=== PATIENT | male | born 1970 | race Caucasian/White ===

== ENCOUNTER → 2019-11-20 12:39 | Outpatient (POV) | payer BC, SELFPAY ==
[2019-11-20 13:12] VITALS: BP 135/95; PULSE 114; RESP 18; TEMP 36.8; O2SAT 99; BMI 44.1
--- NOTE | 2019-11-21 16:20 | HMH.PMCON ---
Assessment and Plan (1) Back pain Current visit: Yes Status: Chronic Qualifiers: Back pain location: low back pain Chronicity: chronic Back pain laterality: bilateral Category: Medical Code(s): M54.9 - Dorsalgia, unspecified - Assessment and plan all Dx Assessment and Plan for all problems:: We will schedule the patient for an MRI to help determine pathology and a plan of care for the patient. I will follow-up with him after this reassess his symptoms at that time he has been instructed to call the office if he has any issues prior to his next appointment. Dr. George has reviewed this note and agrees with this plan of care. This note was dictated using voice recognition software and may contain errors or omissions HPI - Data of Consult Consult date: 11/20/19 Requesting Physician: Shelley Kumar APRN Primary Care Provider: Carlo Rm MD - Consult Narrative Reason for consult: back pain History of present illness: Mr. Ackerman is a 49 year old male who presents today for consultation in regards to his low back pain. Patient states he has had back pain since . He says he was seen by chiropractor and then referred to a neurosurgeon who said he had 3 herniated disks. Patient has not had any recent MRIs. Patient states he has leg weakness standing and walking. Patient states he has low back pain which increases with lying flat and standing for long periods. He is on [place] Tylenol and muscle relaxers. Patient has not recently seen a surgeon. He states that his primary care physician said he has spinal stenosis and probably needs surgery. However again there is no updated imaging for this patient. Patient is also utilizing Aleve and Tylenol. CC: Shelley Kumar APRN [facility] History I have reviewed the patient's past medical history: Yes Medical History: Reports:: Hypertension Denies:: Cancer, Diabetes Mellitus Type 1, Diabetes Mellitus Type 2, MRSA *Have you ever received a pneumonia vaccine?: Yes *Have you received a flu vaccine this season?: Yes Other Medical History: Reports: Arthritis Laterality Cases: Bilateral: Total Knee Replacement Other Surgeries: Yes: Hernia Repair Amputation: No Fractures: No - *Social History Smoking Status: Never smoker Alcohol Intake: never *Occupational Status:: other Housing: house Household Members: other *Travel in the last 8 weeks: None Family Hx:: Unable to obtain Review of Systems - Review of Systems ROS General: no recent weight change, no fever, no sleep disturbances Respiratory: no cough, no shortness of air, no recurring pulmonary infections Cardiovascular/Peripheral Vascular: No chest pain, No palpitations, no edema, no shortness of breath. Gastrointestinal: no new onset incontinence, normal bowel movements reported Genitourinary: no new onset incontinence Musculoskeletal: Back pain, leg pain Psychiatric: normal mood/ affect,, Neurological: Weakness bilateral lower extremities when standing, [denies new onset balance issues] Objective Vital signs: Temp Pulse Resp BP Pulse Ox 98.2 F 114 H 18 135/95 H 99 11/20/19 13:12 11/20/19 13:12 11/20/19 13:12 11/20/19 13:12 11/20/19 13:12 Narrative: Physical Exam General: Alert and oriented x3, no acute distress, pleasant and cooperative, [on room air] Lungs: Resps E/U, Symmetrical chest expansion, Eyes: PERRL Musculoskeletal: Flexion and extension of lumbar spine somewhat guarded secondary to pain, deep tendon reflexes normal, strength in upper and lower extremities [5/5], [abnormal gait noted] Neurological: speech clear, audiovisual tech equal, no gross sensory deficits Opioid Risk Tool - Opioid Risk Tool-Male Family hx alcohol abuse: N Family hx illegal drugs: N Family hx rx drug abuse: N Personal hx alcohol abuse: N Personal hx illegal drugs: N Personal hx rx drug abuse: N Age: 45+ Hx of sexual abuse: N Mental health issues-ADD,OCD,Bipolar, etc: N Hx of
== END ==
PROVIDERS: PCP Family Medicine; Visit Provider Clinical Nurse Specialist Family Health
DX: M54.9 Dorsalgia, unspecified (principal); G89.29 Other chronic pain
CPT/HCPCS: 99202

== ENCOUNTER → 2019-12-18 13:45 | Outpatient (POV) | payer BC, SELFPAY ==
[2019-12-18 14:08] VITALS: BP 130/77; PULSE 103; RESP 18; O2SAT 98; BMI 44.1
--- NOTE | 2019-12-18 16:45 | P.CONS_ITS ---
[facility] Pain Management SOAP Note Subjective:: Patient is a pleasant 49-year-old white male who presents today for follow-up after recent MRI. He has had low back pain since 89 however it is continually getting worse. Patient's been seen by chiropractor and has not been getting any results. Patient has leg weakness with standing and walking he is much better when he is sitting or leaning forward. He is on [place] and muscle relaxers and gabapentin. Patient had an updated MRI showing moderate to severe spinal stenosis throughout the lumbar spine. Patient and I talked about a bur to flex procedure. He is interested in pursuing this. I also discussed starting with an epidural injection which I do believe would be the most beneficial. He rates his pain a 3 out of 10. This is because he is sitting. When he is walking or standing it raises 10 8 out of 10. Patient is not on any anticoagulation therapy. He is currently on gabapentin 40 mg 1 p.o. twice daily from his primary care physician. We discussed increasing this to 3 times a day during this time of increased pain. ROS General: no recent weight change, no fever, no sleep disturbances Respiratory: no cough, no shortness of air, no recurring pulmonary infections Cardiovascular/Peripheral Vascular: No chest pain, No palpitations, no edema, no shortness of breath. Gastrointestinal: no new onset incontinence, normal bowel movements reported Genitourinary: no new onset incontinence Musculoskeletal: Back pain, leg pain Psychiatric: normal mood/ affect Neurological: Weakness when standing and walking in bilateral lower extremities, [denies new onset balance issues] Objective:: Physical Exam General: Alert and oriented x3, no acute distress, pleasant and cooperative, [on room air] Lungs: Resps E/U, Symmetrical chest expansion, Eyes: PERRL Musculoskeletal: Flexion and extension of lumbar spine somewhat guarded secondary to pain, deep tendon reflexes normal, strength in upper and lower extremities [5/5], [abnormal gait noted] Neurological: speech clear, manager ccu equal, no gross sensory deficits Assessment:: spinal stenosis with neurogenic claudication, degenerative disc disease lumbar spine Plan:: We will set the patient up for an epidural steroid injection to see if this is beneficial. However I did give him information in regards to avert a flex procedure and discussed this with him. It may be beneficial for him in the future given the severity of his spinal stenosis and his symptomology. I will follow-up with him after this reassess his symptoms at that time he has been instructed to call the office if he has any issues prior to his next appointment. He is not on any anticoagulation therapy. Dr. George has reviewed this note and agrees with this plan of care. This note was dictated using voice recognition software and may contain errors or omissions [facility] History I have reviewed the patient's past medical history: Yes Medical History: Reports:: Hypertension Denies:: Cancer, Diabetes Mellitus Type 1, Diabetes Mellitus Type 2, MRSA *Have you ever received a pneumonia vaccine?: Yes *Have you received a flu vaccine this season?: Yes Other Medical History: Reports: Arthritis Other Surgeries: Yes: Hernia Repair Amputation: No Fractures: No - *Social History Smoking Status: Never smoker Alcohol Intake: never *Occupational Status:: other Housing: house Household Members: other *Travel in the last 8 weeks: None Family Hx:: Unable to obtain
== END ==
PROVIDERS: PCP Family Medicine; Visit Provider Clinical Nurse Specialist Family Health
DX: M48.062 Spinal stenosis, lumbar region with neurogenic claudication (principal); M51.36 Other intervertebral disc degeneration, lumbar region
CPT/HCPCS: 99212

== ENCOUNTER 2020-01-05 09:38 | Day surgery (SDC) | payer BC, SELFPAY ==
--- NOTE | 2020-01-05 09:52 | PC.NURSE ---
Pt cancelled D/T being treated with Antibiotics for a draining cyst on back. Will plan for procedure in 2 weeks.
== END 2020-01-05 09:59 | disposition home or self-care (01) ==
LOC: SC.PAINP 09:39
PROVIDERS: PCP Family Medicine; Visit Provider Anesthesiology
DX: Z53.09 Procedure and treatment not carried out because of other contraindication (principal); M48.062 Spinal stenosis, lumbar region with neurogenic claudication
CPT/HCPCS: 62323

== ENCOUNTER 2020-01-19 08:37 | Day surgery (SDC) | payer BC, SELFPAY ==
[2020-01-19 08:52] VITALS: BP 161/95; PULSE 95; RESP 18; TEMP 36.8; O2SAT 97; BMI 45.6
[2020-01-19 09:15] VITALS: BP 158/88; PULSE 88; RESP 18; O2SAT 98
[2020-01-19 09:16] VITALS: BP 158/88; PULSE 85; RESP 18; O2SAT 98
--- NOTE | 2020-01-19 09:17 | P.PCN_ITS ---
- Procedure Date: 01/19/20 Time: 09:18 Anesthesiologist:: Christofer George MD Complications:: None Pre-procedure Diagnosis:: Degenerative disc disease of lumbar spine with lumbar radiculopathy symptoms and spinal stenosis Post-procedure Diagnosis:: Same Indications for Procedure:: This patient is a pleasant 49-year-old white male who we have been treating for low back pain with lumbar radicular symptoms and spinal stenosis. Patient does have increasing pain with some weakness in his legs after standing and walking for long periods of time. He does get better with leaning forward. We will do a lumbar pleural steroid injection today to see if this helps him with his pain symptoms. He does have significant neurogenic claudication symptoms. We have talked to him about the superion vertiflex implant. I believe he would benefit from this long-term. He has not had a epidural steroid injections. Prior to this we will do series of lumbar epidural steroid injections and reassess his symptomology prior to any implant. Procedure Details:: Lumbar epidural steroid injection under fluoroscopy Informed consent was obtained and the risk and benefits of the procedure was explained to the patient. The patient was taken to the procedure room. The patient was placed prone on the procedure table. The patient was prepped and draped in sterile fashion. C-arm fluoroscopy was used to view the lumbar spine. Skin and subcutaneous tissues were anesthetized using lidocaine. I placed an 18-gauge epidural needle and advanced into the L4-L5 interspace using fl uoroscopic guidance and [id number] to air. After confirmation of needle placement in the epidural space with dye I injected 2 mL of lidocaine 1.5% with Depo-Medrol 80 mg. Patient tolerated the procedure well with no complications. Plan and Disposition:: We will follow-up with him in 2 weeks. Will reevaluate his symptoms and plan on repeat lumbar pleural steroid injection at that time if needed.
[2020-01-19 09:26] VITALS: BP 160/96; PULSE 90; RESP 20; O2SAT 98
== END 2020-01-19 09:27 | disposition home or self-care (01) ==
LOC: SC.PAINP 08:38
PROVIDERS: PCP Family Medicine; Visit Provider Anesthesiology
DX: M51.16 Intervertebral disc disorders with radiculopathy, lumbar region (principal); M48.00 Spinal stenosis, site unspecified; I10 Essential (primary) hypertension; E78.5 Hyperlipidemia, unspecified; Z88.1 Allergy status to other antibiotic agents; Z79.899 Other long term (current) drug therapy
CPT/HCPCS: 62323; J1040; Q9966

== ENCOUNTER 2020-02-02 10:44 | Day surgery (SDC) | payer BC, SELFPAY ==
[2020-02-02 11:01] VITALS: BP 150/87; PULSE 96; RESP 18; TEMP 36.4; O2SAT 98; BMI 45.6
[2020-02-02 12:57] VITALS: BP 142/78; PULSE 78; RESP 18
[2020-02-02 12:58] VITALS: BP 140/79; PULSE 85; RESP 18; O2SAT 99
--- NOTE | 2020-02-02 13:00 | HMH.PMPROC ---
- Procedure Date: 02/02/20 Time: 13:00 Anesthesiologist:: Christofer George MD Complications:: None Pre-procedure Diagnosis:: Degenerative disc disease of lumbar spine with lumbar radiculopathy symptoms and spinal stenosis with neurogenic claudication Post-procedure Diagnosis:: Same Indications for Procedure:: Patient is a pleasant 49-year-old white male who been treating for low back pain with lumbar radiculopathy symptoms spinal stenosis with neurogenic claudication. He was doing very well after his first lumbar epidural steroid injection. His pain is now starting to return. He was 70 to 80% better. We will do repeat lumbar pleural steroid injection under fluoroscopy today. Procedure Details:: Lumbar epidural steroid injection under fluoroscopy Informed consent was obtained and the risk and benefits of the procedure was explained to the patient. The patient was taken to the procedure room. The patient was placed prone on the procedure table. The patient was prepped and draped in sterile fashion. C-arm fluoroscopy was used to view the lumbar spine. Skin and subcutaneous tissues were anesthetized using lidocaine. I placed an 18-gauge epidural needle and advanced into the L4-L5 interspace using fluoroscopic guidance and [id number] to air. After confirmation of needle placement in the epidural space with dye I injected 2 mL of lidocaine 1.5% with Depo-Medrol 80 mg. Patient tolerated the procedure well with no complications. Plan and Disposition:: We will follow-up with him in 1 week. We will reevaluate his symptoms we will plan on a repeat lumbar epidural steroid injection at that time if needed.
[2020-02-02 13:05] VITALS: BP 157/86; PULSE 89; RESP 18; O2SAT 98
== END 2020-02-02 13:05 | disposition home or self-care (01) ==
LOC: SC.PAINP 10:48
PROVIDERS: PCP Family Medicine; Visit Provider Anesthesiology
DX: M51.16 Intervertebral disc disorders with radiculopathy, lumbar region (principal); M48.062 Spinal stenosis, lumbar region with neurogenic claudication; I10 Essential (primary) hypertension; K58.9 Irritable bowel syndrome, unspecified; Z88.1 Allergy status to other antibiotic agents; Z79.899 Other long term (current) drug therapy
CPT/HCPCS: 62323; J1040; Q9966

== ENCOUNTER → 2020-02-15 13:10 | Outpatient (POV) | payer BC, SELFPAY ==
[2020-02-15 13:55] VITALS: BP 142/82; PULSE 78; RESP 18; O2SAT 98; BMI 45.6
--- NOTE | 2020-02-15 14:13 | XR_ITS ---
PROCEDURE: XR LUMBAR SPINE MIN 4V CLINICAL INDICATION: BACK PAIN Chronic back pain COMPARISON: No exams were available for comparison FINDINGS: Multilevel lumbar spondylosis is present with degenerative disc disease from T12-S1. Prominent osteophytes are present at T12-L1 L2 and L3 with lateral osteophytes on the left at L4-5. There is some sclerosis of the vertebral bodies. There is wedge contour deformity of T11-L2. Flexion and extension views are obtained showing no obvious abnormal subluxation in flexion or extension. The study is limited technically due to patient's inability to stand with images performed with patient seating. There is multilevel degenerative disc disease with anterior osteophytes in the lower thoracic spine. There is kyphosis of the thoracolumbar junction. IMPRESSION: 1. Multilevel thoracic and lumbar spondylosis with kyphosis of the thoracolumbar junction. No evidence of abnormal subluxation in flexion or extension. 2. There is wedging of T11-L2 which may be chronic. Dictated by: Jose Mohamud MD 02/16/2020 07:58 Jose Mohamud MD in [place] 02/16/2020 07:58
--- NOTE | 2020-02-15 15:47 | P.CONS_ITS ---
[facility] Pain Management SOAP Note Subjective:: Patient is a pleasant 49-year-old white who presents today for follow-up after his second lumbar epidural steroid injection. He got 80% relief of his symptomology. He rates his pain a 2 out of 10. He still interested in getting a superior line for to flex implant he does believe that this would help him return to work. Patient's pain is mainly when he is standing and walking. It is alleviated when he bends forward. Patient has had back pain for many years however in the recent time he is made it to the emergency room secondary to back pain and since then has had quite a bit of issues in regards to activities. He is not on any anticoagulation therapy. ROS General: no recent weight change, no fever, no sleep disturbances Respiratory: no cough, no shortness of air, no recurring pulmonary infections Cardiovascular/Peripheral Vascular: No chest pain, No palpitations, no edema, no shortness of breath. Gastrointestinal: no new onset incontinence, normal bowel movements reported Genitourinary: no new onset incontinence Musculoskeletal: Back pain, leg pain Psychiatric: normal mood/ affect, Neurological: Bilateral lower extremity weakness when walking and standing, [denies new onset balance issues] Objective:: Physical Exam General: Alert and oriented x3, no acute distress, pleasant and cooperative, [on room air] Lungs: Resps E/U, Symmetrical chest expansion, Eyes: PERRL Musculoskeletal: Flexion and extension of lumbar spine somewhat guarded secondary to pain, deep tendon reflexes normal, strength in upper and lower extremities [5/5], antalgic gait noted Neurological: speech clear, tin pot operator equal, no gross sensory deficits Assessment:: deGenerative disc disease lumbar spine lumbar radiculopathy symptoms and spinal stenosis with neurogenic claudication Plan:: We will send the patient for flexion and extension x-rays to determine if he is a candidate for a superion implant. We will set him up for his third and final lumbar epidural steroid injection in his series of 3. We will review his x-rays at this visit. He is not on any anticoagulation therapy. I will follow-up with him after this injection reassess his symptoms at that time he has been instructed to call the office if he has any issues prior to his next appointment. Dr. George has reviewed this note and agrees with this plan of care. This note was dictated using voice recognition software and may contain errors or omissions [facility] History I have reviewed the patient's past medical history: Yes Medical History: Reports:: Hyperlipidemia, Hypertension Denies:: Cancer, Diabetes Mellitus Type 1, Diabetes Mellitus Type 2, MRSA, Seizures *Have you ever received a pneumonia vaccine?: No *Have you received a flu vaccine this season?: No Other Medical History: Reports: Arthritis, Hormone Therapy Other Surgeries: Yes: Hernia Repair Amputation: No Fractures: No - *Social History Smoking Status: Never smoker Alcohol Intake: never Alcohol Intake Frequency:: holidays/special occasions only *Occupational Status:: other Housing: house Household Members: other *Travel in the last 8 weeks: None Family Hx:: Unable to obtain
== END ==
PROVIDERS: PCP Family Medicine; Visit Provider Clinical Nurse Specialist Family Health
DX: M51.16 Intervertebral disc disorders with radiculopathy, lumbar region (principal); M48.062 Spinal stenosis, lumbar region with neurogenic claudication; M54.9 Dorsalgia, unspecified
CPT/HCPCS: 72110; 99212

== ENCOUNTER → 2020-03-01 09:31 | Day surgery (SDC) | payer BC, SELFPAY ==
[2020-03-01 10:02] VITALS: BP 150/96; BP 151/90; PULSE 85; PULSE 86; RESP 18; TEMP 36.7; O2SAT 100; BMI 45.6
[2020-03-01 10:59] VITALS: BP 148/78; PULSE 85; RESP 18
[2020-03-01 11:00] VITALS: BP 174/77; PULSE 84; RESP 20; O2SAT 98
--- NOTE | 2020-03-01 11:04 | HMH.PMPROC ---
- Procedure Date: 03/01/20 Time: 11:04 Anesthesiologist:: Christofer George MD Complications:: None Pre-procedure Diagnosis:: Degenerative disc disease of lumbar spine with lumbar radiculopathy symptoms and lumbar spinal stenosis with neurogenic claudication symptoms Post-procedure Diagnosis:: Same Indications for Procedure:: This patient is a pleasant 49-year-old white male who we are treating for low back pain with lumbar radiculopathy symptoms and lumbar spinal stenosis. He got 70 to 80% relief after his last lumbar epidural steroid injection however this only lasted 3 weeks. His pain is now starting come back. Pain again is worse while standing and walking. He does get some relief with leaning forward. I did review his MRI which shows severe spinal stenosis at L2-L3 and moderate to severe spinal stenosis at L3-L4 and moderate to severe spinal stenosis at L4-L5. I believe he would benefit from superion vertiflex implant at L3-L4 and L4-L5. I did review his flexion-extension films and AP of the lumbar spine and he is an appropriate candidate for these implants. We will seek approval for superion Vertiflex at L3-L4 and L4-L5. Procedure Details:: Informed consent was obtained and the risk and benefits of the procedure was explained to the patient. The patient was taken to the procedure room. The patient was placed prone on the procedure table. The patient was prepped and draped in sterile fashion. C-arm fluoroscopy was used to view the lumbar spine. Skin and subcutaneous tissues were anesthetized using lidocaine. I placed an 18-gauge epidural needle and advanced into the L4-L5 interspace using fluoroscopic guidance and [id number] to air. After confirmation of needle placement in the epidural space with dye I injected 2 mL of lidocaine 1.5% with Depo-Medrol 80 mg. Patient tolerated the procedure well with no complications. Plan and Disposition:: I believe he would benefit from superion vertiflex implant at L3-L4 and L4-L5. I did review his flexion-extension films and AP of the lumbar spine and he is an appropriate candidate for these implants. We will seek approval for superion Vertiflex at L3-L4 and L4-L5.
== END ==
PROVIDERS: PCP Family Medicine; Visit Provider Anesthesiology
DX: M48.062 Spinal stenosis, lumbar region with neurogenic claudication (principal); M51.16 Intervertebral disc disorders with radiculopathy, lumbar region; K21.9 Gastro-esophageal reflux disease without esophagitis; I10 Essential (primary) hypertension; E66.9 Obesity, unspecified; Z68.42 Body mass index [BMI] 45.0-49.9, adult; Z96.659 Presence of unspecified artificial knee joint; Z87.19 Personal history of other diseases of the digestive system; Z88.1 Allergy status to other antibiotic agents
CPT/HCPCS: 62323; J1040; Q9966

== ENCOUNTER → 2020-03-25 09:33 | Outpatient (POV) | payer BC, SELFPAY ==
--- NOTE | 2020-03-25 10:43 | HMH.PAINSOAP ---
[facility] Pain Management SOAP Note Subjective:: Patient is a 49-year-old white male who presents today for follow-up. He has been treated for chronic low back pain with lumbar radiculopathy symptoms as well as lumbar spinal stenosis with neurogenic claudication symptoms. Patient has had a total of 3 lumbar epidural steroid injections for which he does get approximately 4 weeks of relief, but his pain does return. Patient was scheduled for a vert a flex procedure L3-L4 and L4-L5, but was denied by his insurance company. According to his insurance company, this is a procedure that is not medically necessary. The patient says he is unfortunately taking both ibuprofen and Aleve as well as a muscle relaxer and gabapentin for pain relief. Patient says he is continuing to have pain. The patient has been off work since October 2019 and does desire to return to work. Patient has not been considered a surgical candidate from a neurosurgical standpoint. Unfortunately, he was also not considered an appropriate candidate for vert a flex per his insurance company. Patient is continuing to have significant pain into his low back and bilateral lower extremities. Patient says that he is unable to stand the pain at this point. He would like to proceed with 1 more lumbar epidural steroid injection and since he is not approved by his insurance for vert a flex, he would like to consider a possible spinal cord stimulator. Patient says I will do whatever it takes to get some relief . He rates his pain a 9 out of 10 today. Patient has tried physical therapy in the past for greater than 6 weeks. He continues with a home stretching program. He is currently attempting to lose weight. He is also using ice and heat therapies. Patient has been taking both ibuprofen and Aleve. Review of Systems General: No recent weight changes, no fever, no sleep disturbances Respiratory: No cough, no shortness of air, no recurring pulmonary infections Cardiovascular/peripheral vascular: No chest pain, no palpitations, no edema, no shortness of breath Gastrointestinal: No new onset incontinence, normal bowel movements reported Genitourinary: No new onset incontinence Musculoskeletal: Low back pain, bilateral lower extremity pain Psychiatric: Normal mood/affect Neurological: [Denies weakness in extremities], [denies balance issues] Objective:: Physical exam General: Alert and oriented x3, no acute distress, pleasant and cooperative, [on room air] Lungs: Respirations even and unlabored, symmetrical chest expansion Eyes: PERRL Musculoskeletal: Flexion and extension of lumbar spine somewhat guarded secondary to pain, deep tendon reflexes normal, strength in upper and lower extremities [5/5], [abnormal gait noted] Neurological: Speech clear, sales promotion coordinator equal, no gross sensory deficit Assessment:: Degenerative disc disease lumbar spine with lumbar radiculopathy symptoms, spinal stenosis with neurogenic claudication symptoms Plan:: Unfortunately, he was not approved by his insurance company for vert a flex procedure. While I do think this would be beneficial for the patient, he was denied. He and I had a long discussion concerning taking more than 1 anti-inflammatory. I have advised the patient to stop taking all [id number] anti-inflammatories. We will start him on diclofenac 75 mg 1 tablet p.o. twice daily. Patient would like to proceed with 1 more lumbar epidural steroid injection at L4-L5. Patient is not on any anticoagulation therapy. He will continue with his muscle relaxer and gabapentin. If the patient is not approved for the vert a flex, at this point, we will need to proceed with possible spinal cord stimulator versus intrathecal therapy. We will send him for psychological evaluation for possible implanted device. We will see him back in the clinic after his injection and after a psychological evaluation to discuss a further plan of care. Patient has been instruc
[2020-03-25 11:07] VITALS: BP 148/75; PULSE 85; RESP 18; O2SAT 98; BMI 45.9
== END ==
PROVIDERS: PCP Family Medicine; Visit Provider Clinical Nurse Specialist Family Health
DX: M51.16 Intervertebral disc disorders with radiculopathy, lumbar region (principal); M48.062 Spinal stenosis, lumbar region with neurogenic claudication
CPT/HCPCS: 99212

== ENCOUNTER 2020-04-05 11:16 | Day surgery (SDC) | payer BC, SELFPAY ==
[2020-04-05 11:41] VITALS: BP 150/88; PULSE 97; RESP 18; TEMP 36.7; O2SAT 98; BMI 100.5
--- NOTE | 2020-04-05 11:52 | HMH.PMPROC ---
- Procedure Date: 04/05/20 Time: 11:52 Anesthesiologist:: Christofer George MD Complications:: None Pre-procedure Diagnosis:: Degenerative disc disease of lumbar spine with lumbar radiculopathy symptoms and spinal stenosis with neurogenic claudication symptoms Post-procedure Diagnosis:: Same Indications for Procedure:: This patient is a pleasant 49-year-old white male who we are treating for low back pain with lumbar radiculopathy symptoms and spinal stenosis with neurogenic claudication symptoms. He does get temporary relief with lumbar pleural steroid injections he was not approved by his insurance for any procedures to help with lumbar spinal stenosis including implant of superion vertiflex. We will do repeat lumbar epidural steroid injection today and assess him for possible spinal cord stimulator trial. He may be a good candidate for spinal cord ambulation to help with his pain symptoms to give him more permanent relief of his symptoms. Procedure Details:: Lumbar epidural steroid injection under fluoroscopy Informed consent was obtained and the risk and benefits of the procedure was explained to the patient. The patient was taken to the procedure room. The patient was placed prone on the procedure table. The patient was prepped and draped in sterile fashion. C-arm fluoroscopy was used to view the lumbar spine. Skin and subcutaneous tissues were anesthetized using lidocaine. I placed an 18-gauge epidural needle and advanced into the L4-L5 interspace using fluoroscopic guidance and [id number] to air. After confirmation of needle placement in the epidural space with dye I injected 2 mL of lidocaine 1.5% with Depo-Medrol 80 mg. Patient tolerated the procedure well with no complications. Plan and Disposition:: We will follow-up with him in 2 weeks. Will reevaluate symptoms at that time. I will give him information on the [employer] spinal cord stimulator system. I do believe he would be a good candidate for spinal cord stimulation. We will go ahead and seek approval for spinal cord stimulator trial to help with his low back pain and lumbar radicular symptoms with neurogenic claudication symptoms.
[2020-04-05 11:55] VITALS: BP 158/74; PULSE 79; RESP 18; O2SAT 98
[2020-04-05 11:57] VITALS: BP 158/88; PULSE 85; RESP 18; O2SAT 99
[2020-04-05 12:11] VITALS: BP 152/85; PULSE 97; RESP 20; O2SAT 98
== END 2020-04-05 12:12 | disposition home or self-care (01) ==
LOC: SC.PAINP 11:17
PROVIDERS: PCP Family Medicine; Visit Provider Anesthesiology
DX: M48.062 Spinal stenosis, lumbar region with neurogenic claudication (principal); M51.16 Intervertebral disc disorders with radiculopathy, lumbar region; I10 Essential (primary) hypertension; E66.9 Obesity, unspecified; Z68.45 Body mass index [BMI] 70 or greater, adult; K21.9 Gastro-esophageal reflux disease without esophagitis; K58.9 Irritable bowel syndrome, unspecified; Z88.1 Allergy status to other antibiotic agents; Z96.659 Presence of unspecified artificial knee joint; Z79.899 Other long term (current) drug therapy
CPT/HCPCS: 62323; J1040; Q9966

== ENCOUNTER → 2020-05-02 12:48 | Outpatient (POV) | payer BC, SELFPAY ==
[2020-05-02 13:06] VITALS: BP 164/99; PULSE 105; RESP 18; TEMP 37.2; O2SAT 97; BMI 47.1
--- NOTE | 2020-05-05 13:38 | P.CONS_ITS ---
[facility] Pain Management SOAP Note Subjective:: Patient is a pleasant 49-year-old white male who presents today for follow-up after lumbar vertebral steroid injection. Patient has recently been denied a neurostimulator trial. He was also denied a Vertiflex. Patient's pain is in his back bilateral legs. He has numbness tingling in his bilateral legs along with intermittent swelling and color changes and temperature changes. Patient rates his pain a 5 out of 10. He has become much less active. Patient would like to go back to work as before. Patient has had surgery on his bilateral knees. He still has some pain from this along with color changes, temperature changes, swelling. Patient gets some relief from his injection however it is not long-lasting. Patient states that his pain has begun to affect his activities of daily living and his sleep pattern. ROS General: no recent weight change, no fever, no sleep disturbances Respiratory: no cough, no shortness of air, no recurring pulmonary infections Cardiovascular/Peripheral Vascular: No chest pain, No palpitations, no edema, no shortness of breath. Gastrointestinal: no new onset incontinence, normal bowel movements reported Genitourinary: no new onset incontinence Musculoskeletal: Back pain, leg pain Psychiatric: normal mood/ affect, Neurological: Numbness and tingling of bilateral lower extremities, color changes temperature changes and swelling bilateral lower extremities, [denies new onset balance issues] Objective:: Physical Exam General: Alert and oriented x3, no acute distress, pleasant and cooperative, [on room air] Lungs: Resps E/U, Symmetrical chest expansion, Eyes: PERRL Musculoskeletal: Flexion and extension of lumbar spine somewhat guarded secondary to pain, deep tendon reflexes normal, strength in upper and lower extremities [5/5], [abnormal gait noted] Neurological: speech clear, line cook equal, no gross sensory deficits Assessment:: Degenerative disc disease lumbar spine lumbar radiculopathy symptoms, spinal stenosis with neurogenic claudication symptoms, CRPS type II Plan:: We will continue to move forward with spinal cord stimulation trial. We are looking for more permanent way to give the patient relief. Patient has failed over 6 months of treatment with medications and injective therapy. I will follow-up with him at his next appointment reassess his symptoms at that time he has been instructed to call the office if he has any issues prior to his next appointment. Dr. George has reviewed this note and agrees with this plan of care. This note was dictated using voice recognition software and may contain errors or omissions [facility] History I have reviewed the patient's past medical history: Yes Medical History: Reports:: Hyperlipidemia, Hypertension Denies:: Cancer, Diabetes Mellitus Type 1, Diabetes Mellitus Type 2, MRSA, Seizures *Have you ever received a pneumonia vaccine?: No *Have you received a flu vaccine this season?: Yes Other Medical History: Reports: Arthritis, Hormone Therapy. Denies: Blood Transfusion Reaction Other Surgeries: Yes: Hernia Repair Amputation: No Fractures: No - *Social History Smoking Status: Never smoker Alcohol Intake: never Alcohol Intake Frequency:: holidays/special occasions only Substance Use Type: denies use *Occupational Status:: employed Housing: house Household Members: spouse *Travel in the last 8 weeks: None Family Hx:: Unable to obtain
== END ==
PROVIDERS: PCP Family Medicine; Visit Provider Clinical Nurse Specialist Family Health
DX: M51.16 Intervertebral disc disorders with radiculopathy, lumbar region (principal); M48.062 Spinal stenosis, lumbar region with neurogenic claudication
CPT/HCPCS: 99212

== ENCOUNTER → 2020-05-13 09:21 | Outpatient (POV) | payer BC, SELFPAY ==
[2020-05-13 09:42] VITALS: BP 143/81; PULSE 101; RESP 18; TEMP 36.8; O2SAT 98; BMI 47.1
--- NOTE | 2020-05-13 09:56 | HMH.PAINSOAP ---
[facility] Pain Management SOAP Note Subjective:: Patient is pleasant 49-year-old white male who presents today for follow-up. Patient has had 3 epidural steroid injections where he got short-term relief. Patient has spinal stenosis. He rates his pain today a 2 out of 10 when he is sitting. He gets up to 9 out of 10 when he is walking. Patient has been denied for any kind of intervention to help with his pain. Patient and I discussed the surgical consultation he is in agreement. Patient does have a recent MRI. ROS General: no recent weight change, no fever, no sleep disturbances Respiratory: no cough, no shortness of air, no recurring pulmonary infections Cardiovascular/Peripheral Vascular: No chest pain, No palpitations, no edema, no shortness of breath. Gastrointestinal: no new onset incontinence, normal bowel movements reported Genitourinary: no new onset incontinence Musculoskeletal: Back pain, leg pain Psychiatric: normal mood/ affect Neurological: weakness with standing and walking, [denies new onset balance issues] Objective:: Physical Exam General: Alert and oriented x3, no acute distress, pleasant and cooperative, [on room air] Lungs: Resps E/U, Symmetrical chest expansion, Eyes: PERRL Musculoskeletal: Flexion and extension of lumbar spine somewhat guarded secondary to pain, deep tendon reflexes normal, strength in upper and lower extremities [5/5], [abnormal gait noted] Neurological: speech clear, early education teacher 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 Lamont Silva in [place]. Patient does have a recent MRI. Patient and I also discussed physical therapy and weight loss. We will follow-up with the patient after his surgical consultation he has been instructed to call the office if he has any issues. Dr. George has reviewed this note and agrees with this plan of care. This note was dictated using voice recognition software and may contain errors or omissions [facility] History I have reviewed the patient's past medical history: Yes Medical History: Reports:: Hyperlipidemia, Hypertension Denies:: Cancer, Diabetes Mellitus Type 1, Diabetes Mellitus Type 2, MRSA, Seizures *Have you ever received a pneumonia vaccine?: Yes *Have you received a flu vaccine this season?: Yes Other Medical History: Reports: Arthritis, Hormone Therapy. Denies: Blood Transfusion Reaction Other Surgeries: Yes: Hernia Repair Amputation: No Fractures: No - *Social History Smoking Status: Never smoker Alcohol Intake: never Alcohol Intake Frequency:: holidays/special occasions only Substance Use Type: denies use *Occupational Status:: other Housing: house Household Members: spouse *Travel in the last 8 weeks: None Family Hx:: Unable to obtain
== END ==
PROVIDERS: PCP Family Medicine; Visit Provider Clinical Nurse Specialist Family Health
DX: M51.16 Intervertebral disc disorders with radiculopathy, lumbar region (principal); M48.062 Spinal stenosis, lumbar region with neurogenic claudication
CPT/HCPCS: 99212

== ENCOUNTER → 2020-07-08 14:13 | Outpatient (CLI) | payer BC, SELFPAY ==
[2020-07-08 15:10] LABS: Basophils # 0.1 K/mm3 (0-0.2); Basophils % 0.5 % (0.1-2.0); Eosinophils # 0.2 K/mm3 (0.0-0.4); Eosinophils % 2.6 % (0.1-12.0); Hematocrit 47.3 % (42.0-52.0); Hemoglobin 15.8 g/dL (14.1-18.0); Lymphocytes # 1.6 K/mm3 (0.7-4.5); Lymphocytes % 18.8 % (10-50); Mean Corpuscular HGB Conc 33.3 g/dL (31.8-35.4); Mean Corpuscular Hemoglobin 29.8 pg (27.0-31.2); Mean Corpuscular Volume 89.4 fl (80-94); Mean Platelet Volume 9.9 fl (7.4-10.4); Monocytes # 0.4 K/mm3 (0.1-1.0); Monocytes % 4.9 % (1.7-9.3); Neutrophils # 6.4 K/mm3 (1.8-7.8); Neutrophils % 73.2 % (37.0-80.0); Platelet Count 183 K/mm3 (142-424); Red Blood Count 5.29 M/mm3 (4.60-6.20); Red Cell Distribution Width 15.4 % (11.5-17.5); White Blood Count 8.8 K/mm3 (4.8-10.8)
[2020-07-08 15:19] LABS: Alanine Aminotransferase 73 U/L (12-78); Albumin Level 4.2 g/dl (3.5-5.0); Albumin/Globulin Ratio 1.4 (1.1-1.8); Alkaline Phosphatase 76 U/L (38-126); Anion Gap 9.9 mEq/L (5-15); Aspartate Amino Transferase 47 U/L (17-59); Bilirubin,Total 0.7 mg/dl (0.2-1.3); Blood Urea Nitrogen 21 mg/dl (9-20); Calcium 9.8 mg/dl (8.4-10.2); Carbon Dioxide 33 mmol/L (22.0-30.0); Chloride 97 mmol/L (98-107); Chol/HDL Ratio 4.6 (1-3.5); Cholesterol 193 mg/dl (140-200); Estimated Glomerular Filt Rate 102 ml/min (>60); GFR (African American) 123 ML/MIN (>60); Globulin 3.1 g/dL (1.3-3.2); Glucose 125 mg/dl (74-100); HDL Cholesterol 42 mg/dl (40-60); Potassium 3.9 mmoL/L (3.5-5.1); Sodium 136 mmol/L (136-145); Total Protein,Serum 7.3 g/dl (6.3-8.2); Triglycerides 296 mg/dl (30-150); VLDL Cholesterol 59 mg/dL (0-40)
[2020-07-08 15:29] LABS: Direct LDL Cholesterol 97.11 mg/dL (100-129)
[2020-07-08 15:38] LABS: 25-OH Vitamin D, Total < 12.8 ng/mL (30-100)
[2020-07-08 15:52] LABS: Prostate Specific Ag Screen 0.9 ng/ml (0.0-4.0); Thyroid Stimulating Hormone 2.14 uIU/mL (0.465-4.68)
[2020-07-13 12:41] LABS: Testosterone, Total, LC/MS 389.7 ng/dL (264.0-916.0); Testosterone,Free 11.7 pg/mL (7.2-24.0)
== END ==
PROVIDERS: Visit Provider Family Medicine
DX: E34.9 Endocrine disorder, unspecified (principal); E66.9 Obesity, unspecified; E55.9 Vitamin D deficiency, unspecified; E29.1 Testicular hypofunction
CPT/HCPCS: 80053; 80061; 82306; 83036; 84402; 84403; 84443; 85025; G0103

== ENCOUNTER 2020-08-23 17:03 | Emergency (ER) | payer BC, SELFPAY ==
[2020-08-23 17:09] VITALS: BP 129/83; PULSE 119; RESP 18; TEMP 36.6; O2SAT 96; BMI 50.1
--- NOTE | 2020-08-23 17:48 | PC.NURSE ---
contacted respiratory to see who is construction superintendent for CV lab for doppler, spoke with jorge, states she would find out and contact them
[2020-08-23 17:58] LABS: Basophils % 0.3 % (0.1-2.0); Eosinophils # 0.4 K/mm3 (0.0-0.4); Eosinophils % 3.8 % (0.1-12.0); Hematocrit 40.1 % (42.0-52.0); Hemoglobin 12.9 g/dL (14.1-18.0); Lymphocytes # 1.7 K/mm3 (0.7-4.5); Lymphocytes % 15.2 % (10-50); Mean Corpuscular HGB Conc 32.1 g/dL (31.8-35.4); Mean Corpuscular Volume 87.1 fl (80-94); Mean Platelet Volume 8.9 fl (7.4-10.4); Monocytes # 0.4 K/mm3 (0.1-1.0); Monocytes % 3.6 % (1.7-9.3); Neutrophils # 8.7 K/mm3 (1.8-7.8); Neutrophils % 77.2 % (37.0-80.0); Platelet Count 214 K/mm3 (142-424); Red Cell Distribution Width 16.3 % (11.5-17.5); White Blood Count 11.3 K/mm3 (4.8-10.8)
--- NOTE | 2020-08-23 18:02 | HMH.EDEXTP ---
ED Disposition Clinical Impression: Lower extremity edema, Muscular deconditioning Disposition: Home, Self-Care Condition on Discharge: Good Instructions: DI for Dependent Edema Prescriptions: Rivaroxaban [Xarelto 28-day Dose Pack] 1 tab PO UD DOSE PK #1 pack Transmission Status: Pending to [id number] Referrals: Carlo Rm MD [Primary Care Provider] - - Critical Care Critical Care Time: No Attestation: On 08/23/20, the high probability of a clinically significant, sudden or life threatening deterioration of the following system(s) required my full and direct attention, intervention and personal management. The time I documented below is in addition to time spent performing reported procedures but includes the following listed in this critical care notation. Medical Decision Making - Medical Records Medical records reviewed: Yes: I reviewed the patient's medical records. - Riaz Inquiry Pt receiving controlled substance: No Vital Signs: 08/23/20 17:09 08/23/20 18:04 08/23/20 18:34 Temperature 97.8 F Temperature Source Oral Pulse Rate [Right Radial] 119 H 114 H 110 H Respiratory Rate 18 20 18 Blood Pressure [Right Arm] 129/83 120/73 128/75 Blood Pressure Mean [Right Arm] 98 88 92 Blood Pressure Source [Right Arm] Automatic Cuff Blood Pressure Position [Right Arm] Sitting 02 Sat by Pulse Oximetry 96 94 L 96 Oxygen Delivery Method Room Air - Lab Data Lab Results 08/23/20 17:52: WBC 11.3 H, RBC 4.60, Hgb 12.9 L, Hct 40.1 L, MCV 87.1, MCH 28.0, MCHC 32.1, RDW 16.3, Plt Count 214, MPV 8.9, Neut % (Auto) 77.2, Lymph % (Auto) 15.2, [place] % (Auto) 3.6, Eos % (Auto) 3.8, Baso % (Auto) 0.3, Neut # (Auto) 8.7 H, Lymph # (Auto) 1.7, [place] # (Auto) 0.4, Eos # (Auto) 0.4, Baso # (Auto) 0.0 08/23/20 17:52: Sodium 136, Potassium 3.9, Chloride 102, Carbon Dioxide 25, Anion Gap 12.9, BUN 18, Creatinine 1.00, Estimated Creat Clear 84, Estimated GFR 78, Est GFR ( Amer) 95, Glucose 145 H, Calcium 9.7, Total Bilirubin 0.8, AST 41, ALT 62, Alkaline Phosphatase 139 H, Total Protein 7.9, Albumin 4.2, Globulin 3.7 H, Albumin/Globulin Ratio 1.1 08/23/20 17:52: NT-Pro-B Natriuret Pep 23.4 Result diagrams: 08/23/20 17:52 08/23/20 17:52 Orders (Tests/Meds): ORDERS Category Date Time Status CA venous doppler LE BI Stat Y 08/23/20 17:40 Ordered - Reevaluation(s) Time: 19:01 Reevaluation #1: Patient's laboratory work is unremarkable. At this time I do not currently have Doppler studies available. However I did arrange for outpatient Doppler at 9 AM tomorrow morning. I did notify the patient's PCP regarding this to follow-up on the results. The patient will be prophylactically started on anticoagulation. Patient was given strict return precautions. Verbalized understanding. Medical Decision Narrative: 50-year-old male presented to the emergency department with leg swelling. Concern for DVT versus dependent edema. Work-up initiated. Extremity Problem HPI - General Chief complaint: Extremity Problem,Nontraumatic Stated complaint: sent by Dr Rm,check for blood clots and potassiu Time Seen by Provider: 08/23/20 17:15 Mode of Arrival: Wheelchair Limitations: No Limitations Description of Symptoms (Recalled from ER Triage Doc. by RN): Pt reports he was sent to ER per PCP r/t LLE edema, c/o of MCKENNA and elevated BP. Pt had recent spinal fusion surgery. Pt reports hx of DVT with previous surgery. Pt has 2+ edema noted to LLE. - History of Present Illness HPI Narrative: 50-year-old male presented to the emergency department with lower extremity swelling. The patient did have a recent lumbar surgery for the last few weeks. He is recovering well. He went to see his primary care physician today because he has had some lower extremity swelling. The patient states that it has been bilaterally, however it appears that it is worse on the left side. He is complaining of some mild tend
[2020-08-23 18:04] VITALS: BP 120/73; PULSE 114; RESP 20; O2SAT 94
[2020-08-23 18:06] LABS: Alanine Aminotransferase 62 U/L (12-78); Albumin Level 4.2 g/dl (3.5-5.0); Albumin/Globulin Ratio 1.1 (1.1-1.8); Alkaline Phosphatase 139 U/L (38-126); Anion Gap 12.9 mEq/L (5-15); Aspartate Amino Transferase 41 U/L (17-59); Bilirubin,Total 0.8 mg/dl (0.2-1.3); Blood Urea Nitrogen 18 mg/dl (9-20); Calcium 9.7 mg/dl (8.4-10.2); Carbon Dioxide 25 mmol/L (22.0-30.0); Chloride 102 mmol/L (98-107); Creatinine Clearance Estimated 84 mL/min (50-200); Estimated Glomerular Filt Rate 78 ml/min (>60); GFR (African American) 95 ML/MIN (>60); Globulin 3.7 g/dL (1.3-3.2); Glucose 145 mg/dl (74-100); Potassium 3.9 mmoL/L (3.5-5.1); Sodium 136 mmol/L (136-145); Total Protein,Serum 7.9 g/dl (6.3-8.2)
[2020-08-23 18:15] LABS: NT Pro Brain Natriuretic Pep. 23.4 pg/mL (0-125)
--- NOTE | 2020-08-23 18:18 | PC.NURSE ---
contacted respiratory again to check on status of vp cardiovascular. States she had messaged them but no reply, states she will call them again and ask them to call us.
--- NOTE | 2020-08-23 18:33 | PC.NURSE ---
spoke with erica from vascular lab, states she is not color television console monitor until tomorrow morning for venous studies, states she can do pt doppler tomorrow morning. notified ER MD of the above, no new orders at this time. Will continue to monitor
[2020-08-23 18:34] VITALS: BP 128/75; PULSE 110; RESP 18; O2SAT 96
--- NOTE | 2020-08-23 18:59 | PC.NURSE ---
VAL CHAUDHARI spoke with Dr. Rm.
--- NOTE | 2020-08-23 18:59 | PC.NURSE ---
spoke with Adia in vascular lab, states she will be here to do venous doppler on pt at 9am tomorrow morning (wednesday08/24/20). pt is agreeable with this time. outpatient ordering being sent home with pt.
[2020-08-23 19:12] VITALS: BP 135/75; PULSE 108; RESP 18; TEMP 36.6; O2SAT 95
== END 2020-08-23 19:15 | disposition home or self-care (01) ==
PROVIDERS: Emergency Provider Emergency Medicine; PCP Family Medicine
DX: R60.0 Localized edema (principal); R29.898 Other symptoms and signs involving the musculoskeletal system; I10 Essential (primary) hypertension; E78.5 Hyperlipidemia, unspecified; R73.9 Hyperglycemia, unspecified; Z86.718 Personal history of other venous thrombosis and embolism
CPT/HCPCS: 80053; 83880; 85025; 99282

== ENCOUNTER → 2020-08-24 08:48 | Outpatient (CLI) | payer BC, SELFPAY ==
--- NOTE | 2020-08-24 08:56 | CA_ITS ---
APPROVED REPORT Bilateral Lower Extremity Venous Study for Gambling Monitor: FÉLIX Indications Lower Extremity Pain: Left Lower Extremity Edema: Left EDEMA,H/O DVT BACK SURGERY 3 WEEKS POST Risk Factors Post OP Vein Imaging CFV (L): Partially Compressible SFJ (L): Partially Compressible FEM (L): Partially Compressible POP (L): Partially Compressible PTV (L): Compressible GSV (L): Partially Compressible Peroneals (L):Not Visualized GAS (L): Compressible Findings DVT is visualized in the COMMON FEMORAL VEIN,FEMORAL VEIN AND POPLITEAL VEIN vein of the left lower extremity. There is also an SVT noted in the greater saphenous johnnie above the knee. Dr. Arceo notified of results. Conclusion DVT is visualized in the COMMON FEMORAL VEIN,FEMORAL VEIN AND POPLITEAL VEIN vein of the left lower extremity. There is also an SVT noted in the greater saphenous vein above the knee. Dr. Arceo notified of results. Electronically signed by : Jose Mohamud MD 08/26/2020 14:51:24
--- NOTE | 2020-08-24 10:39 | HMH.PHAINT ---
DISCHARGE EDUCATION PROVIDED TO PATIENT AT DR MAYES'S REQUEST. PATIENT RECEIVED XARELTO 15 MG SAMPLES (FROM DR HALL'S OFFICE) FOR DVT TREATMENT. COUNSELED PATIENT ON DOSE, ADMINISTRATION, DRUG INTERACTIONS, AND SIDE EFFECTS. PATIENT VERBALIZED UNDERSTANDING AND DID NOT HAVE ANY QUESTIONS.
== END ==
PROVIDERS: PCP Family Medicine; Visit Provider Emergency Medicine
DX: M79.662 Pain in left lower leg (principal); M79.89 Other specified soft tissue disorders
CPT/HCPCS: 93971

== ENCOUNTER → 2020-10-03 14:00 | Outpatient (CLI) | payer BC, SELFPAY | PROVIDERS: Visit Provider Family Medicine | DX: I10 Essential (primary) hypertension (principal) ==

== ENCOUNTER → 2021-02-13 13:26 | Outpatient (POV) | payer BC, SELFPAY ==
[2021-02-13 14:02] VITALS: BP 151/90; PULSE 95; RESP 18; O2SAT 98; BMI 48.6
--- NOTE | 2021-02-13 16:47 | HMH.PAINSOAP ---
[facility] Pain Management SOAP Note Subjective:: Patient is a very pleasant 50-year-old white male who presents today for follow-up. The patient was seen in our clinic in 2019 for progressively worsening low back pain. We did attempt to work the patient up for spinal cord stimulator, however was not denied by his insurance. Patient continued to have significant pain. As result he was referred to Dr. Sal. He is status post T10-S1 fusion which was performed on 07/31/2020. Patient says that he was doing well with his pain, however, does seem to continue to be having significant pain to his low back and left side. He says that the pain radiates into his left buttock and bilateral knees. He is also having left knee pain. His pain seems to be worse at bedtime. He says before surgery he was having tenderness to palpation to his low back area, however, he does not have tenderness to palpation at this time. The pain is deeper in nature. It is constant in nature as well. Patient has been taking ibuprofen, Aleve, and Tylenol together. The patient is on Xarelto therapy. He says he has been taking large doses of this medication for pain relief. Patient was first seen in our clinic in November 2020. He did undergo for lumbar epidural steroid injections in the clinic until February. At that time he was then referred to Dr. Sal. Patient was also told that he does have spinal stenosis to his cervical spine and will likely need to undergo surgical intervention. He does say his fusion gave him significant relief to his cervical spine as well, however. He does also report to be having calf muscle like pain. He did have a recent fall and did undergo imaging studies to rule out any dislodgment of hardware. He says that his imaging was unremarkable and hardware is still in place. He is doing physical therapy. He is currently on gabapentin 400 mg 1 tablet p.o. 3 times a day. He denies any side effects to this medication. He has tried physical therapy in the past with no significant relief. He has also tried home stretching and ice and heat therapies. Objective:: Physical exam General: Alert and oriented x3, no acute distress, pleasant and cooperative, [on room air] Lungs: Respirations even and unlabored, symmetrical chest expansion Eyes: PERRL Musculoskeletal: Flexion and extension of lumbar [spine] somewhat guarded secondary to pain, strength in upper and lower extremities [5/5], [antalgic gait noted] Neurological: Speech clear, [tie bucker equal], no gross sensory deficit Assessment:: Degenerative disc disease lumbar spine with lumbar radiculopathy symptoms, spinal stenosis cervical spine Plan:: Patient has had a fusion from T10-S1 with Dr. Sal. This surgery was performed on 07/31/2020. Patient continues to have significant pain to his low back and left hip. He says the pain radiates into the left buttock left knee and calves. Pain is worse at bedtime. He has been taking anti-inflammatories along with his Xarelto therapy. He has been advised today to stop taking these medications with Xarelto. He has been educated regarding the risks. The patient's Xarelto is prescribed by Dr. Rm. Patient and I did discuss increasing his gabapentin to 600 mg 1 tablet p.o. 3 times daily. He would like to try this. He would also like to proceed with possible intrathecal therapy. I did discuss the patient with Dr. George today and he is in agreement the patient would likely be a candidate for intrathecal therapy. The patient has had a psychological evaluation in the past, however, this was for SCS therapy only. He will need a repeat psychological evaluation to determine if he is an appropriate candidate for intrathecal therapy. The patient is not on any oral narcotic medications. We will schedule him for psychological evaluation for intrathecal therapy. We will contact Dr. Rm for approval to hold his Xarelto. Again, he has been advised to stop taking anti-inflammatories
== END ==
PROVIDERS: Visit Provider Clinical Nurse Specialist Family Health
DX: M51.16 Intervertebral disc disorders with radiculopathy, lumbar region (principal); M48.02 Spinal stenosis, cervical region
CPT/HCPCS: 99212; G0463

== ENCOUNTER 2021-05-23 06:53 | Day surgery (SDC) | payer BC, SELFPAY ==
[2021-05-23] VITALS (9 sets, daily range): BP systolic 139–174; BP diastolic 74–96; PULSE 102–107; RESP 18–20; TEMP 37; O2SAT 95–97; BMI 47.9
--- NOTE | 2021-05-23 09:29 | HMH.PMPROC ---
- Procedure Date: 05/23/21 Time: 09:29 Anesthesiologist:: Christofer George MD Complications:: None Pre-procedure Diagnosis:: Postlaminectomy syndrome lumbar spine with lumbar radiculopathy symptoms. Degenerative disc disease of cervical spine with cervical radiculopathy symptoms Post-procedure Diagnosis:: Same Indications for Procedure:: Patient is a pleasant 50-year-old white male who we are treating for postlaminectomy syndrome lumbar spine and degenerative disc disease of the cervical spine. He does have increasing neck pain and low back pain. He has failed all previous conservative therapy including previous surgery. He has a fusion from T10-S1. This was done in July of this year. He still has some significant low back pain and left-sided pain. He also has some neck pain. He has had a successful psychological evaluation. He is morbidly obese. We will plan on intrathecal pump trial with fentanyl today to see if this gives him relief of his pain symptoms. Procedure Details:: Pain pump trial Informed consent was obtained and the risk and benefits of the procedure was explained to the patient. The patient was taken to the procedure room and placed prone on the procedure table. Patient was prepped and draped in sterile fashion. C-arm fluoroscopy was used to view the lumbar spine. The skin and subcutaneous tissues were anesthetized using lidocaine. I placed a 18-gauge spinal needle into the L3-L4 interspace and advanced until clear CSF was obtained. After this intrathecal catheter was inserted and advanced very easily to the T12 vertebral body. The needle was withdrawn. We were able to freely withdraw clear CSF through the catheter. We then injected intrathecal fentanyl single shot bolus of 25 mcg followed by saline and followed by the previous CSF that was withdrawn. The needle and catheter were then removed and a Band-Aid was placed. Patient tolerated the procedure well with no complications. We reevaluated the patient after 30 minutes to 1 hour. He was also reassessed by physical therapy. Patient did very well. He had 80 to 90% relief in his pain symptoms. He had relief of his neck pain, low back pain and pain in both his legs and feet. He was more functional. He was able to stand longer and walk better. He wants to proceed with permanent placement. This will plan on being permanent placement with intrathecal morphine 5 mg/mL to start at 0.25 mg/day. Catheter tip will be at the T12 vertebral body. Entry will be at L3-L4. Plan and Disposition:: We will plan on permanent placement with intrathecal pain pump. This was a successful intrathecal pump trial. Needle entry will be at L3-L4. Catheter tip will be of the T12 vertebral body. We will plan on intrathecal morphine 5 mg/mL to start at 0.25 mg/day. We will have him see Dr. Kaur for evaluation of pain pump generator placement.
--- NOTE | 2021-05-23 12:47 | PC.NURSE ---
0840-pt ambulated back to bay accompanied by nursing staff, gait steady. VSS, no c/o pain. lumbar dressing C/D/I. pt set up for breakfast. without needs or concerns at this time 0855-pt resting in chair, tolerated PO intake. VSS, no c/o pain. dressing C/D/I. pt does report itching but denies need for PRN benadryl. without needs or concerns at this time. 0907-MD at bedside 0910-pt resting in chair. VSS, no c/o pain. without needs or concerns at this time. 0925-pt resting in chair. VSS, no c/o pain, dressing unchanged. without needs or concerns at this time. 0940-pt resting in chair. VSS, no c/o pain. without needs or concerns at this time. 0955-pt ambulated to nurses station with SBA. gait steady. pt denies pain. 0958-pt resting in chair. VSS, no c/o pain. discharged per MD order.
== END 2021-05-23 10:00 | disposition home or self-care (01) ==
LOC: SC.PAINP 06:55
PROVIDERS: PCP Family Medicine; Visit Provider Anesthesiology
DX: M96.1 Postlaminectomy syndrome, not elsewhere classified (principal); M50.30 Other cervical disc degeneration, unspecified cervical region
CPT/HCPCS: 62323; 96365

== ENCOUNTER → 2021-06-16 11:53 | Outpatient (CLI) | payer BC, SELFPAY ==
[2021-06-16 12:25] LABS: Basophils # 0.2 K/mm3 (0-0.2); Basophils % 2.1 % (0.1-2.0); Eosinophils # 0.3 K/mm3 (0.0-0.4); Eosinophils % 3.7 % (0.1-12.0); Hematocrit 41.2 % (42.0-52.0); Hemoglobin 13.4 g/dL (14.1-18.0); Lymphocytes # 1.1 K/mm3 (0.7-4.5); Lymphocytes % 14.2 % (10-50); Mean Corpuscular HGB Conc 32.4 g/dL (31.8-35.4); Mean Corpuscular Hemoglobin 26.2 pg (27.0-31.2); Mean Corpuscular Volume 80.7 fl (80-94); Mean Platelet Volume 9.5 fl (7.4-10.4); Monocytes # 0.4 K/mm3 (0.1-1.0); Monocytes % 5.9 % (1.7-9.3); Neutrophils # 5.6 K/mm3 (1.8-7.8); Neutrophils % 74.1 % (37.0-80.0); Platelet Count 215 K/mm3 (142-424); Red Cell Distribution Width 18.3 % (11.5-17.5); White Blood Count 7.5 K/mm3 (4.8-10.8)
[2021-06-16 13:08] LABS: Anion Gap 8.9 mEq/L (5-15); Blood Urea Nitrogen 13 mg/dl (9-20); Calcium 9.1 mg/dl (8.4-10.2); Carbon Dioxide 30 mmol/L (22.0-30.0); Chloride 100 mmol/L (98-107); Estimated Glomerular Filt Rate 102 ml/min (>60); GFR (African American) 123 ML/MIN (>60); Glucose 139 mg/dl (74-100); Potassium 3.9 mmoL/L (3.5-5.1); Sodium 135 mmol/L (136-145)
[2021-06-16 13:31] LABS: Amphetamine/Metha Screen,Urine Negative ng/ml (<1000)
[2021-06-16 13:32] LABS: Barbiturates Screen,Urine Negative ng/ml (<200)
[2021-06-16 13:33] LABS: Benzodiazepines Screen,Urine Negative ng/ml (<200); Cannabinoid Screen,Urine Negative ng/ml (<50)
[2021-06-16 13:35] LABS: Cocaine Screen,Urine Negative ng/ml (<300)
[2021-06-16 13:36] LABS: Methadone Screen,Urine Negative ng/ml (<300); Opiate Screen,Urine Negative ng/ml (<300)
[2021-06-16 13:37] LABS: Phencyclidine Screen,Urine Negative ng/ml (<25)
== END ==
PROVIDERS: Visit Provider Anesthesiology
DX: Z01.812 Encounter for preprocedural laboratory examination (principal); Z11.52 Encounter for screening for COVID-19; M51.36 Other intervertebral disc degeneration, lumbar region
CPT/HCPCS: 36415; 80048; 80305; 85025; C9803; U0003; U0005

== ENCOUNTER 2021-06-18 09:18 | Day surgery (SDC) | payer BC, SELFPAY ==
[2021-06-10 14:23] VITALS: BMI 50.1
[2021-06-18 10:43] VITALS: BP 150/79; PULSE 87; RESP 16; TEMP 37.3; O2SAT 93
--- NOTE | 2021-06-18 12:39 | P.OP_ITS ---
Date of procedure: 06/18/21 Pre-op Diagnosis:: Degenerative disc disease of the lumbar spine with radiculopathy Post-op Diagnosis:: Same Procedure performed:: Placement of right pain pump generator Surgeon:: Cruz Kaur MD SUPERVISOR DOPING:: Mikie Desai, Christin Swan, Lew Kan, Kumar Esparza, Servando Larson, Riley Andre, Other Anesthesia: MAC Estimated blood loss (mL): 20 Operative findings:: Not applicable Operative note:: Once adequate IV sedation was obtained by anesthesia the patient was placed prone on the operating table and his back and flank regions were prepped and draped in sterile fashion. Paraspinal incision was made by Dr. George there which an intrathecal catheter was passed into the intrathecal space to the area desired by Dr. George. Catheter fixed the paraspinal fascia with fixation devices and 2-0 Prolene suture. A right flank incision was then made under which is made a pocket for placement of the generator. Utilizing tunneling device the catheter was passed in the paraspinal incision to the pocket incision. Both pockets and incisions were irrigated with antibiotic solution. Catheter then fixed the generator which was placed in the pocket. CSF was aspirated from the generator noting patency of the system. Subcutaneous tissues closed with 2-0 Vicryl. Skin closed arm stitches of 4-0 nylon. Wound VAC dressing and a binder applied to the wound. The patient taught procedure well and was taken to recovery in stabilization. Upon recovery the patient will be discharged home and will follow up in 1 week for removal of the wound VAC system in 2 weeks remove the sutures. Antibiotics x1 week per protocol. The patient tolerated the procedure well Condition: stable Disposition: PACU Complications:: None
--- NOTE | 2021-06-18 14:08 | HMH.ANESCL ---
[facility] Anesthesia Checklist - Patient Identification Patient Identification: Arm Band - Structural Data Admitted From: Home Planned Operative Procedure/s: Intrathecal Pain Pump catheter and generator placement Consent for Planned Operative Procedure(s) Verified: Yes Verified Documents: Surgical Consent, History and Physical - NPO Status Verified Time NPO: 00:00 - Additional verifications Anesthesia Reactions: No Hx Blood Transfusions: No Blood Transfusion Reaction: No - Airway Assessment C-Spine Mobility Assessed: Yes (mp2) TMJ Mobility Assessed: Yes Dentition: Good Dentition - Neurological Assessment Level of Consciousness: Awake, Alert - Anesthesia Plan Anesthesia Risk discussed: Yes Anesthesia Plan: Verified ASA Class: III Anesthesia Type: MAC [facility] History I have reviewed the patient's past medical history: Yes Medical History: Reports:: Deep Vein Thrombosis, Hyperlipidemia, Hypertension Denies:: Cancer, Diabetes Mellitus Type 1, Diabetes Mellitus Type 2, Internal Pacemaker, MRSA, Seizures *Have you ever received a pneumonia vaccine?: No *Have you received a flu vaccine this season?: Yes Other Medical History: Reports: Arthritis, Hormone Therapy. Denies: Blood Transfusion Reaction Anesthesia experience/problems:: nac Laterality Cases: Bilateral: Total Knee Replacement Other Surgeries: Yes: Hernia Repair. No: Pacemaker Amputation: No Fractures: Yes (right foot) - *Social History Last grade of school completed: Some college Smoking Status: Never smoker Alcohol Intake: never Alcohol Intake Frequency:: holidays/special occasions only Substance Use Type: denies use *Occupational Status:: other Housing: house Household Members: spouse, children *Travel in the last 8 weeks: None Family Hx:: Cancer, Diabetes, Stroke
[2021-06-18 14:25] VITALS: BP 154/85; PULSE 89; RESP 18; TEMP 36.7; O2SAT 93
--- NOTE | 2021-06-18 14:38 | HMH.OPNOTE ---
Date of procedure: 06/18/21 Pre-op Diagnosis:: Degenerative disc disease of lumbar spine with lumbar radiculopathy symptoms and postlaminectomy syndrome lumbar spine. Degenerative disc disease of the cervical spine with cervical radiculopathy symptoms Post-op Diagnosis:: Same Procedure performed:: Placement of intrathecal catheter with tunneling for permanent intrathecal pain pump Surgeon:: Christofer George MD PHARMACOEPIDEMIOLOGIST:: Lew Kan Anesthesia: MAC Estimated blood loss (mL): 5 Clinical Note:: This patient is a pleasant 50-year-old white male who we are treating for low back pain with lumbar radiculopathy symptoms and postlaminectomy syndrome of lumbar spine. He also has some increasing neck pain with cervical radicular symptoms. He has failed all previous conservative therapy including injections, oral medications, previous surgery and he is not a candidate for any further surgery. He did well with his intrathecal pump trial. He also had a successful psychological evaluation. He is following up with his surgeon tomorrow. His surgery was a success however he still has some residual back pain which was alleviated significantly by the pain pump trial. He also got relief of his neck pain as well. He was also much more functional. He presents for permanent intrathecal pain pump placement today. Operative findings:: None Operative note:: Informed consent was obtained and the risk and benefits of the procedure were explained to the patient. Patient was taken to the operating room placed prone on the procedure table. He was prepped and draped in sterile fashion. C-arm fluoroscopy was used to view the lumbar spine. The skin and subcutaneous tissues adjacent to the L4-5 and L5-S1 interspace were anesthetized using lidocaine. I made an incision and dissected down to the lumbar paraspinous fascia. A 15-gauge spinal needle was inserted and advanced into the L3-L4 interspace until clear CSF was obtained. After this intrathecal catheter was inserted and advanced very easily to the T10 vertebral body. The stylette of the catheter and the needle were withdrawn. The catheter was secured to the fascia with anchoring devices and 2-0 Prolene. The catheter was placed inside to help with low back pain and neck pain. I prepared the pump with 20 mL of intrathecal morphine 5 mg/mL while Dr. Kaur prepared the pump pocket. I tunneled the catheter from the back to the pump pocket and attached catheter to the pump. We were able to freely withdraw clear CSF through the side-port. The pump was placed in the pocket. Both incisions were irrigated with bacitracin solution. Both incisions were then closed with 2-0 Vicryl followed by 4-0 nylon. A wound VAC was placed over both incisions. The patient was placed in an abdominal binder and taken recovery in stable condition. Patient tolerated procedure well with no complications. Pump was interrogated and started at 0.25 mg/day of intrathecal morphine. Patient was discharged home neurologically intact with good relief of pain symptoms. Plan and disposition: We will follow-up with this patient in 1 week for wound check and reprogramming if needed. We will follow-up in 2 weeks for suture removal and further reprogramming if needed. If he has any problems questions he is to call us back in the pain clinic. Condition: stable Disposition: PACU Complications:: None
[2021-06-18 14:40] VITALS: BP 148/84; PULSE 85; RESP 18; O2SAT 96
[2021-06-18 14:55] VITALS: BP 139/77; PULSE 83; RESP 18; O2SAT 97
[2021-06-18 15:10] VITALS: BP 137/85; PULSE 82; RESP 18; O2SAT 98
[2021-06-18 15:40] VITALS: BP 134/79; PULSE 82; RESP 16; O2SAT 98
--- NOTE | 2021-06-19 15:22 | PC.NURSE ---
called in Rx for Flomax 0.4mg daily #30 with no refills to patients pharmacy per Md order.
== END 2021-06-18 15:40 | disposition home or self-care (01) ==
LOC: OR 09:20
PROVIDERS: PCP Family Medicine; Visit Provider Anesthesiology
PROC: (CPT 62350; principal; 2021-06-18 11:15)
DX: M51.16 Intervertebral disc disorders with radiculopathy, lumbar region (principal); M96.1 Postlaminectomy syndrome, not elsewhere classified; M50.10 Cervical disc disorder with radiculopathy, unspecified cervical region; E78.5 Hyperlipidemia, unspecified; I10 Essential (primary) hypertension; M19.90 Unspecified osteoarthritis, unspecified site; Z86.718 Personal history of other venous thrombosis and embolism; Z79.890 Hormone replacement therapy; Z80.9 Family history of malignant neoplasm, unspecified; Z83.3 Family history of diabetes mellitus; Z82.3 Family history of stroke
CPT/HCPCS: 62350; 62362; 96374; C1755; C1772; J3370

== ENCOUNTER → 2021-06-24 10:47 | Outpatient (POV) | payer BC, SELFPAY ==
[2021-06-24 11:07] VITALS: BP 168/77; PULSE 93; RESP 18; O2SAT 97; BMI 50.1
--- NOTE | 2021-06-24 11:26 | P.PCN_ITS ---
- Procedure Date: 06/24/21 Time: 11:26 Anesthesiologist:: Laury Villalpando APRN Complications:: None Pre-procedure Diagnosis:: Degenerative disc disease of the cervical and lumbar spine with cervical and lumbar radiculopathy symptoms. Postlaminectomy syndrome Post-procedure Diagnosis:: Same Indications for Procedure:: Patient is a pleasant 48-year-old male who presents today for his 1 week follow- up after placement of his flowonix intrathecal pain pump. Patient is currently being treated for degenerative disc disease of the cervical and lumbar spine with cervical and lumbar radiculopathy symptoms , postlaminectomy syndrome. Patient is currently being managed with morphine 5 mg/mL at a rate of 0.25 mg/day. After the procedure, patient says that he has had significant relief of about 80%. Patient says that he is sleeping better and has not needed his triazolam. He has been taking benadryl because of congestion though and this seems to help with his sleep. Patient says that he also has stopped taking ibuprofen and alleve. He is working on stopping his tylenol. He still takes his gabapentin 600mg three times a day. We will see if we can titrate him down from this. Patient says that he feels like his dose is not at a therapeutic level yet. We will adjust the patient's dose today and setup his PTC. He rates his pain as 2 out of 10. His Riaz is [id number] with an active morphine equivalent of 0. ORT score is 0, low risk. Physical exam General: Alert and oriented x3, no acute distress, pleasant and cooperative, [on room air] Lungs: Respirations even and unlabored, symmetrical chest expansion Eyes: PERRL Musculoskeletal: Flexion and extension of lumbar [spine] somewhat guarded secondary to pain Skin: Surgical incisions are well approximated and healing well. There is no drainage, edema, and erythema. Neurological: Speech clear, no gross sensory deficit Procedure Details:: Informed consent was obtained and the risk and benefits of the procedure were explained to the patient. Patient was taken to the procedure room where noninvasive monitoring was placed including noninvasive blood pressure cuff and pulse oximeter. Patient's pump was interrogated and was reprogrammed to morphine 0.275 mg/day with PTC boluses of 0.0275 mg every 6 hours. The patient tolerated the procedure well with no complications. Plan and Disposition:: Sleep Disturbance secondary to pain Patient says that he was taking triazolam 0.25mg to help him sleep before placement of his intrathecal pain pump. Since the procedure, he has not taken it. He says that he currently takes benadryl for his congestion and allergy which seems to help his sleep. I recommended that the patient try melatonin when he is having trouble sleeping since he is at risk for oversedation with gabapentin, triazolam, and morphine. Patient's surgical incision is healing well and well approximated. There is no drainage, edema, and erythema. We will see the patient next week for suture removal. I have advised the patient to continue wearing his abdominal binder. Patient has been instructed to contact the clinic with any concerns before the next appointment. Dr. George has reviewed this note and agrees with this plan of care. This note was dictated using voice recognition software and make contain errors or omissions.
== END ==
PROVIDERS: Visit Provider Clinical Nurse Specialist Family Health
DX: M50.10 Cervical disc disorder with radiculopathy, unspecified cervical region (principal); M96.1 Postlaminectomy syndrome, not elsewhere classified
CPT/HCPCS: 62368; 99212; G0463

== ENCOUNTER → 2021-07-17 14:47 | Outpatient (POV) | payer BC, SELFPAY ==
[2021-07-17 15:13] VITALS: BP 171/99; PULSE 95; RESP 18; O2SAT 99; BMI 57.7
--- NOTE | 2021-07-17 15:58 | HMH.PMPROC ---
- Procedure Date: 07/17/21 Time: 15:59 Anesthesiologist:: Laury Villalpando APRN Complications:: None Pre-procedure Diagnosis:: Degenerative disc disease cervical and lumbar spine with cervical and lumbar radiculopathy symptoms Post-procedure Diagnosis:: Same Indications for Procedure:: Patient is a 50-year-old white male who is here today for follow-up after intrathecal pain pump implant. He is here today to have sutures removed. He does rate his pain a 3 out of 10. He is getting more relief with the intrathecal therapy. He would like an increase today. He denies any side effects to the medicine. He is currently on morphine at 0. 2 7 5 mg/day. [facility] #[id number] has been reviewed and is appropriate. Drug screens are appropriate. Physical exam General: Alert and oriented x3, no acute distress, pleasant and cooperative Lungs: Respirations even and unlabored, symmetrical chest expansion Eyes: PERRL Musculoskeletal: Flexion and extension of lumbar and cervical [spine] somewhat guarded secondary to pain, [antalgic gait noted] Neurological: Speech clear, no gross sensory deficit Skin: Incision well approximated, no redness, no drainage, no edema to site Procedure Details:: Informed consent was obtained and the risk and benefits of the procedure were explained to the patient. Patient was taken to the procedure room where noninvasive monitoring was placed including noninvasive blood pressure cuff and pulse oximeter. Patient's pump was interrogated and was reprogrammed to morphine at 0.33 mg/day. The patient tolerated the procedure well with no complications. Plan and Disposition:: Sutures were removed today. Incision is well approximated, no redness, no drainage, no edema to site. We will plan for a follow-up with patient in 2 weeks for further evaluation of pain. We will see the patient back in the clinic at the next intrathecal refill. Patient has been instructed to contact the clinic with any concerns before the next appointment. Dr. George has reviewed this note and agrees with this plan of care. This note was dictated using voice recognition software and make contain errors or omissions.
== END ==
PROVIDERS: Visit Provider Clinical Nurse Specialist Family Health
DX: M50.10 Cervical disc disorder with radiculopathy, unspecified cervical region (principal); Z45.1 Encounter for adjustment and management of infusion pump
CPT/HCPCS: 62368

== ENCOUNTER → 2021-07-31 10:40 | Outpatient (POV) | payer BC, SELFPAY ==
[2021-07-31 11:02] VITALS: BP 162/82; PULSE 103; RESP 18; O2SAT 96; BMI 50.6
--- NOTE | 2021-07-31 11:36 | HMH.PMPROC ---
- Procedure Date: 07/31/21 Time: 11:36 Anesthesiologist:: Laury Villalpando APRN Complications:: None Pre-procedure Diagnosis:: Degenerative disc disease cervical spine cervical radiculopathy symptoms, degenerative disc disease lumbar spine with lumbar radiculopathy symptoms Post-procedure Diagnosis:: Same Indications for Procedure:: Patient is a 51-year-old white male who presents today for intrathecal pain pump adjustment. He is currently on morphine at 0.33 mg/day with PTC at 0.03 mg up to four times daily. He does not feel he is getting significant relief. He rates his pain a 3 out of 10 sitting in a four 5 out of 10 with standing and walking. We will increase him today to see if he gets relief. Incision is well approximated, without redness, drainage or edema. He has been continuing to wear his abdominal binder and does have the binder with him today. Physical exam General: Alert and oriented x3, no acute distress, pleasant and cooperative Lungs: Respirations even and unlabored, symmetrical chest expansion Eyes: PERRL Musculoskeletal: Flexion and extension of lumbar and cervical [spine] somewhat guarded secondary to pain, [antalgic gait noted] Neurological: Speech clear, no gross sensory deficit Procedure Details:: Informed consent was obtained and the risk and benefits of the procedure were explained to the patient. Patient was taken to the procedure room where noninvasive monitoring was placed including noninvasive blood pressure cuff and pulse oximeter. Patient's pump was interrogated and was reprogrammed to morphine at 0.4 mg/day, PTC increased to 0.04 mg up to six times daily. The patient tolerated the procedure well with no complications. Plan and Disposition:: We will see the patient back in 2 weeks for further evaluation to see if he has gotten relief with the increase. He may need to be increased once again at this time. Patient has been instructed to contact the clinic with any concerns before the next appointment. Dr. George has reviewed this note and agrees with this plan of care. This note was dictated using voice recognition software and make contain errors or omissions.
== END ==
PROVIDERS: Visit Provider Clinical Nurse Specialist Family Health
DX: M50.10 Cervical disc disorder with radiculopathy, unspecified cervical region (principal); M51.16 Intervertebral disc disorders with radiculopathy, lumbar region; Z45.1 Encounter for adjustment and management of infusion pump
CPT/HCPCS: 62368

== ENCOUNTER → 2021-08-14 10:06 | Outpatient (POV) | payer BC, SELFPAY ==
[2021-08-14 10:40] VITALS: BP 160/90; PULSE 110; RESP 18; O2SAT 98; BMI 50.1
--- NOTE | 2021-08-14 11:58 | P.PCN_ITS ---
- Procedure Date: 08/14/21 Time: 11:58 Anesthesiologist:: Audrey Paul MD Complications:: None Pre-procedure Diagnosis:: Degenerative disc disease of the lumbar spine with lumbar radiculopathy Post-procedure Diagnosis:: Same Indications for Procedure:: Patient is a very pleasant 51-year-old white male who presents today for intrathecal pump adjustment. He is currently being treated for degenerative disease of lumbar spine lumbar radiculopathy. He has a pump with a flow [place] system with intrathecal morphine 5 mg/mL at 0.4 mg/day and constant flow and PTC. He states that his pain remains uncontrolled at this time and is requesting an increase in his current pump settings. The plan for today is for the patient to undergo intrathecal pain pump analysis and reprogram with an i ncrease of 20% to his constant flow rate. Procedure Details:: Analysis and reprogramming of intrathecal morphine pain pump Informed consent was obtained. The risk and benefits of the procedure were explained to the patient. Patient was taken to the procedure room. The pump was interrogated. Intrathecal [morphine infusion] was increased by [20]% to [0.48] mg/day. Patient tolerated the procedure well with no complications. Plan and Disposition:: We will follow-up with this patient in 2 weeks for reassessment of his chronic pain symptoms and possible pump adjustment at that time if indicated. [facility] #[id number] was reviewed and appropriate.
== END ==
PROVIDERS: Visit Provider Anesthesiology Pain Medicine
DX: M51.16 Intervertebral disc disorders with radiculopathy, lumbar region (principal); Z45.1 Encounter for adjustment and management of infusion pump
CPT/HCPCS: 62368

== ENCOUNTER → 2021-10-03 09:10 | Outpatient (CLI) | payer BC, SELFPAY ==
--- NOTE | 2021-10-03 09:14 | CA_ITS ---
FINAL REPORT TECHNIQUE: Ultrasound images of the deep venous system were obtained from the left groin to the calf veins. CLINICAL HISTORY: HX DVT LLE 09/08,PT ON XARELTO,F/U TO CHECK IF RESOLVED,OBESITY FINDINGS: There is segmental thrombus in left popliteal vein. The remaining veins of the left lower extremity are normally compressible. IMPRESSION: Segmental thrombus in the left popliteal vein. Dr. DELGADILLO was notified of these findings by the clinical lab technologist at the time of imaging. Reviewed, Interpreted and Dictated by Mike Boothe MD Transcribed by Wong Goss Authenticated by Mike Boothe MD on 10/03/2021 01:02:44 PM [facility]
== END ==
PROVIDERS: PCP Family Medicine; Visit Provider Family Medicine
DX: Z86.718 Personal history of other venous thrombosis and embolism (principal)
CPT/HCPCS: 93971

== ENCOUNTER → 2021-10-13 08:38 | Outpatient (CLI) | payer BC, SELFPAY | PROVIDERS: PCP Family Medicine; Visit Provider Family Medicine | DX: N39.0 Urinary tract infection, site not specified (principal); B96.20 Unspecified Escherichia coli [E. coli] as the cause of diseases classified elsewhere; Z91.89 Other specified personal risk factors, not elsewhere classified | CPT/HCPCS: 87086; 87088; 87186 ==

== ENCOUNTER → 2021-11-25 13:54 | Outpatient (CLI) | payer OTHER, SELFPAY ==
[2021-11-25 14:03] LABS: Basophils # 0.1 K/mm3 (0-0.2); Basophils % 0.9 % (0.1-2.0); Eosinophils # 0.2 K/mm3 (0.0-0.4); Eosinophils % 2.3 % (0.1-12.0); Hematocrit 39.9 % (42.0-52.0); Lymphocytes # 1.7 K/mm3 (0.7-4.5); Lymphocytes % 23.6 % (10-50); Mean Corpuscular HGB Conc 32.5 g/dL (31.8-35.4); Mean Corpuscular Hemoglobin 26.7 pg (27.0-31.2); Mean Corpuscular Volume 82.3 fl (80-94); Mean Platelet Volume 9.5 fl (7.4-10.4); Monocytes # 0.4 K/mm3 (0.1-1.0); Monocytes % 5.5 % (1.7-9.3); Neutrophils # 4.8 K/mm3 (1.8-7.8); Neutrophils % 67.5 % (37.0-80.0); Platelet Count 253 K/mm3 (142-424); Red Blood Count 4.84 M/mm3 (4.60-6.20); Red Cell Distribution Width 19.7 % (11.5-17.5); White Blood Count 7.1 K/mm3 (4.8-10.8)
[2021-11-25 14:04] LABS: Chloride 98 mmol/L (98-107); Potassium 3.5 mmoL/L (3.5-5.1); Sodium 138 mmol/L (136-145)
[2021-11-25 14:06] LABS: Alanine Aminotransferase 28 U/L (12-78); Anion Gap 9.5 mEq/L (5-15); Aspartate Amino Transferase 33 U/L (17-59); Blood Urea Nitrogen 17 mg/dl (9-20); Carbon Dioxide 34 mmol/L (22.0-30.0); Estimated Glomerular Filt Rate 101 ml/min (>60); GFR (African American) 122 ML/MIN (>60)
[2021-11-25 14:07] LABS: Albumin Level 3.7 g/dl (3.5-5.0); Albumin/Globulin Ratio 1.2 (1.1-1.8); Alkaline Phosphatase 70 U/L (38-126); Bilirubin,Total 0.5 mg/dl (0.2-1.3); Calcium 9.2 mg/dl (8.4-10.2); Chol/HDL Ratio 4.8 (1-3.5); Cholesterol 135 mg/dl (140-200); Globulin 3.1 g/dL (1.3-3.2); Glucose 122 mg/dl (74-100); HDL Cholesterol 28 mg/dl (40-60); Total Protein,Serum 6.8 g/dl (6.3-8.2); Triglycerides 138 mg/dl (30-150); VLDL Cholesterol 28 mg/dL (0-40)
[2021-11-25 14:18] LABS: Direct LDL Cholesterol 79.37 mg/dL (100-129)
[2021-11-25 14:37] LABS: Thyroid Stimulating Hormone 2.72 uIU/mL (0.465-4.68)
[2021-11-25 15:15] LABS: Prostate Specific Ag Screen 2.2 ng/ml (0.0-4.0)
[2021-11-25 15:16] LABS: Hemoglobin A1C 6.1 % (4.0-6.0)
[2021-12-05 16:28] LABS: Testosterone, Total, LC/MS 353.6 ng/dL (264.0-916.0); Testosterone,Free 7.1 pg/mL (7.2-24.0)
== END ==
PROVIDERS: PCP Family Medicine; Visit Provider Family Medicine
DX: N39.0 Urinary tract infection, site not specified (principal); E11.9 Type 2 diabetes mellitus without complications; E29.1 Testicular hypofunction; E34.9 Endocrine disorder, unspecified; Z12.5 Encounter for screening for malignant neoplasm of prostate; B96.20 Unspecified Escherichia coli [E. coli] as the cause of diseases classified elsewhere
CPT/HCPCS: 80053; 80061; 83036; 84402; 84403; 84443; 85025; 87086; 87088; 87186; G0103

== ENCOUNTER → 2021-12-05 08:08 | Outpatient (CLI) | payer OTHER, SELFPAY | PROVIDERS: PCP Family Medicine; Visit Provider Urology | DX: Z01.812 Encounter for preprocedural laboratory examination (principal); Z20.822 Contact with and (suspected) exposure to COVID-19; N39.0 Urinary tract infection, site not specified | CPT/HCPCS: C9803; U0003; U0005 ==

== ENCOUNTER 2021-12-08 07:43 | Day surgery (SDC) | payer OTHER, SELFPAY ==
[2021-12-03 11:35] VITALS: BMI 50.1
[2021-12-08 08:18] VITALS: BP 137/87; PULSE 86; RESP 20; TEMP 36.9; O2SAT 99
--- NOTE | 2021-12-08 08:31 | PC.NURSE ---
0825- patient had large wound on left lower leg that he had aplied a large bandaid over lower portion. There was oozing from wound area on upper area. I applied a non adherent gauze pad and tegaderm over oozing area to keep Local procedure clean
[2021-12-08 09:24] VITALS: BP 145/79; PULSE 85; RESP 20; TEMP 36.3; O2SAT 100
[2021-12-08 09:39] VITALS: BP 145/79; PULSE 85; RESP 20; TEMP 36.3; O2SAT 100
--- NOTE | 2021-12-08 10:18 | HMH.OPNOTE ---
Date of procedure: 12/08/21 Pre-op Diagnosis:: Recurring UTIs, incomplete bladder emptying Post-op Diagnosis:: BPH, history of UTIs Procedure performed:: Cystoscopy Surgeon:: Tyler Mayo MD Anesthesia: local Estimated blood loss (mL): 0 Clinical Note:: 51-year-old obese white male returns for cystoscopic evaluation today. Patient has had 3 urinary tract infections since June. He had a pain pump placed in May for chronic back pain. His IPSS in the office was 18. His bladder scan was 98 cc. He was placed on tamsulosin and states his urinary symptoms seem better since starting. Operative findings:: Patient with some mild bladder trabeculation and moderate prostatic hyperplasia. Operative note:: Patient taken to the cystoscopy suite after informed consent was obtained. On the stretcher he was prepped and draped in the standard surgical fashion and 2% lidocaine placed into the urethra and clamped. After 5 minutes the clamp was removed and the flexible cystoscope introduced into the urethral meatus. Passed into the bladder without difficulty and the bladder examined in a systematic fashion. There was some mild trabeculation noted. No cellules or diverticula or stones were noted. The ureteral orifices were well away from the bladder neck and clear efflux of urine was noted. The scope was retroflexed showing no evidence of a median lobe. Scope was withdrawn into the prostatic urethra and there was some mild to moderate hyperplasia noted of the lateral lobes. Prostatic length was about 2-1/2 cm. The bulbar urethra anterior urethra were within normal limits. Patient tolerated procedure well. We discussed the findings today and he is to continue the tamsulosin. We will see him back next month with a bladder scan. Condition: stable Disposition: same day Specimens:: None Complications:: None
== END 2021-12-08 09:39 | disposition home or self-care (01) ==
LOC: OUTP 07:46
PROVIDERS: PCP Family Medicine; Visit Provider Urology
PROC: (CPT 52000; principal; 2021-12-08 09:00)
DX: N40.1 Benign prostatic hyperplasia with lower urinary tract symptoms (principal); Z87.440 Personal history of urinary (tract) infections; R33.9 Retention of urine, unspecified; Z79.899 Other long term (current) drug therapy
CPT/HCPCS: 52000

== ENCOUNTER 2022-06-01 11:00 | Outpatient (RCR) | payer OTHER, SELFPAY ==
--- NOTE | 2022-04-15 10:33 | HMH.PTOPWND ---
Rehab Outpt Wound Evaluation Rehab OP Wound Evaluation Start: 04/15/22 10:00 Freq: Status: Active Protocol: Document 04/15/22 10:00 ROYAL (Rec: 04/15/22 10:32 ROYAL [id number]) E-signed By Joshua Rangel PT Subjective/History History History This is the initial wound clinic evaluation for Russell Ackerman. Pt is a 51 y/o male referred to PT wound care for chronic venous insufficiency in [facility] but L > R. Pt has Hx of chronic vericose veins w/ cauterization treatment. Pt has long history of LE edema and wounds. Pt reprots skin changes for several years and fragile skin that easily opens up and causes wounds. Subjective Subjective Pt reports he has home compression garments but has issues putting them on due to spinal fusion in thoracolumbar area which limits trunk and spinal flexion. Wound Eval Wound Left Lower Medial [place] Wound Type hyperkeratotic area Is This a Chronic Wound Yes Wound Length (cm) 7.0 Wound Width (cm) 7.0 Wound Depth (cm) 0 Wound Bed Appearance Dusky Red,Myers Wound Margins Description Indistinct Surrounding Tissue Appearance [place],Dark Red Edema Degree 3+ Query Text:1+ Trace, Barely Detectable, Rebound 15-30 seconds 2+ Moderate, Slight Indentation, Rebound 10-20 seconds 3+ Deep, Deeper Indentation, Rebound > 30 seconds 4+ Very Deep, Rebound > 60 seconds Edema Appearance Shiny,Tight,Puffy,Red Surrounding Tissue Temperature Warm Drainage Description None Drainage Amount None Drainage Odor No Odor Dressing Status Open to Air Wound Topical Solution/Irrigant Saline Irrigant Primary Dressing Unna Boot Wound Secondary Dressing Type Unna Boot Wound Debridement Amount of Tissue None Removed Dressing Change Patient Tolerance Tolerated Well Wound Problems/Impairments Impairments Problems/Impairmments Palpation Tenderness,Increased Edema,Lymphedema Present, Wound Care Needs,Subjective C/ O Pain Prognosis Rehab Potential Fa
== END 2022-06-01 11:05 | disposition home or self-care (01) ==
LOC: PT 11:00
PROVIDERS: PCP Family Medicine; Visit Provider Family Medicine
DX: I87.2 Venous insufficiency (chronic) (peripheral) (principal)
CPT/HCPCS: 29580; 97140; 97162; 97597; 97598

== ENCOUNTER → 2022-12-28 23:09 | Outpatient (CLI) | payer OTHER, SELFPAY ==
[2022-12-28 19:25] LABS: Basophils % 0.4 % (0.1-2.0); Eosinophils # 0.1 K/mm3 (0.0-0.4); Eosinophils % 1.7 % (0.1-12.0); Hematocrit 46.4 % (42.0-52.0); Hemoglobin 14.5 g/dL (14.1-18.0); Lymphocytes # 1.5 K/mm3 (0.7-4.5); Lymphocytes % 19.8 % (10-50); Mean Corpuscular HGB Conc 31.2 g/dL (31.8-35.4); Mean Corpuscular Hemoglobin 25.8 pg (27.0-31.2); Mean Corpuscular Volume 82.6 fl (80-94); Mean Platelet Volume 10.9 fl (7.4-10.4); Monocytes # 0.4 K/mm3 (0.1-1.0); Monocytes % 5.4 % (1.7-9.3); Neutrophils # 5.6 K/mm3 (1.8-7.8); Neutrophils % 72.7 % (37.0-80.0); Platelet Count 199 K/mm3 (142-424); Red Blood Count 5.62 M/mm3 (4.60-6.20); Red Cell Distribution Width 17.9 % (11.5-17.5); White Blood Count 7.6 K/mm3 (4.8-10.8)
[2022-12-28 19:33] LABS: Alanine Aminotransferase 50 U/L (12-78); Albumin Level 4.3 g/dl (3.5-5.0); Albumin/Globulin Ratio 1.3 (1.1-1.8); Alkaline Phosphatase 78 U/L (38-126); Anion Gap 11.8 mEq/L (5-15); Aspartate Amino Transferase 47 U/L (17-59); Bilirubin,Total 0.7 mg/dl (0.2-1.3); Blood Urea Nitrogen 17 mg/dl (9-20); Calcium 9.2 mg/dl (8.4-10.2); Carbon Dioxide 34 mmol/L (22.0-30.0); Chloride 97 mmol/L (98-107); Chol/HDL Ratio 4.6 (1-3.5); Cholesterol 155 mg/dl (140-200); Estimated Glomerular Filt Rate 88 ml/min (>60); GFR (African American) 106 ML/MIN (>60); Globulin 3.2 g/dL (1.3-3.2); Glucose 149 mg/dl (74-100); HDL Cholesterol 34 mg/dl (40-60); Potassium 3.8 mmoL/L (3.5-5.1); Sodium 139 mmol/L (136-145); Total Protein,Serum 7.5 g/dl (6.3-8.2); Triglycerides 241 mg/dl (30-150); VLDL Cholesterol 48 mg/dL (0-40)
[2022-12-28 19:44] LABS: Direct LDL Cholesterol 82.85 mg/dL (100-129)
[2022-12-28 20:02] LABS: Prostate Specific Ag Screen 0.7 ng/ml (0.0-4.0); Thyroid Stimulating Hormone 2.56 uIU/mL (0.465-4.68)
[2022-12-30 08:20] LABS: Testosterone,Total 656 ng/dL (264-916)
== END ==
PROVIDERS: PCP Family Medicine; Visit Provider Family Medicine
DX: F41.9 Anxiety disorder, unspecified (principal); I82.402 Acute embolism and thrombosis of unspecified deep veins of left lower extremity; R29.898 Other symptoms and signs involving the musculoskeletal system; R30.0 Dysuria; Z12.5 Encounter for screening for malignant neoplasm of prostate
CPT/HCPCS: 80053; 80061; 84403; 84443; 85025; 87086; G0103

== ENCOUNTER → 2023-03-08 08:20 | Outpatient (CLI) | payer MEDICARE, SELFPAY ==
--- NOTE | 2023-03-08 08:22 | CA_ITS ---
FINAL REPORT TECHNIQUE: Bilateral lower extremity venous duplex was performed with augmentation and compression. CLINICAL HISTORY: EDEMA,HX CLOT IN LLE 6 YEARS AGO AND 09/10,PT ON XARELTO COMPARISON: 10/03/2021 FINDINGS: Proper flow is seen throughout the deep venous systems on the right side. There is no evidence of deep venous thrombosis on the right. A prior ultrasound of the deep venous system of the left leg revealed thrombus in the left popliteal vein. On today's examination flow is present in the left popliteal vein, although compressibility is not totally normal, suggesting possible venous scarring in that region. No acute deep venous thrombosis is noted in the left leg. . IMPRESSION: No evidence of deep venous thrombosis. Changes are noted in the left popliteal vein, where deep venous thrombosis was noted in September 2021, that most likely represent venous scarring. Reviewed, Interpreted and Dictated by Mike Boothe MD Transcribed by Anusha Campo Authenticated and [facility]
[2023-03-08 19:00] LABS: Basophils % 0.4 % (0.1-2.0); Eosinophils # 0.1 K/mm3 (0.0-0.4); Eosinophils % 1.8 % (0.1-12.0); Hematocrit 48.1 % (42.0-52.0); Hemoglobin 14.6 g/dL (14.1-18.0); Lymphocytes # 1.4 K/mm3 (0.7-4.5); Mean Corpuscular HGB Conc 30.3 g/dL (31.8-35.4); Mean Corpuscular Hemoglobin 26.2 pg (27.0-31.2); Mean Corpuscular Volume 86.3 fl (80-94); Mean Platelet Volume 11.6 fl (7.4-10.4); Monocytes # 0.3 K/mm3 (0.1-1.0); Monocytes % 4.9 % (1.7-9.3); Neutrophils # 4.6 K/mm3 (1.8-7.8); Neutrophils % 70.7 % (37.0-80.0); Platelet Count 191 K/mm3 (142-424); Red Blood Count 5.57 M/mm3 (4.60-6.20); Red Cell Distribution Width 17.1 % (11.5-17.5); White Blood Count 6.5 K/mm3 (4.8-10.8)
[2023-03-08 19:23] LABS: Chol/HDL Ratio 4.8 (1-3.5); Cholesterol 152 mg/dl (140-200); HDL Cholesterol 32 mg/dl (40-60); Triglycerides 208 mg/dl (30-150); VLDL Cholesterol 42 mg/dL (0-40)
[2023-03-08 19:33] LABS: Direct LDL Cholesterol 87.64 mg/dL (100-129)
[2023-03-10 07:00] LABS: Testosterone,Total 609 ng/dL (264-916)
== END ==
PROVIDERS: PCP Family Medicine; Visit Provider Family Medicine
DX: R60.0 Localized edema (principal); E34.9 Endocrine disorder, unspecified; E66.01 Morbid (severe) obesity due to excess calories; M54.42 Lumbago with sciatica, left side; Z68.42 Body mass index [BMI] 45.0-49.9, adult
CPT/HCPCS: 80061; 84403; 85025; 93970

== ENCOUNTER → 2023-03-08 11:30 | Outpatient (CLI) | payer MEDICARE, SELFPAY | PROVIDERS: PCP Family Medicine; Visit Provider Family Medicine | DX: M54.42 Lumbago with sciatica, left side (principal) ==

== ENCOUNTER → 2023-05-07 23:00 | Outpatient (CLI) | payer MEDICARE, SELFPAY ==
[2023-05-07 18:29] LABS: Basophils % 0.3 % (0.1-2.0); Eosinophils # 0.2 K/mm3 (0.0-0.4); Eosinophils % 2.2 % (0.1-12.0); Hematocrit 44.5 % (42.0-52.0); Hemoglobin 14.5 g/dL (14.1-18.0); Lymphocytes # 1.9 K/mm3 (0.7-4.5); Lymphocytes % 21.3 % (10-50); Mean Corpuscular HGB Conc 32.5 g/dL (31.8-35.4); Mean Corpuscular Hemoglobin 27.8 pg (27.0-31.2); Mean Corpuscular Volume 85.5 fl (80-94); Mean Platelet Volume 10.8 fl (7.4-10.4); Monocytes # 0.5 K/mm3 (0.1-1.0); Monocytes % 5.6 % (1.7-9.3); Neutrophils # 6.4 K/mm3 (1.8-7.8); Neutrophils % 70.7 % (37.0-80.0); Platelet Count 197 K/mm3 (142-424); Red Cell Distribution Width 16.4 % (11.5-17.5)
[2023-05-07 19:00] LABS: Alanine Aminotransferase 37 U/L (12-78); Albumin/Globulin Ratio 1.4 (1.1-1.8); Alkaline Phosphatase 66 U/L (38-126); Anion Gap 13.8 mEq/L (5-15); Aspartate Amino Transferase 41 U/L (17-59); Bilirubin,Total 0.4 mg/dl (0.2-1.3); Blood Urea Nitrogen 18 mg/dl (9-20); Calcium 8.6 mg/dl (8.4-10.2); Carbon Dioxide 32 mmol/L (22.0-30.0); Chloride 98 mmol/L (98-107); Estimated Glomerular Filt Rate 78 ml/min (>60); GFR (African American) 94 ML/MIN (>60); Globulin 2.9 g/dL (1.3-3.2); Glucose 94 mg/dl (74-100); Potassium 3.8 mmoL/L (3.5-5.1); Sodium 140 mmol/L (136-145); Total Protein,Serum 6.9 g/dl (6.3-8.2)
[2023-05-07 20:19] LABS: Hemoglobin A1C 5.7 % (4.0-6.0)
[2023-05-09 08:57] LABS: Testosterone,Total 567 ng/dL (264-916)
== END ==
PROVIDERS: PCP Family Medicine; Visit Provider Family Medicine
DX: M54.42 Lumbago with sciatica, left side (principal); E11.9 Type 2 diabetes mellitus without complications; F32.A Depression, unspecified; E29.1 Testicular hypofunction
CPT/HCPCS: 80053; 83036; 84403; 85025

== ENCOUNTER 2023-07-02 18:36 | Outpatient (CLI) | payer MEDICARE, SELFPAY ==
[2023-07-04 09:06] LABS: Testosterone,Total 891 ng/dL (264-916)
== END 2023-07-02 23:59 ==
LOC: LAB.DROPOF 18:37
PROVIDERS: PCP Family Medicine; Visit Provider Family Medicine
DX: E34.9 Endocrine disorder, unspecified
CPT/HCPCS: 84403

== ENCOUNTER 2023-07-27 22:03 | Outpatient (CLI) | payer MEDICARE, SELFPAY | END 2023-07-27 23:59 | LOC: LAB.DROPOF 22:04 | PROVIDERS: PCP Nurse Practitioner; Visit Provider Nurse Practitioner | DX: R31.9 Hematuria, unspecified (principal) | CPT/HCPCS: 87086 ==

== ENCOUNTER 2023-08-17 13:18 | Outpatient (CLI) | payer MEDICARE, SELFPAY ==
--- NOTE | 2023-08-17 13:20 | CA_ITS ---
FINAL REPORT TECHNIQUE: Ultrasound images of the deep venous system were obtained from the left groin to the calf veins. CLINICAL HISTORY: left posterior calf pain, hx LLE DVT. Patient was taking Xarelto for DVT history 2020. Xarelto was stopped 1 month ago, Pain in posterior knee. Palpable knots felt in the distal medial thigh. HTN, HLD, obesity. COMPARISON: None FINDINGS: There is visualized popliteal thrombus and superficial thrombus of the greater saphenous vein. IMPRESSION: Popliteal thrombus and superficial thrombus of the greater saphenous vein. Reviewed, Interpreted and Dictated by Francy Lorenzana MD Transcribed by Deya Zimmerman Authenticated and . [facility]
== END 2023-08-17 23:59 ==
LOC: RT 13:20
PROVIDERS: PCP Family Medicine; Visit Provider Nurse Practitioner
DX: I82.402 Acute embolism and thrombosis of unspecified deep veins of left lower extremity (principal); M79.662 Pain in left lower leg
CPT/HCPCS: 93971

== ENCOUNTER 2023-10-07 10:35 | Outpatient (CLI) | payer MEDICARE, SELFPAY ==
[2023-10-07 18:29] LABS: Basophils % 0.7 % (0.1-2.0); Eosinophils # 0.2 K/mm3 (0.0-0.4); Eosinophils % 3.1 % (0.1-12.0); Hematocrit 46.4 % (42.0-52.0); Hemoglobin 14.6 g/dL (14.1-18.0); Lymphocytes # 1.5 K/mm3 (0.7-4.5); Lymphocytes % 22.4 % (10-50); Mean Corpuscular HGB Conc 31.3 g/dL (31.8-35.4); Mean Corpuscular Hemoglobin 27.2 pg (27.0-31.2); Mean Corpuscular Volume 86.8 fl (80-94); Mean Platelet Volume 10.9 fl (7.4-10.4); Monocytes # 0.4 K/mm3 (0.1-1.0); Monocytes % 5.4 % (1.7-9.3); Neutrophils # 4.5 K/mm3 (1.8-7.8); Neutrophils % 68.4 % (37.0-80.0); Platelet Count 167 K/mm3 (142-424); Red Blood Count 5.35 M/mm3 (4.60-6.20); Red Cell Distribution Width 17.2 % (11.5-17.5); White Blood Count 6.6 K/mm3 (4.8-10.8)
[2023-10-07 18:59] LABS: Alanine Aminotransferase 45 U/L (12-78); Albumin/Globulin Ratio 1.4 (1.1-1.8); Alkaline Phosphatase 67 U/L (38-126); Anion Gap 11.2 mEq/L (5-15); Aspartate Amino Transferase 50 U/L (17-59); Bilirubin,Total 0.6 mg/dl (0.2-1.3); Blood Urea Nitrogen 16 mg/dl (9-20); Calcium 9.2 mg/dl (8.4-10.2); Carbon Dioxide 34 mmol/L (22.0-30.0); Chloride 101 mmol/L (98-107); Chol/HDL Ratio 4.8 (1-3.5); Cholesterol 174 mg/dl (140-200); Estimated Glomerular Filt Rate 78 ml/min (>60); GFR (African American) 94 ML/MIN (>60); Globulin 2.8 g/dL (1.3-3.2); Glucose 109 mg/dl (74-100); HDL Cholesterol 36 mg/dl (40-60); Potassium 4.2 mmoL/L (3.5-5.1); Sodium 142 mmol/L (136-145); Total Protein,Serum 6.8 g/dl (6.3-8.2); Triglycerides 143 mg/dl (30-150); VLDL Cholesterol 29 mg/dL (0-40)
[2023-10-07 19:09] LABS: Direct LDL Cholesterol 93.95 mg/dL (100-129)
[2023-10-07 19:26] LABS: Thyroid Stimulating Hormone 2.01 uIU/mL (0.465-4.68)
[2023-10-09 09:14] LABS: Testosterone,Total 229 ng/dL (264-916)
== END 2023-10-07 23:59 | disposition home or self-care (01) ==
LOC: LAB.DROPOF 10-08 10:36
PROVIDERS: PCP Family Medicine; Visit Provider Family Medicine
DX: E34.9 Endocrine disorder, unspecified (principal); R60.9 Edema, unspecified; E66.01 Morbid (severe) obesity due to excess calories; Z68.42 Body mass index [BMI] 45.0-49.9, adult
CPT/HCPCS: 80053; 80061; 84403; 84443; 85025

== ENCOUNTER 2023-10-14 12:42 | Outpatient (POV) | payer MEDICARE, SELFPAY ==
--- NOTE | 2023-10-14 13:47 | EXP.PAIN.OV ---
HPI Data of Consult Patient: known to practice within the last 3 years Consult date: 10/14/23 Requesting Physician: Gail Bauer APRN Primary Care Provider: Carlo Rm MD Consult Narrative Reason for consult: Chronic low back pain History of present illness: Mr. Ackerman is a 53 year old male who presents today as a patient will transfer from the [place] office location. Patient was prior patient here back in 2021 however when the [place] office opened it was closer to his home and so he switched to this office. Patient rates his pain today a 1 out of 10. Patient states his pain is more prominent in his overall back. Patient does have a intrathecal pain pump in place with morphine 5 mg/mL and a daily dose of 1.75 mg/day. He denies any side effects from this medication. Patient does have his pump filled at home through [facility]. Today's visit is just for his overall 6-month follow-up appointment. Patient states he is doing well with no side effects or overall issues. Patient states that he did have this pump placed in May 2021 and has been doing well since. Patient states that he does try and walk at least 2 miles per day. Patient states that he has overall improved function since having his pump. He is prescribed lorazepam, gabapentin and testosterone therapy from his PCP. His Riaz has been reviewed and is appropriate. CC: Gail Bauer APRN [facility] Disclaimer: The information contained in this section may have been updated after the patient was seen, as this information can be updated by other users. 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 current occupational exposures/hazards: No caffeine: Yes Review of Systems Review of Systems Review of systems:: pertinent systems reviewed and negative unless documented below Review of systems (narrative): Review of Systems: General: No recent weight changes, no fever, no sleep disturbances Respiratory: No cough, no shortness of air, no recurring pulmonary infections Cardiovascular/peripheral vascular: No chest pain, no palpitations, no edema, no shortness of breath Gastrointestinal: No new onset incontinence, normal bowel movements reported Genitourinary: No new onset incontinence Musculoskeletal: Low back pain, neck pain Psychiatric: [Normal mood/affect] Neurological: [Denies weakness in extremities], [denies balance issues] Meds Home Medications and Allergies Home Medications Medication Instructions Recorded Confirmed Type cholecalciferol (vitamin D3) 125 125 mcg PO DAILY Supplement 05/23/21 10/14/23 History mcg (5,000 unit) tablet needle (disp) 25 gauge 25 gauge x #100 ea 09/07/22 10/14/23 Rx 1 (BD PrecisionGlide) escitalopram oxalate 20 mg tablet 20 mg PO DAILY #90 tabs 10/26/22 10/14/23 Rx (Lexapro) tamsulosin 0.4 mg capsule 0.4 mg PO DAILY #90 caps 02/02/23 10/14/23 Rx sildenafil 100 mg tablet (Viagra) 100 mg PO DAILY PRN sexual 05/24/23 10/14/23 Rx activity #100 tabs gabapentin 400 mg capsule 400 mg PO TID PRN pain, moderate 08/09/23 10/14/23 Rx #90 caps testosterone (AndroGel) 2 pump topical DAILY #75 grams 08/27/23 10/14/23 Rx esomeprazole magnesium 20 mg 20 mg PO DAILY 09/06/23 10/14/23 History capsule,delayed release rivaroxaban 20 mg tablet (Xarelto) 20 mg PO DAILY #30 tabs 09/16/23 10/14/23 Rx lorazepam 2 mg tablet 2 mg PO DAILY PRN panic attack(s) 09/27/23 10/14/23 Rx #15 tabs losartan 100 mg tablet 100 mg PO DAILY blood pressure #90 09/27/23 10/14/23 Rx tabs furosemide 40 mg tablet See Rx Instructions .Route 10/11/23 10/14/23 Rx .COMPLEX #90 tabs hydrochlorothiazide 25 mg tablet 25 mg PO DAILY blood pressure #90 10/11/23 10/14/23 Rx tabs metoprolol succinate 100 mg 100 mg PO DAILY blood pressure #90 10/11/23 10/14/23 Rx tablet,extended release 24 hr tabs potassium chloride 10 mEq See Rx Instructions .Route 10/11/23 10/14/23 Rx tablet,extended release .COMPLEX Supplement #90 tabs New Prescriptions to Start Prescriptions: Allergies Allergy/AdvReac Type Severity Reaction Status Date / Time azithromycin AdvReac Severe Vomiting Verified 10/14/23 12:44 erythromycin base AdvReac Intermediate Vomiting Verified 10/14/23 12:44 Objective Narrative: Physical Exam: General: Alert and oriented x3, no acute distress, pleasant and cooperative Lungs: Respirations even and unlabored, symmetrical chest expansion Eyes: PERRL Musculoskeletal: Flexion and extension of lumbar [spine] somewhat guarded secondary to pain, [antalgic gait noted] Neurological: Speech clear, no gross sensory deficit Assessment and Plan *Assessment and plan (1) Back pain: Status: Chronic Qualifiers: Back pain location: low back pain Chronicity: chronic Back pain laterality: bilateral Sciatica presence: with sciatica Sciatica laterality: sciatica of left side Qualified Code(s): M54.42 - Lumbago with sciatica, left side Category: Medical Code(s): M54.9 - Dorsalgia, unspecified (2) Degenerative disc disease, lumbar: Status: Acute Category: Medical Code(s): M51.36 - Other intervertebral disc degeneration, lumbar region (3) History of spinal surgery: Status: Acute Category: Surgical Code(s): Z98.890 - Other specified postprocedural states (4) Lumbar radiculopathy: Status: Acute Category: Medical Code(s): M54.16 - Radiculopathy, lumbar region (5) Degenerative disc disease, cervical: Status: Acute Category: Medical Code(s): M50.30 - Other cervical disc degeneration, unspecified cervical region Plan Patient continues to do well with tenderness intrathecal pain pump and does not require any additional adjustment. Patient will return to clinic in 6 months for reevaluation of symptoms and plan of care. Patient has been instructed to contact the clinic with any concerns before the next appointment. Dr. George has reviewed this note and agrees with this plan of care. This note was dictated using voice recognition software and make contain errors or omissions. -- It Is medically necessary for this patient to continue to have their intrathecal pump refilled at regular intervals. This patient had an intrathecal pain pump implanted after meeting criteria of chronic intractable pain for greater than 3 months and failing conservative treatments. Patient has committed and been compliant to the treatment plan and all planned follow up care. Since implantation of the intrathecal pain pump, the patient has had decreased pain and been more functional. Oral medications have been reduced including intake of oral opioids. Patient continues to do well with intrathecal therapy with decrease in pain symptoms and increase in functional status. Stopping intrathecal medications can lead to life threatening withdrawal, seizures, cardiac arrest, severe pain, and possible . Pumps that are not refilled at regular intervals can be damages and cause and need for replacement. We continually titrate dose and concentration to optimize pain relief and function. We are limited in concentration for certain drugs to safely deliver medications through the pump and stay within the recommendations from the Polyanalgesic Consensus Committee Guidelines. Depending on dose and concentration these pumps may need to be refilled sooner than 3 months as we titrate.
[2023-10-14 13:59] VITALS: BP 115/47; PULSE 75; RESP 18; O2SAT 95; BMI 43.3
== END 2023-10-14 23:59 | disposition home or self-care (01) ==
LOC: SC.PAIN 12:43
PROVIDERS: PCP Family Medicine; Visit Provider Nurse Practitioner Family
DX: Z98.890 Other specified postprocedural states; M50.30 Other cervical disc degeneration, unspecified cervical region; M51.16 Intervertebral disc disorders with radiculopathy, lumbar region
CPT/HCPCS: 99202; G0463

== ENCOUNTER 2023-11-05 08:10 | Outpatient (CLI) | payer MEDICARE, SELFPAY ==
--- NOTE | 2023-11-05 08:11 | CT_ITS ---
FINAL REPORT TECHNIQUE: Then section axial CT images of the chest were obtained with contrast. Three-D reformatted images were also obtained.This study was performed with techniques to keep radiation doses as low as reasonably achievable (ALARA). Individualized dose reduction techniques using automated exposure control or adjustment of mA and/or kV according to the patient''s size were employed. CLINICAL HISTORY: DYSPNEA COMPARISON: None FINDINGS: There is no evidence of pulmonary embolism. There is no evidence of thoracic aortic aneurysm or dissection. Cardiomegaly is present. There is no evidence of mediastinal or hilar mass or adenopathy. There are multifocal ground glass nodular opacities present in the right lower lobe, worrisome for multifocal pneumonia. No localized inflammatory process is seen within the lungs. Postoperative changes are present in the lower thoracic spine, with diffuse degenerative change present as well. Limited images of the upper abdomen are unremarkable. IMPRESSION: No evidence of pulmonary embolism. Multifocal ground glass nodular opacities present in the right lower lobe, worrisome for multifocal pneumonia. Cardiomegaly. Reviewed, Interpreted and Dictated by Ezequiel Busby III, MD Transcribed by Anusha Campo Authenticated and [facility]
[2023-11-05] MEDS: SODIUM CHLORIDE 0.9% 10ML SYR (RAD ONLY) 10 ML IV (08:28)
[2023-11-05] MEDS: IOPAMIDOL-370 (76%);100ML BOTTLE 100 ML IV (08:28)
[2023-11-05] MEDS: 0.9 % SODIUM CHLORIDE 50 ML VIAL IV (08:28)
== END 2023-11-05 23:59 | disposition home or self-care (01) ==
LOC: RAD 08:11
PROVIDERS: PCP Family Medicine; Visit Provider Family Medicine
DX: R06.00 Dyspnea, unspecified (principal)
CPT/HCPCS: 71275; Q9967

== ENCOUNTER 2024-01-10 11:25 | Outpatient (CLI) | payer MEDICARE, SELFPAY ==
[2024-01-12 08:51] LABS: Testosterone,Total 284 ng/dL (264-916)
== END 2024-01-10 23:59 | disposition home or self-care (01) ==
LOC: LAB.DROPOF 01-11 11:25
PROVIDERS: PCP Family Medicine; Visit Provider Family Medicine
DX: E34.9 Endocrine disorder, unspecified (principal)
CPT/HCPCS: 84403

== ENCOUNTER 2024-03-16 11:49 | Outpatient (CLI) | payer MEDICARE, SELFPAY ==
[2024-03-16 20:13] LABS: Prostate Specific Ag Screen 0.8 ng/ml (0.0-4.0)
[2024-03-18 10:11] LABS: Testosterone,Total 1025 ng/dL (264-916)
== END 2024-03-16 23:59 | disposition home or self-care (01) ==
LOC: LAB.DROPOF 03-17 15:02
PROVIDERS: PCP Family Medicine; Visit Provider Family Medicine
DX: Z12.5 Encounter for screening for malignant neoplasm of prostate (principal); E29.1 Testicular hypofunction
CPT/HCPCS: 84403; G0103

== ENCOUNTER 2024-03-28 08:59 | Day surgery (SDC) | payer MEDICARE, SELFPAY ==
[2024-03-28 09:07] VITALS: BP 147/83; PULSE 65; RESP 16; TEMP 36.9; O2SAT 99
[2024-03-28 09:24] VITALS: BP 137/69; PULSE 78; RESP 18; TEMP 36.9; O2SAT 99; BMI 44.1
[2024-03-28 10:03] VITALS: PULSE 71; RESP 18; O2SAT 97
--- NOTE | 2024-03-28 11:28 | P.PCN_ITS ---
Procedure Date: 03/28/24 Time: 09:30 Anesthesiologist:: Lalito Lawson CRNA Complications:: None Pre-procedure Diagnosis:: Degenerative disc lumbar spine multilevels. Lumbar radiculopathy. Lumbar postlaminectomy syndrome. Post-procedure Diagnosis:: Same. Indications for Procedure:: Patient is a very pleasant 53-year-old male who comes our clinic today for intrathecal pain pump interrogation refill. Patient currently being managed with morphine sulfate 10 mg/mL at a rate of 1.9200 mg/day. He is doing very well with his current settings. He is not reporting side effects or complications. He rates his pain today 2/10. Patient is awake alert Lampe x 3. In no acute distress. Flexion-extension lumbar spine somewhat guarded secondary to pain. Deep tendon reflexes upper and lower extremities normal. Motor strength upper and lower extremities normal. There is no gross sensory deficit. Gait is normal. Patient uses a cane for stability. Procedure Details:: Details of the procedure explained to the patient. The patient taken procedure and placed in sitting position. They over the pumps cleansed using chlorhexidine as a cleansing solution. The pump was interrogated. The pump was accessed with ease using a 22-gauge inch and half needle. 6 mL of solution was withdrawn discarded appropriate. The pump was then filled with 20 cc of solution containing morphine sulfate 4 mg/mL. The rate will remain unchanged. 1.9200 mg/day. Patient tolerated procedure without difficulty. There are no complications. Plan and Disposition:: Patient was discharged without incident.
== END 2024-03-28 10:10 | disposition home or self-care (01) ==
PROVIDERS: PCP Family Medicine; Visit Provider Nurse Anesthetist, Certified Registered
DX: M51.16 Intervertebral disc disorders with radiculopathy, lumbar region (principal); M96.1 Postlaminectomy syndrome, not elsewhere classified
CPT/HCPCS: 95991

== ENCOUNTER 2024-04-13 08:59 | Outpatient (POV) | payer MEDICARE, SELFPAY ==
[2024-04-13 09:20] VITALS: BP 150/65; BP 150/78; PULSE 65; RESP 18; O2SAT 100; BMI 41.3
--- NOTE | 2024-04-13 09:38 | EXP.PAIN.SOA ---
[facility] Disclaimer: The information contained in this section may have been updated after the patient was seen, as this information can be updated by other users. 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 Today he rates his pain a 1 out of 10. He denies any new trauma or injury. Patient states overall he is doing well and had a increase of his pump about a month ago. Patient is currently managed with morphine 4 mg/mL with a daily dose of 1.92 mg/day. He denies any side effects from this medicine. Patient is prescribed lorazepam, testosterone and gabapentin from his PCP. His Riaz has been reviewed and is appropriate. Review of Systems: General: No recent weight changes, no fever, no sleep disturbances Respiratory: No cough, no shortness of air, no recurring pulmonary infections Cardiovascular/peripheral vascular: No chest pain, no palpitations, no edema, no shortness of breath Gastrointestinal: No new onset incontinence, normal bowel movements reported Genitourinary: No new onset incontinence Musculoskeletal: Low back pain Psychiatric: [Normal mood/affect] Neurological: [Denies weakness in extremities], [denies balance issues] Pain at rest (0-10 scale): 1 Objective Objective:: Physical Exam: General: Alert and oriented x3, no acute distress, pleasant and cooperative Lungs: Respirations even and unlabored, symmetrical chest expansion Eyes: PERRL Musculoskeletal: Flexion and extension of lumbar [spine] somewhat guarded secondary to pain, [antalgic gait noted] Neurological: Speech clear, no gross sensory deficit Has patient had previous pain injection?: No Conservative treatment options previously tried: Home exercise plan Length of treatment: Longer than 6 weeks Meds Home Medications and Allergies Home Medications ?Medication ?Instructions ?Recorded ?Confirmed ?Type needle (disp) 25 gauge 25 gauge x #100 ea 09/07/22 04/04/24 Rx 1 (BD PrecisionGlide) sildenafil 100 mg tablet (Viagra) 100 mg PO DAILY PRN sexual 05/24/23 04/04/24 Rx activity #100 tabs esomeprazole magnesium 20 mg 20 mg PO DAILY 09/06/23 04/04/24 History capsule,delayed release rivaroxaban 20 mg tablet (Xarelto) 20 mg PO DAILY #30 tabs 09/16/23 04/04/24 Rx losartan 100 mg tablet 100 mg PO DAILY blood pressure #90 09/27/23 04/04/24 Rx tabs hydrochlorothiazide 25 mg tablet 25 mg PO DAILY blood pressure #90 10/11/23 04/04/24 Rx tabs potassium chloride 10 mEq See Rx Instructions .Route 10/11/23 04/04/24 Rx tablet,extended release .COMPLEX Supplement #90 tabs needle (disp) 21 G 21 gauge x 1 #100 ea 11/05/23 04/04/24 Rx 1/2 (BD Regular Bevel Rosser) nebivolol 10 mg tablet (Bystolic) 10 mg PO DAILY #90 tabs 01/10/24 04/04/24 Rx syringe with needle 3 mL 21 gauge #100 ea 01/10/24 04/04/24 History x 1 1/2 (BD Luer-Lorraine Syringe) furosemide 40 mg tablet See Rx Instructions .Route 02/28/24 04/04/24 Rx .COMPLEX #90 tabs cholecalciferol (vitamin D3) 125 125 mcg PO DAILY Supplement #90 02/29/24 04/04/24 Rx mcg (5,000 unit) tablet tabs cranberry [id number] See Rx Instructions PO .COMPLEX 02/29/24 04/04/24 Rx coagulans 250 mg-30 mg-15 mg #100 tabs tablet (Azo Cranberry Plus Probiotic) pldalrng-skt-mlbiy 150 mcg-vit K1 See Rx Instructions PO .COMPLEX 02/29/24 04/04/24 Rx 30 mcg-lycop 300 mcg-lutein tablet #100 tabs (Centrum Minis Men 50 Plus) L.paracasei,rhamnosus-B.animalis 1 cap PO DAILY #100 caps 03/03/24 04/04/24 Rx 11 billion cell-vit C 15 mg capsule (Daily Probiotic (4 Strains)) lorazepam 2 mg tablet 2 mg PO DAILY PRN panic attack(s) 03/03/24 04/04/24 Rx #15 tabs testosterone cypionate 200 mg/mL See Rx Instructions .Route 03/08/24 04/04/24 Rx intramuscular oil .COMPLEX Supplement #10 mL dutasteride 0.5 mg-tamsulosin ER 1 cap PO DAILY #90 caps 03/16/24 04/04/24 Rx 0.4 mg capsule ext.release 24hr mphas (Caren) gabapentin 400 mg capsule See Rx Instructions .Route 03/27/24 04/04/24 Rx .COMPLEX #90 caps acetaminophen 500 mg tablet 1,000 mg (2 x 500 mg) PO TID pain 03/29/24 04/04/24 Rx (Tylenol Extra Strength) #180 tabs cholestyramine (with sugar) 4 gram See Rx Instructions .Route .COMPLEX 04/04/24 04/04/24 History oral powder desvenlafaxine succinate 100 mg 100 mg PO DAILY #30 tabs 04/04/24 04/04/24 Rx tablet,extended release 24 hr (Pristiq) ciprofloxacin HCl 500 mg tablet 500 mg PO BID #60 tabs 04/05/24 Rx (Cipro) New Prescriptions to Start Prescriptions: Allergies Allergy/AdvReac Type Severity Reaction Status Date / Time azithromycin AdvReac Severe Vomiting Verified 04/04/24 08:36 erythromycin base AdvReac Intermediate Vomiting Verified 04/04/24 08:36 Assessment and Plan *Assessment and plan (1) Degenerative disc disease, cervical: Status: Acute Category: Medical Code(s): M50.30 - Other cervical disc degeneration, unspecified cervical region (2) Lumbar radiculopathy: Status: Acute Category: Medical Code(s): M54.16 - Radiculopathy, lumbar region (3) Degenerative disc disease, lumbar: Status: Acute Category: Medical Code(s): M51.36 - Other intervertebral disc degeneration, lumbar region Plan Patient is doing well with his pump and does not need any additional adjustment at this time. Patient will return to clinic on or before his next intrathecal refill. We will see the patient back in the clinic at the next intrathecal refill. Patient has been instructed to contact the clinic with any concerns before the next appointment. Dr. George has reviewed this note and agrees with this plan of care. This note was dictated using voice recognition software and make contain errors or omissions. -- It Is medically necessary for this patient to continue to have their intrathecal pump refilled at regular intervals. This patient had an intrathecal pain pump implanted after meeting criteria of chronic intractable pain for greater than 3 months and failing conservative treatments. Patient has committed and been compliant to the treatment plan and all planned follow up care. Since implantation of the intrathecal pain pump, the patient has had decreased pain and been more functional. Oral medications have been reduced including intake of oral opioids. Patient continues to do well with intrathecal therapy with decrease in pain symptoms and increase in functional status. Stopping intrathecal medications can lead to life threatening withdrawal, seizures, cardiac arrest, severe pain, and possible . Pumps that are not refilled at regular intervals can be damages and cause and need for replacement. We continually titrate dose and concentration to optimize pain relief and function. We are limited in concentration for certain drugs to safely deliver medications through the pump and stay within the recommendations from the Polyanalgesic Consensus Committee Guidelines. Depending on dose and concentration these pumps may need to be refilled sooner than 3 months as we titrate.
== END 2024-04-13 23:59 | disposition home or self-care (01) ==
PROVIDERS: PCP Family Medicine; Visit Provider Nurse Practitioner Family
DX: M50.30 Other cervical disc degeneration, unspecified cervical region (principal); M51.16 Intervertebral disc disorders with radiculopathy, lumbar region; Z79.899 Other long term (current) drug therapy; Z79.01 Long term (current) use of anticoagulants
CPT/HCPCS: 99212; G0463

== ENCOUNTER 2024-05-10 14:53 | Outpatient (CLI) | payer MEDICARE, SELFPAY ==
[2024-05-10 18:05] LABS: Basophils # 0.1 K/mm3 (0-0.2); Basophils % 0.7 % (0.1-2.0); Eosinophils # 0.2 K/mm3 (0.0-0.4); Eosinophils % 2.8 % (0.1-12.0); Hematocrit 41.9 % (42.0-52.0); Hemoglobin 13.9 g/dL (14.1-18.0); Lymphocytes # 2.1 K/mm3 (0.7-4.5); Lymphocytes % 24.6 % (10-50); Mean Corpuscular HGB Conc 33.2 g/dL (31.8-35.4); Mean Corpuscular Hemoglobin 27.7 pg (27.0-31.2); Mean Corpuscular Volume 83.5 fl (80-94); Mean Platelet Volume 10.3 fl (7.4-10.4); Monocytes # 0.5 K/mm3 (0.1-1.0); Monocytes % 5.8 % (1.7-9.3); Neutrophils # 5.7 K/mm3 (1.8-7.8); Neutrophils % 66.1 % (37.0-80.0); Platelet Count 182 K/mm3 (142-424); Red Blood Count 5.01 M/mm3 (4.60-6.20); Red Cell Distribution Width 15.8 % (11.5-17.5); White Blood Count 8.7 K/mm3 (4.8-10.8)
[2024-05-10 18:26] LABS: Alanine Aminotransferase 50 U/L (12-78); Albumin Level 4.2 g/dl (3.5-5.0); Albumin/Globulin Ratio 1.4 (1.1-1.8); Alkaline Phosphatase 50 U/L (38-126); Anion Gap 10.8 mEq/L (5-15); Aspartate Amino Transferase 54 U/L (17-59); Bilirubin,Total 0.7 mg/dl (0.2-1.3); Blood Urea Nitrogen 21 mg/dl (9-20); Calcium 9.1 mg/dl (8.4-10.2); Carbon Dioxide 33 mmol/L (22.0-30.0); Chloride 98 mmol/L (98-107); Chol/HDL Ratio 4.1 (1-3.5); Cholesterol 164 mg/dl (140-200); Estimated Glomerular Filt Rate 88 ml/min (>60); GFR (African American) 106 ML/MIN (>60); Globulin 2.9 g/dL (1.3-3.2); Glucose 91 mg/dl (74-100); HDL Cholesterol 40 mg/dl (40-60); Potassium 3.8 mmoL/L (3.5-5.1); Sodium 138 mmol/L (136-145); Total Protein,Serum 7.1 g/dl (6.3-8.2); Triglycerides 311 mg/dl (30-150); VLDL Cholesterol 62 mg/dL (0-40)
[2024-05-10 20:11] LABS: Direct LDL Cholesterol 94.27 mg/dL (100-129)
[2024-05-10 22:46] LABS: HIV (1&2) Antibody Rapid NONREACTIVE (NONREACTIVE)
[2024-05-12 05:24] LABS: HCV Ab Non Reactive (Non Reactive)
[2024-05-12 08:21] LABS: Testosterone,Total 940 ng/dL (264-916)
== END 2024-05-10 23:59 | disposition home or self-care (01) ==
LOC: LAB.DROPOF 05-11 07:09
PROVIDERS: PCP Family Medicine; Visit Provider Family Medicine
DX: E34.9 Endocrine disorder, unspecified (principal); Z11.4 Encounter for screening for human immunodeficiency virus [HIV]; Z11.59 Encounter for screening for other viral diseases; R04.0 Epistaxis; G89.4 Chronic pain syndrome; E66.9 Obesity, unspecified; E78.5 Hyperlipidemia, unspecified
CPT/HCPCS: 80053; 80061; 84403; 85025; 86803; 87389

== ENCOUNTER 2024-05-26 09:24 | Day surgery (SDC) | payer MEDICARE, SELFPAY ==
[2024-05-26 09:36] VITALS: BP 145/71; PULSE 104; RESP 16; TEMP 36.5; O2SAT 97; BMI 47.1
[2024-05-26 10:01] VITALS: BP 132/64; PULSE 94; RESP 18; O2SAT 97
--- NOTE | 2024-05-26 10:09 | EXP.PAIN.PRO ---
Procedure Date: 05/26/24 Time: 10:09 Anesthesiologist:: Gail Bauer APRN Complications:: None Pre-procedure Diagnosis:: Degenerative disc disease of lumbar spine with lumbar radiculopathy symptoms Post-procedure Diagnosis:: Same Indications for Procedure:: TodayPatient is a pleasant 53-year-old male who presents today for intrathecal refill and reprogram. He rates his pain a 1 out of 10. Patient is currently managed with morphine 10 mg/mL with a daily dose of 1.92 mg/day. He denies any side effects from this medication. He is prescribed gabapentin and testosterone from an outside provider. His Riaz has been reviewed and is appropriate. Physical Exam: General: Alert and oriented x3, no acute distress, pleasant and cooperative Lungs: Respirations even and unlabored, symmetrical chest expansion Eyes: PERRL Musculoskeletal: Flexion and extension of lumbar [spine] somewhat guarded secondary to pain, [antalgic gait noted] Neurological: Speech clear, no gross sensory deficit Procedure Details:: Informed consent was obtained and the risk and benefits of the procedure were explained to the patient. The patient had noninvasive monitoring placed including noninvasive blood pressure cuff and pulse oximeter. Patient's pump was interrogated. The area over the pump was cleansed with chlorhexidine as a cleansing solution. [Fluoroscopy was used to access the pump]. In sterile fashion the pump was accessed with a 22-gauge needle. Approximately 8.5 mls of the pump solution was removed and discarded appropriately. The pump was then refilled with 20 mL's of morphine 10 mg/mL. The needle was withdrawn and a bandage was placed over the puncture site. The infusion rate was reprogrammed and morphine 1.92 mg/day. The patient tolerated well with no complication. Plan and Disposition:: Patient tolerated his procedure well with no complications and was discharged neurologically intact. Patient will return to clinic on or before his next intrathecal refill and reprogram. We will see the patient back in the clinic at the next intrathecal refill. Patient has been instructed to contact the clinic with any concerns before the next appointment. Dr. George has reviewed this note and agrees with this plan of care. This note was dictated using voice recognition software and make contain errors or omissions. -- It Is medically necessary for this patient to continue to have their intrathecal pump refilled at regular intervals. This patient had an intrathecal pain pump implanted after meeting criteria of chronic intractable pain for greater than 3 months and failing conservative treatments. Patient has committed and been compliant to the treatment plan and all planned follow up care. Since implantation of the intrathecal pain pump, the patient has had decreased pain and been more functional. Oral medications have been reduced including intake of oral opioids. Patient continues to do well with intrathecal therapy with decrease in pain symptoms and increase in functional status. Stopping intrathecal medications can lead to life threatening withdrawal, seizures, cardiac arrest, severe pain, and possible . Pumps that are not refilled at regular intervals can be damages and cause and need for replacement. We continually titrate dose and concentration to optimize pain relief and function. We are limited in concentration for certain drugs to safely deliver medications through the pump and stay within the recommendations from the Polyanalgesic Consensus Committee Guidelines. Depending on dose and concentration these pumps may need to be refilled sooner than 3 months as we titrate.
[2024-05-26 10:11] VITALS: BP 132/64; PULSE 94; RESP 18; O2SAT 97
[2024-05-26 10:22] VITALS: BP 137/74; PULSE 88; RESP 16; O2SAT 98
== END 2024-05-26 10:22 | disposition home or self-care (01) ==
PROVIDERS: PCP Family Medicine; Visit Provider Nurse Practitioner Family
DX: M51.16 Intervertebral disc disorders with radiculopathy, lumbar region (principal)
CPT/HCPCS: 62370

== ENCOUNTER 2024-06-16 07:35 | Outpatient (CLI) | payer MEDICARE, SELFPAY ==
--- NOTE | 2024-06-16 07:42 | CA_ITS ---
FINAL REPORT TECHNIQUE: Ultrasound images of the deep venous system were obtained from the left groin to the calf veins. 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 There has been significant improvement in the popliteal segment. The remaining deep venous system is widely patent. IMPRESSION: Mild persistent thrombus in the left popliteal and proximal peroneal veins Reviewed, Interpreted and Dictated by Mike Boothe MD Transcribed by Dhara Nieto Authenticated and [facility]
== END 2024-06-16 23:59 | disposition home or self-care (01) ==
LOC: RT 07:36
PROVIDERS: PCP Family Medicine; Visit Provider Family Medicine
DX: R60.0 Localized edema (principal); I82.402 Acute embolism and thrombosis of unspecified deep veins of left lower extremity
CPT/HCPCS: 93971

== ENCOUNTER 2024-07-06 09:19 | Outpatient (CLI) | payer MEDICARE, SELFPAY | END 2024-07-06 23:59 | LOC: LAB.DROPOF 07-07 09:19 | PROVIDERS: PCP Family Medicine; Visit Provider Family Medicine | DX: E34.9 Endocrine disorder, unspecified (principal) | CPT/HCPCS: 84403 ==

== ENCOUNTER 2024-07-28 09:07 | Day surgery (SDC) | payer MEDICARE, SELFPAY ==
--- NOTE | 2024-07-28 09:21 | P.PCN_ITS ---
Procedure Date: 07/28/24 Time: 09:56 Anesthesiologist:: Gail Bauer APRN Complications:: None Pre-procedure Diagnosis:: Degenerative disc disease of lumbar spine with lumbar radiculopathy symptoms Post-procedure Diagnosis:: Same Indications for Procedure:: Patient is a pleasant 54-year-old male who presents today for intrathecal refill and reprogram. Today he rates his pain a 2 out of 10. He denies any new trauma or injury. He states overall he is doing well. He does state however that he did have more difficulty walking and. Patient states that a lot of times when he gets up first thing in the morning it is harder to get going but then as he starts moving it does ease down. Patient is currently managed with morphine 10 mg/mL with a daily dose of 1.92 mg/day. He denies any side effects from this medication. He is prescribed gabapentin and testosterone from an outside p rovider. His Riaz is reviewed and appropriate. Physical Exam: General: Alert and oriented x3, no acute distress, pleasant and cooperative Lungs: Respirations even and unlabored, symmetrical chest expansion Eyes: PERRL Musculoskeletal: Flexion and extension of lumbar [spine] somewhat guarded secondary to pain, [antalgic gait noted] Neurological: Speech clear, no gross sensory deficit Procedure Details:: Informed consent was obtained and the risk and benefits of the procedure were explained to the patient. The patient had noninvasive monitoring placed including noninvasive blood pressure cuff and pulse oximeter. Patient's pump was interrogated. The area over the pump was cleansed with chlorhexidine as a cleansing solution. In sterile fashion the pump was accessed with a 22-gauge needle. Approximately 7.5 mls of the pump solution was removed and discarded appropriately. The pump was then refilled with 20 mL's of morphine 10 mg/mL. The needle was withdrawn and a bandage was placed over the puncture site. The infusion rate was reprogrammed and increased 10%. The patient tolerated well with no complication. Plan and Disposition:: Patient tolerated the procedure well with no complications and was discharged neurologically intact. Patient will return to clinic on or before their next intrathecal refill date. We will see the patient back in the clinic at the next intrathecal refill. Patient has been instructed to contact the clinic with any concerns before the next appointment. Dr. George has reviewed this note and agrees with this plan of care. This note was dictated using voice recognition software and make contain errors or omissions. -- It Is medically necessary for this patient to continue to have their intrathecal pump refilled at regular intervals. This patient had an intrathecal pain pump implanted after meeting criteria of chronic intractable pain for greater than 3 months and failing conservative treatments. Patient has committed and been compliant to the treatment plan and all planned follow up care. Since implantation of the intrathecal pain pump, the patient has had decreased pain and been more functional. Oral medications have been reduced including intake of oral opioids. Patient continues to do well with intrathecal therapy with decrease in pain symptoms and increase in functional status. Stopping intrathecal medications can lead to life threatening withdrawal, seizures, cardiac arrest, severe pain, and possible . Pumps that are not refilled at regular intervals can be damages and cause and need for replacement. We continually titrate dose and concentration to optimize pain relief and function. We are limited in concentration for certain drugs to safely deliver medications through the pump and stay within the recommendations from the Polyanalgesic Consensus Committee Guidelines. Depending on dose and concentration these pumps may need to be refilled sooner than 3 months as we titrate. A UDS is needed to verify patient's compliance with our office pain contract. This is ordered based off specific treatments related to chronic pain with the potential to abuse certain medications.
[2024-07-28 09:41] VITALS: BP 160/85; PULSE 102; RESP 16; O2SAT 97; BMI 49.4
[2024-07-28 09:51] VITALS: BP 159/70; PULSE 96; RESP 18; O2SAT 95
[2024-07-28 09:52] VITALS: BP 159/70; PULSE 96; RESP 18; O2SAT 95
[2024-07-28 10:01] VITALS: BP 154/80; PULSE 90; RESP 16; O2SAT 94
== END 2024-07-28 10:02 | disposition home or self-care (01) ==
LOC: SC.PAINP 09:22 → SC.PAIN 09:31
PROVIDERS: PCP Family Medicine; Visit Provider Nurse Practitioner Family
DX: M51.16 Intervertebral disc disorders with radiculopathy, lumbar region (principal)
CPT/HCPCS: 62370

== ENCOUNTER → 2024-08-21 07:50 | Outpatient (CLI) | payer MEDICARE, SELFPAY | LOC: SL 07:52 | PROVIDERS: PCP Family Medicine; Visit Provider Family Medicine | DX: G47.33 Obstructive sleep apnea (adult) (pediatric) (principal); R40.0 Somnolence | CPT/HCPCS: G0399 ==

== ENCOUNTER 2024-09-18 10:23 | Outpatient (CLI) | payer MEDICARE, SELFPAY ==
[2024-09-18 21:32] LABS: Thyroid Stimulating Hormone 2.71 uIU/mL (0.465-4.68)
[2024-09-20 08:13] LABS: Testosterone,Total 1015 ng/dL (264-916)
== END 2024-09-18 23:59 | disposition home or self-care (01) ==
LOC: LAB.DROPOF 09-20 10:24
PROVIDERS: PCP Family Medicine; Visit Provider Family Medicine
DX: E34.9 Endocrine disorder, unspecified (principal); G47.33 Obstructive sleep apnea (adult) (pediatric)
CPT/HCPCS: 84403; 84443

== ENCOUNTER 2024-09-22 09:24 | Day surgery (SDC) | payer MEDICARE, SELFPAY ==
--- NOTE | 2024-09-22 09:41 | EXP.PAIN.PRO ---
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 Today he rates his pain 2 out of 10. He denies any new trauma or injury. He does state overall he has been doing really well. Patient is currently managed with morphine 10 mg/mL with a daily dose of 2.112 mg/day. He denies any side effects from this medication. He is prescribed lorazepam and testosterone therapy the from an outside provider. His Riaz has been reviewed and is appropriate. Physical Exam: General: Alert and oriented x3, no acute distress, pleasant and cooperative Lungs: Respirations even and unlabored, symmetrical chest expansion Eyes: PERRL Musculoskeletal: Flexion and extension of lumbar [spine] somewhat guarded secondary to pain, [antalgic gait noted] Neurological: Speech clear, no gross sensory deficit Procedure Details:: Informed consent was obtained and the risk and benefits of the procedure were explained to the patient. The patient had noninvasive monitoring placed including noninvasive blood pressure cuff and pulse oximeter. Patient's pump was interrogated. The area over the pump was cleansed with chlorhexidine as a cleansing solution. In sterile fashion the pump was accessed with a 22-gauge needle. Approximately 8 mls of the pump solution was removed and discarded appropriately. The pump was then refilled with 20 mL's of morphine 10 mg/mL. The needle was withdrawn and a bandage was placed over the puncture site. The infusion rate was reprogrammed and continued at its current dosage. The patient tolerated well with no complication. Plan and Disposition:: Patient tolerated the procedure well with no complications and was discharged neurologically intact. Patient will return to clinic on or before their next intrathecal refill date. We will see the patient back in the clinic at the next intrathecal refill. Patient has been instructed to contact the clinic with any concerns before the next appointment. Dr. George has reviewed this note and agrees with this plan of care. This note was dictated using voice recognition software and make contain errors or omissions. -- It Is medically necessary for this patient to continue to have their intrathecal pump refilled at regular intervals. This patient had an intrathecal pain pump implanted after meeting criteria of chronic intractable pain for greater than 3 months and failing conservative treatments. Patient has committed and been compliant to the treatment plan and all planned follow up care. Since implantation of the intrathecal pain pump, the patient has had decreased pain and been more functional. Oral medications have been reduced including intake of oral opioids. Patient continues to do well with intrathecal therapy with decrease in pain symptoms and increase in functional status. Stopping intrathecal medications can lead to life threatening withdrawal, seizures, cardiac arrest, severe pain, and possible . Pumps that are not refilled at regular intervals can be damages and cause and need for replacement. We continually titrate dose and concentration to optimize pain relief and function. We are limited in concentration for certain drugs to safely deliver medications through the pump and stay within the recommendations from the Polyanalgesic Consensus Committee Guidelines. Depending on dose and concentration these pumps may need to be refilled sooner than 3 months as we titrate. A UDS is needed to verify patient's compliance with our office pain contract. This is ordered based off specific treatments related to chronic pain with the potential to abuse certain medications.
[2024-09-22 09:46] VITALS: BP 145/73; PULSE 90; RESP 16; TEMP 36.8; O2SAT 97; BMI 47.9
[2024-09-22 09:50] VITALS: BP 142/85; PULSE 91; RESP 18; O2SAT 97
[2024-09-22 09:51] VITALS: BP 142/85; PULSE 94; RESP 18; O2SAT 97
[2024-09-22 10:10] VITALS: BP 148/87; PULSE 86; RESP 16; O2SAT 97
== END 2024-09-22 10:10 | disposition home or self-care (01) ==
PROVIDERS: PCP Family Medicine; Visit Provider Nurse Practitioner Family
DX: M50.30 Other cervical disc degeneration, unspecified cervical region (principal); M51.16 Intervertebral disc disorders with radiculopathy, lumbar region
CPT/HCPCS: 62370

== ENCOUNTER 2024-11-24 12:30 | Day surgery (SDC) | payer MEDICARE, SELFPAY ==
[2024-11-24 12:56] VITALS: BP 152/76; PULSE 86; RESP 16; O2SAT 98; BMI 27.0
--- NOTE | 2024-11-24 13:10 | P.HP_ITS ---
History of Present Illness *Admission Date: 11/24/24 *Reason for visit:: Intrathecal refill; DDD *History of present illness: Same [facility] Disclaimer: The information contained in this section may have been updated after the patient was seen, as this information can be updated by other users. 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 current occupational exposures/hazards: No caffeine: Yes Have you lived/traveled outside [place] in past 30 days?: No Contact w/someone who lives/traveled outside [place] past 30 days?: No Exposure to someone with infectious disease in past 14 days?: No Do you have a fever (greater than 100.4 F or 38 C)?: No Have you tested positive for COVID-19?: No Exposed to someone with COVID-19 in past 14 days?: No Do you have a sore throat?: No Do you have a cough?: No Do you have any weakness?: No Do you have any diarrhea?: No Are you experiencing any unusual bleeding?: No Do you have any muscle aches/pain?: No Do you have any abdominal pain?: No Are you experiencing loss of taste or smell?: No Other Medical History Have you received the Flu Vaccine for this season: No Have you received the Pneumonia Vaccine: No Review of Systems Review of Systems Review of systems:: pertinent systems reviewed and negative unless documented below Review of systems (narrative): Review of Systems: General: No recent weight changes, no fever, no sleep disturbances Respiratory: No cough, no shortness of air, no recurring pulmonary infections Cardiovascular/peripheral vascular: No chest pain, no palpitations, no edema, no shortness of breath Gastrointestinal: No new onset incontinence, normal bowel movements reported Genitourinary: No new onset incontinence Musculoskeletal: Chronic back pain Psychiatric: [Normal mood/affect] Neurological: [Denies weakness in extremities], [denies balance issues] Meds Home Medications and Allergies Home Medications ?Medication ?Instructions ?Recorded ?Confirmed ?Type sildenafil 100 mg tablet (Viagra) 100 mg PO DAILY PRN sexual 05/24/23 11/24/24 Rx activity #100 tabs syringe with needle 3 mL 21 gauge #100 ea 01/10/2412/13 History x 1 1/2 (BD Luer-Lorraine Syringe) cholecalciferol (vitamin D3) 125 125 mcg PO DAILY Supp lement #90 02/29/24 11/24/24 Rx mcg (5,000 unit) tablet tabs cranberry [id number] See Rx Instructions PO .COMP KEVYN 02/29/24 11/24/24 Rx coagulans 250 mg-30 mg-15 mg #100 tabs tablet (Azo Cranberry Plus Probiotic) [id number] 150 mcg-vit K1 See Rx Instructions PO .COMPLEX 02/29/24 11/24/24 Rx 30 mcg-lycop 300 mcg-lutein tablet #100 tabs (Centrum Minis Men 50 Plus) L.paracasei,rhamnosus-B.animalis 1 cap PO DAILY #100 c aps 03/03/24 11/24/24 Rx 11 billion cell-vit C 15 mg capsule (Daily Probiotic (4 Strains)) acetaminophen 500 mg tablet 1,000 mg (2 x 500 mg) PO T ID pain 03/29/24 11/24/24 Rx (Tylenol Extra Strength) #180 tabs cholestyramine (with sugar) 4 gram See Rx Instructions .Route .COMPLEX 04/04/24 11/24/24 History oral powder sucralfate 1 gram tablet 1 g PO BID 07/06/24 11/24/24 History dutasteride 0.5 mg-tamsulosin ER 1 cap PO DAILY #90 ca ps 07/20/24 11/24/24 Rx 0.4 mg capsule ext.release 24hr mphas (Caren) hydrochlorothiazide 25 mg tablet 25 mg PO DAILY blood pressure #90 07/20/24 11/24/24 Rx tabs nebivolol 10 mg tablet (Bystolic) 10 mg PO DAILY #90 t abs 07/20/24 11/24/24 Rx potassium chloride 10 mEq See Rx Instructions .Route 0 07/20/24 11/24/24 Rx tablet,extended release .COMPLEX Supplement #90 tabs rivaroxaban 20 mg tablet (Xarelto) 20 mg PO DAILY #30 tabs 07/20/24 11/24/24 Rx tadalafil 20 mg tablet (Cialis) 20 mg PO DAILY PRN sex ual activity 07/20/24 11/24/24 Rx #30 tabs esomeprazole magnesium 20 mg 40 mg PO DAILY 08/03/24 0 11/24/24 History capsule,delayed release testosterone cypionate 200 mg/mL See Rx Instructions . Route 08/25/24 11/24/24 Rx intramuscular oil .COMPLEX Supplement #10 mL needle (disp) 23 gauge 23 gauge x #10 ea 08/31/2412/13 Rx 1 (BD PrecisionGlide Non-Sterile) lorazepam 2 mg tablet 2 mg PO DAILY PRN panic juan francisco ck(s) 10/13/24 11/24/24 Rx #15 tabs tirzepatide (weight loss) 5 mg/0.5 5 mg (0.5 mL) SQ WE EKLY #2.5 mL 10/16/24 11/24/24 Rx mL subcutaneous pen injector (Zepbound) furosemide 40 mg tablet See Rx Instructions .Route 0 10/18/24 11/24/24 Rx .COMPLEX #90 tabs desvenlafaxine succinate 100 mg 100 mg PO DAILY #90 ta bs 11/16/24 11/24/24 Rx tablet,extended release 24 hr (Pristiq) sennosides 8.6 mg tablet (senna) 8.6 mg PO DAILY PRN c onstipation 11/16/24 11/24/24 Rx #30 tabs tirzepatide (weight loss) 7.5 7.5 mg (0.5 mL) SQ WEEKL Y #2 mL 11/16/24 11/24/24 Rx mg/0.5 mL subcutaneous pen injector (Zepbound) ciprofloxacin HCl 500 mg tablet See Rx Instructions .R oute 11/17/24 11/24/24 Rx .COMPLEX #60 tabs gabapentin 400 mg capsule See Rx Instructions .Route 0 11/17/24 11/24/24 Rx .COMPLEX #90 caps losartan 50 mg tablet 50 mg PO DAILY #30 tabs 10/1311/24/24 Rx New Prescriptions to Start Prescriptions: Allergies Allergy/AdvReac Type Severity Reaction Status Date / Time erythromycin base AdvReac Intermediate Vomiting Verified 11/21/24 10:07 Exam Data for Last 24 hours Vital signs and Labs for Last 24 Hours: Pulse Resp BP Pulse Ox O2 Del Method 86 16 152/76 H 98 Room Air 11/24/24 12:56 11/24/24 12:56 11/24/24 12:56 11/24/24 12:56 11/24/24 12:56 I & O for Last 24 hours: Intake & Output 11/21/24 11/22/24 11/23/24 11/24/24 23:59 23:59 23:59 23:59 Weight 178 lb Constitutional Constitutional: no acute distress *Routine HEENT Exam Head: Present normocephalic and atraumatic Eye: Present PERRL ENT: Present mucous membranes moist *Routine Neck Exam Neck: Present supple *Routine Respiratory Exam Respiratory: Present CTA bilaterally *Routine Cardiovascular Exam Cardiovascular: Present RRR *Routine Abdominal Exam Abdominal: Present soft *Routine Rectal Exam Rectal:: deferred *Routine Genitalia Exam Genitalia:: normal male Routine Back/Spine/Pelvis Exam Back/Spine: Present pain with flexion *Routine Skin Exam Skin: Present intact, dry and warm *Routine Neurological Exam Neurological: Present alert and oriented X3 Routine Psychiatric Exam Psychiatric: Present normal affect and normal thought process Assessment and Plan *Assessment and plan (1) Chronic pain: Status: Acute Qualifiers: Chronic pain type: chronic pain syndrome Qualified Code(s): G89.4 - Chronic pain syndrome Category: Medical Code(s): G89.29 - Other chronic pain (2) Degenerative disc disease, cervical: Status: Acute Category: Medical Code(s): M50.30 - Other cervical disc degeneration, unspecified cervical region (3) Degenerative disc disease, lumbar: Status: Acute Category: Medical Code(s): M51.369 - Other intervertebral disc degeneration, lumbar region without mention of lumbar back pain or lower extremity pain Plan Patient has been instructed to contact the clinic with any concerns before the next appointment. Dr. George has reviewed this note and agrees with this plan of care. This note was dictated using voice recognition software and make contain errors or omissions. All injections are used with Lidocaine, Bupivacaine and dexamethasone. Occasionally urine drug screen is needed to verify patient's compliance with our office pain contract. This is ordered based off specific treatments related to chronic pain with the potential to abuse certain medications.
--- NOTE | 2024-11-24 13:13 | P.PCN_ITS ---
Procedure Date: 11/24/24 Time: 13:23 Anesthesiologist:: Gail Bauer APRN Complications:: None Pre-procedure Diagnosis:: Chronic pain syndrome, degenerative disc disease of cervical and lumbar spine Post-procedure Diagnosis:: Same Indications for Procedure:: Patient is a pleasant 54-year-old male who presents today for intrathecal refill and reprogram. Today he rates his pain a 2 out of 10. He denies any new trauma or injury. He does state he is doing well with his current medication. Patient is currently managed with morphine 10 mg/mL with a daily dose of 2.112 mg/day. He denies any side effects. He states he is doing well. Physical Exam: General: Alert and oriented x3, no acute distress, pleasant and cooperative Lungs: Respirations even and unlabored, symmetrical chest expansion Eyes: PERRL Musculoskeletal: Flexion and extension of lumbar [spine] somewhat guarded secon mary to pain, [antalgic gait noted] Neurological: Speech clear, no gross sensory deficit Procedure Details:: Informed consent was obtained and the risk and benefits of the procedure were explained to the patient. The patient had noninvasive monitoring placed including noninvasive blood pressure cuff and pulse oximeter. Patient's pump was interrogated. The area over the pump was cleansed with chlorhexidine as a cleansing solution. In sterile fashion the pump was accessed with a 22-gauge needle. Approximately 6.2 mls of the pump solution was removed and discarded appropriately. The pump was then refilled with 20 mL's of morphine 10 mg/mL. The needle was withdrawn and a bandage was placed over the puncture site. The infusion rate was reprogrammed and continued at its current dosage. The patient tolerated well with no complication. Plan and Disposition:: Patient tolerated the procedure well with no complications and was discharged neurologically intact. Patient will return to clinic on or before their next intrathecal refill date. We will see the patient back in the clinic at the next intrathecal refill. Patient has been instructed to contact the clinic with any concerns before the next appointment. Dr. George has reviewed this note and agrees with this plan of care. This note was dictated using voice recognition software and make contain errors or omissions. -- It Is medically necessary for this patient to continue to have their intrathecal pump refilled at regular intervals. This patient had an intrathecal pain pump implanted after meeting criteria of chronic intractable pain for greater than 3 months and failing conservative treatments. Patient has committed and been compliant to the treatment plan and all planned follow up care. Since implantation of the intrathecal pain pump, the patient has had decreased pain and been more functional. Oral medications have been reduced including intake of oral opioids. Patient continues to do well with intrathecal therapy with decrease in pain symptoms and increase in functional status. Stopping intrathecal medications can lead to life threatening withdrawal, seizures, cardiac arrest, severe pain, and possible . Pumps that are not refilled at regular intervals can be damages and cause and need for replacement. We continually titrate dose and concentration to optimize pain relief and function. We are limited in concentration for certain drugs to safely deliver medications through the pump and stay within the recommendations from the Polyanalgesic Consensus Committee Guidelines. Depending on dose and concentration these pumps may need to be refilled sooner than 3 months as we titrate. A UDS is needed to verify patient's compliance with our office pain contract. This is ordered based off specific treatments related to chronic pain with the potential to abuse certain medications.
[2024-11-24 13:22] VITALS: BP 125/73; PULSE 84; RESP 18; O2SAT 96
[2024-11-24 13:45] VITALS: BP 126/75; PULSE 85; RESP 16; O2SAT 95
== END 2024-11-24 13:45 | disposition home or self-care (01) ==
PROVIDERS: PCP Family Medicine; Visit Provider Nurse Practitioner Family
DX: M51.369 Other intervertebral disc degeneration, lumbar region without mention of lumbar back pain or lower extremity pain (principal); G89.4 Chronic pain syndrome; M50.30 Other cervical disc degeneration, unspecified cervical region; F32.A Depression, unspecified; F41.9 Anxiety disorder, unspecified; N40.0 Benign prostatic hyperplasia without lower urinary tract symptoms; I10 Essential (primary) hypertension; G47.00 Insomnia, unspecified; E29.1 Testicular hypofunction; Z79.899 Other long term (current) drug therapy; E66.3 Overweight; Z79.891 Long term (current) use of opiate analgesic; Z79.85 Long-term (current) use of injectable non-insulin antidiabetic drugs; Z88.1 Allergy status to other antibiotic agents; Z68.27 Body mass index [BMI] 27.0-27.9, adult
CPT/HCPCS: 62370

== ENCOUNTER 2025-01-19 11:12 | Day surgery (SDC) | payer MEDICARE, SELFPAY ==
[2025-01-19 11:20] VITALS: BP 170/90; PULSE 89; RESP 18; O2SAT 100; BMI 37.0
--- NOTE | 2025-01-19 11:30 | P.HP_ITS ---
History of Present Illness *Admission Date: 01/19/25 *Reason for visit:: Intrathecal refill; DDD *History of present illness: Same [facility] Disclaimer: The information contained in this section may have been updated after the patient was seen, as this information can be updated by other users. 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 current occupational exposures/hazards: No caffeine: Yes Have you lived/traveled outside US in past 30 days?: No Contact w/someone who lives/traveled outside US past 30 days?: No Exposure to someone with infectious disease in past 14 days?: No Do you have a fever (greater than 100.4 F or 38 C)?: No Have you tested positive for COVID-19?: No Exposed to someone with COVID-19 in past 14 days?: No Do you have a sore throat?: No Do you have a cough?: No Do you have any weakness?: No Do you have any diarrhea?: No Are you experiencing any unusual bleeding?: No Do you have any muscle aches/pain?: No Do you have any abdominal pain?: No Are you experiencing loss of taste or smell?: No Other Medical History Have you received the Flu Vaccine for this season: No Have you received the Pneumonia Vaccine: No Review of Systems Review of Systems Review of systems:: pertinent systems reviewed and negative unless documented below Review of systems (narrative): Review of Systems: General: No recent weight changes, no fever, no sleep disturbances Respiratory: No cough, no shortness of air, no recurring pulmonary infections Cardiovascular/peripheral vascular: No chest pain, no palpitations, no edema, no shortness of breath Gastrointestinal: No new onset incontinence, normal bowel movements reported Genitourinary: No new onset incontinence Musculoskeletal: Chronic back pain Psychiatric: [Normal mood/affect] Neurological: [Denies weakness in extremities], [denies balance issues] Meds Home Medications and Allergies Home Medications ?Medication ?Instructions ?Recorded ?Confirmed ?Type sildenafil 100 mg tablet (Viagra) 100 mg PO DAILY PRN sexual 05/24/23 01/19/25 Rx activity #100 tabs syringe with needle 3 mL 21 gauge #100 ea 01/10/2407/15 History x 1 06/22 (BD Luer-Lorraine Syringe) cholecalciferol (vitamin D3) 125 125 mcg PO DAILY Supp lement #90 02/29/24 01/19/25 Rx mcg (5,000 unit) tablet tabs cranberry sftv-V-nkqiwkue See Rx Instructions PO .COMP KEVYN 02/29/24 01/19/25 Rx coagulans 250 mg-30 mg-15 mg #100 tabs tablet (Azo Cranberry Plus Probiotic) osceerze-xsj-tfxhi 150 mcg-vit K1 See Rx Instructions PO .COMPLEX 02/29/24 01/19/25 Rx 30 mcg-lycop 300 mcg-lutein tablet #100 tabs (Centrum Minis Men 50 Plus) L.paracasei,rhamnosus-B.animalis 1 cap PO DAILY #100 c aps 03/03/24 01/19/25 Rx 11 billion cell-vit C 15 mg capsule (Daily Probiotic (4 Strains)) acetaminophen 500 mg tablet 1,000 mg (2 x 500 mg) PO T ID pain 03/29/24 01/19/25 Rx (Tylenol Extra Strength) #180 tabs dutasteride 0.5 mg-tamsulosin ER 1 cap PO DAILY #90 ca ps 07/20/24 01/19/25 Rx 0.4 mg capsule ext.release 24hr mphas (Caren) hydrochlorothiazide 25 mg tablet 25 mg PO DAILY blood pressure #90 07/20/24 01/19/25 Rx tabs nebivolol 10 mg tablet (Bystolic) 10 mg PO DAILY #90 t abs 07/20/24 01/19/25 Rx potassium chloride 10 mEq See Rx Instructions .Route 0 07/20/24 01/19/25 Rx tablet,extended release .COMPLEX Supplement #90 tabs rivaroxaban 20 mg tablet (Xarelto) 20 mg PO DAILY #30 tabs 07/20/24 01/19/25 Rx tadalafil 20 mg tablet (Cialis) 20 mg PO DAILY PRN sex ual activity 07/20/24 01/19/25 Rx #30 tabs esomeprazole magnesium 20 mg 40 mg PO DAILY 08/03/24 0 01/19/25 History capsule,delayed release testosterone cypionate 200 mg/mL See Rx Instructions . Route 08/25/24 01/19/25 Rx intramuscular oil .COMPLEX Supplement #10 mL needle (disp) 23 gauge 23 gauge x #10 ea 08/31/2407/15 Rx 1 (BD PrecisionGlide Non-Sterile) desvenlafaxine succinate 100 mg 100 mg PO DAILY #90 ta bs 11/16/24 01/19/25 Rx tablet,extended release 24 hr (Pristiq) sennosides 8.6 mg tablet (senna) 8.6 mg PO DAILY PRN c onstipation 11/16/24 01/19/25 Rx #30 tabs gabapentin 400 mg capsule See Rx Instructions .Route 0 11/17/24 01/19/25 Rx .COMPLEX #90 caps losartan 50 mg tablet 50 mg PO DAILY #30 tabs 10/1301/19/25 Rx Held on 11/28/24. Instructions: Doctor's Order furosemide 40 mg tablet See Rx Instructions .Route 0 12/14/24 01/19/25 Rx .COMPLEX #90 tabs tirzepatide (weight loss) 10 10 mg (0.5 mL) SQ WEEKLY #2 mL 12/18/24 01/19/25 Rx mg/0.5 mL subcutaneous pen injector (Zepbound) ciprofloxacin HCl 500 mg tablet See Rx Instructions .R oute 01/12/25 01/19/25 Rx .COMPLEX #60 tabs lorazepam 2 mg tablet 2 mg PO DAILY PRN panic juan francisco ck(s) 01/15/25 01/19/25 Rx #15 tabs tirzepatide (weight loss) 10 10 mg (0.5 mL) SQ WEEKLY #2 mL 01/15/25 01/19/25 Rx mg/0.5 mL subcutaneous pen injector (Zepbound) New Prescriptions to Start Prescriptions: Allergies Allergy/AdvReac Type Severity Reaction Status Date / Time erythromycin base AdvReac Intermediate Vomiting Verified 01/15/25 15:06 Exam Data for Last 24 hours Vital signs and Labs for Last 24 Hours: Pulse Resp BP Pulse Ox O2 Del Method 89 18 170/90 H 100 Room Air 01/19/25 11:20 01/19/25 11:20 01/19/25 11:20 01/19/25 11:20 01/19/25 11:20 I & O for Last 24 hours: Intake & Output 01/16/25 01/17/25 01/18/25 01/19/25 23:59 23:59 23:59 23:59 Weight 244 lb Constitutional Constitutional: no acute distress *Routine HEENT Exam Head: Present normocephalic and atraumatic Eye: Present PERRL ENT: Present mucous membranes moist *Routine Neck Exam Neck: Present supple *Routine Respiratory Exam Respiratory: Present CTA bilaterally *Routine Cardiovascular Exam Cardiovascular: Present RRR *Routine Abdominal Exam Abdominal: Present soft *Routine Rectal Exam Rectal:: deferred *Routine Genitalia Exam Genitalia:: deferred Routine Back/Spine/Pelvis Exam Back/Spine: Present pain with flexion *Routine Skin Exam Skin: Present intact and warm *Routine Neurological Exam Neurological: Present alert and oriented X3 Routine Psychiatric Exam Psychiatric: Present normal affect and normal thought process Assessment and Plan *Assessment and plan (1) Degenerative disc disease, lumbar: Status: Acute Category: Medical Code(s): M51.369 - Other intervertebral disc degeneration, lumbar region without mention of lumbar back pain or lower extremity pain (2) Lumbar radiculopathy: Status: Acute Category: Medical Code(s): M54.16 - Radiculopathy, lumbar region Plan Patient has been instructed to contact the clinic with any concerns before the next appointment. Dr. George has reviewed this note and agrees with this plan of care. This note was dictated using voice recognition software and make contain errors or omissions. All injections are used with Lidocaine, Bupivacaine and dexamethasone. Occasionally urine drug screen is needed to verify patient's compliance with our office pain contract. This is ordered based off specific treatments related to chronic pain with the potential to abuse certain medications.
--- NOTE | 2025-01-19 11:31 | EXP.PAIN.PRO ---
Procedure Date: 01/19/25 Time: 11:40 Anesthesiologist:: Gail Bauer APRN Complications:: None Pre-procedure Diagnosis:: Degenerative disc disease of cervical and lumbar spine with cervical and lumbar radiculopathy symptoms Post-procedure Diagnosis:: Same Indications for Procedure:: Patient is a pleasant 54-year-old male who presents today for intrathecal refill and reprogram. He rates his pain today a 2 out of 10. He denies any new falls or injuries. He does state that he is still losing weight and is about 245 and is trying to get down to 225. Patient states he has already been able to come off completely his blood pressure medications with the weight loss. He is currently managed with morphine 10 mg/mL with a daily dose of 2.112 mg/day. He denies any side effects. His Riaz has been reviewed and is appropriate Physical Exam: General: Alert and oriented x3, no acute distress, pleasant and cooperative Lungs: Respirations even and unlabored, symmetrical chest expansion Eyes: PERRL Musculoskeletal: Flexion and extension of lumbar [spine] somewhat guarded secondary to pain, [antalgic gait noted] Neurological: Speech clear, no gross sensory deficit Procedure Details:: Informed consent was obtained and the risk and benefits of the procedure were explained to the patient. The patient had noninvasive monitoring placed including noninvasive blood pressure cuff and pulse oximeter. Patient's pump was interrogated. The area over the pump was cleansed with chlorhexidine as a cleansing solution. In sterile fashion the pump was accessed with a 22-gauge needle. Approximately 8.1 mls of the pump solution was removed and discarded appropriately. The pump was then refilled with 20 mL's of morphine 10 mg/mL. The needle was withdrawn and a bandage was placed over the puncture site. The infusion rate was reprogrammed and continued at its current dosage. The patient tolerated well with no complication. Plan and Disposition:: Patient tolerated the procedure well with no complications and was discharged neurologically intact. Patient will return to clinic on or before their next intrathecal refill date. We will see the patient back in the clinic at the next intrathecal refill. Patient has been instructed to contact the clinic with any concerns before the next appointment. Dr. George has reviewed this note and agrees with this plan of care. This note was dictated using voice recognition software and make contain errors or omissions. -- It Is medically necessary for this patient to continue to have their intrathecal pump refilled at regular intervals. This patient had an intrathecal pain pump implanted after meeting criteria of chronic intractable pain for greater than 3 months and failing conservative treatments. Patient has committed and been compliant to the treatment plan and all planned follow up care. Since implantation of the intrathecal pain pump, the patient has had decreased pain and been more functional. Oral medications have been reduced including intake of oral opioids. Patient continues to do well with intrathecal therapy with decrease in pain symptoms and increase in functional status. Stopping intrathecal medications can lead to life threatening withdrawal, seizures, cardiac arrest, severe pain, and possible . Pumps that are not refilled at regular intervals can be damages and cause and need for replacement. We continually titrate dose and concentration to optimize pain relief and function. We are limited in concentration for certain drugs to safely deliver medications through the pump and stay within the recommendations from the Polyanalgesic Consensus Committee Guidelines. Depending on dose and concentration these pumps may need to be refilled sooner than 3 months as we titrate. A UDS is needed to verify patient's compliance with our office pain contract. This is ordered based off specific treatments related to chronic pain with the potential to abuse certain medications.
[2025-01-19 11:36] VITALS: BP 153/86; PULSE 100; RESP 18; O2SAT 98
[2025-01-19 11:46] VITALS: BP 142/88; PULSE 89; RESP 16; O2SAT 97
== END 2025-01-19 11:46 | disposition home or self-care (01) ==
PROVIDERS: PCP Family Medicine; Visit Provider Nurse Practitioner Family
DX: Z45.1 Encounter for adjustment and management of infusion pump (principal); M50.10 Cervical disc disorder with radiculopathy, unspecified cervical region; M51.16 Intervertebral disc disorders with radiculopathy, lumbar region; I10 Essential (primary) hypertension; E66.9 Obesity, unspecified; Z68.37 Body mass index [BMI] 37.0-37.9, adult; Z79.899 Other long term (current) drug therapy; M15.4 Erosive (osteo)arthritis; E29.1 Testicular hypofunction; Z79.01 Long term (current) use of anticoagulants; Z79.84 Long term (current) use of oral hypoglycemic drugs; Z88.1 Allergy status to other antibiotic agents
CPT/HCPCS: 62370

== ENCOUNTER 2025-06-08 10:30 | Outpatient (CLI) | payer MEDICARE, SELFPAY ==
[2025-06-08 14:57] LABS: Hematocrit 44.5 % (42.0-52.0); Hemoglobin 14.1 g/dL (14.1-18.0); Immature Granulocytes % 0.4 %; Mean Corpuscular HGB Conc 31.7 g/dL (31.8-35.4); Mean Corpuscular Hemoglobin 27.2 pg (27.0-31.2); Mean Corpuscular Volume 85.9 fl (80-94); Nucleated Red Blood Cells % 0 %; Platelet Count 166 K/mm3 (142-424); Red Blood Count 5.18 M/mm3 (4.60-6.20); Red Cell Distribution Width-SD 53.2 fL; White Blood Count 6.7 K/mm3 (4.8-10.8)
[2025-06-08 15:16] LABS: Alanine Aminotransferase 27 U/L (12-78); Albumin Level 4.2 g/dl (3.5-5.0); Albumin/Globulin Ratio 1.5 (1.1-1.8); Alkaline Phosphatase 48 U/L (38-126); Anion Gap 7.8 mEq/L (5-15); Aspartate Amino Transferase 38 U/L (17-59); Bilirubin,Total 1.1 mg/dl (0.2-1.3); Blood Urea Nitrogen 16 mg/dl (9-20); Calcium 9.0 mg/dl (8.4-10.2); Carbon Dioxide 33 mmol/L (22.0-30.0); Chloride 100 mmol/L (98-107); Cholesterol 139 mg/dl (140-200); Creatinine,Serum 0.90 mg/dl (0.66-1.25); Estimated Glomerular Filt Rate 87 ml/min (>60); GFR (African American) 106 ML/MIN (>60); Globulin 2.8 g/dL (1.3-3.2); Glucose 83 mg/dl (74-100); HDL Cholesterol 58 mg/dl (40-60); Potassium 3.8 mmoL/L (3.5-5.1); Sodium 137 mmol/L (136-145); Total Protein,Serum 7.0 g/dl (6.3-8.2); Triglycerides 71 mg/dl (30-150)
--- OUTSIDE RECORDS SUMMARY | 2025-06-09 09:48 | XMS_ITS | Encounter Summary ---
Author Organization [employer] ([place], [place], [place], [place], [place]) Address [address] [place] [address] Care Team Providers Care Svp Name Role Phone Unavailable Primary Care Provider Unavailabl e Encounter Details Date Type Department Care Team (Late st Contact Info) Description 07/31/2020 Transcribed Document [facility] Family [place] [facility] [place] [address] ProviderWarren MD [address] [place] [address] [id number] Social History Tobacco Use Types Packs/Day Years Used Date Smoking Tobacco: Never Assessed Sex and Gender Information Value Date Recorded Sex Assigned at Male 12/16/2021 8:48 PM CDT Legal Sex Male 8:48 PM CDT Gender Identity Male 12/16/2021 8:48 PM CDT Sexual Orientation Not on file documented as of this encounter Miscellaneous Notes * [employer]ner Conversion Note - Historical ProviderMD - 07/31/2020 3:12 PM 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
--- OUTSIDE RECORDS SUMMARY | 2025-06-09 09:48 | XMS_ITS | Encounter Summary ---
Author Organization [employer] ([place], [place], [place], [place], [place]) Address [address] [place] [address] Care Team Providers Care Veneer Department Manager Name Role Phone Unavailable Primary Care Provider Unavailabl e Encounter Details Date Type Department Care Team (Late st Contact Info) Description 08/06/2020 Transcribed Document [facility] Family [place] [address] ProviderWarren MD [address] [place] [address] [phone] Social History Tobacco Use Types Packs/Day Years Used Date Smoking Tobacco: Never Assessed Sex and Gender Information Value Date Recorded Sex Assigned at Male 12/16/2021 8:48 PM CDT Legal Sex Male 8:48 PM CDT Gender Identity Male 12/16/2021 8:48 PM CDT Sexual Orientation Not on file documented as of this encounter Miscellaneous Notes * [employer]ner Conversion Note - Historical ProviderMD - 08/06/2020 1:37 PM 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 Final Discharge Planning Entered On: 08/06/2020 13:38 EST Performed On: 08/06/2020 13:37 EST by NASEEM VIRAMONTES RN-Solidworks Mechanical Designer Final Discharge Planning Discharge Arrangements : Patient Post-Acute Information Patient Name: CAROLYNN ACKERMAN Gender: Male : [birth year] Age: 50 Years [place] Referral(s): Service: Organization: Business Address: Phone Number: Acute Rehab [facility] [address] [place], [address] Patient Offered Choice/Affiliations Explained : Yes Designation of Choice Signed : Yes Important Medicare Message Reviewed With : Other: Commercial Transportation Needs : Wheelchair van Discharge Transportation Arrangement Cmt : [facility] Van @ 1400 Follow Up Appointment Scheduled : Yes Is Patient High/Moderate Readmission Risk? : No Patient/Family Notified of Plan : Yes Is Patient Ready for Discharge? : Yes Physician Notified Patient is Ready for Discharge? : Yes Discharge To Care Management : [facility]patient [facility] NASEEM VIRAMONTES, RN-Solidworks Mechanical Designer - 08/06/2020 13:37 EST Final Narrative Note Final Narrative Note : Precert approved for acute. Pt dc'd to [facility] today via [facility] Van @ 1400. NASEEM VIRAMONTES RN-Solidworks Mechanical Designer - 08/06/2020 13:37 EST Electronically signed by Arash [facility] Conversion Accountant [employer] at 10/04/2022 11:31 PM CDT documented in this encounter Plan of Treatment Not on file documented as of this encounter Visit Diagnoses Not on filedocumented in this encounter
--- OUTSIDE RECORDS SUMMARY | 2025-06-09 09:48 | XMS_ITS | Encounter Summary ---
Author Organization [employer] ([place], [place], [place], [place], [place]) Address [address] [place] [address] Care Team Providers Care Regulatory Assistant Name Role Phone Unavailable Primary Care Provider Unavailabl e Encounter Details Date Type Department Care Team (Late st Contact Info) Description 08/06/2020 Transcribed Document [facility] [place] [facility] [place] [address] ProviderWarren MD [address] [place] [id number] Social History Tobacco Use Types Packs/Day Years Used Date Smoking Tobacco: Never Assessed Sex and Gender Information Value Date Recorded Sex Assigned at Male 12/16/2021 8:48 PM CDT Legal Sex Male 8:48 PM CDT Gender Identity Male 12/16/2021 8:48 PM CDT Sexual Orientation Not on file documented as of this encounter Miscellaneous Notes * Cerner Conversion Note - Warren ProviderMD - 08/06/2020 1:28 PM SIPHONER [facility] [place] [address] CAROLYNN ACKERMAN :1970 Visit Time:08/01/2020 Your Visit Summary Your Care Team Admitting Physician - ALBAN WOODRUFF MD-SNU Attending Physician - ALBAN WOODRUFF MD-TRUONG Primary Care Physician - ABENA DELGADILLO (REF)MD-[facility] Referring Physician - ALBAN WOODRUFF MD-SNU Your Diagnosis Spinal stenosis of lumbar region with radiculopathy Thoracic spinal stenosis Discharge Vitals Temperature 36.7 ??C Heart Rate (Monitored) 98 Respiratory Rate 14 Blood Pressure 126/79 What to do next Instructions From Your Care Team Please STOP taking Ibuprofen and Metaxalone Diet after Discharge: Resume usual diet as tolerated Activity after Discharge: As tolerated, No strenuous activity Lifting Restrictions: No heavy lifting over 10 pounds Weight Bearing: Full weight bearing Driving after Discharge: Do not drive Showering/Bathing: May shower, No tub bathing, soaking or swimming; do not allow shower to hit directly on incision Notify Provider of: Fever above 101 for 24 hours; increase in pain, redness, swelling, drainage or foul odor at incision Wound/Incision Care after Discharge: Keep operative site/wound site clean and dry, Change dressing with dry dressing daily and as needed; May leave open to air after three days if no drainage present Medical Equipment for Home Use: Home Health Services: Community Services: Discharge Activity: Discharge Activity: No heavy lifting over 10 lbs Diet: Discharge Diet: Resume usual diet as tolerated Follow-Up Appointments Follow Up with ALBAN WOODRUFF When 08/29/2020 10:30 AM EST Comments Please go to the [facility] at 9:45 for x-rays before going to your appointment. Where: [address] [facility] [address] [place] [address]- Business (1) Follow Up with ALBAN WOODRUFF When 08/13/2020 03:45 PM EST Comments Appointment has been made for staple/suture removal Where: [address] [place] [address]- Business (1) Medications What How Much When Instructions Next Dose acetaminophen-oxyCODONE (Percocet 7.5/ 325 oral tablet) 1 Tablet(s) Oral Four Times A Day as needed for for pain acetaminophen (Tylenol 8 Hour 650 mg oral tablet, extended release) 1 Tablet(s) Oral Every 8 Hours as needed for for pain/fever as needed potassium chloride (Potassium Chloride (Eqv-K-Tab) 10 mEq oral tablet, extended release) 1 Tablet(s) Oral Every Day as needed for Other (See Comment) take with Lasix as needed potassium chloride (potassium chloride 20 mEq oral tablet, extended release) 2 Tablet(s) Oral Every Day Duration: 2 Day(s) in am bifidobacterium-lactobacillus (Probiotic Formula oral capsule) 1 Capsule(s) Oral Every Day in am cholecalciferol (Vitamin D3 5000 units oral capsule) 1 Capsule(s) Oral Every Day with food in am cholestyramine (cholestyramine 4 g/ 5 g oral powder for reconstitution) 4 Gram(s) Oral Two Times A Day tonight cyclobenzaprine (cyclobenzaprine 10 mg oral tablet) 1 Tablet(s) Oral Three Times A Day as needed for Muscle Spasms as needed esomeprazole (NexIUM 40 mg oral delayed release capsule) 1 Capsule(s) Oral Every Day in am furosemide (furosemide 40 mg oral tablet) 1 Tablet(s) Oral Every Day as needed for Edema in am if needed gabapentin (gabapentin 400 mg oral capsule) 1 Capsule(s) Oral Two Times A Day tonight hydroCHLOROthiazide (hydroCHLOROthiazide 25 mg oral tablet) 1 Tablet(s) Oral Every Day in am losartan (losartan 100 mg oral tablet) 1 Tablet(s) Oral Every Day in am omega-3 polyunsaturated fatty acids (Fish Oil 1000 mg oral capsule) 2 Capsule(s) Oral Every Day in am sucralfate (sucralfate 1 g oral tablet) 1 Tablet(s) Oral Four Times A Day this afternoon testosterone (testosterone cypionate 200 mg/ mL intramuscular solution) 1 Milliliter(s) IntraMuscular Every Two Weeks Restart 4 weeks after surgery 08-29-2020 Take your medications faithfully. Do NOT skip medication. Do NOT stop taking medications without the direction of a physician. Carry a list of your medications with you at all times, and take this medication list with you to your first follow up visit. Report any side effects. Avoid herbal remedies unless discussed with your physician. As part of your treatment plan, your physician may have prescribed a limited course of a controlled substance. This medication may be given to help people with moderate or severe pain or for other medical conditions, but there are risks involved with treatment. Common side effects may include nausea, constipation, drowsiness, sweating, itching, dry mouth, and rash. More serious side effects may include cognitive and motor impairment, like problems with thinking, concentrating, alertness, and movement (e.g. slowed reflexes), and driving and operating heavy machinery can be dangerous. It is important for you to talk to your physician if you have these side effects or questions. These controlled substances can produce physical dependence and be habit-forming if taken for an extended period of time, which means that the body has gotten used to them and may experience withdrawal symptoms if they are abruptly stopped. Withdrawal symptoms can include runny nose, sweating, goose bumps, diarrhea, abdominal cramping, rapid heartbeat, difficulty sleeping, and nervousness. Please dispose of unused and medications per your retail pharmacy guidance. Allergies erythromycin (Nausea) Immunizations This Visit No Immunizations Found Education Materials Spinal Fusion, Adult, Care After This sheet gives you information about how to care for yourself after your procedure. Your health care provider may also give you more specific instructions. If you have problems or questions, contact your health care provider. What can I expect after the procedure? After the procedure, it is common to have: ??? Back pain and stiffness. ??? Pain in the incision area. Follow these instructions at home: Medicines ??? Take lwsb-[id number] and prescription medicines only as told by your health care provider. These include any pain medicines or blood thinning medicines (anticoagulants). ??? If you were prescribed an antibiotic medicine, take it as told by your health care provider. Do not stop taking the antibiotic even if you start to feel better. ??? Do not drive for 24 hours if you received a medicine to help you relax (sedative). ??? Do not drive or use heavy machinery while taking prescription pain medicine. If you have a brace: ??? Wear the brace as told by your health care provider. Remove it only as told by your health care provider. ??? Keep the brace clean. Managing pain, stiffness, and swelling ??? If directed, put ice on the injured area: ? If you have a removable brace, remove it as told by your health care provider. ? Put ice in a plastic bag. ? Place a towel between your skin and the bag. ? Leave the ice on for 20 minutes, 2-3 times a day. Incision care ??? Follow instructions from your health care provider about how to take care of your incision. Make sure you: ? Wash your hands with soap and water before you change your bandage (dressing). If soap and water are not available, use hand cider press operator. ? Change your dressing as told by your health care provider. ? Leave stitches (sutures), skin glue, or adhesive strips in place. These skin closures may need to be in place for 2 weeks or longer. If adhesive strip edges start to loosen and curl up, you may trim the loose edges. Do not remove adhesive strips completely unless your health care provider tells you to do that. ??? Keep your incision clean and dry. Do not take baths, swim, or use a hot tub until your health care provider approves. ??? Check your incision area every day for signs of infection. Check for: ? More redness, swelling, or pain. ? Fluid or blood. ? Warmth. ? Pus or a bad smell. Physical activity ??? Rest and protect your back as much as possible. ??? Follow instructions from your health care provider about how to move and use good posture to help your spine heal. ??? Do not lift anything that is heavier than 8 lb (3.6 kg) or as told by your health care provider. ??? Do not twist or bend at the waist until your health care provider approves. ??? Avoid: ? Pushing and pulling motions. ? Lifting anything over your head. ? Sitting or lying down in the same position for long periods of time. ??? Do not exercise until your health care provider approves. Once your health care provider has approved exercise, ask him or her what kinds of exercises you can do to make your back stronger (physical therapy). General instructions ??? Wear compression stockings and walk at least every few hours as told by your health care provider. Doing this will help to prevent blood clots and reduce swelling in your legs. ??? Do not use any products that contain nicotine or tobacco, such as cigarettes and e-cigarettes. These can delay bone healing. If you need help quitting, ask your health care provider. ??? To prevent or treat constipation while you are taking prescription pain medicine, your health care provider may recommend that you: ? Drink enough fluid to keep your urine clear or pale yellow. ? Take bcwv-ebt-cqngspa or prescription medicines. ? Eat foods that are high in fiber, such as fresh fruits and vegetables, whole grains, and beans. ? Limit foods that are high in fat and processed sugars, such as fried and sweet foods. ??? Keep all follow-up visits as told by your health care provider. This is important. Contact a health care provider if: ??? You have pain that gets worse or does not get better with medicine. ??? Your legs or feet become painful or swollen. ??? You have more redness, swelling, or pain around your incision. ??? You have fluid or blood coming from your incision. ??? Your incision feels warm to the touch. ??? You have pus or a bad smell coming from your incision. ??? You have a fever. ??? You vomit or feel nausea. ??? You have weakness or numbness in your legs that is new or getting worse. ??? You have trouble controlling urination or bowel movements. Get help right away if: ??? You have severe pain. ??? You have chest pain. ??? You have trouble breathing. ??? You develop a cough. These symptoms may represent a serious problem that is an emergency. Do not wait to see if the symptoms will go away. Get medical help right away. Call your local emergency services (911 in the [place] Do not drive yourself to the hospital. Summary ??? It is common to have pain at the back and incision area. ??? Icing and pain medicines may help to control the pain. Follow directions from your health care provider. ??? Rest and protect your back as much as possible. Do not twist or bend at the waist. Get up and walk at least every few hours as told by your health care provider. This information is not intended to replace advice given to you by your health care provider. Make sure you discuss any questions you have with your health care provider. Document Released: 12/25/2005 Document Revised: 02/25/2019 Document Reviewed: 05/26/2017 [employer] Patient Education ?? 2020 [employer]. acetaminophen and oxycodone (a SEET a MIN oh fen and OX i KOE done) Endocet 10/325, Endocet 2.5/325, Endocet 5/325, Endocet 7.5/325, Nalocet, Percocet, Primlev What is the most important information I should know about acetaminophen and oxycodone? MISUSE OF OPIOID MEDICINE CAN CAUSE ADDICTION, OVERDOSE, OR . Keep the medication in a place where others cannot get to it. Taking opioid medicine during may cause life-threatening withdrawal symptoms in the . Fatal side effects can occur if you use opioid medicine with alcohol, or with other drugs that cause drowsiness or slow your breathing. Stop taking this medicine and call your doctor right away if you have skin redness or a rash that spreads and causes blistering and peeling. What is acetaminophen and oxycodone? Acetaminophen and oxycodone is a combination medicine used to relieve moderate to severe pain. Acetaminophen and oxycodone contains an opioide medicine and may be habit-forming. Acetaminophen and oxycodone may also be used for purposes not listed in this medication guide. What should I discuss with my healthcare provider before taking acetaminophen and oxycodone? You should not use this medicine if you are allergic to acetaminophen or oxycodone, or if you have: ?? severe asthma or breathing problems; or ?? a blockage in your stomach or intestines. Tell your doctor if you have ever had: ?? breathing problems, sleep apnea; ?? liver disease; ?? a drug or alcohol addiction; ?? kidney disease; ?? a head injury or seizures; ?? urination problems; or ?? problems with your thyroid, pancreas, or gallbladder. If you use opioid medicine while you are , your baby could become dependent on the drug. This can cause life-threatening withdrawal symptoms in the baby after it is born. Babies born dependent on opioids may need medical treatment for several weeks. Ask a doctor before using opioid medicine if you are . Tell your doctor if you notice severe drowsiness or slow breathing in the nursing baby. How should I take acetaminophen and oxycodone? Follow all directions on your prescription label. Never take this medicine in larger amounts, or for longer than prescribed. An overdose can damage your liver or cause . Tell your doctor if you feel an increased urge to use more of this medicine. Never share this medicine with another person, especially someone with a history of drug abuse or addiction. MISUSE CAN CAUSE ADDICTION, OVERDOSE, OR . Keep the medicine in a place where others cannot get to it. Selling or giving away acetaminophen and oxycodone is against the law. Measure liquid medicine carefully. Use the dosing syringe provided, or use a medicine dose-measuring device (not a kitchen spoon). If you need surgery or medical tests, tell the doctor ahead of time that you are using this medicine. You should not stop using this medicine suddenly. Follow your doctor's instructions about tapering your dose. Store at room temperature away from moisture and heat. Keep track of your medicine. You should be aware if anyone is using it improperly or without a prescription. Do not keep leftover opioid medication. Just one dose can cause in someone using this medicine accidentally or improperly. Ask your pharmacist where to locate a drug take-back disposal program. If there is no take-back program, flush the unused medicine down the toilet. What happens if I miss a dose? Since this medicine is used for pain, you are not likely to miss a dose. Skip any missed dose if it is almost time for your next dose. Do not use two doses at one time. What happens if I overdose? Seek emergency medical attention or call the Poison Help line at . An overdose of this medicine can be fatal, especially in a child or other person using the medicine without a prescription. Overdose symptoms may include nausea, vomiting, sweating, severe drowsiness, pinpoint pupils, slow breathing, or no breathing. Your doctor may recommend you get naloxone (a medicine to reverse an opioid overdose) and keep it with you at all times. A person caring for you can give the naloxone if you stop breathing or don't wake up. Your caregiver must still get emergency medical help and may need to perform CPR (cardiopulmonary resuscitation) on you while waiting for help to arrive. Anyone can buy naloxone from a pharmacy or local health department. Make sure any person caring for you knows where you keep naloxone and how to use it. What should I avoid while taking acetaminophen and oxycodone? Avoid driving or operating machinery until you know how this medicine will affect you. Dizziness or drowsiness can cause falls, accidents, or severe injuries. Do not drink alcohol. Dangerous side effects or could occur. Ask a doctor or pharmacist before using any other medicine that may contain acetaminophen (sometimes abbreviated as APAP). Taking certain medications together can lead to a fatal overdose. What are the possible side effects of acetaminophen and oxycodone? Get emergency medical help if you have signs of an allergic reaction: hives; difficulty breathing; swelling of your face, lips, tongue, or throat. Opioid medicine can slow or stop your breathing, and may occur. A person caring for you should give naloxone and/or seek emergency medical attention if you have slow breathing with long pauses, blue colored lips, or if you are hard to wake up. In rare cases, acetaminophen may cause a severe skin reaction that can be fatal. This could occur even if you have taken acetaminophen in the past and had no reaction. Stop taking this medicine and call your doctor right away if you have skin redness or a rash that spreads and causes blistering and peeling. Call your doctor at once if you have: ?? noisy breathing, sighing, shallow breathing, breathing that stops during sleep; ?? a light-headed feeling, like you might pass out; ?? weakness, tiredness, fever, unusual bruising or bleeding; ?? confusion, unusual thoughts or behavior; ?? problems with urination; ?? liver problems--nausea, upper stomach pain, tiredness, loss of appetite, dark urine, suzette-colored stools, jaundice (yellowing of the skin or eyes); or ?? low cortisol levels-- nausea, vomiting, loss of appetite, dizziness, worsening tiredness or weakness. Seek medical attention right away if you have symptoms of serotonin syndrome, such as: agitation, hallucinations, fever, sweating, shivering, fast heart rate, muscle stiffness, twitching, loss of coordination, nausea, vomiting, or diarrhea. Serious side effects may be more likely in older adults and those who are malnourished or debilitated. Long-term use of opioid medication may affect fertility (ability to have children) in men or women. It is not known whether opioid effects on fertility are permanent. Common side effects include: ?? dizziness, drowsiness, feeling tired; ?? feelings of extreme happiness or sadness; ?? nausea, vomiting, stomach pain; ?? constipation; or ?? headache. This is not a complete list of side effects and others may occur. Call your doctor for medical advice about side effects. You may report side effects to FDA at 4-956-BES-0598. What other drugs will affect acetaminophen and oxycodone? You may have breathing problems or withdrawal symptoms if you start or stop taking certain other medicines. Tell your doctor if you also use an antibiotic, antifungal medication, heart or blood pressure medication, seizure medication, or medicine to treat HIV or hepatitis C. Opioid medication can interact with many other drugs and cause dangerous side effects or . Be sure your doctor knows if you also use: ?? cold or allergy medicines, bronchodilator asthma/COPD medication, or a diuretic ('water pill'); ?? medicines for motion sickness, irritable bowel syndrome, or overactive bladder; ?? other narcotic medications--opioid pain medicine or prescription cough medicine; ?? a sedative like Valium--diazepam, alprazolam, lorazepam, Xanax, Klonopin, Versed, and others; ?? drugs that make you sleepy or slow your breathing--a sleeping pill, muscle relaxer, medicine to treat mood disorders or mental illness; ?? drugs that affect serotonin levels in your body--a stimulant, or medicine for depression, Parkinson's disease, migraine headaches, serious infections, or nausea and vomiting. This list is not complete. Other drugs may affect acetaminophen and oxycodone, including prescription and cwwn-vjr-zthjwwx medicines, vitamins, and herbal products. Not all possible interactions are listed here. Where can I get more information? Your doctor or pharmacist can provide more information about acetaminophen and oxycodone. Remember, keep this and all other medicines out of the reach of children, never share your medicines with others, and use this medication only for the indication prescribed. Every effort has been made to ensure that the information provided by [employer]') is accurate, up-to-date, and complete, but no guarantee is made to that effect. Drug information contained herein may be time sensitive. [employer] information has been compiled for use by healthcare practitioners and consumers in the [place] and therefore [employer] does not warrant that uses outside of the [place] are appropriate, unless specifically indicated otherwise. [employer]'s drug information does not endorse drugs, diagnose patients or recommend therapy. [employer] drug information is an informational resource designed to assist licensed healthcare practitioners in caring for their patients and/or to serve consumers viewing this service as a supplement to, and not a substitute for, the expertise, skill, knowledge and judgment of healthcare practitioners. The absence of a warning for a given drug or drug combination in no way should be construed to indicate that the drug or drug combination is safe, effective or appropriate for any given patient. [employer] does not assume any responsibility for any aspect of healthcare administered with the aid of information [employer] provides. The information contained herein is not intended to cover all possible uses, directions, precautions, warnings, drug interactions, allergic reactions, or adverse effects. If you have questions about the drugs you are taking, check with your doctor, nurse or pharmacist. Copyright 8203-2514 [employer]. Version: 20.02. Revision Date: 07/03/2020. cyclobenzaprine (mirna cardenas) Vanita, Sis Pac with Cyclobenzaprine, Fexmid What is the most important information I should know about cyclobenzaprine? You should not use cyclobenzaprine if you have a thyroid disorder, heart block, congestive heart failure, a heart rhythm disorder, or you have recently had a heart attack. Do not use cyclobenzaprine if you have taken an MAO inhibitor in the past 14 days, such as isocarboxazid, linezolid, phenelzine, rasagiline, selegiline, or tranylcypromine. What is cyclobenzaprine? Cyclobenzaprine is a muscle relaxant. It works by blocking nerve impulses (or pain sensations) that are sent to your brain. Cyclobenzaprine is used together with rest and physical therapy to relieve muscle spasms caused by painful conditions such as an injury. Cyclobenzaprine may also be used for purposes not listed in this medication guide. What should I discuss with my healthcare provider before taking cyclobenzaprine? You should not use cyclobenzaprine if you are allergic to it, or if you have: ?? a thyroid disorder; ?? heart block, heart rhythm disorder, congestive heart failure; or ?? if you have recently had a heart attack. Cyclobenzaprine is not approved for use by anyone younger than 15 years old. Do not use cyclobenzaprine if you have taken an MAO inhibitor in the past 14 days. A dangerous drug interaction could occur. MAO inhibitors include isocarboxazid, linezolid, phenelzine, rasagiline, selegiline, and tranylcypromine. Some medicines can interact with cyclobenzaprine and cause a serious condition called serotonin syndrome. Be sure your doctor knows if you also take stimulant medicine, opioid medicine, herbal products, or medicine for depression, mental illness, Parkinson's disease, migraine headaches, serious infections, or prevention of nausea and vomiting. Ask your doctor before making any changes in how or when you take your medications. Tell your doctor if you have ever had: ?? liver disease; ?? glaucoma; ?? enlarged prostate; or ?? problems with urination. It is not known whether this medicine will harm an unborn baby. Tell your doctor if you are or plan to become . It may not be safe to breast-feed while using this medicine. Ask your doctor about any risk. Older adults may be more sensitive to the effects of this medicine. How should I take cyclobenzaprine? Follow all directions on your prescription label and read all medication guides or instruction sheets. Your doctor may occasionally change your dose. Use the medicine exactly as directed. Cyclobenzaprine is usually taken once daily for only 2 or 3 weeks. Follow your doctor's dosing instructions very carefully. Swallow the capsule whole and do not crush, chew, break, or open it. Take the medicine at the same time each day. Call your doctor if your symptoms do not improve after 3 weeks, or if they get worse. Store at room temperature away from moisture, heat, and light. What happens if I miss a dose? Take the medicine as soon as you can, but skip the missed dose if it is almost time for your next dose. Do not take two doses at one time. What happens if I overdose? Seek emergency medical attention or call the Poison Help line at . An overdose of cyclobenzaprine can be fatal. Overdose symptoms may include severe drowsiness, vomiting, fast heartbeats, tremors, agitation, or hallucinations. What should I avoid while taking cyclobenzaprine? Avoid driving or hazardous activity until you know how this medicine will affect you. Your reactions could be impaired. Avoid drinking alcohol. Dangerous side effects could occur. What are the possible side effects of cyclobenzaprine? Get emergency medical help if you have signs of an allergic reaction: hives; difficult breathing; swelling of your face, lips, tongue, or throat. Stop using cyclobenzaprine and call your doctor at once if you have: ?? fast or irregular heartbeats; ?? chest pain or pressure, pain spreading to your jaw or shoulder; or ?? sudden numbness or weakness (especially on one side of the body), slurred speech, balance problems. Seek medical attention right away if you have symptoms of serotonin syndrome, such as: agitation, hallucinations, fever, sweating, shivering, fast heart rate, muscle stiffness, twitching, loss of coordination, nausea, vomiting, or diarrhea. Serious side effects may be more likely in older adults. Common side effects may include: ?? drowsiness, tiredness; ?? headache, dizziness; ?? dry mouth; or ?? upset stomach, nausea, constipation. This is not a complete list of side effects and others may occur. Call your doctor for medical advice about side effects. You may report side effects to FDA at 0-285-FZW-6175. What other drugs will affect cyclobenzaprine? Using cyclobenzaprine with other drugs that make you drowsy can worsen this effect. Ask your doctor before using opioid medication, a sleeping pill, a muscle relaxer, or medicine for anxiety or seizures. Tell your doctor about all your other medicines, especially: ?? bupropion (Zyban, for smoking cessation); ?? meperidine; ?? tramadol; ?? verapamil; ?? cold or allergy medicine that contains an antihistamine (Benadryl and others); ?? medicine to treat Parkinson's disease; ?? medicine to treat excess stomach acid, stomach ulcer, motion sickness, or irritable bowel syndrome; ?? medicine to treat overactive bladder; or ?? bronchodilator asthma medication. This list is not complete. Other drugs may affect cyclobenzaprine, including prescription and lbha-yys-ivyilly medicines, vitamins, and herbal products. Not all possible drug interactions are listed here. Where can I get more information? Your pharmacist can provide more information about cyclobenzaprine. Remember, keep this and all other medicines out of the reach of children, never share your medicines with others, and use this medication only for the indication prescribed. Every effort has been made to ensure that the information provided by [employer]. ('[employer]') is accurate, up-to-date, and complete, but no guarantee is made to that effect. Drug information contained herein may be time sensitive. [employer] information has been compiled for use by healthcare practitioners and consumers in the [place] and therefore [employer] does not warrant that uses outside of the [place] are appropriate, unless specifically indicated otherwise. [employer] drug information does not endorse drugs, diagnose patients or recommend therapy. [employer] drug information is an informational resource designed to assist licensed healthcare practitioners in caring for their patients and/or to serve consumers viewing this service as a supplement to, and not a substitute for, the expertise, skill, knowledge and judgment of healthcare practitioners. The absence of a warning for a given drug or drug combination in no way should be construed to indicate that the drug or drug combination is safe, effective or appropriate for any given patient. [facility] does not assume any responsibility for any aspect of healthcare administered with the aid of information [facility] provides. The information contained herein is not intended to cover all possible uses, directions, precautions, warnings, drug interactions, allergic reactions, or adverse effects. If you have questions about the drugs you are taking, check with your doctor, nurse or pharmacist. Copyright 3059-0008 [facility]. Version: 5.01. Revision Date: 03/16/2018. potassium chloride (oral/injection) (judy TASS ee um) Mick Potassium 99, Klor-Con, K-Tab, Potassium Chloride Proamp What is the most important information I should know about potassium chloride? You should not use this medicine if you have high levels of potassium in your blood (hyperkalemia), or if you also take a 'potassium-sparing' diuretic. What is potassium chloride? Potassium is a mineral that is needed for several functions of your body, especially the beating of your heart. Potassium chloride is used to prevent or to treat low blood levels of potassium (hypokalemia). Potassium levels can be low as a result of a disease or from taking certain medicines, or after a prolonged illness with diarrhea or vomiting. Potassium chloride may also be used for purposes not listed in this medication guide. What should I discuss with my healthcare provider before taking potassium chloride? You should not use potassium chloride if you are allergic to it, or if: ?? you have high levels of potassium in your blood (hyperkalemia); or ?? you take a 'potassium-sparing' diuretic (water pill) such as amiloride, spironolactone, or triamterene. Tell your doctor if you have ever had: ?? heart problems; ?? high blood pressure; ?? liver or kidney disease; ?? a large tissue injury such as a severe burn; ?? an electrolyte imbalance (such as low levels of calcium or magnesium in your blood); ?? trouble swallowing; ?? slow digestion; ?? stomach bleeding, an ulcer, or a blockage in your stomach or intestines; ?? an adrenal gland disorder; ?? diabetes; or ?? severe dehydration. Tell your doctor if you are or . How should I take potassium chloride? Follow all directions on your prescription label and read all medication guides or instruction sheets. Your doctor may occasionally change your dose. Use the medicine exactly as directed. Potassium chloride oral is taken by mouth. Potassium chloride injection is given as a slow infusion into a vein. A healthcare provider will give you this medicine by injection if you have severely low potassium levels. Tell your caregivers if you feel any burning, pain, or swelling around the IV needle when potassium chloride is injected. Take oral potassium chloride with food if the medicine upsets your stomach. Always follow directions on the medicine label about giving this medicine to a child. Take the tablet or capsule with a full glass of water. Do not crush, chew, or suck on a potassium tablet or capsule. Sucking on the pill could irritate your mouth or throat. Measure liquid medicine carefully. Use the dosing syringe provided, or use a medicine dose-measuring device (not a kitchen spoon). Mix the oral solution with least 4 ounces of water before taking it. You may need to follow a special diet while using potassium chloride. Follow all instructions of your doctor or dietitian. Learn about the foods to eat or avoid to help control your condition. Call your doctor if you have trouble swallowing a potassium chloride capsule or tablet. You may be able to dissolve the tablet in water, or mix the medicine from a capsule with soft food. Carefully follow your doctor's instructions. You may need frequent medical tests. Your heart function may need to be checked using an electrocardiograph or ECG (sometimes called an EKG). Even if you have no symptoms, tests can help your doctor determine if this medicine is effective. Some tablets are made with a shell that is not absorbed or melted in the body. Part of this shell may appear in your stool. This is normal and will not make the medicine less effective. Store at room temperature away from moisture, heat, and light. Keep the medication in a closed container. What happens if I miss a dose? Take the medicine as soon as you can, but skip the missed dose if it is almost time for your next dose. Do not take two doses at one time. What happens if I overdose? Seek emergency medical attention or call the Poison Help line at . Overdose symptoms may include stomach pain, vomiting, irregular heartbeats, chest pain, muscle weakness, loss of movement, numbness or tingling, or feeling light-headed. What should I avoid while taking potassium chloride? Do not use potassium supplements or other products that contain potassium, unless your doctor has told you to. Salt substitutes or low-salt foods often contain potassium. Read the label of any food or medicine to see if it contains potassium. What are the possible side effects of potassium chloride? Get emergency medical help if you have signs of an allergic reaction: hives; difficult breathing; swelling of your face, lips, tongue, or throat. Stop using potassium chloride and call your doctor at once if you have: ?? severe throat irritation; ?? chest pain, trouble breathing; ?? pain, burning, bruising, swelling, irritation, or skin changes where the medicine was injected; ?? stomach bloating, severe vomiting, severe stomach pain; ?? high potassium level--nausea, weakness, tingly feeling, chest pain, irregular heartbeats, loss of movement; or ?? signs of stomach bleeding--bloody or tarry stools, coughing up blood or vomit that looks like coffee grounds. Common side effects may include: ?? nausea, vomiting, diarrhea; ?? gas, stomach pain; or ?? the appearance of a potassium chloride tablet in your stool. This is not a complete list of side effects and others may occur. Call your doctor for medical advice about side effects. You may report side effects to FDA at 7-474-LLK-6588. What other drugs will affect potassium chloride? Tell your doctor about all your other medicines, especially: ?? medicine to prevent organ transplant rejection; ?? a diuretic or 'water pill'; or ?? heart or blood pressure medication. This list is not complete. Other drugs may affect potassium chloride, including prescription and ikzv-yvr-nbbrwnh medicines, vitamins, and herbal products. Not all possible drug interactions are listed here. Where can I get more information? Your pharmacist can provide more information about potassium chloride. Remember, keep this and all other medicines out of the reach of children, never share your medicines with others, and use this medication only for the indication prescribed. Every effort has been made to ensure that the information provided by [employer]. ('[employer]') is accurate, up-to-date, and complete, but no guarantee is made to that effect. Drug information contained herein may be time sensitive. [employer] information has been compiled for use by healthcare practitioners and consumers in the [place] and therefore [employer] does not warrant that uses outside of the [place] are appropriate, unless specifically indicated otherwise. [employer] drug information does not endorse drugs, diagnose patients or recommend therapy. [employer] drug information is an informational resource designed to assist licensed healthcare practitioners in caring for their patients and/or to serve consumers viewing this service as a supplement to, and not a substitute for, the expertise, skill, knowledge and judgment of healthcare practitioners. The absence of a warning for a given drug or drug combination in no way should be construed to indicate that the drug or drug combination is safe, effective or appropriate for any given patient. [employer] does not assume any responsibility for any aspect of healthcare administered with the aid of information [employer] provides. The information contained herein is not intended to cover all possible uses, directions, precautions, warnings, drug interactions, allergic reactions, or adverse effects. If you have questions about the drugs you are taking, check with your doctor, nurse or pharmacist. Copyright 4766-6000 [employer]. Version: 14.01. Revision Date: 11/16/2019. Emergency Awareness and Preventative Care STROKE is an EMERGENCY Every Minute Counts Act FAST and Check for these signs: FACE Does the face look uneven? ARM Does one arm drift down? SPEECH Does their speech sound strange? TIME Call at any sign of stroke Stroke Risk Factors Atrial Fibrillation (irregular heartbeat) Diabetes Family history of stroke Heart Disease Heavy alcohol use High Blood Pressure High Cholesterol Physical inactivity and obesity Smoking Cigarette Smoking The facts are clear, cigarette smoking will shorten your life. Smoking can cause many illnesses along the way. As a healthcare provider, we recommend that you stop smoking. Assistance with quitting is available by contacting 5-592-DVXP-NOW. This is a free resource providing counseling, support, and referral. Or you may contact your personal physician. National Suicide Prevention Lifeline: The National Suicide Prevention Lifeline is a national network of local crisis centers that provides free and confidential emotional support to people in suicidal crisis or emotional distress 24 hours a day, 7 days a week. Don't Wait! Stop a Heart Attack Before it Starts What is a heart attack? A heart attack is damage or to a part of the heart from severely decreased or lack of blood flow to the heart. Over time, arteries can become narrow from the buildup of fat and cholesterol, which is called plaque. The plaque can rupture causing a blood clot to form. When the blood clot forms, the artery can become severely narrowed or completely blocked, causing a heart attack. Heart attack is the leading cause of in the [place]. 85% of muscle damage occurs within the first 2 hours. Delay in the recognition of heart attack symptoms increases the chances of . Know the early symptoms of a heart attack: Nausea Feeling of fullness in chest Jaw Pain Pain that travels down one or both arms Fatigue/being tired Anxiety Back Pain Chest pressure, squeezing, or discomfort Shortness of breath Sweating, or a cold sweat Feeling of impending doom There are unusual signs of a heart attack, too! Women, the elderly, and diabetics may present with atypical symptoms: Fainting/dizziness Weakness Confusion Risk Factors for a Heart Attack Some heart disease risk factors, such as age and family history, cannot be changed. Others, like smoking and lack of exercise, can be changed. Smoking High Cholesterol High Blood Pressure Family History Obesity Age Gender (Males are at higher risk) Lack of Exercise Diabetes Diet Stress Excessive Alcohol Intake If you or someone you know is experiencing the signs and symptoms of a heart attack, DON???T DELAY. Call immediately and seek help. If someone collapses, perform CPR! Do not attempt to drive if you are having symptoms of heart attack. Hands-Only CPR Why Hands-Only CPR? Hands-Only CPR has been shown to be as effective as conventional CPR for cardiac arrests that occur outside of a hospital. Survival depends on immediately receiving CPR from someone nearby. How do you perform Hands-Only CPR? There are two easy steps: Call if you see a teen or adult collapse Push hard and fast in the center of the chest at a beat of 100 beats per minute. Save a life! 4 WAYS TO GET AHEAD OF SEPSIS SEPSIS is a MEDICAL EMERGENCY. Time matters! Infections put you and your family at risk for a life-threatening condition called sepsis. Sepsis is the body's extreme response to an infection. It is life-threatening, and without timely treatment, sepsis can rapidly lead to tissue damage, organ failure, and . Sepsis happens when an infection you already have-in your skin, lungs, urinary tract or somewhere else-triggers a chain reaction throughout your body. 1 PREVENT INFECTIONS Take good care of chronic conditions. Talk to your doctor about getting the recommended vaccines. 2 PRACTICE GOOD HYGIENE Wash your hands frequently. Keep cuts or open sores clean and covered until they are healed. 3 KNOW THE SYMPTOMS Confusion or disorientation Shortness of breath High heart rate Fever, shivering, or feeling very cold Extreme pain or discomfort Clammy or sweaty skin 4 ACT FAST Get medical care IMMEDIATELY if you suspect sepsis or if you have an infection that is not getting better or is getting worse. To learn more about sepsis and how to prevent infections, visit www.cdc.gov/sepsis. Test Results Laboratory or Other Results This Visit (last charted value for your 08/01/2020 visit) Blood Gases 07/31/2020 12:14 PM pO2 Art POC: 298.0 mmHg -- Normal range between ( 80.0 and 105.0 ) BE Art POC: 3.0 mmol/L HCO3 Art POC: 27.2 mmol/L -- Normal range between ( 22.0 and 26.0 ) pH Art POC: 7.436 -- Normal range between ( 7.350 and 7.450 ) sO2 Art POC: >99.9 % -- Normal range between ( 95.0 and 98.0 ) tCO2 Art POC: 28.0 mmol/L -- Normal range between ( 23.0 and 27.0 ) pCO2 Art POC: 40.5 mmHg -- Normal range between ( 35.0 and 45.0 ) Hematology 08/06/2020 4:25 AM WBC: 7.9 K/uL -- Normal range between ( 3.6 and 9.5 ) RBC: 3.88 Million/uL -- Normal range between ( 4.20 and 5.70 ) Hct: 34.5 % -- Normal range between ( 40.1 and 51.0 ) Hgb: 11.3 g/dL -- Normal range between ( 13.5 and 17.3 ) Platelet Count: 159 K/uL -- Normal range between ( 163 and 369 ) MCH: 29.1 pg -- Normal range between ( 25.6 and 32.2 ) MCHC: 32.8 Gram/dL -- Normal range between ( 32.2 and 36.5 ) MCV: 88.9 fL -- Normal range between ( 79.0 and 94.8 ) Slide Review: No Eos %: 2.1 % -- Normal range between ( 0.0 and 7.0 ) Hunt #: 0.85 K/uL -- Normal range between ( 0.16 and 1.00 ) Eos #: 0.17 x10(3)/uL -- Normal range between ( 0.00 and 0.80 ) Hunt %: 10.7 % -- Normal range between ( 3.0 and 9.0 ) Baso %: 0.5 % -- Normal range between ( 0.0 and 1.5 ) Baso #: 0.04 x10(3)/uL -- Normal range between ( 0.00 and 0.20 ) RDW: 15.1 % -- Normal range between ( 11.7 and 14.9 ) Neut %: 68.1 % -- Normal range between ( 34.0 and 71.0 ) Neut #: 5.40 K/uL -- Normal range between ( 1.56 and 6.13 ) Lymph %: 17.0 % -- Normal range between ( 19.3 and 53.1 ) Lymph #: 1.35 x10(3)/uL -- Normal range between ( 1.00 and 3.90 ) MPV: 11.2 fL -- Normal range between ( 9.4 and 12.4 ) IG#: 0.13 x10(3)/uL -- Normal range between ( 0.00 and 0.05 ) IG%: 1.60 % -- Normal range between ( 0.00 and 0.60 ) nRBC: 0.080 -- Normal range between ( 0.000 and 0.012 ) 07/31/2020 12:14 PM Hemoglobin POC: 13.9 Gram/dL -- Normal range between ( 12.0 and 17.0 ) Hematocrit POC: 41.0 % -- Normal range between ( 38.0 and 51.0 ) Urinalysis 07/29/2020 2:10 PM Urine Nitrite: Positive Urine Leukocyte Esterase: Moderate Urine Appearance: Clear Urine Glucose Dipstick: Negative Urine Blood Dipstick: Negative Urine Urobilinogen Dipstick: 0.2 EU/dL Urine Protein Dipstick: Negative Ur Bacteria: 3+ Ur Squamous Epithelial Cells: 2-5 /HPF Urine Color: Yellow Ur WBC: 2-5 /HPF Urine Ketones Dipstick: Negative Urine pH Dipstick: 6.0 -- Normal range between ( 6.0 and 8.0 ) Urine Bilirubin Dipstick: Negative Urine Specific [place]: 1.018 -- Normal range between ( 1.005 and 1.030 ) Urine Type.: U CleanCatch Urine Culture if Indicated: Not Indicated Microbiology 07/29/2020 1:02 PM SARS-CoV-2 (COVID19 PCR): Negative Blood Bank 07/31/2020 7:35 AM ABO/Rh (ECHO): A POS Antibody Screen: Negative ABSC 07/29/2020 2:10 PM ABO/Rh Repeat: A POS General Chemistry 08/06/2020 4:25 AM Creatinine Level: 0.90 mg/dL -- Normal range between ( 0.70 and 1.30 ) Sodium Level: 134 mmol/L -- Normal range between ( 136 and 146 ) Potassium Level: 2.9 mmol/L -- Normal range between ( 3.5 and 5.1 ) Chloride Level: 98 mmol/L -- Normal range between ( 102 and 112 ) Carbon Dioxide Level: 32 mmol/L -- Normal range between ( 21 and 32 ) Anion Gap: 7 -- Normal range between ( 9 and 20 ) Bun/Creatinine: 15.6 -- Normal range between ( 8.0 and 20.0 ) Calcium Level: 8.4 mg/dL -- Normal range between ( 8.4 and 10.1 ) eGFR : >60 mL/min/1.73m2 eGFR NonAfrican: >60 mL/min/1.73m2 Glucose Level: 139 mg/dL -- Normal range between ( 74 and 106 ) Blood Urea Nitrogen: 14 mg/dL -- Normal range between ( 7 and 22 ) 08/05/2020 2:53 AM Magnesium Level: 2.2 mg/dL -- Normal range between ( 1.5 and 2.4 ) 07/31/2020 12:14 PM Sodium POC: 136 mmol/L -- Normal range between ( 138 and 146 ) Potassium POC: 3.7 mmol/L -- Normal range between ( 3.5 and 4.9 ) Glucose POC: 129 mg/dL -- Normal range between ( 70 and 105 ) 07/31/2020 7:42 AM :Potassium Level POC: :Potassium Level POC Diagnostic Radiology 07/31/2020 1:[address] in OR: CR CT in OR Patient Name:CAROLYNN ACKERMAN LISA I have received and understand this information and was given the opportunity to ask questions. Patient/[employer] Name: Patient/[employer]or [employer] Signature: Relationship to Patient: Clinician/Hospital Collect[employer] Of [employer] Signature: Date: documented in this encounter Plan of Treatment Not on file documented as of this encounter Visit Diagnoses Not on filedocumented in this encounter
--- OUTSIDE RECORDS SUMMARY | 2025-06-09 09:48 | XMS_ITS | Encounter Summary ---
Author Organization [employer] ([place], [place], [place], [place], [place]) Address [address] [place] [address] Care Team Providers Care Phlebotomy Specialist Name Role Phone Unavailable Primary Care Provider Unavailabl e Encounter Details Date Type Department Care Team (Late st Contact Info) Description 07/31/2020 Transcribed Document [facility] Neurology - [address] [facility] [address] [place] [address] Lamont Sal Jr., MD [address] [place] [address] [address] [place] [address] Social History Tobacco Use Types Packs/Day Years Used Date Smoking Tobacco: Never Assessed Sex and Gender Information Value Date Recorded Sex Assigned at Male 12/16/2021 8:48 PM CDT Legal Sex Male 8:48 PM CDT Gender Identity Male 12/16/2021 8:48 PM CDT Sexual Orientation Not on file documented as of this encounter Miscellaneous Notes * Cerner Conversion Note - Lamont Sal Jr., MD - 07/31/2020 8:06 AM EST Patient: CAROLYNN ACKERMAN Age: 50 years Sex: Male : 1970 Associated Diagnoses: None Author: BONNIE DOSHI APRN Chief Complaint back pain, abhijeet LE paresthesia/weakness Review of Systems ROS reviewed as documented in chart no change since last seen by surgeon Health Status Allergies: Allergic Reactions (Selected) Severity Not Documented Erythromycin- Nausea., Allergies (1) Active Reaction erythromycin Nausea Current medications: (Selected) Inpatient Medications Ordered Ancef + Sodium Chloride 0.9% intravenous solution 100 mL: 3 Gram, 200 mL/Hr, IV Piggyback, PREOP Lactated Ringers Injection intravenous solution 1,000 mL: 20 mL/Hr, IntraVENous lidocaine 1% preservative-free injectable solution: 0.5 mL, IntraDermal, 1-Time midazolam: 2 mg, IV Push, Q10Min, PRN: Anxiety Documented Medications Documented Aleve 220 mg oral capsule: 1-2 Cap, Oral, Q12H, PRN: as needed for pain, 0 Refill(s) Fish Oil 1000 mg oral capsule: 2 Cap, Oral, Daily, 0 Refill(s) Potassium Chloride (Eqv-K-Tab) 10 mEq oral tablet, extended release: 1 Tab, Oral, BID, PRN: as needed with Lasix, 0 Refill(s) Probiotic Formula oral capsule: 1 Cap, Oral, Daily, 0 Refill(s) Tylenol 8 Hour 650 mg oral tablet, extended release: 1 Tab, Oral, Q8H, PRN: Pain, 0 Refill(s) Vitamin D3 5000 units oral capsule: 1 Cap, Oral, Daily, with food, 100 Cap, 0 Refill(s) acetaminophen-HYDROcodone 325 mg-7.5 mg oral tablet: 1 Tab, Oral, Q12H, PRN: as needed for pain, 0 Refill(s) cholestyramine 4 g/5 g oral powder for reconstitution: 4 Gram, Oral, BID, 0 Refill(s) esomeprazole: 40 mg, Oral, Daily, 0 Refill(s) furosemide 40 mg oral tablet: 1 Tab, Oral, Daily, PRN: Edema, 0 Refill(s) gabapentin 400 mg oral capsule: 1 Cap, Oral, BID, 0 Refill(s) hydroCHLOROthiazide 25 mg oral tablet: 1 Tab, Oral, Daily, 0 Refill(s) ibuprofen 200 mg oral capsule: 4 Cap, Oral, Q8H, PRN: as needed for pain, 0 Refill(s) losartan 100 mg oral tablet: 1 Tab, Oral, Daily, 0 Refill(s) metaxalone 800 mg oral tablet: 1 Tab, Oral, TID sucralfate 1 g oral tablet: 1 Tab, Oral, QID, 0 Refill(s) testosterone cypionate 200 mg/mL intramuscular solution: 1 mL, IntraMuscular, [id number], 0 Refill(s), Home Medications (17) Active acetaminophen-HYDROcodone 325 mg-7.5 mg oral tablet 1 Tab, PRN, Oral, Q12H Aleve 220 mg oral capsule 1-2 Cap, PRN, Oral, Q12H cholestyramine 4 g/5 g oral powder for reconstitution 4 Gram, Oral, BID esomeprazole 40 mg, Oral, Daily Fish Oil 1000 mg oral capsule 2,000 mg = 2 Cap, Oral, Daily furosemide 40 mg oral tablet 40 mg = 1 Tab, PRN, Oral, Daily gabapentin 400 mg oral capsule 400 mg = 1 Cap, Oral, BID hydroCHLOROthiazide 25 mg oral tablet 25 mg = 1 Tab, Oral, Daily ibuprofen 200 mg oral capsule 800 mg = 4 Cap, PRN, Oral, Q8H losartan 100 mg oral tablet 100 mg = 1 Tab, Oral, Daily metaxalone 800 mg oral tablet 800 mg = 1 Tab, Oral, TID Potassium Chloride (Eqv-K-Tab) 10 mEq oral tablet, extended release 10 mEq = 1 Tab, PRN, Oral, BID Probiotic Formula oral capsule 1 Cap, Oral, Daily sucralfate 1 g oral tablet 1 Gram = 1 Tab, Oral, QID testosterone cypionate 200 mg/mL intramuscular solution 200 mg = 1 mL, IntraMuscular, [id number] Tylenol 8 Hour 650 mg oral tablet, extended release 650 mg = 1 Tab, PRN, Oral, Q8H Vitamin D3 5000 units oral capsule 5,000 Int Units = 1 Cap, Oral, Daily , Medications (4) Active Scheduled: (2) ceFAZolin + NaCl 0.9% 100 mL 3 Gram, IV Piggyback, PREOP lidocaine 1% *PF* inj 2 mL 0.5 mL, IntraDermal, 1-Time Continuous: (1) lactated ringers 1,000 mL 1,000 mL, IntraVENous, 20 mL/Hr PRN: (1) midazolam 1 mg/1 mL inj 2 mL 2 mg 2 mL, IV Push, Q10Min Problem list: All Problems Muscle spasm / SNOMED CT 46033742 / Confirmed Sinusitis / SNOMED CT 34067279 / Confirmed Pneumonia / SNOMED CT 219803131 / Confirmed Peripheral neuropathy / SNOMED CT 4473358566 / Confirmed Peptic ulcer disease / SNOMED CT 0256521509 / Confirmed Migraine / SNOMED CT 70225477 / Confirmed Knee pain / SNOMED CT 85834584 / Confirmed Irritable bowel syndrome / SNOMED CT 11924421 / Confirmed High blood pressure / SNOMED CT 82251145 / Confirmed Hard of hearing / SNOMED CT 284138571 / Confirmed GERD - Gastro-esophageal reflux disease / SNOMED CT 9765686507 / Confirmed Gastritis / SNOMED CT 9700803 / Confirmed Deep vein thrombosis / SNOMED CT 434118008 / Confirmed Back pain / SNOMED CT 1988294421 / Confirmed At risk for sleep apnea / IMO 52511501 / Confirmed Arthritis / SNOMED CT 2432409 / Confirmed, Active Problems (16) Arthritis At risk for sleep apnea Back pain with abhijeet LE paresthesia and weakness Deep vein thrombosis Gastritis GERD - Gastro-esophageal reflux disease Hard of hearing High blood pressure Irritable bowel syndrome Knee pain Migraine Muscle spasm Peptic ulcer disease Peripheral neuropathy Pneumonia Sinusitis Histories Past Medical History: No active or resolved past medical history items have been selected or recorded. Family History: No family history items have been selected or recorded. Procedure history: umbilical hernia repair. left knee replacement. right knee replacement. Social History Social & Psychosocial Habits Alcohol 07/26/2020 Alcohol Use History, Social Habits Yes Alcohol Use in Last Twelve Months Yes Alcohol Use Comment a drink every couple months Substance Abuse 07/26/2020 Recreational Drug Use History No Recreational Drug Use Last 12 Months No Tobacco 07/26/2020 Smoking Status Never (less than 100 in l Smokeless Tobacco Status Never Smokeless Tobacco Use History None . Physical Examination VS/Measurements Vital Signs/Vital Measures 07/31/2020 6:00 EST Systolic Blood Pressure 173 mmHg HI Diastolic Blood Pressure 91 mmHg HI Temperature Source Temporal artery scanning Temperature Mode Fahrenheit Temperature, Fahrenheit 97.9 Deg F Heart Rate Monitored 96 bpm Respiratory Rate 16 Breaths/Min Oxygen Saturation 97 % Oxygen Therapy Mode Room air , Vitals Signs (last 24 hrs) Last Charted Minimum Maximum Temp 97.9 (JUL 31 06:00) 97.9 (JUL 31 06:00) 97.9 (JUL 31 06:00) Mon HR 96 (JUL 31 06:00) 96 (JUL 31 06:00) 96 (JUL 31 06:00) Resp Rate 16 (FEB 10 06:00) 16 (JUL 31 06:00) 16 (JUL 31 06:00) SBP H 173 (B 06:00) H 173 (B 06:00) H 173 (JUL 31 06:00) DBP H 91 (B 06:00) H 91 (FEB 06:00) H 91 (JUL 31 06:00) SpO2 97 (JUL 31 06:00) 97 (B 06:00) 97 (JUL 31 06:00) General: Alert and oriented, No acute distress, morbid obesity. Eye: Pupils are equal, round and reactive to light, Extraocular movements are intact, glasses. HENT: Normocephalic, slightly [place]. Neck: Supple, Non-tender. Respiratory: Lungs are clear to auscultation, Respirations are non-labored. Cardiovascular: Normal rate, Regular rhythm, No murmur, No gallop, RLE 1+ edema. Gastrointestinal: Soft, Non-tender. Genitourinary: No costovertebral angle tenderness. Lymphatics: No lymphadenopathy neck, axilla, groin. Musculoskeletal: painful ROM back, abhijeet LE weakness. Integumentary: Warm, healing ulcer LLE, abhijeet LE venous stasis discoloration . Neurologic: Alert, Oriented. Psychiatric: Cooperative, Appropriate mood & affect. Review / Management Results review: Labs (Last four charted values) WBC H 10.0 (JUL 29) HB 14.5 (JUL 29) HCT 45.0 (JUL 29) Plt 176 (JUL 29) Na 136 (JUL 29) K L 3.4 (JUL 29) Cl L 101 (JUL 29) CO2 28 (JUL 29) BUN 14 (JUL 29) Cr 0.90 (JUL 29) Glu R 99 (JUL 29) Ca 9.3 (JUL 29) . Impression and Plan Condition: Stable. documented in this encounter Plan of Treatment Not on file documented as of this encounter Visit Diagnoses Not on filedocumented in this encounter
--- OUTSIDE RECORDS SUMMARY | 2025-06-09 09:48 | XMS_ITS | Encounter Summary ---
Author Organization [employer] ([place], [place], [place], [place], [place]) Address [address] [place] [address] Care Team Providers Care Script Girl Name Role Phone Unavailable Primary Care Provider Unavailabl e Encounter Details Date Type Department Care Team (Late st Contact Info) Description 07/31/2020 Transcribed Document [facility] [facility] [place] [address] ProviderWarren MD [facility] [place], [place] [address] Social History Tobacco Use Types Packs/Day Years [...] - Historical ProviderMD - 07/31/2020 3:12 PM COMMUNITY ENGAGEMENT COORDINATOR Evaluation, Occupational Therapy Entered On: 08/01/2020 11:20 EST Performed On: 08/01/2020 9:48 EST by MATY BUSTAMANTE OTR/Giuliano General Information, OT Visit Type, OT : Initial evaluation General Information Comment, OT : PROCEDURE PERFORMED: 1. T10-S1 posterior lateral pedicle screw arthrodesis with iliac bolts. 2. Placement of T10, T11, T12, L3, L4, L5 pedicle screws. 3. Placement of iliac bolts. 4. T10-11, T12-L1, L2-L3, L4-L5, L5-S1 laminectomies. MATY BUSTAMANTE OTR/Giuliano - 08/01/2020 11:22 EST Patient Orders : Order Date Order Ordering 07/31/2020 15:12 Occupational Therapy Evaluation and Treatme Ordered By: ALBAN WOODRUFF MD-SN Active Diagnoses : No Qualifying Diagnoses Therapy Diagnosis, OT : decreased independence secondary to back pain Onset of Problem, OT : 07/31/2020 EST Admission Date : 07/31/2020 06:58 Co-treated by, OT : Physical Therapist Personal Devices : Personal Devices No Devices Recorded Assistive Devices : Assistive Devices No Devices Recorded MATY BUSTAMANTE OTR/L - 08/01/2020 11:20 EST General Status Patient Received Status : Supine in bed Treatment Start Time : 08/01/2020 9:30 EST Patient Left Status : Supine in bed, RN/PCT informed, All needs met and within reach RN/PCT Informed Comment : REINIER holland Treatment End Time : 08/01/2020 9:48 EST Treatment Time : 18 Minute(s) MATY BUSTAMANTE OTR/L - 08/01/2020 11:22 EST History and Environment, OT Living Situation, Therapy : Home Patient Lives With : Adult Child/Children, Spouse Persons Assisting Patient at Home : Alone Professional Skilled Services : None Persons Providing Information : Patient ROBBY LIS RUTLEDGE - 08/01/2020 11:22 EST Prior LOF Bathing, OT : Assist needed Prior LOF Bed Mobility : Assist needed Prior LOF Upper Body Dressing, OT : Independent Prior LOF Lower Body Dressing, OT : Assist needed Prior LOF Toileting : Independent Prior LOF Transfer : Independent Prior LOF Grooming, OT : Independent Prior LOF for IADLs, OT : Assist needed MATY BUSTAMANTE OTR/L - 08/01/2020 11:22 EST Upper Extremity Right UE Active ROM : WFL Left UE Active ROM : WFL MATY BUSTAMANTE OTR/L - 08/01/2020 11:22 EST Self Care/Home Management, OT Self Feeding Assist Level, OT : Supervision or set-up Grooming Assist Level, OT : Assist, minimal Bathing Assist Level, OT : Assist, moderate Upper Body Dressing Assist Level, OT : Assist, moderate Lower Body Dressing Assist Level, OT : Assist, maximal Toileting Assist Level : Assist, maximal Toilet Transfer Assist Level : Assist, total MATY BUSTAMANTE OTR/L - 08/01/2020 11:22 EST Functional Mobility Mobility Grid Bed Roll Left : Rehab Total assistance Bed Roll Right : Rehab Total assistance Bed Scooting : Rehab Total assistance Supine to Sit : Rehab Total assistance (Comment: 2 [MATY BUSTAMANTE OTR/Giulaino Jones 08/01/2020 11:22 EST] ) Sit to Supine : Rehab Total assistance (Comment: 3 [MATY BUSTAMANTE OTR/Giuliano Jones 08/01/2020 11:22 EST] ) MATY BUSTAMANTE OTR/Giuliano Jones 08/01/2020 11:22 EST Cognition Assessment, OT Orientation : Oriented x 4 MATY BUSTAMANTE OTR/Giuliano Jones 08/01/2020 11:22 EST Indication Assessment, OT Occupational Therapy Indicated : Yes Problem List, OT : Impaired, bed mobility, Impaired, activities daily living, Impaired, endurance tolerance, Impaired functional mobility, Impaired, standing balance, Impaired, strength, Impaired, transfers Potential Barriers, OT : Pain Rehabilitation Potential, OT : Guarded MATY BUSTAMANTE OTR/Giuliano Jones 08/01/2020 11:22 EST Plan of Care, OT OT Tx Plan/Goals Established w Patient : Yes OT Frequency Rehab : Five days per week OT Duration Rehab : Fourteen days OT Treatments Planned : Activities of daily living, Balance training, Functional mobility training, Safety education, Therapeutic activities, Therapeutic exercises MATY BUSTAMANTE OTR/Giuliano Jones 08/01/2020 11:22 EST Mixing Technician Goals, OT Grooming LTG Grid Goal #1 Activity : Grooming Assist : Independent, complete Date to Meet : 08/15/2020 EST Goal Status : Initial goal Comment : sitting EOB MATY BUSTAMANTE OTR/Giuliano Jones 08/01/2020 11:22 EST Dressing, Lower Body LTG Grid Goal #1 Activity : Dressing, Lower Body Assist : Assist, minimal Date to Meet : 08/15/2020 EST Goal Status : Initial goal MATY BUSTAMANTE OTR/Giuliano Jones 08/01/2020 11:22 EST Toilet Transfer LTG Grid Goal #1 Activity : Toilet Transfer, Ambulatory Assist : Assist, moderate Date to Meet : 08/15/2020 EST Goal Status : Initial goal MATY BUSTAMANTE OTR/Giuliano Jones 08/01/2020 11:22 EST Bed Mobility/ Bed Transfer LTG Grid Goal #1 Activity : Bed Mobility/Bed Transfer Assist : Assist, minimal Date to Meet : 08/15/2020 EST Goal Status : Initial goal MATY BUSTAMANTE OTR/L - 08/01/2020 11:22 EST Treatment Note Subjective Comment : Agreeable Patient's Response to Treatment : pt tolerated fairly Additional Objective Information : pt to EOB total x2 Sat with max to total assist sitting balance secondary to pain in hips . AE in room. pain throughout. Pt Total x3 to supine. 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 Anticipated Discharge Needs, OT/PT Anticipated Discharge to : Unit, rehabilitation MATY BUSTAMANTE OTR/L - 08/01/2020 11:[address] [facility] OT Charges OT Eval High Complexity : 1 MATY BUSTAMANTE OTR/L - 08/01/2020 11:22 EST documented in this encounter Plan of Treatment Not on file documented as of this encounter Visit Diagnoses Not on filedocumented in this encounter
--- OUTSIDE RECORDS SUMMARY | 2025-06-09 09:48 | XMS_ITS | Clinical Summary ---
Author Organization [facility] Address [address] [place] [address] Phone Care Team Providers Care Solar Photovoltaic Systems Engineer Name Role Phone Connor Aldana MD Unavailable [phone] Beny Silva MD Unavailable [phone] Emiliana Meek [facility] Primary Care Provider Allergies No known active allergies Medications meloxicam (MOBIC) 15 mg Oral Tablet Take 15 mg by mouth daily. Active lisinopril (PRINIVIL;ZESTRI L) 10 mg Oral Tablet Take by mouth daily. Active omeprazole (PRILOSEC) 20 mg Oral Capsule, Delayed Release(E.C.) Take 20 mg by mouth daily. Active rivaroxaban (XARELTO) 20 mg Oral TabletIndication s:DVT (deep venous thrombosis), left Take 1 Tab by mouth daily. 30 Tab 5 08/14/2014 Active oxyCODONE-acetam inophen (PERCOCET) 5-325 mg Oral Tablet Take by mouth every 6 hours as needed for Pain. Active Active Problems Problem Noted Date Diagnosed Date DVT (deep venous thrombosis) 08/14/2014 Osteoarthritis 08/14/2014 HTN (hypertension) 08/14/2014 GERD (gastroesophageal reflux disease) 5 Surgical History Surgery Date Site/Laterality Comments HERNIA REPAIR KNEE SURGERY Medical History Medical History Date Comments Clotting disorder Social History Tobacco Use Types Packs/Day Years Used Date Smoking Tobacco: Never Alcohol Use Standard Drinks/Week Comments Not Asked 0 (1 standard drink = 0.6 oz pur e alcohol) Sex and Gender Information Value Date Recorded Sex Assigned at Not on file Legal Sex Male 2:36 AM EDT Gender Identity Not on file Sexual Orientation Not on file Last Filed Vital Signs Vital Sign Reading Time Taken Comments Blood Pressure 138/88 11/13/2014 8:44 AM EDT Pulse 88 11/13/2014 8:44 AM EDT Temperature 36.6 C (97.8 F) 11/13/2014 8:44 AM EDT Respiratory Rate 14 11/13/2014 8:44 AM EDT Oxygen Saturation - - Inhaled Oxygen Concentration - - Weight 122 kg (269 lb) 11/13/2014 8:44 AM EDT Height 172.7 cm (5' 8 ) 11/13/2014 8:44 AM EDT Body Mass Index 40.9 11/13/2014 8:44 AM EDT Plan of Treatment Health Maintenance Due Date Last Done Comments Annual Wellness Exam 1971 DTaP/TDaP/Td (1 - Tdap) 1987 Hepatitis B Vaccine (1 of 3 - 19+ 3-dose series) 1987 Cologuard 2013 Colon Cancer Screening 2013 Colonoscopy 2013 FIT 2013 Sigmoidoscopy 2013 Virtual Colonography 2013 Pneumococcal Vaccine 50+ (1 of 1 - PCV) 2018 Zoster (1 of 2) 2018 COVID-19 Vaccine (1 - 2024-2 6 season) 2025 Influenza Vaccine (#1) 2025 Meningococcal B Vaccine Aged Out No l onger eligible based on patient's age to complete this topic Insurance ANTHEM ANTHEM Care Teams Solar Photovoltaic Systems Engineer Relationship Specialty Start Date End Date Emiliana Meek FNP [address] [place] [phone] PCP - General Nurse Practitioner-Family 08/24/14 Connor Aldana MD Consulting Physician Internal Medicine-Hematology and Oncology 08/10/14 Beny Silva MD [address] [place] [address] [place] [address] Consulting Physician Orthopaedic Surgery 08/10/14
--- OUTSIDE RECORDS SUMMARY | 2025-06-09 09:48 | XMS_ITS | Clinical Summary ---
Author Organization [facility] Address [address] [place] [address] Care Team Providers Care Clinical Auditor Name Role Phone Unavailable Primary Care Provider Unavailabl e Social History Tobacco Use Types Packs/Day Years Used Date Smoking Tobacco: Never Assessed Abuse Screen Answer Date Recorded Unsafe at Home or Work/School Not on file Feels Threatened by Someone? Not on file 04/2023 Does Anyone Keep You from Co ntacting Others or Doint Things Outside the Home? Not on file 03/31/2023 Physical Sign of Abuse Present Not on file 1 Housing Stability Answer Date Recorded Current Living Arrangements Not on file 03/21 Potentially Unsafe Housing Conditions Not on miles e 03/31/2023 Family and Community Support Answer Aaron e Recorded Help with Day-to-Day Activities Not on file 03/31/2023 Lonely or Isolated Not on file 03/31/2023 Employment Answer Date Recorded Do you want help finding or keeping work or a stuart b? Not on file 03/31/2023 Disabilities Answer Date Recorded Concentrating, Remembering, or Making Decisions Difficulty Not on file 03/31/2023 Doing Errands Independently Difficulty Not on fi le 03/31/2023 Education Answer Date Recorded Help with school or training? Not on file Preferred Language Not on file 03/31/2023 Sex and Gender Information Value Date Recorded Sex Assigned at Not on file Legal Sex Male 12:29 PM EDT Gender Identity Not on file Sexual Orientation Not on file Last Filed Vital Signs Vital Sign Reading Time Taken Comments Blood Pressure 139/86 08/01/2014 11:20 AM EST Pulse 96 08/01/2014 11:20 AM EST Temperature - - Respiratory Rate - - Oxygen Saturation - - Inhaled Oxygen Concentration - - Weight 122 kg (270 lb) 08/01/2014 11:20 AM EST Height 172.7 cm (5' 8 ) 08/01/2014 11:20 AM EST Body Mass Index 41.05 08/01/2014 11:20 AM EST Plan of Treatment Health Maintenance Due Date Last Done Comments ANNUAL PHYSICAL 1970 HEPATITIS C SCREENING 1970 TDAP/TD VACCINES (1 - Tdap) 1987 COLOGUARD 2013 COLON CANCER SCREENING 5 YEAR SIGMOIDOSCOPY 2013 COLONOSCOPY [address] CANCER SCREENING [address] COLONOGRAPHY 2013 FECAL OCCULT BLOOD TEST 2013 FIT Testing (1 year) 2013 Pneumococcal Vaccine 50+ (1 of 1 - PCV) 2018 ZOSTER VACCINE (1 of 2) 2018 INFLUENZA VACCINE 01/19/2025
--- OUTSIDE RECORDS SUMMARY | 2025-06-09 09:48 | XMS_ITS | Encounter Summary ---
Author Organization [employer] ([place], [place], [place], [place], [place]) Address [address] [place] [address] Care Team Providers Care Counseling Services Director Name Role Phone Unavailable Primary Care Provider Unavailabl e Encounter Details Date Type Department Care Team (Late st Contact Info) Description 08/05/2020 Transcribed Document [facility] Neurology - [address] [address] Lamont Sal Jr., MD [address] [place] [address] [address] [place] [address] Social History Tobacco Use Types Packs/Day Years Used Date Smoking Tobacco: Never Assessed Sex and Gender Information Value Date Recorded Sex Assigned at Male 12/16/2021 8:48 PM CDT Legal Sex Male 8:48 PM CDT Gender Identity Male 12/16/2021 8:48 PM CDT Sexual Orientation Not on file documented as of this encounter Miscellaneous Notes * Cerner Conversion Note - Lamont Sal Jr., MD - 08/05/2020 9:15 AM EST Patient: CAROLYNN ACKERMAN Age: 50 years Sex: Male : 1970 Associated Diagnoses: None Author: CARLI GONSALES PA Subjective Increased back and leg pain last night which he attributes to walking more and sitting in the chair for prolonged period. Objective VS/Measurements Vitals Signs (last 24 hrs) Last Charted Minimum Maximum Temp 97.3 (AUG 05 05:51) 97.3 (AUG 05 05:51) 98.1 (AUG 04 10:29) Mon HR 99 (AUG 05 05:51) 99 (AUG 05 05:51) 109 (AUG 04 15:53) Resp Rate 17 (AUG 05 05:51) 17 (AUG 05 05:51) 20 (AUG 04 22:40) SBP 118 (AUG 05 05:51) 115 (AUG 04 22:40) H 144 (AUG 04 15:53) DBP 77 (AUG 05 05:51) 67 (AUG 04 18:36) H 95 (AUG 04 15:53) MAP 89 (AUG 05 05:51) 81 (AUG 04 18:36) 107 (AUG 04 15:53) SpO2 97 (AUG 05 02:10) L 93 (AUG 04 10:29) 97 (AUG 05 02:10) AAOx3. Dressing clean, dry, and intact. Ambulated with PT 50' and 35' yesterday. 4-4+/5 in bilateral LEs. Impression and Plan POD 5 [id number] fusion. Continue PT/OT. Discharge to inpatient rehab when bed available. documented in this encounter Plan of Treatment Not on file documented as of this encounter Visit Diagnoses Not on filedocumented in this encounter
--- OUTSIDE RECORDS SUMMARY | 2025-06-09 09:48 | XMS_ITS | Encounter Summary ---
Author Organization [email or web address] ([place], [place], [place], [place], [place]) Address [address] [place] [address] Care Team Providers Care Range Aide Name Role Phone Unavailable Primary Care Provider Unavailabl e Encounter Details Date Type Department Care Team (Late st Contact Info) Description 08/02/2020 Transcribed Document [facility] [place] [facility] [place] [address] ProviderWarren MD [address] [place], [place] [id number] Social History Tobacco Use Types Packs/Day Years Used Date Smoking Tobacco: Never Assessed Sex and Gender Information Value Date Recorded Sex Assigned at Male 12/16/2021 8:48 PM CDT Legal Sex Male 8:48 PM CDT Gender Identity Male 12/16/2021 8:48 PM CDT Sexual Orientation Not on file documented as of this encounter Miscellaneous Notes * Cerner Conversion Note - Warren ProviderMD - 08/02/2020 2:02 PM AIR MARSHAL UM Authorization Entered On: 08/02/2020 14:05 EST Performed On: 08/02/2020 14:02 EST by JUICE KRUEGER RN Primary Insurance Authorization Authorization and Policy Numbers : Insurance 1 Health Plan: [facility] Policy Number: [id number] Authorization Number: Insurance Primary Name : Matilda [id number] Authorization Status-Primary : Admit approved Authorization Fax Number-Primary : [phone] Reference Number-Primary : [id number] Authorization Number-Primary : auth pending per STAR I did email pt access asking true status of auth. Number of Days Authorized-Primary : 0 Day(s) Authorized Service Begin Date-Primary : 07/31/2020 EST Authorized Service End Date-Primary : 07/31/2020 EST Authorization Comments-Primary : Per Rhiannon Daniel IP los approved for CPT codes 87438,28860,61478,81163,[id number] and 09688 on 07/31/2020. Clinicals faxed via [employer] for c/s approval Historical Authorization Comments-Primary : Comment 1: Pending IP auth noted per Availity. Will notify MD office for status order (JUICE KRUEGER RN 08/01/2020 12:06) Comment 2: [place] per availity auth #[id number] still in review (JENNIFER ARREOLA RN-Utilization Review 07/31/2020 13:02) Comment 3: Pt is asher for INPT Lumbar Fusion Posterior 3 Level on 07-31-20 [place]: auth pending per STAR I did email pt access asking true status of auth. PENDING AUTH# [id number] (ROGER RICE, Evening Anchor 07/30/2020 14:22) JUICE KRUEGER, REINIER - 08/02/2020 14:02 EST documented in this encounter Plan of Treatment Not on file documented as of this encounter Visit Diagnoses Not on filedocumented in this encounter
--- OUTSIDE RECORDS SUMMARY | 2025-06-09 09:48 | XMS_ITS | Encounter Summary ---
Author Organization [employer] ([place], [place], [place], [place], [place]) Address [address] [place] [address] Care Team Providers Care Soap Maker Name Role Phone Unavailable Primary Care Provider Unavailabl e Encounter Details Date Type Department Care Team (Late st Contact Info) Description 08/06/2020 Transcribed Document [facility] Neurology - [address] [facility] [address] [place] [address] Alban Woodruff Jr., MD [address] [place] [address] [address] [place] [address] Social History Tobacco Use Types Packs/Day Years Used Date Smoking Tobacco: Never Assessed Sex and Gender Information Value Date Recorded Sex Assigned at Male 12/16/2021 8:48 PM CDT Legal Sex Male 8:48 PM CDT Gender Identity Male 12/16/2021 8:48 PM CDT Sexual Orientation Not on file documented as of this encounter Miscellaneous Notes * Cerner Conversion Note - Alban Woodruff Jr., MD - 08/06/2020 11:15 AM EST Patient: CAROLYNN ACKERMAN Age: 50 Years Sex: Male : 1970 Assessment/Plan POD 6 A78-Magpm hypokalemia, postop urinary retention -conitnue pt ot -sqh dvt ppx -don lso when up and about -dc to rehab once bed is available -medicine following VTE Prophylaxis - Medical Heparin 5,000 Units, SubCutaneous, Inj, Q8H, Routine, Start 08/04/20 14:00:00 EST (ALBAN WOODRUFF) Sequential Compression Device Start: 07/31/20 15:12:00 EST, Bilateral, Continuous Order (ALBAN WOODRUFF) Sequential Compression Device Start: 07/31/20 6:31:00 EST, Bilateral, Continuous Order (ALBAN WOODRUFF) Subjective pain well controlled wants fontanez out Vital Signs T: 37.4 ??C TMIN: 36.8 ??C TMAX: 37.4 ??C HR: 106(Monitored) RR: 18 BP: 139/88 SpO2: 90% Physical Exam nad obese incision cdi 5/5 appropriate documented in this encounter Plan of Treatment Not on file documented as of this encounter Visit Diagnoses Not on filedocumented in this encounter
--- OUTSIDE RECORDS SUMMARY | 2025-06-09 09:48 | XMS_ITS | Encounter Summary ---
Author Organization [employer] ([place], [place], [place], [place], [place]) Address [address] [place] [address] Care Team Providers Care Lead Manufacturing Technician Name Role Phone Unavailable Primary Care Provider Unavailabl e Encounter Details Date Type Department Care Team (Late st Contact Info) Description 08/02/2020 Transcribed Document [facility] [place] [facility] [place] [address] ProviderWarren MD [address] [place], [place] [address] Social History Tobacco Use Types Packs/Day Years Used Date Smoking Tobacco: Never Assessed Sex and Gender Information Value Date Recorded Sex Assigned at Male 12/16/2021 8:48 PM CDT Legal Sex Male 8:48 PM CDT Gender Identity Male 12/16/2021 8:48 PM CDT Sexual Orientation Not on file documented as of this encounter Miscellaneous Notes * Cerner Conversion Note - Historical ProviderMD - 08/02/2020 5:00 PM TOTER Chart Check - Review Order Profile Entered On: 08/02/2020 16:45 EST Performed On: 08/02/2020 17:00 EST by Daksha Segura, RN Chart Check Powerplans Initiated/Discontinued as Appropriate : Yes All Active Orders Reviewed : Yes Daksha Segura, RN - 08/02/2020 16:45 EST Electronically signed by Elmo Antoine Conversion Financial Analysis Manager Michellener at 10/04/2022 11:41 PM CDT documented in this encounter Plan of Treatment Not on file documented as of this encounter Visit Diagnoses Not on filedocumented in this encounter
--- OUTSIDE RECORDS SUMMARY | 2025-06-09 09:48 | XMS_ITS | Encounter Summary ---
Author Organization [employer] ([place], [place], [place], [place], [place]) Address [address] [place] [address] Care Team Providers Care Film Or Tape Librarian Name Role Phone Unavailable Primary Care Provider Unavailabl e Encounter Details Date Type Department Care Team (Late st Contact Info) Description 08/02/2020 Transcribed Document [facility] [place] [facility] [place] [address] ProviderWarren MD [address] [place] [id number] Social History Tobacco Use Types Packs/Day Years Used Date Smoking Tobacco: Never Assessed Sex and Gender Information Value Date Recorded Sex Assigned at Male 12/16/2021 8:48 PM CDT Legal Sex Male 8:48 PM CDT Gender Identity Male 12/16/2021 8:48 PM CDT Sexual Orientation Not on file documented as of this encounter Miscellaneous Notes * Cerner Conversion Note - Historical ProviderMD - 08/02/2020 6:00 AM PULLMAN CAR CLERK Pain Assessment Entered On: 08/02/2020 14:52 EST Performed On: 08/02/2020 7:55 EST by Daksha Segura RN Intervention Information: acetaminophen Performed by Malena Murguia LPN on 08/02/2020 06:55:00 EST acetaminophen,650mg Oral Pain Assessment Pain Assessment : Follow-up assessment Pain Scale Goal : 3 Pain Scale Used : 0-10 Scale Daksha Segura RN - 08/02/2020 14:52 EST Pain Scale Intensity : 2 Daksha Segura RN - 08/02/2020 14:52 EST Image 4 - Images currently included in the form version of this document have not been included in the text rendition version of the form. documented in this encounter Plan of Treatment Not on file documented as of this encounter Visit Diagnoses Not on filedocumented in this encounter
--- OUTSIDE RECORDS SUMMARY | 2025-06-09 09:48 | XMS_ITS | Encounter Summary ---
Author Organization [employer] ([place], [place], [place], [place], [place]) Address [address] [place] [address] Care Team Providers Care Cold Food Packer Name Role Phone Unavailable Primary Care Provider Unavailabl e Encounter Details Date Type Department Care Team (Late st Contact Info) Description 08/05/2020 Transcribed Document [facility] [place] Medicine [facility] [place] [address] ProviderWarren MD [facility] [place], [place] [address] Social History Tobacco Use Types Packs/Day Years Used Date Smoking Tobacco: Never Assessed Sex and Gender Information Value Date Recorded Sex Assigned at Male 12/16/2021 8:48 PM CDT Legal Sex Male 8:48 PM CDT Gender Identity Male 12/16/2021 8:48 PM CDT Sexual Orientation Not on file documented as of this encounter Miscellaneous Notes * Cerner Conversion Note - Warren ProviderMD - 08/05/2020 9:58 AM TRACTOR TRAILER TRUCK DRIVER UM Authorization Entered On: 08/05/2020 9:59 EST Performed On: 08/05/2020 9:58 EST by Nanda Shea Rn-Utilization Review Primary Insurance Authorization Authorization and Policy Numbers : Insurance 1 Health [facility]: [facility] Policy Number: [id number] Authorization Number: Insurance Primary Name : Matilda [id number] Authorization Status-Primary : Awaiting callback Authorization Fax Number-Primary : [phone] Reference Number-Primary : [id number] Authorization Number-Primary : [id number] Number of Days Authorized-Primary : 0 Day(s) Authorized Service Begin Date-Primary : 07/31/2020 EST Authorized Service End Date-Primary : 07/31/2020 EST Authorization Comments-Primary : C/S CLINICAL FAXED FOR 06/02 AND 06/03 PER PEDRONER Historical Authorization Comments-Primary : Comment 1: Per Rhiannon Sanchez IP los approved for CPT codes 30526,20456,06949,00261,[id number] and 97681 on 07/31/2020. Clinicals faxed via [employer] for c/s approval (JUICE KRUEGER RN 08/02/2020 14:02) Comment 2: Pending IP auth noted per Availity. Will notify MD office for status order (JUICE KRUEGER RN 08/01/2020 12:06) Comment 3: [place] per availity auth #[id number] still in review (JENNIFER ARREOLA, REINIER-Utilization Review 07/31/2020 13:02) Comment 4: Pt is asher for INPT Lumbar Fusion Posterior 3 Level on 07-31-20 [place]: auth pending per STAR I did email pt access asking true status of auth. PENDING AUTH# [id number] (ROGER RICE, Automobile Inspector 07/30/2020 14:22) Nanda Shea, Rn-Utilization Review - 08/05/2020 9:58 EST documented in this encounter Plan of Treatment Not on file documented as of this encounter Visit Diagnoses Not on filedocumented in this encounter
--- OUTSIDE RECORDS SUMMARY | 2025-06-09 09:48 | XMS_ITS | Encounter Summary ---
Author Organization [employer] ([place], [place], [place], [place], [place]) Address [address] [place] [address] Care Team Providers Care Development Technician Name Role Phone Unavailable Primary Care Provider Unavailabl e Encounter Details Date Type Department Care Team (Late st Contact Info) Description 08/02/2020 Transcribed Document [facility] Neurology - [address] [facility] [address] [place] [address] Alban Woodruff Jr., MD [address] [place] [address] [address] [place] [address] Social History Tobacco Use Types Packs/Day Years Used Date Smoking Tobacco: Never Assessed Sex and Gender Information Value Date Recorded Sex Assigned at Male 12/16/2021 8:48 PM CDT Legal Sex Male 8:48 PM CDT Gender Identity Male 12/16/2021 8:48 PM CDT Sexual Orientation Not on file documented as of this encounter Miscellaneous Notes * Cerner Conversion Note - Alban Woodruff Jr., MD - 08/02/2020 4:29 PM EST Patient: CAROLYNN ACKERMAN Age: 50 years Sex: Male : 1970 Associated Diagnoses: None Author: ALBAN WOODRUFF MD-SNU feels better looks better thigh pain better le 4+/5, pain limited prox exam due to thigh and back pain w/ hip flexion neela serosanguinous and slowing today p.t. pain control needs inpt rehab dc neela tomorrow documented in this encounter Plan of Treatment Not on file documented as of this encounter Visit Diagnoses Not on filedocumented in this encounter
--- OUTSIDE RECORDS SUMMARY | 2025-06-09 09:48 | XMS_ITS | Encounter Summary ---
Author Organization [employer] ([place], [place], [place], [place], [place]) Address [address] [place] [address] Care Team Providers Care Training Development Director Name Role Phone Unavailable Primary Care Provider Unavailabl e Encounter Details Date Type Department Care Team (Late st Contact Info) Description 07/30/2020 Transcribed Document [facility] [place] [facility] [place] [address] ProviderWarren MD [address] [place] [id number] Social History Tobacco Use Types Packs/Day Years Used Date Smoking Tobacco: Never Assessed Sex and Gender Information Value Date Recorded Sex Assigned at Male 12/16/2021 8:48 PM CDT Legal Sex Male 8:48 PM CDT Gender Identity Male 12/16/2021 8:48 PM CDT Sexual Orientation Not on file documented as of this encounter Miscellaneous Notes * Cerner Conversion Note - Historical ProviderMD - 07/30/2020 2:22 PM PROGRAM/MUSIC DIRECTOR UM Authorization Entered On: 07/30/2020 14:24 EST Performed On: 07/30/2020 14:22 EST by ROGER RICE, Horticulture Professor Primary Insurance Authorization Authorization and Policy Numbers : Insurance 1 Health Plan: [facility] [employer] Policy Number: [id number] Authorization Number: Insurance Primary Name : Matilda [id number] Reference Number-Primary : PENDING auth# [id number] Authorization Number-Primary : auth pending per STAR I did email pt access asking true status of auth. Authorized Service Begin Date-Primary : 07/31/2020 EST Authorization Comments-Primary : Pt is asher for INPT Lumbar Fusion Posterior 3 Level on 2-10-21 [place]: auth pending per STAR I did email pt access asking true status of auth. PENDING AUTH# [id number] Historical Authorization Comments-Primary : No Authorization Comments Found ROGER RICE, Horticulture Professor - 07/30/2020 14:22 EST Secondary Insurance Authorization Authorization and Policy Numbers : Insurance 1 Health Plan: [facility] Policy Number: [id number] Authorization Number: Historical Authorization Comments-Secondary : No Authorization Comments Found ROGER RICE, Horticulture Professor - 07/30/2020 14:22 EST Electronically signed by Arash [facility] Conversion School Psychometrist Cerner at 10/04/2022 11:32 PM CDT documented in this encounter Plan of Treatment Not on file documented as of this encounter Visit Diagnoses Not on filedocumented in this encounter
--- OUTSIDE RECORDS SUMMARY | 2025-06-09 09:48 | XMS_ITS | Encounter Summary ---
Author Organization [employer] ([place], [place], [place], [place], [place]) Address [address] [place] [address] Care Team Providers Care Valet Runner Name Role Phone Unavailable Primary Care Provider Unavailabl e Encounter Details Date Type Department Care Team (Late st Contact Info) Description 08/02/2020 Transcribed Document [facility] Radiology [address] [place] [address] Jorge Lara MD [address] [place] [id number] Social History Tobacco Use Types Packs/Day Years Used Date Smoking Tobacco: Never Assessed Sex and Gender Information Value Date Recorded Sex Assigned at Male 12/16/2021 8:48 PM CDT Legal Sex Male 8:48 PM CDT Gender Identity Male 12/16/2021 8:48 PM CDT Sexual Orientation Not on file documented as of this encounter Miscellaneous Notes * Cerner Conversion Note - Jorge Lara MD - 08/02/2020 10:22 AM EST Patient: CAROLYNN ACKERMAN Age: 50 years Sex: Male : 1970 Associated Diagnoses: None Author: NADJA CORDOVA APRN-DIANA 08/02/2020 cc: medical management s/p thoracic laminectomy with fusion per Dr. Sal S: patient found lying in bed. A/O. Pain is adequately controlled. Ice pack helps. He has not yet been up with therapy. Eating better today. Bowels have moved. Baeza removed this morning- pt has not yet urinated. Denies cough, dyspnea, fever/chills, n/v. Anticipate patient will stay through the hospital with probable dischage to [facility] on Wednesday. HPI: Patient is a 50 yo male admitted to [facility] per Dr. Sal for a thoracic laminectomy with fusion. Preoperatively patient was found to have advanced spondylolisthesis of the thoracic spine and elected surgical intervention after failing conservative treatment. Patient is followed perioperatively while hospitalized for medical management. Patient is seen initially in PACU. Alert. Reports considerable back pain. Denies hx CVA, seizures or sleep apnea. He reports a DVT behind left knee following his left knee replacement. Completed a course of anticoagulation and cardiology cleared him for this surgery. Non smoker. Occasional alcohol use. No recent respiratory illness or antibiotics. He reports chronic IBS- diarrhea predominant. No bladder or prostate issues. Past Med Hx: Active Problems (16) Arthritis At risk for sleep apnea Back pain Deep vein thrombosis Gastritis GERD - Gastro-esophageal reflux disease Hard of hearing High blood pressure Irritable bowel syndrome Knee pain Migraine Muscle spasm Peptic ulcer disease Peripheral neuropathy Pneumonia Sinusitis Active Procedures (3) left knee replacement right knee replacement umbilical hernia repair Family Hx: father of multiple chronic conditions mother alive at age 86 Social & Psychosocial Habits Alcohol 07/26/2020 Alcohol Use History, Social Habits Yes Alcohol Use in Last Twelve Months Yes Alcohol Use Comment a drink every couple months Substance Abuse 07/26/2020 Recreational Drug Use History No Recreational Drug Use Last 12 Months No Tobacco 07/26/2020 Smoking Status Never (less than 100 in l Smokeless Tobacco Status Never Smokeless Tobacco Use History None Allergies (1) Active Reaction erythromycin Nausea Home Medications (16) Active cholestyramine 4 g/5 g oral powder for reconstitution 4 Gram, Oral, BID cyclobenzaprine 10 mg oral tablet 10 mg = 1 Tab, PRN, Oral, TID Fish Oil 1000 mg oral capsule 2,000 [...] 800 mg = 1 Tab, Oral, TID NexIUM 40 mg oral delayed release capsule 40 mg = 1 Cap, Oral, Daily Potassium Chloride (Eqv-K-Tab) 10 mEq oral tablet, extended release 10 mEq = 1 Tab, PRN, Oral, Daily Probiotic Formula oral capsule 1 Cap, Oral, Daily sucralfate 1 g oral tablet 1 Gram = 1 Tab, Oral, QID testosterone cypionate 200 mg/mL intramuscular solution 200 mg = 1 mL, IntraMuscular, X5Icbgl Tylenol 8 Hour 650 mg oral tablet, extended release 650 mg = 1 Tab, PRN, Oral, Q8H Vitamin D3 5000 units oral capsule 5,000 Int Units = 1 Cap, Oral, Daily Constitutional: [No fevers, chills Eye: [No eye discharge, eye pain, redness] HEENT: [No nasal congestion, sore throat Respiratory: [No shortness of breath, cough, pain on breathing, sputum production] Cardiovascular: [No Chest pain, palpitations, syncope, shortness of breath while laying flat] Gastrointestinal: [No nausea, vomiting, +diarrhea- chronic Genitourinary: [No hematuria, dysuria, incontinence Musculoskeletal: back pain with decreased ROM Integumentary: [No rash, pruritus Neurologic: [No weakness, numbness Psychiatric: [No anxiety, depression Exam: Vitals Signs (last 24 hrs) Last Charted Minimum Maximum Temp 99.1 (AUG 02 05:00) 98 (AUG 01:) 99.1 (AUG 02 05:00) Mon HR 114 (AUG 02 05:00) 110 (AUG 01 18:34) 121 (AUG 01 18:34) Resp Rate 16 (AUG 02 05:00) 16 (AUG 01 20:00) 16 (AUG 01 20:00) SBP H 141 (AUG 02 05:00) H 141 (AUG 02:00) H 160 (AUG 01:) DBP 87 (AUG 02 05:00) 83 (AUG 01 18:25) H 105 (AUG 01:) MAP 106 (AUG 02 05:00) 93 (AUG 01 18:25) 119 (AUG 01:) SpO2 L 93 (AUG 02 05:00) L 91 (AUG 02 00:16) 96 (AUG 01 11:31) General: [Alert and oriented, no acute distress]. Neurologic: [Awake, alert, and oriented X3, CN II-XII intact]. Eye: [PERRL, EOMI, normal conjunctiva]. HENT: [Normocephalic, normal hearing, moist oral mucosa, no scleral icterus Neck: [Supple, non-tender, no lymphadenopathy]. Lungs: [Clear to auscultation, non-labored respiration]. Heart: [Normal rate, regular rhythm, no edema]. Abdomen: [Soft, non-tender, non-distended, normal bowel sounds, +obese abdomen Musculoskeletal: back pain with decreased ROM Skin: [Skin is warm, dry and pink Psychiatric: [Cooperative, appropriate mood and affect]. Data: Blood Gases (Current Encounter/Past 24 Hours) No Blood Gas Results Found (Past 24 Hours) Electrolytes(BMP) Results (Current Encounter/Past 24 Hours) Sodium Level 137 mmol/L 08/02/2020 03:55 Potassium Level 3.6 mmol/L 08/02/2020 03:55 Chloride Level 102 mmol/L 08/02/2020 03:55 Carbon Dioxide Level 33 mmol/L HI 08/02/2020 03:55 Anion Gap 6 LOW 08/02/2020 03:55 Blood Urea Nitrogen 9 mg/dL 08/02/2020 03:55 Glucose Level 149 mg/dL HI 08/02/2020 03:55 Calcium Level 8.1 mg/dL LOW 08/02/2020 03:55 Creatinine Level 0.90 mg/dL 08/02/2020 03:55 Cardiac Markers (Current Encounter/Past 24 Hours) No Cardiac Marker Results Found (Past 24 Hours) CBC Results (Current Encounter/Past 24 Hours) WBC 14.3 K/uL HI 08/02/2020 03:33 Hct 36.6 % LOW 08/02/2020 03:33 Hgb 11.5 g/dL LOW 08/02/2020 03:33 Platelet Count 138 K/uL LOW 08/02/2020 03:33 CMP Results (Current Encounter/Past 24 Hours) Creatinine Level 0.90 mg/dL 08/02/2020 03:55 Bun/Creatinine 10.0 08/02/2020 03:55 eGFR >60 mL/min/1.73m2 08/02/2020 03:55 eGFR NonAfrican >60 mL/min/1.73m2 08/02/2020 03:55 Sodium Level 137 mmol/L 08/02/2020 03:55 Potassium Level 3.6 mmol/L 08/02/2020 03:55 Chloride Level 102 mmol/L 08/02/2020 03:55 Carbon Dioxide Level 33 mmol/L HI 08/02/2020 03:55 Anion Gap 6 LOW 08/02/2020 03:55 Blood Urea Nitrogen 9 mg/dL 08/02/2020 03:55 Glucose Level 149 mg/dL HI 08/02/2020 03:55 Calcium Level 8.1 mg/dL LOW 08/02/2020 03:55 Coagulation Results (Current Encounter/Past 24 Hours) No Coagulation Results Found (Past 24 Hours) Creatinine Clearance (Current Encounter/Past 24 Hours) Creatinine Level 0.90 mg/dL 08/02/2020 03:55 Bun/Creatinine 10.0 08/02/2020 03:55 Estimated Creatinine Clearance 94.45 mL/Min 08/02/2020 03:55 Radiology Results (Last 48 hours) [id number] -- 08/01/2020 10:[address] in OR (07/31/2020 13:30) Result: CT SPINE LUMBAR IN THE ORINDICATION: Intraoperative exam. Back pain.TECHNIQUE: Thin section axial images were obtained through the lumbarspine with the patient in prone position. This was obtained in theoperating room to assist with surgical planning.COMPARISON: None.FINDINGS: There is a large posterior soft tissue defect. There arechanges from posterior lumbar fusion. Multilevel degenerative disease ispresent. There is fatty infiltration of liver. Limited visualization ofthe abdomen and pelvis is unremarkable.IMPRESSION: Intraoperative exam during lumbar spine surgery. Please seethe operative report for further details.Images reviewed, interpreted, and dictated by Dr. Sidney Weber.Transcribed by Rukhsana Del Rio PA-C.I have personally viewed, interpreted and dictated the examination. Ihave read and agree with the above final transcribed report. Labs (Last four charted values) WBC H 14.3 (AUG 02) H 14.3 (AUG 01) H 10.0 (JUL 29) HB L 11.5 (FEB 12) L 12.3 (B ) 14.5 (B 08) HCT L 36.6 (B 12) L 38.7 (B 11) 45.0 (B 08) Plt L 138 (FEB 12) L 161 (FEB 11) 176 (FEB 08) Na 137 (B 12) 138 (FEB 11) 136 (B 08) K 3.6 (B ) 3.7 (B ) L 3.4 (B 08) Cl 102 (B ) 103 (B 11) L 101 (B 08) CO2 H 33 (AUG 02) 30 (AUG 01) 28 (JUL 29) BUN 9 (AUG 02) 14 (AUG 01) 14 (JUL 29) Cr 0.90 (AUG 02) 1.00 (AUG 01) 0.90 (JUL 08) Glu R H 149 (AUG 02) H 152 (AUG 01) 99 (JUL 29) Ca L 8.1 (AUG 02) L 8.1 (AUG 01) 9.3 (JUL 29) Impression: advanced spondylolisthesis thoracic spine -s/p thoracic laminectomy with fusion per Dr. Sal at risk for sleep apnea obesity Hx HTN Hx IBS- diarrhea Hx silent GERD Plan: Seeking inpatient rehab at [facility] at discharge Monitor HTN; add PRN's, hold parameters bowel regimen incentive spirometer PT/OT DVT prophylaxis noted Pain management deferred to surgeon will monitor hb/hct daily for signs of ongoing acute blood loss will monitor bun/cr daily for signs of dehydration, prerenal azotemia will monitor for signs/symptoms of post-op wound infection or hospital acquired infectious process resume outpatient medication regimen for comorbidities assessment and treatment plan made in conjunction with Silvia Lara MD Scribed by Farheen Carreno documented in this encounter Plan of Treatment Not on file documented as of this encounter Visit Diagnoses Not on filedocumented in this encounter
--- OUTSIDE RECORDS SUMMARY | 2025-06-09 09:48 | XMS_ITS | Encounter Summary ---
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 Name Role Phone Unavailable Primary Care Provider Unavailabl e Encounter Details Date Type Department Care Team (Late st Contact Info) Description 08/02/2020 Transcribed Document [facility] [place] by [facility] [place] [address] ProviderWarren MD [address] [place] [id number] Social History Tobacco Use Types Packs/Day Years Used Date Smoking Tobacco: Never Assessed Sex and Gender Information Value Date Recorded Sex Assigned at Male 12/16/2021 8:48 PM CDT Legal Sex Male 8:48 PM CDT Gender Identity Male 12/16/2021 8:48 PM CDT Sexual Orientation Not on file documented as of this encounter Miscellaneous Notes * Cerner Conversion Note - Historical ProviderMD - 08/02/2020 4:17 PM ADMISSION LIAISON Spiritual Care Assessment Entered On: 08/02/2020 16:45 EST Performed On: 08/02/2020 16:17 EST by Tushar Hickman Chaplain-Non Cert General Information Referred by : initiated Ministry Provided to : Patient Tushar Hickman Chaplain-Non Cert - 08/02/2020 16:45 EST Spiritual Assessment Spiritual Assessment Comment/Summary Points : Spiritual care and support provided to patient at bedside. Spirital Assessment Comment/Summary Report : SPIRITUAL ASSESSMENT COMMENT/SUMMARY No qualifying data available. Tushar Hickman Chaplain-Non Cert - 08/02/2020 16:45 EST Interventions Emotional Support : Empathic/Engaged listening Spiritual and Anabaptist : Spiritual/Anabaptist support provided Tushar Hickman Chaplain-Non Cert - 08/02/2020 16:45 EST Electronically signed by Arash, [facility] Conversion Hydrogen Plant Operator Cerner at 10/04/2022 11:39 PM CDT documented in this encounter Plan of Treatment Not on file documented as of this encounter Visit Diagnoses Not on filedocumented in this encounter
--- OUTSIDE RECORDS SUMMARY | 2025-06-09 09:48 | XMS_ITS | Encounter Summary ---
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 Name Role Phone Unavailable Primary Care Provider Unavailabl e Encounter Details Date Type Department Care Team (Late st Contact Info) Description 08/02/2020 Transcribed Document [facility] [address] [facility] [address] [place] [address] Lamont Sal Jr., MD [address] [place] [address] [address] [place] [address] Social History Tobacco Use Types Packs/Day Years Used Date Smoking Tobacco: Never Assessed Sex and Gender Information Value Date Recorded Sex Assigned at Male 12/16/2021 8:48 PM CDT Legal Sex Male 8:48 PM CDT Gender Identity Male 12/16/2021 8:48 PM CDT Sexual Orientation Not on file documented as of this encounter Miscellaneous Notes * Cerner Conversion Note - Lamont Sal Jr., MD - 08/02/2020 9:20 AM EST Patient: CAROLYNN ACKERMAN Age: 50 years Sex: Male : 1970 Associated Diagnoses: None Author: CARLI GONSALES PA Subjective Back pain. Feels pain and mobility are slowly improving. Objective VS/Measurements Vitals Signs (last 24 hrs) Last Charted Minimum Maximum Temp 99.1 (AUG 02 05:00) 98 (AUG 01:) 99.1 (AUG 02 05:00) Mon HR 114 (AUG 02 05:00) 110 (AUG 01 18:34) 121 (AUG 01 18:34) Resp Rate 16 (AUG 02 05:00) 16 (AUG 01 20:00) 16 (AUG 01 20:00) SBP H 141 (AUG 02 05:00) H 141 (AUG 02 05:00) H 160 (AUG 01:) DBP 87 (AUG 02:00) 83 (AUG 01 18:25) H 105 (AUG 01) MAP 106 (AUG 02:00) 93 (AUG 01 18:25) 119 (AUG 01:) SpO2 L 93 (AUG 02:00) L 91 (AUG 02 00:16) 96 (AUG 01:) AAOx3. Incision clean, dry, and intact. 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 Has not ambulated with PT. Impression and Plan POD 2 T10- iliac fusion. Continue PT/OT. Will need inpatient rehab at discharge. D/C fontanez. Continue drain for now. Will start heparin for dvt prophylaxis. documented in this encounter Plan of Treatment Not on file documented as of this encounter Visit Diagnoses Not on filedocumented in this encounter
--- OUTSIDE RECORDS SUMMARY | 2025-06-09 09:48 | XMS_ITS | Encounter Summary ---
Author Organization [employer] ([place], [place], [place], [place], [place]) Address [address] [place] [address] Care Team Providers Care Singer Back Tender Name Role Phone Unavailable Primary Care Provider Unavailabl e Encounter Details Date Type Department Care Team (Late st Contact Info) Description 07/31/2020 Transcribed Document [facility] [place] Family Medicine [facility] [place] [address] ProviderWarren MD [address] [place] [address] [phone] Social History Tobacco Use Types Packs/Day Years Used Date Smoking Tobacco: Never Assessed Sex and Gender Information Value Date Recorded Sex Assigned at Male 12/16/2021 8:48 PM CDT Legal Sex Male 8:48 PM CDT Gender Identity Male 12/16/2021 8:48 PM CDT Sexual Orientation Not on file documented as of this encounter Miscellaneous Notes * Cerner Conversion Note - Warren ProviderMD - 07/31/2020 9:13 AM TRUSS BUILDER [facility] Main OR IntraOp Summary Primary Physician: ALBAN WOODRUFF MD-TRUONG Finalized Date/Time: 08/01/20 15:01:01 Pt. Name: CAROLYNN ACKERMAN /Sex: 1970 Male Med Rec #: [id number] Physician: ALBAN WOODRUFF MD-TRUONG Financial #: [id number] Pt. Type: O Room/Bed: 652/1 Admit/Disch: 07/31/20 06:58:00 - Institution: [facility] IntraOp Case Attendance Entry 1 Entry 2 Entry 3 Case Attendee ALBAN WOODRUFF MD-Chaz Escalante, Ana Cedeno Rn Role Performed Surgeon/Proceduralist, Press Hand Supervisor, First Press Hand Supervisor, First First Time In 07/31/20 08:33:00 07/31/20 08:33:00 07/31/20 08:33:00 Time Out 07/31/20 14:32:00 07/31/20 14:32:00 07/31/20 14:32:00 Procedure Lumbar Fusion Posterior Lumbar Fusion Posterior Lumbar Fusion Posterior 3 Level 3 Level 3 Level Other Attendee ORIENTEE Superficial Wound Closed By: Last Modified By: PALLAVI NARVAEZ, RN PALLAVI NARVAEZ, RN PALLAVI NARVAEZ, REINIER 07/31/20 14:32:42 07/31/20 14:32:42 07/31/20 14:32:42 Entry 4 Entry 5 Entry 6 Case Attendee YOLANDA HATHAWAY, RN DORINDA BLACKBURN RN CARLI GONSALES PA Role Performed Press Hand Supervisor, Second Scrub, First Physician corporate law assistant Time In 07/31/20 08:33:00 07/31/20 08:33:00 07/31/20 08:33:00 Time Out 07/31/20 14:32:00 07/31/20 10:59:00 07/31/20 14:32:00 Procedure Lumbar Fusion Posterior Lumbar Fusion Posterior Lumbar Fusion Posterior 3 Level 3 Level 3 Level Other Attendee Superficial Wound Closed By: Last Modified By: PALLAVI NARVAEZ RN BRADY, CHRISTINA M, RN BRADY, CHRISTINA M, RN 07/31/20 14:32:42 07/31/20 14:32:42 07/31/20 14:32:42 Entry 7 Entry 8 Entry 9 Case Attendee RABIA HO, COLLEGE OR UNIVERSITY REGISTRAR GRIS CHEN MD-ANS WASSON, SANDRA D, RN Role Performed COLLEGE OR UNIVERSITY REGISTRAR/Nurse Assistant Offset Press Operator Anesthesiologist of Press Hand Supervisor, Second Record Time In 07/31/20 08:33:00 07/31/20 08:33:00 07/31/20 09:00:00 Time Out 07/31/20 13:06:00 07/31/20 14:32:00 07/31/20 09:20:00 Procedure Lumbar Fusion Posterior Lumbar Fusion Posterior Lumbar Fusion Posterior 3 Level 3 Level 3 Level Other Attendee RN BREAK RELIEF Superficial Wound Closed By: Last Modified By: PALLAVI NARVAEZ, RN PALLAVI NARVAEZ, RN PALLAVI NARVAEZ, RN 07/31/20 14:32:59 07/31/20 14:32:42 07/31/20 14:32:42 Entry 10 Entry 11 Entry 12 [address] OTHER, ATTENDEE #1 Cass Kay, Diagnostic Job Training Specialist Role Performed Scrub, Second Vendor Management Advisor Time In 07/31/20 10:59:00 07/31/20 08:33:00 07/31/20 08:33:00 Time Out 07/31/20 14:32:00 07/31/20 14:32:00 07/31/20 14:32:00 Procedure Lumbar Fusion Posterior Lumbar Fusion Posterior Lumbar Fusion Posterior 3 Level 3 Level 3 Level Other Attendee YUMI TORRES Superficial Wound Closed By: Last Modified By: PALLAVI NARVAEZ, RN PALLAVI NARVAEZ, RN PALLAVI NARVAEZ, RN 07/31/20 14:32:42 07/31/20 14:32:42 07/31/20 14:32:42 Entry 13 Entry 14 Entry 15 Case Attendee YOLANDA HATHAWAY, RN PILAR VIZCAINO, Ernestine Martins, COLLEGE OR UNIVERSITY REGISTRAR Role Performed Press Hand Supervisor, First COLLEGE OR UNIVERSITY REGISTRAR/Nurse Assistant Offset Press Operator COLLEGE OR UNIVERSITY REGISTRAR/Nurse Assistant Offset Press Operator Time In 07/31/20 11:31:00 07/31/20 12:32:00 07/31/20 13:06:00 Time Out 07/31/20 12:01:00 07/31/20 13:02:00 07/31/20 14:32:00 Procedure Lumbar Fusion Posterior Lumbar Fusion Posterior Lumbar Fusion Posterior 3 Level 3 Level 3 Level Other Attendee RN LUNCH RELIEF COLLEGE OR UNIVERSITY REGISTRAR LUNCH RELIEF Superficial Wound Closed By: Last Modified By: PALLAVI NARVAEZ, RN PALLAVI NARVAEZ, RN PALLAVI NARVAEZ, RN 07/31/20 14:32:42 07/31/20 14:32:42 07/31/20 14:32:42 [facility] IntraOp Case Attendance Audit 07/31/20 14:32:59 Rice Drier Operator: BRADYCM Modifier: BRADYCM 15 <+> Role Performed 15 <*> Procedure Lumbar Fusion Posterior 3 Level 07/31/20 14:32:42 Rice Drier Operator: BRADYCM Modifier: BRADYCM 1 <+> Time Out 1 <*> Procedure Lumbar Fusion Posterior 3 Level 2 <+> Time Out 2 <*> Procedure Lumbar Fusion Posterior 3 Level 3 <+> Time Out 3 <*> Procedure Lumbar Fusion Posterior 3 Level 4 <+> Time Out 4 <*> Procedure Lumbar Fusion Posterior 3 Level 5 <*> Procedure Lumbar Fusion Posterior 3 Level 6 <+> Time Out 6 <*> Procedure Lumbar Fusion Posterior 3 Level 7 <*> Procedure Lumbar Fusion Posterior 3 Level 8 <+> Time Out 8 <*> Procedure Lumbar Fusion Posterior 3 Level 9 <*> Procedure Lumbar Fusion Posterior 3 Level 10 <+> Time Out 10 <*> Procedure Lumbar Fusion Posterior 3 Level 11 <+> Time Out 11 <*> Procedure Lumbar Fusion Posterior 3 Level 12 <+> Time Out 12 <*> Procedure Lumbar Fusion Posterior 3 Level 13 <*> Procedure Lumbar Fusion Posterior 3 Level 14 <*> Procedure Lumbar Fusion Posterior 3 Level 15 <+> Time Out 15 <*> Procedure Lumbar Fusion Posterior 3 Level 07/31/20 14:19:53 Rice Drier Operator: [email or web address] Modifier: BRADYCM 1 <*> Procedure Lumbar Fusion Posterior 3 Level 2 <*> Procedure Lumbar Fusion Posterior 3 Level 3 <*> Procedure Lumbar Fusion Posterior 3 Level 4 <*> Procedure Lumbar Fusion Posterior 3 Level 5 <*> Procedure Lumbar Fusion Posterior 3 Level 6 <*> Procedure Lumbar Fusion Posterior 3 Level 7 <*> Procedure Lumbar Fusion Posterior 3 Level 8 <*> Procedure Lumbar Fusion Posterior 3 Level 9 <*> Procedure Lumbar Fusion Posterior 3 Level 10 <*> Procedure Lumbar Fusion Posterior 3 Level 11 <*> Procedure Lumbar Fusion Posterior 3 Level 12 <*> Procedure Lumbar Fusion Posterior 3 Level 13 <*> Procedure Lumbar Fusion Posterior 3 Level 14 <*> Procedure Lumbar Fusion Posterior 3 Level <+> 15 Procedure 07/31/20 13:08:11 Rice Drier Operator: [email or web address] Modifier: [email or web address] 7 <+> Time Out 7 <*> Procedure Lumbar Fusion Posterior 3 Level <+> 15 Case Attendee <+> 15 Time In 07/31/20 13:02:34 Rice Drier Operator: [email or web address] Modifier: [email or web address] 14 <+> Time Out 14 <*> Procedure Lumbar Fusion Posterior 3 Level 07/31/20 12:46:21 Rice Drier Operator: [email or web address] Modifier: [email or web address] <+> 14 Case Attendee <+> 14 Role Performed <+> 14 Time In <+> 14 Procedure <+> 14 Other Attendee 07/31/20 11:31:32 Rice Drier Operator: LAURENMARY [email or web address] Modifier: [email or web address] 1 <*> Procedure Lumbar Fusion Posterior 3 Level 2 <*> Procedure Lumbar Fusion Posterior 3 Level 3 <*> Procedure Lumbar Fusion Posterior 3 Level 4 <*> Procedure Lumbar Fusion Posterior 3 Level 5 <*> Procedure Lumbar Fusion Posterior 3 Level 6 <*> Procedure Lumbar Fusion Posterior 3 Level 7 <*> Procedure Lumbar Fusion Posterior 3 Level 8 <*> Procedure Lumbar Fusion Posterior 3 Level 9 <*> Procedure Lumbar Fusion Posterior 3 Level 10 <*> Procedure Lumbar Fusion Posterior 3 Level 11 <+> Time In 11 <*> Procedure Lumbar Fusion Posterior 3 Level 12 <+> Time In 12 <*> Procedure Lumbar Fusion Posterior 3 Level <+> 13 Case Attendee <+> 13 Role Performed <+> 13 Time In <+> 13 Time Out <+> 13 Procedure <+> 13 Other Attendee 07/31/20 11:01:36 Rice Drier Operator: [email or web address] Modifier: [email or web address] 5 <+> Time Out 5 <*> Procedure Lumbar Fusion Posterior 3 Level <+> 10 Case Attendee <+> 10 Role Performed <+> 10 Time In <+> 10 Procedure <+> 11 Case Attendee <+> 11 Role Performed <+> 11 Procedure <+> 11 Other Attendee <+> 12 Case Attendee <+> 12 Role Performed <+> 12 Procedure 07/31/20 09:48:52 Rice Drier Operator: [email or web address] Modifier: [email or web address] <+> 1 Procedure 2 <*> Procedure Lumbar Fusion Posterior 3 Level 3 <*> Procedure Lumbar Fusion Posterior 3 Level 4 <*> Procedure Lumbar Fusion Posterior 3 Level 5 <*> Procedure Lumbar Fusion Posterior 3 Level 6 <*> Procedure Lumbar Fusion Posterior 3 Level 7 <*> Procedure Lumbar Fusion Posterior 3 Level 8 <*> Procedure Lumbar Fusion Posterior 3 Level 9 <*> Procedure Lumbar Fusion Posterior 3 Level 07/31/20 09:18:13 Rice Drier Operator: [email or web address] Modifier: [email or web address] <+> 9 Case Attendee <+> 9 Role Performed <+> 9 Time In <+> 9 Time Out <+> 9 Procedure <+> 9 Other Attendee 07/31/20 09:12:28 Rice Drier Operator: [email or web address] Modifier: [email or web address] <+> 1 Time In 2 <+> Time In 2 <*> Procedure Lumbar Fusion Posterior 3 Level 3 <+> Time In 3 <*> Procedure Lumbar Fusion Posterior 3 Level 4 <+> Time In 4 <*> Procedure Lumbar Fusion Posterior 3 Level 5 <+> Time In 5 <*> Procedure Lumbar Fusion Posterior 3 Level 6 <+> Time In 6 <*> Procedure Lumbar Fusion Posterior 3 Level 7 <+> Time In 7 <*> Procedure Lumbar Fusion Posterior 3 Level 8 <+> Time In 8 <*> Procedure Lumbar Fusion Posterior 3 Level 07/31/20 08:39:02 Rice Drier Operator: [email or web address] Modifier: [email or web address] 1 <*> Case Attendee ALBAN WOODRUFF MD-SNU 1 <*> Role Performed Surgeon/Proceduralist, First Entry 2 was deleted. Higher numbered entries shifted one position to fill the gap. <-> 2 Case Attendee RABIA HO CRNA <-> 2 Role Performed COLLEGE OR UNIVERSITY REGISTRAR/Nurse Assistant Offset Press Operator <-> 2 Procedure Lumbar Fusion Posterior 3 Level <+> 3 Case Attendee <+> 3 Role Performed <+> 3 Procedure <+> 3 Other Attendee <+> 4 Case Attendee <+> 4 Role Performed <+> 4 Procedure <+> 5 Case Attendee <+> 5 Role Performed <+> 5 Procedure <+> 6 Case Attendee <+> 6 Role Performed <+> 6 Procedure <+> 7 Case Attendee <+> 7 Role Performed <+> 7 Procedure [facility] IntraOp Case Times Entry 1 Patient In Room Time 07/31/20 08:33:00 Out Room Time 07/31/20 14:32:00 Anesthesia Start Time 07/31/20 08:33:00 Stop Time 07/31/20 14:32:00 Surgery / Procedure Times Start Time 07/31/20 09:13:00 Stop Time 07/31/20 14:19:00 Last Modified By: PALLAVI NARVAEZ RN 07/31/20 14:32:38 [facility] IntraOp Case Times Audit 07/31/20 14:32:38 Rice Drier Operator: BRADYCM Modifier: BRADYCM <+> 1 Out Room Time <+> 1 Stop Time 07/31/20 14:19:48 Rice Drier Operator: [email or web address] Modifier: BRADYCM <+> 1 Stop Time 07/31/20 09:13:34 Rice Drier Operator: [email or web address] Modifier: [email or web address] <+> 1 Start Time [facility] IntraOp Cautery Entry 1 Entry 2 ESU Identification Cautery Type Monopolar ESU BiPolar ESU Cautery Type Comments ID Number [id number] ID Type Hospital Number Hospital Number Cautery Settings Cut Setting 45 8 Coag Setting 45 45 Blend Setting Bipolar Setting Argon Setting Argon Banegas ESU Grounding Pad Ground Pad Type Adult Grounding Pad Type Comment Grounding Pad Site Right thigh Grounding Pad Site Comment Grounding Pad Ana White Rn Applied By Grounding Pad Site Warm, dry and intact Skin Condition Before Cautery Site Skin Condition Before Comment Grounding Pad Site Unchanged Skin Condition After Cautery Site Skin Condition After Comment Last Modified By: Chaz Allen RN Byrd, Charlie D, RN 07/31/20 09:42:34 07/31/20 09:42:34 [facility] IntraOp Communication Entry 1 Entry 2 Entry 3 Communication To Family/Significant other Family/Significant other Family/Significant other Comment START - NO ANSWER, LEFT UPDATE UPDATE MESSAGE Communication By YOLANDA HATHAWAY, YOLANDA HERRERA RN Byrd, Charlie D, RN Date and Time 07/31/20 09:14:00 07/31/20 11:33:00 07/31/20 14:10:00 Last Modified By: Chaz Allen RN Byrd, Charlie D, RN BRADY, CHRISTINA M, RN 07/31/20 09:19:30 07/31/20 11:33:34 07/31/20 14:10:56 [facility] IntraOp Communication Audit 07/31/20 14:10:56 Rice Drier Operator: [email or web address] Modifier: BRADYCM <+> 3 Communication By <+> 3 Date and Time <+> 3 Communication To <+> 3 Comment 07/31/20 11:33:34 Rice Drier Operator: [email or web address] Modifier: [email or web address] <+> 2 Communication By <+> 2 Date and Time <+> 2 Communication To <+> 2 Comment 07/31/20 09:19:30 Rice Drier Operator: [email or web address] Modifier: [email or web address] 1 <*> Comment START 07/31/20 09:18:23 Rice Drier Operator: [email or web address] Modifier: [email or web address] <+> 1 Communication By [facility] IntraOp Counts Verification Entry 1 Procedure Lumbar Fusion Posterior 3 Level Count Info Count Type Sponge, Sharps, Miscellaneous Counts Verification Baseline/pre-procedure Sequence Count Results Not Applicable Counts Performed By Count Performed By DORINDA BLACKBURN RN (Scrub) Count Performed By Chaz Allen RN (RN) Last Modified By: Chaz Allen RN 07/31/20 09:43:07 [facility] IntraOp Counts Final Entry 1 Procedure Lumbar Fusion Posterior 3 Level Final Count Info Count Type Sponge, Sharps, Miscellaneous Counts Verification Skin Closure/end of Sequence procedure Count Results Correct, surgeon notified Counts Performed By Count Performed By DORINDA BLACKBURN RN (Scrub) Count Performed By Chaz Allen RN (RN) Last Modified By: PALLAVI NARVAEZ RN 07/31/20 14:13:59 [facility] IntraOp Delays Entry 1 Delay Reason Surgeon late - called in Duration 33 Minute(s) Comment NOTIFIED STAFF WOULD BE 30 MINS LATE Last Modified By: Chaz Allen RN 07/31/20 09:44:59 [facility] IntraOp Delays Audit 07/31/20 09:44:59 Rice Drier Operator: [email or web address] Modifier: [email or web address] <+> 1 Duration <+> 1 Comment [facility] IntraOp Departure from OR Entry 1 Integumentary Assessment Integumentary WDL Assessment WDL Transfer/Handoff Transfer to PACU Phase I Handoff Method Bedside/Face to face, Phone call Post-op Transport Stretcher/Alla Via Patient Transport CARLI GONSALES PA, Accompanied by Ernestine Madrid CRNA Last Modified By: Chaz Allen RN 07/31/20 13:08:23 [facility] IntraOp Departure from OR Audit 07/31/20 13:08:23 Rice Drier Operator: [email or web address] Modifier: [email or web address] 1 <*> Patient Transport Accompanied by CARLI GONSALES PA 1 <*> Handoff Method Phone call, Online nursing summary [facility] IntraOp Drains and Tubes Entry 1 Device Type Pietro Fairchild round drain Size 15 FR Drain/Tube Activity Inserted Drain/Tube Suction Bulb Drain/Tube Drainage Serosanguineous Device Location OP SITE Method of Drainage Compression Last Modified By: Chaz Allen RN 07/31/20 09:47:06 [facility] IntraOp Dressing and Packing Entry 1 Type Dressing Location back Wound Dressing Item Occlusive dressing, Other Applied By CARLI GONSALES PA Last Modified By: Chaz Allen RN 07/31/20 09:47:54 [facility] IntraOp Fire Risk Assessment Entry 1 Fire Info Surgical Site or 0- No Incision Above the Xyphoid Open O2 Source 0- No (Mask or Cannula) Available Ignition 1- Yes (ESU, Laser, Light Source) Fire Risk 1 Assessment Score Fire Score Fire Risk Yes Assessment Complete Fire Risk Ana White Rn Assessment Verified By Fire Risk 07/31/20 09:12:00 Assessment Verified Date/Time Fire Risk Standard Fire Yes Safety Precautions Followed Last Modified By: Chaz Allen RN 07/31/20 09:48:16 [facility] IntraOp Fire Risk Assessment Audit 07/31/20 09:48:16 Rice Drier Operator: AMEYA Modifier: AMEYA 1 <*> Fire Risk Assessment Verified By Chaz Allen RN 1 <+> Fire Risk Assessment Verified Date/Time [facility] Intra General Case Wire Twister 1 Case Information OR OR 10 [facility] Case Level 1 Room Verified Yes Wound Class I - Clean Specialty SN Neurosurgery Anesthesia Type General ASA Class 3 Diagnosis Preop Diagnosis LUMBAR RADICULOPATHY M54.16 Postop Same As Preop No Postop Diagnosis SEE MD POST OP NOTE Last Modified By: Chaz Allen RN 07/31/20 09:59:32 [facility] IntraOp General Case Data Audit 07/31/20 09:59:32 Rice Drier Operator: AMEYA Modifier: [email or web address] 1 <+> Postop Same As Preop 1 <*> Preop Diagnosis l 1 <+> Postop Diagnosis [facility] IntraOp Implant Log Entry 1 Entry 2 Entry 3 Type Tissue Implant Implant (Synthetic) Implant (Synthetic) (Biologic) Implant Log Implant Type Hardware Hardware Tissue Implant Type Bone Implant BONE VIVIGEN FRMBLE SCR RITA FIX [id number] SCR [id number] Identification [facility]-[id number] Description Implant Quantity 1 2 2 Implant Site OP SITE OP SITE OP SITE Implant Identification Model Number Implant [id number] Identification Serial Number Implant Identification Lot Number Implant Lifenet:Lifenet J&J:Depuy:Depuy Spine Synthes:Synthes Identification Transplant Srv [place]:Spine Shaper Set Up Operator Name: Implant [id number] Identification Catalog Number Implant Size Implant Has an Yes Expiration Date Implant Expiration 07/18/21 Date Wasted Radioactive Material Time Implanted Tissue Implant Continue for Tissue Implant Documentation Tissue Identification Number Graft Prep Per Shaper Set Up Operator Instructions: Tissue Preparation Method: Reconstitution Solution: Reconstitution Solution Lot Number Reconstitution Solution Expiration Date: Thawing Solution Thawing Solution Lot Number Thawing Solution Expiration Date Preparation Materials, Other Preparation Materials, Other Lot Number Preparation Materials, Other Expiration Date Tissue Prepared/Processed By Shaper Set Up Operator Paperwork Completed Implant Type Comment Last Modified By: Chaz Allen RN Byrd, Charlie D, RN Byrd, Charlie D, RN 07/31/20 12:00:58 07/31/20 13:08:41 07/31/20 12:07:19 Entry 4 Entry 5 Entry 6 Type Implant (Synthetic) Implant (Synthetic) Implant (Synthetic) Implant Log Implant Type Hardware Hardware Hardware Tissue Implant Type Implant SCR RITA FIX 7X50MM SCR RITA FIX 7X55MM SCR ILIAM 8MM X 80MM Identification [id number] Description Implant Quantity 4 4 2 Implant Site OP SITE OP SITE OP SITE Implant Identification Model Number Implant Identification Serial Number Implant Identification Lot Number Implant J&J:Depuy:Depuy Spine J&J:Depuy:Depuy Spine J&J:Depuy:Depuy Spine Identification Shaper Set Up Operator Name: Implant [id number] Identification Catalog Number Implant Size Implant Has an Expiration Date Implant Expiration Date Wasted Radioactive Material Time Implanted Tissue Implant Continue for Tissue Implant Documentation Tissue Identification Number Graft Prep Per Shaper Set Up Operator Instructions: Tissue Preparation Method: Reconstitution Solution: Reconstitution Solution Lot Number Reconstitution Solution Expiration Date: Thawing Solution Thawing Solution Lot Number Thawing Solution Expiration Date Preparation Materials, Other Preparation Materials, Other Lot Number Preparation Materials, Other Expiration Date Tissue Prepared/Processed By Shaper Set Up Operator Paperwork Completed Implant Type Comment Last Modified By: AllenChaz RN Byrd, Charlie D, RN Byrd, Charlie D, RN 07/31/20 12:07:19 07/31/20 12:07:19 07/31/20 12:07:19 Entry 7 Entry 8 Entry 9 Type Implant (Synthetic) Tissue Implant Tissue Implant (Biologic) (Biologic) Implant Log Implant Type Hardware Tissue Implant Type Bone Bone Implant MIS TAISHA PLY SCRW SET BONE VIVIGEN FORMABLE BONE CRUSH CANC FD Identification [id number] [id number] Description Implant Quantity 14 1 1 Implant Site OP SITE OP SITE OP SITE Implant [id number] Identification Model Number Implant Identification Serial Number Implant Identification Lot Number Implant J&J:Depuy:Depuy Spine Lifenet:Lifenet Lifenet:Lifenet Identification Transplant Srv Transplant Srv Shaper Set Up Operator Name: Implant [id number] Identification Catalog Number Implant Size Implant Has an Yes Yes Expiration Date Implant Expiration 07/17/21 04/19/24 Date Wasted Radioactive Material Time Implanted Tissue Implant Continue for Tissue Implant Documentation Tissue Identification Number Graft Prep Per Shaper Set Up Operator Instructions: Tissue Preparation Method: Reconstitution Solution: Reconstitution Solution Lot Number Reconstitution Solution Expiration Date: Thawing Solution Thawing Solution Lot Number Thawing Solution Expiration Date Preparation Materials, Other Preparation Materials, Other Lot Number Preparation Materials, Other Expiration Date Tissue Prepared/Processed By Shaper Set Up Operator Paperwork Completed Implant Type Comment Last Modified By: Chaz Allen RN Byrd, Charlie D, RN Byrd, Charlie D, RN 07/31/20 12:07:19 07/31/20 12:07:19 07/31/20 12:31:34 Entry 10 Type Implant (Synthetic) Implant Log Implant Type Hardware Tissue Implant Type Implant ANTHONY SPINE EXPEDIUM Identification [id number] Description Implant Quantity 2 Implant Site OP SITE Implant Identification Model Number Implant Identification Serial Number Implant Identification Lot Number Implant J&J:Depuy:Depuy Spine Identification Shaper Set Up Operator Name: Implant [id number] Identification Catalog Number Implant Size Implant Has an Expiration Date Implant Expiration Date Wasted Radioactive Material Time Implanted Tissue Implant Continue for Tissue Implant Documentation Tissue Identification Number Graft Prep Per Shaper Set Up Operator Instructions: Tissue Preparation Method: Reconstitution Solution: Reconstitution Solution Lot Number Reconstitution Solution Expiration Date: Thawing Solution Thawing Solution Lot Number Thawing Solution Expiration Date Preparation Materials, Other Preparation Materials, Other Lot Number Preparation Materials, Other Expiration Date Tissue Prepared/Processed By Shaper Set Up Operator Paperwork Completed Implant Type Comment Last Modified By: Chaz Allen RN 07/31/20 12:39:21 [facility] IntraOp Implant Log Audit 07/31/20 13:08:41 Rice Drier Operator: AMEYA Modifier: AMEYA <+> 10 Implant Identification Description <+> 10 Implant Identification Shaper Set Up Operator Name: <+> 10 Implant Site <+> 10 Implant Quantity <+> 10 Implant Identification Catalog Number <+> 10 Implant Type <+> 10 Type 07/31/20 12:39:21 Rice Drier Operator: AMEYA Modifier: AMEYA <+> 9 Implant Identification Description <+> 9 Implant Identification Shaper Set Up Operator Name: <+> 9 Implant Expiration Date <+> 9 Implant Site <+> 9 Implant Quantity <+> 9 Implant Identification Catalog Number <+> 9 Tissue Implant Type <+> 9 Implant Identification Model Number <+> 9 Implant Has an Expiration Date <+> 9 Type 07/31/20 12:31:34 Rice Drier Operator: AMEYA Modifier: AMEYA <+> 8 Implant Identification Description <+> 8 Implant Identification Shaper Set Up Operator Name: <+> 8 Implant Expiration Date <+> 8 Implant Site <+> 8 Implant Quantity <+> 8 Implant Identification Catalog Number <+> 8 Tissue Implant Type <+> 8 Implant Identification Model Number <+> 8 Implant Has an Expiration Date <+> 8 Type 07/31/20 12:07:19 Rice Drier Operator: AMEYA Modifier: [email or web address] <+> 2 Implant Identification Description <+> 2 Implant Identification Shaper Set Up Operator Name: <+> 2 Implant Site <+> 2 Implant Quantity <+> 2 Implant Identification Catalog Number <+> 2 Implant Type <+> 2 Type <+> 3 Implant Identification Description <+> 3 Implant Identification Shaper Set Up Operator Name: <+> 3 Implant Site <+> 3 Implant Quantity <+> 3 Implant Identification Catalog Number <+> 3 Implant Type <+> 3 Type <+> 4 Implant Identification Description <+> 4 Implant Identification Shaper Set Up Operator Name: <+> 4 Implant Site <+> 4 Implant Quantity <+> 4 Implant Identification Catalog Number <+> 4 Implant Type <+> 4 Type <+> 5 Implant Identification Description <+> 5 Implant Identification Shaper Set Up Operator Name: <+> 5 Implant Site <+> 5 Implant Quantity <+> 5 Implant Identification Catalog Number <+> 5 Implant Type <+> 5 Type <+> 6 Implant Identification Description <+> 6 Implant Identification Shaper Set Up Operator Name: <+> 6 Implant Site <+> 6 Implant Quantity <+> 6 Implant Identification Catalog Number <+> 6 Implant Type <+> 6 Type <+> 7 Implant Identification Description <+> 7 Implant Identification Shaper Set Up Operator Name: <+> 7 Implant Site <+> 7 Implant Quantity <+> 7 Implant Identification Catalog Number <+> 7 Implant Type <+> 7 Type [facility] IntraOp Intraoperative Assessment Entry 1 Handoff Method Bedside/Face to face, Online nursing summary Valid History / Yes Physical in Chart Preoperative Yes Checklist Reviewed/Evaluated Allergies Reviewed Yes Patient is Latex No Sensitive Isolation Not applicable Precautions Noted Level of WDL Consciousness (WDL = Alert, Oriented to Person, Place, and Time) Skin Assessment No Verified Present Upon IVs Arrival to OR Last Modified By: Chaz Allen RN 07/31/20 09:56:46 [facility] IntraOp Intraoperative Equipment Entry 1 Type Equipment Equipment Equipment Maulik Suction System ID Number [id number] Setting 200 Intraop Monitoring Electrocardiogram Five lead placement (ECG) Electrode Placement Blood Pressure Arterial Pressure Line Source Blood Pressure Arterial Location Pulse Oximeter Hand, right Probe Site Antiembolic Devices Antiembolic Devices Sequential compression device, knee high Antiembolic Device Bilateral Location Antiembolic Device [id number] ID Number Antiembolic Device standard Setting Scopes Photo/Video Documentation Photo No Video No Last Modified By: Chaz Allen RN 07/31/20 09:56:10 [facility] IntraOp Medication Admin Entry 1 Entry 2 Entry 3 Medication/Irrigant thrombin 5000units MATRIX FLOSEAL HEMO SEALR AQUAMANTYS BIPLR topical powder - 10ML [facility] [id number] Combo Med List Time Administered Route of topical TOPICAL OTHER Administration Dose Dose 5000 20 Unit of Measure units ml Volume Administered By ALBAN WOODRUFF MD-SNU OWEN, ROBERT D, MD-SNU OWEN, ROBERT D, MD-SNU Procedure Irrigation Irrigant Volume In Irrigant Volume Out Last Modified By: Chaz Allen RN Byrd, Charlie D, RN Byrd, Charlie D, RN 07/31/20 09:52:36 07/31/20 12:51:30 07/31/20 09:55:23 Entry 4 Entry 5 Entry 6 Medication/Irrigant Neosporin 15Gm ointment SPNG SURGFOAM SEALANT DURASL SPINE - [id number] Combo Med List Time Administered Route of TOPICAL TOPICAL TOPICAL Administration Dose Dose 1 1 5 Unit of Measure pkt pkt ml Volume Administered By ALBAN WOODRUFF MD-SNU OWEN, ROBERT D, MD-SNU OWEN, ROBERT D, MD-SNU Procedure Irrigation Irrigant Volume In Irrigant Volume Out Last Modified By: Chaz Allen RN Byrd, Charlie D, RN Byrd, Charlie D, RN 07/31/20 09:55:23 07/31/20 09:55:23 07/31/20 12:05:05 [facility] IntraOp Medication Admin Audit 07/31/20 12:51:30 Rice Drier Operator: [email or web address] Modifier: [email or web address] [id number] <*> Medication/Irrigant MATRIX FLOSEAL HEMO 10ML [id number] <*> Dose 10 07/31/20 12:05:05 Rice Drier Operator: [email or web address] Modifier: [email or web address] <+> 6 Medication/Irrigant <+> 6 Route of Administration <+> 6 Administered By <+> 6 Dose <+> 6 Unit of Measure 07/31/20 09:55:23 Rice Drier Operator: [email or web address] Modifier: [email or web address] <+> 2 Medication/Irrigant <+> 2 Route of Administration <+> 2 Administered By <+> 2 Dose <+> 2 Unit of Measure <+> 3 Medication/Irrigant <+> 3 Route of Administration <+> 3 Administered By <+> 4 Medication/Irrigant <+> 4 Route of Administration <+> 4 Administered By <+> 4 Dose <+> 4 Unit of Measure <+> 5 Medication/Irrigant <+> 5 Route of Administration <+> 5 Administered By <+> 5 Dose <+> 5 Unit of Measure [facility] IntraOp Patient Positioning Entry 1 Procedure Lumbar Fusion Posterior 3 Level Body Position Prone Left Arm Position Secured on padded arm board Right Arm Position Secured on padded arm board Left Leg Position Elevated Right Leg Position Elevated Feet Uncrossed Yes Pressure Points Yes Checked Positioning Devices Head Rest, Pad, Elbow, Pillows, Safety Strap, Thighs, Table, Spinal Device Position PRONE ON TRUMF T3 FRAME WITH CHEST, HIP, AND THIGH PADS Positioned By Chaz Allen RN, RABIA HO CRNA, ALBAN WOODRUFF MD-TRUONG, Ana White Rn, DORINDA BLACKBURN RN, YOLANDA HATHAWAY RN, CARLI GONSALES PA Position Verified Positioning Yes Verified by Anesthesia Positioning Yes Verified by Surgeon Last Modified By: Chaz Allen RN 07/31/20 09:52:21 [facility] IntraOp Sign In Entry 1 Patient, Site, Yes Procedure Identified Surgical Consent Yes Confirmed Relevant Surgical Yes Documents Available Surgical Site Yes Marked by person performing procedure Anesthesia Machine Yes Check Completed Medication Checks Yes Completed Allergies Yes Airway Difficult No Airway/Aspiration Risk Difficult Yes Airway/Aspiration Intervention Equipment Available Blood Loss Risk No Blood Loss Yes Intervention Equipment Prepared and Ready Blood Identifiers Yes Verified Per Policy Hypothermia Risk Yes Warming Measures Yes Taken Last Modified By: Chaz Allen RN 07/31/20 09:50:53 [facility] IntraOp Sign In Audit 07/31/20 09:50:53 Rice Drier Operator: [email or web address] Modifier: GLENNADIELMARY [email or web address] 1 <*> Blood Identifiers Verified Per Not applicable Policy [facility] IntraOp Sign Out Entry 1 RN Confirmation Surgical Yes Procedure(s) Identified Instrument, Sponge Yes and Sharps Counts Correct/Documented Equipment Problems N/A Documented Specimen Labeled N/A Correctly Urinary Catheter Yes Documented in IView Alexis Patient Yes Recovery Concerns Reviewed with Anesthesia Provider, Surgeon and RN Alexis Patient Yes Management Concerns Reviewed with Anesthesia Provider, Surgeon and RN Safety Checklist Yes Elements Complete? RN Sign Out Chaz Allen RN Signature RN Sign Out 07/31/20 14:32:00 Signature Date/Time Plan of Care Outcome - Fire Risk OUTCOME STATEMENT: Goal met Patient is free from injury related to surgical fire Plan of Care Outcome - Pt Positioning OUTCOME STATEMENT: Goal met Absence of signs and symptoms of positioning injury. Plan of Care Outcome - Skin Prep OUTCOME STATEMENT: Goal met Intraoperative care is consistent with measures to prevent infection Plan of Care Outcome - Xray/Images OUTCOME STATEMENT: Goal met Absence of observable signs or symptoms of radiation injury Plan of Care Outcome - Counts OUTCOME STATEMENT: Goal met Absence of signs and symptoms of injury related to extraneous objects Last Modified By: PALLAVI NARVAEZ RN 07/31/20 14:32:40 [facility] IntraOp Sign Out Audit 07/31/20 14:32:40 Rice Drier Operator: [email or web address] Modifier: [email or web address] <+> 1 RN Sign Out Signature Date/Time 07/31/20 14:32:14 Rice Drier Operator: [email or web address] Modifier: [email or web address] <+> 1 Urinary Catheter Documented in IView [facility] IntraOp Skin Prep Entry 1 Procedure Lumbar Fusion Posterior 3 Level Prescribed Yes Pre-Surgical Prep Completed Prep Area back Intraop Prep Integumentary WDL Assessment WDL Prep Agents DuraPrep Prep by Ana White Rn Hair Removal Methods Clipper/Scissors Hair Removal Site OP SITE Hair Removal By ALBAN WOODRUFF MD-SNU Last Modified By: Chaz Allen RN 07/31/20 09:50:14 [facility] IntraOp Surgical Procedures Entry 1 Procedure Lumbar Fusion Posterior 3 Level Additional (THORACOILIAC, Procedure LAMINECTOMY AND FUSION Description WITH AIRO) Primary Procedure Yes Primary Surgeon ALBAN WOODRUFF MD-SNU Start 07/31/20 09:13:00 Stop 07/31/20 14:19:00 Anesthesia Type General Specialty SN Neurosurgery Wound Class I - Clean Last Modified By: PALLAVI NARVAEZ RN 07/31/20 14:19:53 [facility] IntraOp Surgical Procedures Audit 07/31/20 14:19:53 Rice Drier Operator: [email or web address] Modifier: BRADYCM <+> 1 Stop [facility] IntraOp Temp Regulation Devices Entry 1 Temp Regulation Temperature Forced Air Warming Regulation Device device, Warm blankets Temperature 55023 Regulation Device Serial/Unit Number Temperature Upper body Regulation Site Temperature Device 43 C Setting Temperature RABIA HO CRNA Regulation Device Applied by Last Modified By: Chaz Allen RN 07/31/20 09:49:30 [facility] IntraOP Time Out Entry 1 Procedure to be Lumbar Fusion Posterior Performed 3 Level Time Out Time Out Pause Time 07/31/20 09:12:00 All activity Yes suspended (unless life threatening emergency) Team Verbally Correct patient Confirms Information identity, Consent form is present and accurate, Agreement on the procedure to be done, Correct patient position, Relevant images/results properly labeled/appropriately displayed, Confirm antibiotics have been administered, Confirm the skin prep has dried, Confirm prosthesis/implant/devic e is present, Performed in location of procedure after prepped/draped Antibiotic Yes Prophylaxis Administered Or In Progress Within the Last 60 Minutes Beta Kayla N/A Administered Venous Yes Thromboembolism Prophylaxis Required Anticipated Critical Events Surgeon None expected Anesthesia Provider Patient specific concerns Nursing Assures Sterility of instruments, Equipment concerns or issues, Implant Availability Essential Imaging Yes Labeled and Displayed Last Modified By: Chaz Allen RN 07/31/20 09:13:31 [facility] IntraOp X-Ray and Images Entry 1 X-Ray/Imaging Type Other Fluoroscopy Type Other Site back Estimator And Drafter Supervisor Name Kay Odell, Diagnostic Job Training Specialist Protective Devices Yes Used X-Ray and Imaging brainlab intraoperative Comment ct scanner Last Modified By: Chaz Allen RN 07/31/20 09:48:50 Case Comments <None> Finalized By: JUDY BANEGAS Document Signatures Signed By: PALLAVI NARVAEZ RN 07/31/20 14:33 JUDY BANEGAS 08/01/20 15:01 Unfinalized History Date/Time Username Reason for Unfinalizing Freetext Reason for Unfinalizing 08/01/20 14:59 KEYANNA Correct Billing Electronically signed by Arash [facility] Conversion [employer] at 10/04/2022 11:34 PM CDT documented in this encounter Plan of Treatment Not on file documented as of this encounter Visit Diagnoses Not on filedocumented in this encounter
--- OUTSIDE RECORDS SUMMARY | 2025-06-09 09:48 | XMS_ITS | Encounter Summary ---
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 Pain Assessment Entered On: 08/02/2020 14:52 EST Performed On: 08/02/2020 9:32 EST by Daksha Segura RN Intervention Information: HYDROmorphone Performed by Daksha Segura RN on 08/02/2020 09:02:00 EST HYDROmorphone,0.5mg IV Push,Right Mid Forearm,Pain (Moderate 4-6) Pain Assessment Pain Assessment : Follow-up assessment Pain Scale Goal : 3 Pain Scale Used : 0-10 Scale Daksha Segura RN - 08/02/2020 14:52 EST Pain Scale Intensity : 1 Daksha Segura RN - 08/02/2020 14:52 EST Image 4 - Images currently included in the form version of this document have not been included in the text rendition version of the form. documented in this encounter Plan of Treatment Not on file documented as of this encounter Visit Diagnoses Not on filedocumented in this encounter
--- OUTSIDE RECORDS SUMMARY | 2025-06-09 09:49 | XMS_ITS | Encounter Summary ---
Author Organization [employer] ([place], [place], [place], [place], [place]) Address [address] [place] [address] Care Team Providers Care First Aid Instructor Name Role Phone Unavailable Primary Care Provider Unavailabl e Encounter Details Date Type Department Care Team (Late st Contact Info) Description 08/02/2020 Transcribed Document [facility] [place] [address] ProviderWarren MD [address] [place] [address] [id number] Social History Tobacco Use Types Packs/Day Years Used Date Smoking Tobacco: Never Assessed Sex and Gender Information Value Date Recorded Sex Assigned at Male 12/16/2021 8:48 PM CDT Legal Sex Male 8:48 PM CDT Gender Identity Male 12/16/2021 8:48 PM CDT Sexual Orientation Not on file documented as of this encounter Miscellaneous Notes * [employer] Conversion Note - Warren ProviderMD - 08/02/2020 10:00 PM 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 documented in this encounter Plan of Treatment Not on file documented as of this encounter Visit Diagnoses Not on filedocumented in this encounter
--- OUTSIDE RECORDS SUMMARY | 2025-06-09 09:49 | XMS_ITS | Encounter Summary ---
Author Organization [employer] ([place], [place], [place], [place], [place]) Address [address] [place] [address] Care Team Providers Care Policy Writer Name Role Phone Unavailable Primary Care Provider Unavailabl e Encounter Details Date Type Department Care Team (Late st Contact Info) Description 08/03/2020 Transcribed Document [facility] Neurology - [address] [facility] [address] [place] [address] Alban Woodruff Jr., MD [address] [place] [address] [address] [place] [address] Social History Tobacco Use Types Packs/Day Years Used Date Smoking Tobacco: Never Assessed Sex and Gender Information Value Date Recorded Sex Assigned at Male 12/16/2021 8:48 PM CDT Legal Sex Male 8:48 PM CDT Gender Identity Male 12/16/2021 8:48 PM CDT Sexual Orientation Not on file documented as of this encounter Miscellaneous Notes * Cerner Conversion Note - Albna Woodruff Jr., MD - 08/03/2020 1:05 PM EST Patient: CAROLYNN ACKERMAN Age: 50 years Sex: Male : 1970 Associated Diagnoses: None Author: ALBAN WOODRUFF MD-SNU I saw Mr. Ackerman today. He is postoperative day #3 status post T10 to iliac fusion. He stood and took a few steps with therapy. He states that overall he still feeling better. He was sitting in a chair. He looked more comfortable today. He'll good strength at the knees and ankles. He still has some difficulty flexing the hips but moving about the hips is much better. He probably has about 2-3/5 hip flexion strength. Sensation is good throughout the lower extremity is. He denies any saddle anesthesia or paresthesia or numbness. This is pain limited weakness. His BEVERLY output is in the low to moderate range today. The fluid his pain can clearly more serous than sanguinous. I'm going to have his BEVERLY removed. He had some diarrhea. I'll give him some Imodium. I have him on some Levaquin for UTI. He's going to continue physical therapy. He's had some urinary retention. A Baeza catheter was anchored. We'll continue pain management. He needs inpatient rehabilitation. He was happy with the plan. documented in this encounter Plan of Treatment Not on file documented as of this encounter Visit Diagnoses Not on filedocumented in this encounter
--- OUTSIDE RECORDS SUMMARY | 2025-06-09 09:49 | XMS_ITS | Encounter Summary ---
Author Organization [employer] ([place], [place], [place], [place], [place]) Address [address] [place] [address] Care Team Providers Care Research Program Intern Name Role Phone Unavailable Primary Care Provider Unavailabl e Encounter Details Date Type Department Care Team (Late st Contact Info) Description 08/03/2020 Transcribed Document [facility] Radiology [address] [place] [address] Jorge Lara MD [address] [place] [id number] Social History Tobacco Use Types Packs/Day Years Used Date Smoking Tobacco: Never Assessed Sex and Gender Information Value Date Recorded Sex Assigned at Male 12/16/2021 8:48 PM CDT Legal Sex Male 8:48 PM CDT Gender Identity Male 12/16/2021 8:48 PM CDT Sexual Orientation Not on file documented as of this encounter Miscellaneous Notes * Cerner Conversion Note - Jorge Lara MD - 08/03/2020 4:43 PM EST Patient: CAROLYNN ACKERMAN Age: 50 years Sex: Male : 1970 Associated Diagnoses: None Author: NADJA CORDOVA APRN-DIANA 08/03/2020 cc: medical management s/p thoracic laminectomy with fusion per Dr. Sal S: patient found lying in bed. A/O. Pain is adequately controlled. He reports poor appetite. Denies n/v. Having diarrhea with chronic IBS. Attempted fontanez removal yesterday but patient was unable to void so fontanez replaced. Denies cough, dyspnea, fever/chills. Awaiting inpatient rehab at [facility]. HPI: Patient is a 50 yo male admitted to per Dr. Sal for a thoracic laminectomy [...] solution 200 mg = 1 mL, IntraMuscular, [id number] Tylenol 8 Hour 650 mg oral tablet, [...] laying flat] Gastrointestinal: [No nausea, vomiting, +diarrhea- chronic, urinary retention Genitourinary: [No hematuria, dysuria, incontinence Musculoskeletal: back pain with decreased ROM Integumentary: [No rash, pruritus Neurologic: [No weakness, numbness Psychiatric: [No anxiety, depression Exam: Vitals Signs (last 24 hrs) Last Charted Minimum Maximum Temp 97.5 (AUG 03 09:59) 97.5 (AUG 03 09:59) 98.1 (AUG 02 16:25) Mon HR 103 (AUG 03 09:59) 86 (AUG 03 00:11) 116 (AUG 02 18:00) Resp Rate 16 (AUG 03 05:42) 16 (AUG 02 18:00) 16 (AUG 02 18:00) SBP H 143 (AUG 03 09:59) 130 (AUG 03 05:42) H 161 (AUG 03 02:53) DBP 84 (AUG 03 09:59) 84 (AUG 03 09:59) H 95 (AUG 03 08:58) MAP 107 (AUG 03 09:59) 97 (AUG 02 16:25) 115 (AUG 03 08:58) SpO2 95 (AUG 03 09:59) 95 (AUG 03 09:59) 97 (AUG 02 18:00) General: [Alert and oriented, no acute distress]. Neurologic: [Awake, alert, and oriented X3, CN II-XII intact]. Eye: [PERRL, EOMI, normal conjunctiva]. HENT: [Normocephalic, normal hearing, moist oral mucosa, no scleral icterus Neck: [Supple, non-tender, no lymphadenopathy]. Lungs: [Clear to auscultation, non-labored respiration]. Heart: [Normal rate, regular rhythm, no edema]. Abdomen: [Soft, non-tender, non-distended, normal bowel sounds, +obese abdomen, fontanez intact- clear yellow urine Musculoskeletal: back pain with decreased ROM Skin: [Skin is warm, dry and pink Psychiatric: [Cooperative, appropriate mood and affect]. Data: Blood Gases (Current Encounter/Past 24 Hours) No Blood Gas Results Found (Past 24 Hours) Electrolytes(BMP) Results (Current Encounter/Past 24 Hours) Sodium Level 134 mmol/L LOW 08/03/2020 08:24 Potassium Level 3.2 mmol/L LOW 08/03/2020 08:24 Chloride Level 97 mmol/L LOW 08/03/2020 08:24 Carbon Dioxide Level 32 mmol/L 08/03/2020 04:04 Anion Gap 8 LOW 08/03/2020 08:24 Blood Urea Nitrogen 9 mg/dL 08/03/2020 04:04 Glucose Level 156 mg/dL HI 08/03/2020 08:24 Calcium Level 8.4 mg/dL 08/03/2020 04:04 Creatinine Level 0.90 mg/dL 08/03/2020 04:04 Cardiac Markers (Current Encounter/Past 24 Hours) No Cardiac Marker Results Found (Past 24 Hours) CBC Results (Current Encounter/Past 24 Hours) WBC 15.4 K/uL IA 08/03/2020 08:24 Hct 36.6 % LOW 08/03/2020 08:24 Hgb 11.8 g/dL LOW 08/03/2020 08:24 Platelet Count 151 K/uL LOW 08/03/2020 08:24 CMP Results (Current Encounter/Past 24 Hours) Creatinine Level 0.90 mg/dL 08/03/2020 04:04 Bun/Creatinine 10.0 08/03/2020 04:04 eGFR >60 mL/min/1.73m2 08/03/2020 04:04 eGFR NonAfrican >60 mL/min/1.73m2 08/03/2020 04:04 Sodium Level 134 mmol/L LOW 08/03/2020 08:24 Potassium Level 3.2 mmol/L LOW 08/03/2020 08:24 Chloride Level 97 mmol/L LOW 08/03/2020 08:24 Carbon Dioxide Level 32 mmol/L 08/03/2020 04:04 Anion Gap 8 LOW 08/03/2020 08:24 Blood Urea Nitrogen 9 mg/dL 08/03/2020 04:04 Glucose Level 156 mg/dL HI 08/03/2020 08:24 Calcium Level 8.4 mg/dL 08/03/2020 04:04 Coagulation Results (Current Encounter/Past 24 Hours) No Coagulation Results Found (Past 24 Hours) Creatinine Clearance (Current Encounter/Past 24 Hours) Creatinine Level 0.90 mg/dL 08/03/2020 04:04 Bun/Creatinine 10.0 08/03/2020 04:04 Estimated Creatinine Clearance 94.45 mL/Min 08/02/2020 03:55 No Radiology Results FoundLabs (Last four charted values) WBC H 15.4 (AUG 03) H 14.3 (JUL 12) H 14.3 (AUG 01) H 10.0 (JUL 08) HB L 11.8 (JUL 13) L 11.5 (B 12) L 12.3 (B 11) 14.5 (B 08) HCT L 36.6 (JUL 13) L 36.6 (B 12) L 38.7 (FEB 11) 45.0 (B 08) Plt L 151 (B 13) L 138 (FEB 12) L 161 (FEB 11) 176 (FEB 08) Na L 134 (B 13) 137 (FEB 12) 138 (FEB 11) 136 (FEB 08) K L 3.2 (B 13) 3.6 (FEB 12) 3.7 (FEB 11) L 3.4 (B 08) Cl L 97 (B 13) 102 (FEB 12) 103 (FEB 11) L 101 (B 08) CO2 32 (JUL 13) H 33 (FEB 12) 30 (AUG 01) 28 (JUL 29) BUN 9 (AUG 03) 9 (AUG 02) 14 (AUG 01) 14 (JUL 29) Cr 0.90 (AUG 03) 0.90 (AUG 02) 1.00 (AUG 01) 0.90 (JUL 29) Glu R H 156 (AUG 03) H 149 (AUG 02) H 152 (AUG 01) 99 (JUL 29) Ca 8.4 (AUG 03) L 8.1 (AUG 02) L 8.1 (AUG 01) 9.3 (JUL 29) Impression: advanced spondylolisthesis thoracic spine -s/p thoracic laminectomy with fusion per Dr. Sal at risk for sleep apnea obesity Hx HTN Hx IBS- diarrhea Hx silent GERD urinary retention Plan: Seeking inpatient rehab at [facility] at discharge fontanez replaced- start bethanechol 10mg TID, will attempt fontanez removal before discharge imodium prn diarrhea Monitor HTN; add PRN's, hold parameters bowel [...]
--- OUTSIDE RECORDS SUMMARY | 2025-06-09 09:49 | XMS_ITS | Encounter Summary ---
Author Organization [employer] ([place], [place], [place], [place], [place]) Address [address] [place] [address] Care Team Providers Care Director Of Channel Marketing Name Role Phone Unavailable Primary Care Provider Unavailabl e Encounter Details Date Type Department Care Team (Late st Contact Info) Description 08/05/2020 Transcribed Document [facility] [place] [facility] [place] [address] ProviderWarren MD [facility] [place], [place] [id number] Social History Tobacco Use Types Packs/Day Years Used Date Smoking Tobacco: Never Assessed Sex and Gender Information Value Date Recorded Sex Assigned at Male 12/16/2021 8:48 PM CDT Legal Sex Male 8:48 PM CDT Gender Identity Male 12/16/2021 8:48 PM CDT Sexual Orientation Not on file documented as of this encounter Miscellaneous Notes * Cerner Conversion Note - Warren ProviderMD - 08/05/2020 10:01 AM 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 Policy Number: [id number] Authorization Number: Insurance Primary Name : Matilda [id number] Authorization Status-Primary : Awaiting callback Authorization Fax Number-Primary : [phone] Reference Number-Primary : [id number] Authorization Number-Primary : [id number] Number of Days Authorized-Primary : 0 Day(s) Authorized Service Begin Date-Primary : 07/31/2020 EST Authorized Service End Date-Primary : 07/31/2020 EST Historical Authorization Comments-Primary : Comment 1: C/S CLINICAL FAXED FOR 06/02 AND 06/03 PER RAMON (Nanda Shea, Rn-Utilization Review 08/05/2020 09:58) Comment 2: Per Rhiannon Sanchez IP los approved for CPT codes 67489,67258,[id number],[id number] and 95485 on 07/31/2020. Clinicals faxed via [employer] for c/s approval (JUICE KRUEGER RN 08/02/2020 14:02) Comment 3: Pending IP auth noted per Availity. Will notify MD office for status order (JUICE KRUEGER RN 08/01/2020 12:06) Comment 4: [place] per availity auth #[id number] still in review (JENNIFER ARREOLA, REINIER-Utilization Review 07/31/2020 13:02) Comment 5: Pt is asher for INPT Lumbar Fusion Posterior 3 Level on 07-31-20 [place]: auth pending per STAR I did email pt access asking true status of auth. PENDING AUTH# [id number] (ROGER RICE, Packaging Sales Representative 07/30/2020 14:22) Nanda Shea, Rn-Utilization Review - 08/05/2020 10:01 EST documented in this encounter Plan of Treatment Not on file documented as of this encounter Visit Diagnoses Not on filedocumented in this encounter
--- OUTSIDE RECORDS SUMMARY | 2025-06-09 09:49 | XMS_ITS | Encounter Summary ---
Author Organization [employer] ([place], [place], [place], [place], [place]) Address [address] [place] [address] Care Team Providers Care Early Childhood Lead Teacher Name Role Phone Unavailable Primary Care Provider Unavailabl e Encounter Details Date Type Department Care Team (Late st Contact Info) Description 08/06/2020 Transcribed Document [facility] [place] [facility] [place] [address] ProviderWarren MD [address] [place] [id number] Social History Tobacco Use Types Packs/Day Years Used Date Smoking Tobacco: Never Assessed Sex and Gender Information Value Date Recorded Sex Assigned at Male 12/16/2021 8:48 PM CDT Legal Sex Male 8:48 PM CDT Gender Identity Male 12/16/2021 8:48 PM CDT Sexual Orientation Not on file documented as of this encounter Miscellaneous Notes * Cerner Conversion Note - Historical ProviderMD - 08/06/2020 6:00 AM IMPLEMENTATION ENGINEER Pain Assessment Entered On: 08/06/2020 13:27 EST Performed On: 08/06/2020 9:31 EST by YEHUDA BEARDEN Rn-Resource Intervention Information: acetaminophen Performed by YEHUDA BEARDEN Rn-Resource on 08/06/2020 08:31:00 EST acetaminophen,650mg Oral Pain Assessment Pain Assessment : Follow-up assessment Pain Scale Goal : 3 Pain Scale Used : 0-10 Scale YEHUDA BEARDEN Rn-Resource - 08/06/2020 13:27 EST Pain Scale Intensity : 0 YEHUDA BEARDEN Rn-Resource - 08/06/2020 13:27 EST Image 4 - Images currently included in the form version of this document have not been included in the text rendition version of the form. documented in this encounter Plan of Treatment Not on file documented as of this encounter Visit Diagnoses Not on filedocumented in this encounter
--- OUTSIDE RECORDS SUMMARY | 2025-06-09 09:49 | XMS_ITS | Encounter Summary ---
Author Organization [employer] ([place], [place], [place], [place], [place]) Address [address] [place] [address] Care Team Providers Care Multisensor Intelligence Officer Name Role Phone Unavailable Primary Care Provider Unavailabl e Encounter Details Date Type Department Care Team (Late st Contact Info) Description 08/06/2020 Transcribed Document [facility] [place] [facility] [place] [address] ProviderWarren MD [facility] [place], [place] [id number] Social History Tobacco Use Types Packs/Day Years Used Date Smoking Tobacco: Never Assessed Sex and Gender Information Value Date Recorded Sex Assigned at Male 12/16/2021 8:48 PM CDT Legal Sex Male 8:48 PM CDT Gender Identity Male 12/16/2021 8:48 PM CDT Sexual Orientation Not on file documented as of this encounter Miscellaneous Notes * Cerner Conversion Note - Historical ProviderMD - 08/06/2020 1:28 PM SANE RN Stroke/Warfarin Instructions Entered On: 08/06/2020 13:28 EST Performed On: 08/06/2020 13:28 EST by LASHONDA NATION, RN Stroke/Warfarin Instructions Stroke/TIA Discharge Ins : N/A Warfarin Discharge Ins : N/A LASHONDA NATION RN - 08/06/2020 13:28 EST documented in this encounter Plan of Treatment Not on file documented as of this encounter Visit Diagnoses Not on filedocumented in this encounter
--- OUTSIDE RECORDS SUMMARY | 2025-06-09 09:49 | XMS_ITS | Encounter Summary ---
Author Organization [employer] ([place], [place], [place], [place], [place]) Address [address] [place] [address] Care Team Providers Care Cloth Examiner Name Role Phone Unavailable Primary Care Provider Unavailabl e Encounter Details Date Type Department Care Team (Late st Contact Info) Description 07/26/2020 Transcribed Document [facility] [place] [facility] [place] [address] ProviderWarren MD [address] [place] [id number] Social History Tobacco Use Types Packs/Day Years Used Date Smoking Tobacco: Never Assessed Sex and Gender Information Value Date Recorded Sex Assigned at Male 12/16/2021 8:48 PM CDT Legal Sex Male 8:48 PM CDT Gender Identity Male 12/16/2021 8:48 PM CDT Sexual Orientation Not on file documented as of this encounter Miscellaneous Notes * Cerner Conversion Note - Historical ProviderMD - 07/26/2020 9:28 AM HOURLY SHIFT PAT Adult Entered On: 07/26/2020 9:33 EST Performed On: 07/26/2020 9:28 EST by Chevy Vazquez Rn Vital Measurements Temperature Source : Temporal artery scanning Temperature, Fahrenheit : 99 Deg F Clinical Temperature, C : 37.2 Deg C Pulse Method : Pulse Oximetry Peripheral Pulse Rate : 105 bpm (HI) Blood Pressure Location : Arm, left upper Systolic Blood Pressure : 148 mmHg (HI) Diastolic Blood Pressure : 92 mmHg (HI) Oxygen Saturation : 95 % Oxygen Therapy Mode : Room air Paula Herbert Rn - 07/29/2020 13:08 EST Pain Assessment Pain Assessment : Initial assessment Pain Scale Goal : 3 Paula Herbert Rn - 07/29/2020 13:08 EST Height and Weight, Clinical Dosing Height Source : Measured Height Entry Format : Waller Height, Feet : 5 ft(Converted to: 152 cm, 60 Inch) Height, Inches : 8.5 Inch(Converted to: 0 ft 9 Inch, 21.59 cm) Clinical Height : 173.99 cm Weight Source : Standing scale Weight Entry Format : Waller Clinical Dosing Weight : 148.64 kg Weight, Pounds : 327 lb Body Surface Area (BSA) : 2.53 m2 Body Mass Index : 49.1 kg/m2 (>HHI) [place] Body Weight : 69 kg Paula Herbert Rn - 07/29/2020 13:08 EST Health Histories Smoking Status : Never (less than 100 in lifetime; none in last 30 days) Smokeless Tobacco Status : Never Implant/Device Type, Scroll Saw Operator and Model : bilateral knee replacements Umbilical mesh Chevy Vazquez Rn - 07/26/2020 9:28 EST Social History (As Of: 07/26/2020 09:33:35 EST) Tobacco: Never (less than 100 in lifetime) Smoking Status. Never Smokeless Tobacco Status. None Smokeless Tobacco Use History. (Last Updated: 07/26/2020 09:28:19 EST by Chevy Vazquez Rn) Alcohol: Alcohol Use History Yes. Use in Last 12 Months: Yes. Alcohol Use Comment a drink every couple months . (Last Updated: 07/26/2020 09:28:19 EST by Chevy Vazquez Rn) Substance Abuse: Drug Use Hx: No. Use in Last 12 Months: No. (Last Updated: 07/26/2020 09:28:19 EST by Chevy Vazquez Rn) Infectious Disease History Where are the test results? : In EMR Results Has the patient ever been tested for COVID-19? : Yes, Patient stated results Negative CJ STALLWORTH RN - 07/31/2020 6:38 EST Where was the COVID-19 Testing completed? : [facility] Date of COVID-19 test known? : Yes Date of COVID-19 Test : 07/29/2020 EST Does patient have symptoms of COVID-19? : No COVID19 Screening : No Experiencing Infectious Disease Symptoms : No symptoms Physical contact outside [place] in the last 30 days : No Infectious Disease History : Chicken pox/Shingles Tuberculosis Symptoms : None Paula Herbert Rn - 07/29/2020 13:08 EST COVID19 PreProcedure Screening Has patient been isolated since the test : No Exposed to COVID19 symptoms since test? : No CJ STALLWORTH RN - 07/31/2020 6:38 EST Is this an Emergent or Add on Procedure? : No Date PreProcedure COVID-19 test known? : Yes Date of PreProcedure COVID-19 : 07/29/2020 EST Paula Herbert Rn - 07/29/2020 13:08 EST Anesthesia/Transfusion History Family History of Anesthesia Reaction : Prior transfusion without reaction Blood Transfusion Acceptable to Patient : Yes Transfusion History : Prior anesthesia reaction Type of Anesthesia Reaction : Excessive nausea/vomiting Family History of Anesthesia Reaction : None Chevy Vazquez Rn - 07/26/2020 9:28 EST Functional Assessment Functional ADL Evaluation Index EBN Bathing : Independent (2) Dressing : Independent (2) Toileting : Independent (2) Transferring Bed or Chair : Independent (2) Continence : Independent (2) Feeding : Independent (2) Chevy Vazquez Rn - 07/26/2020 9:28 EST ADL Index Score : 12 Chevy Vazquez Rn - 07/26/2020 9:28 EST Advance Directive Patient has Advance Directive *Q : No, patient refuses Advance Directive information Chevy Vazquez Rn - 07/26/2020 9:28 EST Spiritual/Cultural Needs Any Spiritual/Cultural Needs or Requests : No Chevy Vazquez Rn - 07/26/2020 9:28 EST Cole Suicide Severity Rating Scale (C-SSRS) CSSRS Past Month Wish to be : No CSSRS Past Month Suicidal Thoughts : No CSSRS Lifetime Suicide Behavior : No Suicide Severity Rating Score : 0 Suicide Severity Rating : No Additional Care Required at this time Chevy Vazquez Rn - 07/26/2020 9:28 EST Psychosocial History Currently in Unsafe Situation : No Chevy Vazquez Rn - 07/26/2020 9:28 EST General Info Preferred Name : Russell Mode of Arrival on Unit : Ambulatory Legal Guardian : Spouse Support Person/Patient Litigation Attorney : Yes Support Person/Pt Rep Name : Annie Ackerman - Support Person/Pt Rep Contact Information : [phone] Want Family/Rep/Phys Notified of Admit : No Chevy Vazquez Rn - 07/26/2020 9:28 EST Emergency Contact #1 : Annie Ackerman Emergency Contact #1 Emergency Contact #1 Relationship : Paula Herbert Rn - 07/29/2020 13:08 EST Emergency Contact #2 : ` Emergency Contact #2 Phone Number : ` Emergency Contact #2 Relationship : ` Information Obtained From : Patient Primary Language : Welsh Communication Barrier : None Dispatcher Chief Coal Slurry Needed : No Chevy Vazquez Rn - 07/26/2020 9:28 EST Loco Scale Loco Sensory Perception : No impairment Loco Moisture : Rarely moist Loco Activity : Walks occasionally Loco Mobility : Slightly limited Loco Nutrition : Adequate Loco Friction and Shear : Potential problem Loco Score : 19 Chevy Vazquez Rn - 07/26/2020 9:28 EST Sleep Apnea Risk Assmt BMI Greater Than 35 kg/m2 : Yes Neck Circumference Greater Than 40 cm : Yes STOP-BANG Sleep Apnea Risk Level Score : 7 Paula Herbert Rn - 07/29/2020 13:08 EST Hx of Obstructive Sleep Apnea Diagnosis : No Snore Loudly : Yes Tired, Fatigued, or Sleepy During Day : Yes Observed Stopping Breathing During Sleep : No Have/Are Being Treated for Hypertension : Yes Age over 50 Years Old : Yes Gender Male : Yes hCevy Vazquez Rn - 07/26/2020 9:28 EST documented in this encounter Plan of Treatment Not on file documented as of this encounter Visit Diagnoses Not on filedocumented in this encounter
--- OUTSIDE RECORDS SUMMARY | 2025-06-09 09:49 | XMS_ITS | Encounter Summary ---
Author Organization [employer] ([place], [place], [place], [place], [place]) Address [address] [place] [address] Care Team Providers Care Land Agent Name Role Phone Unavailable Primary Care Provider Unavailabl e Encounter Details Date Type Department Care Team (Late st Contact Info) Description 08/06/2020 Transcribed Document [facility] [place] [facility] [address] ProviderWarren MD [address] [place] [id number] Social History Tobacco Use Types Packs/Day Years Used Date Smoking Tobacco: Never Assessed Sex and Gender Information Value Date Recorded Sex Assigned at Male 12/16/2021 8:48 PM CDT Legal Sex Male 8:48 PM CDT Gender Identity Male 12/16/2021 8:48 PM CDT Sexual Orientation Not on file documented as of this encounter Miscellaneous Notes * Cerner Conversion Note - Historical ProviderMD - 08/06/2020 8:28 AM 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 T10-S1 postero lateral arthrodesis. 2. Placement of T10, T11, T12, L3, L4, L5 pedicle screws. 3. Placement of iliac bolts. 4. T10-11, T12-L1, L2-L3, L4-L5, L5-S1 laminectomies. Reason for Hospitalization Mr. Ackerman was seen in the office with severe back pain, radicular leg pain, numbness and weakness. Imaging showed diffuse stenosis in the lumbar and lower thoracic spine. Dr. Woodruff recommended T10-S1 fusion with iliac bolts. The risks and benefits of surgery were discussed and Mr. Ackerman wished to proceed with surgery. Hospital Course On 08/01/20 Mr. Ackerman was brought to the operating room after informed consent had been obtained and Dr. Alban Woodruff performed a T10- S1 fusion with iliac bolts. There was a punctuate durotomy at the shoulder of the S1 nerve root that was repaired with a 6-0 prolene. Mr. Ackerman tolerated the procedure well and was transferred to the recovery room. He was followed by hospital medicine for medical management. He was seen by physical therapy and progressed slowly but steadily. BEVERLY drain was removed on 08/03. Baeza catheter was re-anchored for urinary retention and he was started on bethanechol. He was started on Levaquin for a UTI. Last day of Levaquin is 08/06. Imodium started PRN diarrhea. On 08/05 he received IV KCl for hypokalemia. Plans were made for discharge to inpatient rehab. Vital Signs T: 37.4 ??C TMIN: 36.8 ??C TMAX: 37.4 ??C HR: 106(Monitored) RR: 18 BP: 139/88 SpO2: 90% Oxygen Settings (Last) Oxygen Therapy Mode: Room air (08/06/20 06:23:00) Oxygen Flow Rate: 4 Liter/Min (07/31/20 14:55:00) Physical Exam Pleasant 50 year old male in NAD. Obese. AAOx3. Skin warm and dry without rashes. EOMI. PERRL. RRR. Respirations nonlabored. Abdomen soft and nontender. Ambulating with PT 80'. Incision clean, dry, and intact. Discharge Disposition Discharge to inpatient rehab. Discharge Follow Up [facility]BAN WOODRUFF - Within 2 weeks [facility] WOODRUFF - Within 1 month Mr. Ackerman will keep his incision clean, dry, and intact. Dressing changes as needed. Staple removal 2 weeks post op. Follow up with Dr. Woodruff in 1 month with thoracic and lumbar x rays. No lifting over 10lbs, no repetitive bending or twisting. Discharge Medications (16) Active cholestyramine 4 g/5 g oral powder for reconstitution 4 Gram, Oral, BID cyclobenzaprine 10 mg oral tablet 10 mg = 1 Tab, PRN, Oral, TID Fish Oil 1000 mg oral capsule 2,000 mg = 2 Cap, Oral, Daily furosemide 40 mg oral tablet 40 mg = 1 Tab, PRN edema, Oral, Daily gabapentin 400 mg oral capsule 400 mg = 1 Cap, Oral, BID hydroCHLOROthiazide 25 mg oral tablet 25 mg = 1 Tab, Oral, Daily losartan 100 mg oral tablet 100 mg = 1 Tab, Oral, Daily NexIUM 40 mg oral delayed release capsule 40 mg = 1 Cap, Oral, Daily Percocet 7.5/325 oral tablet 1 Tab, PRN, Oral, QID Potassium Chloride (Eqv-K-Tab) 10 mEq oral tablet, extended release 10 mEq = 1 Tab, PRN with Lasix, Oral, Daily potassium chloride 20 mEq oral tablet, extended release 40 mEq = 2 Tab, Oral, Daily X 2 Days then check labs at [facility] Probiotic Formula oral capsule 1 Cap, Oral, Daily sucralfate 1 g oral tablet 1 Gram = 1 Tab, Oral, QID testosterone cypionate 200 mg/mL intramuscular solution 200 mg = 1 mL, IntraMuscular, [id number] Tylenol 8 Hour 650 mg oral tablet, extended release 650 mg = 1 Tab, PRN, Oral, Q8H Vitamin D3 5000 units oral capsule 5,000 Int Units = 1 Cap, Oral, Daily Code Status Start: 07/31/20 15:12:00 EST, Full Code, Continuous Order Consulting Physicians JAMSHID HEATH MD-ANS DOODNAUTH, DAVANAND C, MD-[facility]ODRUFF MD-SNU Current Diet Order Diet, Adult - Ordered -- Start: 07/31/20 18:05:00 EST, Regular Diet Pending Labs Ordered BMP Basic Metabolic Panel Specimen Type: Blood, AM Draw collect, 08/01/20 4:00:00 EST, Daily, Lab Collect CBC w/ Auto Diff Specimen Type: Blood, AM Draw collect, 08/01/20 4:00:00 EST, Daily, Lab Collect documented in this encounter Plan of Treatment Not on file documented as of this encounter Visit Diagnoses Not on filedocumented in this encounter
--- OUTSIDE RECORDS SUMMARY | 2025-06-09 09:49 | XMS_ITS | Encounter Summary ---
Author Organization [employer] ([place], [place], [place], [place], [place]) Address [address] [place] [address] Care Team Providers Care Facilities Custodian Name Role Phone Unavailable Primary Care Provider Unavailabl e Encounter Details Date Type Department Care Team (Late st Contact Info) Description 08/05/2020 Transcribed Document [facility] [place] Family [place] [facility] [place] [address] ProviderWarren MD [address] [place] [id number] Social History Tobacco Use Types Packs/Day Years Used Date Smoking Tobacco: Never Assessed Sex and Gender Information Value Date Recorded Sex Assigned at Male 12/16/2021 8:48 PM CDT Legal Sex Male 8:48 PM CDT Gender Identity Male 12/16/2021 8:48 PM CDT Sexual Orientation Not on file documented as of this encounter Miscellaneous Notes * Cerner Conversion Note - Historical ProviderMD - 08/05/2020 6:00 AM BUTADIENE COMPRESSOR OPERATOR Pain Assessment Entered On: 08/05/2020 10:22 EST Performed On: 08/05/2020 7:21 EST by Laura Slade Rn Intervention Information: acetaminophen Performed by Stan Rojo RN on 08/05/2020 06:21:00 EST acetaminophen,650mg Oral Pain Assessment Pain Assessment : Follow-up assessment Pain Scale Goal : 3 Pain Scale Used : 0-10 Scale Laura Slade Rn - 08/05/2020 10:22 EST Pain Scale Intensity : 3 Laura Slade Rn - 08/05/2020 10:22 EST Image 4 - Images currently included in the form version of this document have not been included in the text rendition version of the form. documented in this encounter Plan of Treatment Not on file documented as of this encounter Visit Diagnoses Not on filedocumented in this encounter
--- OUTSIDE RECORDS SUMMARY | 2025-06-09 09:49 | XMS_ITS | Encounter Summary ---
Author Organization [employer] ([place], [place], [place], [place], [place]) Address [address] [place] [address] Care Team Providers Care Business Analyst Ecommerce Name Role Phone Unavailable Primary Care Provider Unavailabl e Encounter Details Date Type Department Care Team (Late st Contact Info) Description 08/06/2020 Transcribed Document [facility] Family [place] [address] ProviderWarren MD [address] [place] [id number] Social History Tobacco Use Types Packs/Day Years Used Date Smoking Tobacco: Never Assessed Sex and Gender Information Value Date Recorded Sex Assigned at Male 12/16/2021 8:48 PM CDT Legal Sex Male 8:48 PM CDT Gender Identity Male 12/16/2021 8:48 PM CDT Sexual Orientation Not on file documented as of this encounter Miscellaneous Notes * Cerner Conversion Note - Warren ProviderMD - 08/06/2020 2:26 PM 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 [address] [place] [address] [facility] (1) 10:30 AM Comments: Please go to the [facility] at 9:45 for x-rays before going to your appointment. With: Address: When: ALBAN WOODRUFF [address] [place] [address] [facility] (1) 3:45 PM Comments: Appointment has been made for staple/suture removal Discharge Instructions: Immunizations Documented During Stay: No Immunizations Found Heart Failure Discharge Instructions (if any): Stroke Related Discharge Instructions (if any): Warfarin Related Discharge Instructions (if any): Final Medication List: Other Medications acetaminophen (Tylenol 8 Hour 650 mg oral tablet, extended release) 1 Tablet(s) Oral Every 8 Hours as needed for pain/fever. acetaminophen-oxyCODONE (Percocet 7.5/325 oral tablet) 1 Tablet(s) Oral Four Times A Day as needed for pain. Refills: 0. bifidobacterium-lactobacillus (Probiotic Formula oral capsule) 1 Capsule(s) Oral Every Day. cholecalciferol (Vitamin D3 5000 units oral capsule) 1 Capsule(s) Oral Every Day. with food. cholestyramine (cholestyramine 4 g/5 g oral powder for reconstitution) 4 Gram(s) Oral Two Times A Day. cyclobenzaprine (cyclobenzaprine 10 mg oral tablet) 1 Tablet(s) Oral Three Times A Day as needed Muscle Spasms. esomeprazole (NexIUM 40 mg oral delayed release capsule) 1 Capsule(s) Oral Every Day. furosemide (furosemide 40 mg oral tablet) 1 Tablet(s) Oral Every Day as needed Edema. gabapentin (gabapentin 400 mg oral capsule) 1 Capsule(s) Oral Two Times A Day. hydroCHLOROthiazide (hydroCHLOROthiazide 25 mg oral tablet) 1 Tablet(s) Oral Every Day. losartan (losartan 100 mg oral tablet) 1 Tablet(s) Oral Every Day. omega-3 polyunsaturated fatty acids (Fish Oil 1000 mg oral capsule) 2 Capsule(s) Oral Every Day. potassium chloride (Potassium Chloride (Eqv-K-Tab) 10 mEq oral tablet, extended release) 1 Tablet(s) Oral Every Day as needed Other (See Comment). take with Lasix. potassium chloride (potassium chloride 20 mEq oral tablet, extended release) 2 Tablet(s) Oral Every Day for 2 Day(s). Refills: 0. sucralfate (sucralfate 1 g oral tablet) 1 Tablet(s) Oral Four Times A Day. testosterone (testosterone cypionate 200 mg/mL intramuscular solution) 1 Milliliter(s) IntraMuscular Every Two Weeks. Patient Instructions: Restart 4 weeks after surgery Patient Allergies: erythromycin Medication Instructions: Take your medications faithfully. Do NOT skip [...] cramping, rapid heartbeat, difficulty sleeping, and nervousness. Patient education materials: Spinal Fusion, Adult, Care After This sheet [...] these instructions at home: Medicines ??? Take rebd-zgo-tkgrcqh and prescription medicines only as told by [...] and water are not available, use hand green marketer. ? Change your dressing as told by [...] urine clear or pale yellow. ? Take aiof-yqw-fgbibac or prescription medicines. ? Eat foods that [...] 12/25/2005 Document Revised: 02/25/2019 Document Reviewed: 05/26/2017 [employer] Patient Education ? 2020 [employer]. Medication Leaflets: acetaminophen and oxycodone (a SEET a MIN [...] acetaminophen or oxycodone, or if you have: ? severe asthma or breathing problems; or ?? a blockage in your stomach or intestines. Tell your doctor if you have ever had: ? breathing problems, sleep apnea; ?? liver disease; [...] your doctor at once if you have: ? noisy breathing, sighing, shallow breathing, breathing that [...] fertility are permanent. Common side effects include: ? dizziness, drowsiness, feeling tired; ?? feelings of extreme happiness or sadness; ?? nausea, vomiting, stomach pain; ?? constipation; or ?? headache. This is not a complete list of side effects and others may occur. Call your doctor for medical advice about side effects. You may report side effects to FDA at 9-688-MSJ-9012. What other drugs will affect acetaminophen and [...] your doctor knows if you also use: ? cold or allergy medicines, bronchodilator asthma/COPD medication, [...] affect acetaminophen and oxycodone, including prescription and gbll-zqa-pqvwutq medicines, vitamins, and herbal products. Not all [...] to ensure that the information provided by [employer]. ('[employer]') is accurate, up-to-date, and complete, but no guarantee is made to that effect. Drug information contained herein may be time sensitive. [employer] information has been compiled for use by healthcare practitioners and consumers in the [place] and therefore [employer] does not warrant that uses outside of the [place] are appropriate, unless specifically indicated otherwise. [facility] drug information does not endorse drugs, diagnose patients or recommend therapy. [facility] drug information is an informational resource designed [...] effective or appropriate for any given patient. [employer] does not assume any responsibility for any aspect of healthcare administered with the aid of information [employer] provides. The information contained herein is not intended to cover all possible uses, directions, precautions, warnings, drug interactions, allergic reactions, or adverse effects. If you have questions about the drugs you are taking, check with your doctor, nurse or pharmacist. Copyright 8878-7510 [employer]. Version: 20.. Revision Date: 07/03/2020. cyclobenzaprine (mirna cardenas) Amrix, Comfort Pac with Cyclobenzaprine, Fexmid What is the [...] allergic to it, or if you have: ? a thyroid disorder; ?? heart block, heart [...] your doctor if you have ever had: ? liver disease; ?? glaucoma; ?? enlarged prostate; [...] your doctor at once if you have: ? fast or irregular heartbeats; ?? chest pain [...] older adults. Common side effects may include: ? drowsiness, tiredness; ?? headache, dizziness; ?? dry mouth; or ?? upset stomach, nausea, constipation. This is not a complete list of side effects and others may occur. Call your doctor for medical advice about side effects. You may report side effects to FDA at 1-887-LWK-0490. What other drugs will affect cyclobenzaprine? Using cyclobenzaprine with other drugs that make you drowsy can worsen this effect. Ask your doctor before using opioid medication, a sleeping pill, a muscle relaxer, or medicine for anxiety or seizures. Tell your doctor about all your other medicines, especially: ? bupropion (Zyban, for smoking cessation); ?? meperidine; [...] drugs may affect cyclobenzaprine, including prescription and sbku-eqt-atzhmhx medicines, vitamins, and herbal products. Not all [...] to ensure that the information provided by [employer]. ('[employer]') is accurate, up-to-date, and complete, but no guarantee is made to that effect. Drug information contained herein may be time sensitive. [employer] information has been compiled for use by healthcare practitioners and consumers in the [place] and therefore [employer] does not warrant that uses outside of the [place] are appropriate, unless specifically indicated otherwise. [facility] drug information does not endorse drugs, diagnose patients or recommend therapy. [facility] drug information is an informational resource designed [...] effective or appropriate for any given patient. [employer] does not assume any responsibility for any aspect of healthcare administered with the aid of information [employer] provides. The information contained herein is not intended to cover all possible uses, directions, precautions, warnings, drug interactions, allergic reactions, or adverse effects. If you have questions about the drugs you are taking, check with your doctor, nurse or pharmacist. Copyright 1558-9892 [employer]. Version: 5.01. Revision Date: 03/16/2018. potassium chloride [...] you are allergic to it, or if: ? you have high levels of potassium in your blood (hyperkalemia); or ?? you take a 'potassium-sparing' diuretic (water pill) such as amiloride, spironolactone, or triamterene. Tell your doctor if you have ever had: ? heart problems; ?? high blood pressure; ?? [...] your doctor at once if you have: ? severe throat irritation; ?? chest pain, trouble [...] coffee grounds. Common side effects may include: ? nausea, vomiting, diarrhea; ?? gas, stomach pain; or ?? the appearance of a potassium chloride tablet in your stool. This is not a complete list of side effects and others may occur. Call your doctor for medical advice about side effects. You may report side effects to FDA at 6-409-HKM-8931. What other drugs will affect potassium chloride? Tell your doctor about all your other medicines, especially: ? medicine to prevent organ transplant rejection; ?? a diuretic or 'water pill'; or ?? heart or blood pressure medication. This list is not complete. Other drugs may affect potassium chloride, including prescription and ugnn-xlo-uadhomk medicines, vitamins, and herbal products. Not all [...] to ensure that the information provided by [employer]. ('[employer]') is accurate, up-to-date, and complete, but no guarantee is made to that effect. Drug information contained herein may be time sensitive. [employer] information has been compiled for use by healthcare practitioners and consumers in the [place] and therefore [employer] does not warrant that uses outside of the [place] are appropriate, unless specifically indicated otherwise. [facility] drug information does not endorse drugs, diagnose patients or recommend therapy. [facility] drug information is an informational resource designed [...] effective or appropriate for any given patient. [facility] does not assume any responsibility for any aspect of healthcare administered with the aid of information [facility] provides. The information contained herein is not intended to cover all possible uses, directions, precautions, warnings, drug interactions, allergic reactions, or adverse effects. If you have questions about the drugs you are taking, check with your doctor, nurse or pharmacist. Copyright [id number] [facility]. Version: 14.. Revision Date: 11/16/2019. CIGARETTE SMOKING: The facts are clear, cigarette smoking will shorten your life. Smoking can cause many illnesses along the way. As a healthcare provider, we recommend that you stop smoking. Assistance with quitting is available by contacting 3-040-LUHZ-NOW. This is a free resource providing counseling, support, and referral. Or you may contact your personal physician. 4 WAYS TO GET AHEAD OF SEPSIS SEPSIS is a MEDICAL EMERGENCY. Time matters! Infections put you and your family at risk for a life-threatening condition called sepsis. Sepsis is the body???s extreme response to an infection. It is life-threatening, and without timely treatment, sepsis can rapidly lead to tissue damage, organ failure, and . Sepsis happens when an infection you already have???in your skin, lungs, urinary tract or somewhere else???triggers a chain reaction throughout your body. 1 [...] sepsis or if you have an infection that???s not getting better or is getting worse. To learn more about sepsis and how to prevent infections, visit www.cdc.gov/sepsis. STROKE is an EMERGENCY [employer] ACT F.A.S.T! FACE ?? Facial droop ?? Uneven smile ARM ?? Arm numbness ?? Arm weakness SPEECH ?? Slurred speech ?? Difficulty speaking or understanding TIME ?? Call 911 and get to the hospital immediately Have the ambulance go to the nearest stroke center. STROKE Risk Factors High blood pressure High cholesterol Heart Disease Diabetes Smoking Heavy alcohol use Physical inactivity and obesity Atrial Fibrillation (irregular heartbeat) Family history of stroke Reminder: Be sure to sign up for the My [email or web address] patient portal, which gives you 11/01 access to your medical information ??? including these discharge instructions ??? using your computer, smartphone, or tablet. Just go to [employer]zer to get started. Questions? Call . [facility] would like to thank you for allowing us to assist you with your healthcare needs. CHELSIE Espinoza DARRIN LEE, (or associate sales representative) have received the above patient education materials/instructions and have verbalized understanding: Patient Signature _ Date/Time Patient Communications Supervisor Signature (if needed) Date/Time Clinician/Hospital Communications Supervisor Signature (if needed) Date/Time Electronically signed by Elmo Antoine Conversion Recruitment And Outreach Assistant Dylan at 10/04/2022 11:47 PM CDT documented in this encounter Plan of Treatment Not on file documented as of this encounter Visit Diagnoses Not on filedocumented in this encounter
--- OUTSIDE RECORDS SUMMARY | 2025-06-09 09:49 | XMS_ITS | Encounter Summary ---
Author Organization [employer] ([place], [place], [place], [place], [place]) Address [address] [place] [address] Care Team Providers Care Commercial Driver Name Role Phone Unavailable Primary Care Provider Unavailabl e Encounter Details Date Type Department Care Team (Late st Contact Info) Description 07/31/2020 Transcribed Document [facility] Family Medicine [facility] [address] ProviderWarren MD [facility] [place], [place] [id number] Social History Tobacco Use Types Packs/Day Years Used Date Smoking Tobacco: Never Assessed Sex and Gender Information Value Date Recorded Sex Assigned at Male 12/16/2021 8:48 PM CDT Legal Sex Male 8:48 PM CDT Gender Identity Male 12/16/2021 8:48 PM CDT Sexual Orientation Not on file documented as of this encounter Miscellaneous Notes * Cerner Conversion Note - Historical ProviderMD - 07/31/2020 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 Admission History, Adult Entered On: 07/31/2020 18:58 EST Performed On: 07/31/2020 18:55 EST by HARLEY FAIR RN Advance Directive Patient has Advance Directive *Q : No, patient refuses Advance Directive information HARLEY FAIR RN - 07/31/2020 18:53 EST Anesthesia/Transfusion History Family History of Anesthesia Reaction : Prior transfusion without reaction Blood Transfusion Acceptable to Patient : Yes Transfusion History : Prior anesthesia reaction Type of Anesthesia Reaction : Excessive nausea/vomiting Family History of Anesthesia Reaction : None HARLEY FAIR RN - 07/31/2020 18:53 EST Education Topics, Admission Orientation DCP GENERIC CODE Bed Control : Verbalizes understanding Call Light : Verbalizes understanding Diet/Room Service : Verbalizes understanding Fall Prevention : Verbalizes understanding Orientation to Room/Bathroom : Verbalizes understanding Patient Rights/Responsibilities : Verbalizes understanding Television/Phone : Verbalizes understanding Visiting Policy : Verbalizes understanding HARLEY FAIR RN - 07/31/2020 18:53 EST Functional Assessment Living Situation : Home Patient Lives With : Adult Child/Children, Spouse Persons Assisting Patient at Home : Alone Sensory Deficits : None Mobility Assistance Prior to Admission : Independent Current Home Treatments : None Home Equipment : None Professional Skilled Services : None Special Services and Community Resources : None HARLEY FAIR RN - 07/31/2020 18:53 EST General Info Preferred Name : Russell Mode of Arrival on Unit : Ambulatory Legal Guardian : Spouse Support Person/Patient Civil Process Server : Yes Support Person/Pt Rep Name : Annie Ackerman - Support Person/Pt Rep Contact Information : [phone] Want Family/Rep/Phys Notified of Admit : No Emergency Contact #1 : Annie Ackerman Emergency Contact #1 Emergency Contact #1 Relationship : Emergency Contact #2 : ` Emergency Contact #2 Phone Number : ` Emergency Contact #2 Relationship : ` Information Obtained From : Patient Primary Language : Ukrainian Communication Barrier : None Scrap Hoist Operator Needed : No HARLEY FAIR RN - 07/31/2020 18:53 EST Fall Risk Scales ABCs Fall Injury Risk Identification : Bones, Coagulation, Surgery ABC Fall Injury Risk : Moderate to high injury risk Injury Moderate to High Risk Interventions : High Risk for Fall Injury sign in place per policy, Supervise toileting as indicated LAZO Hx Falls Immediate/Within 3 Months : No Lazo Secondary Diagnosis : Yes LAZO Use of Ambulatory Aid : Bed rest/Nurse assist LAZO IV Therapy or IV Access : Yes Lazo Gait/Transferring : Weak Lazo Mental Status : Oriented to own ability Lazo Fall Risk Score : 45 LAZO Fall Scale Risk Level : 25-45 Medium Risk [place] Fall Interventions : Adequate lighting, Assistive devices within reach, Bed in low position, Call device within reach, Fall prevention handout/education per facility policy, Hourly comfort/safety rounds, Non-slip footwear, Personal items within reach, Reinforced to call for assistance before getting out of bed, Room free of clutter/spills, Upper side-rails up, Wheels locked, Wires/Cords secured Fall Moderate to High Risk Interventions : High Risk for Fall sign in place per policy, Supervise toileting as indicated HARLEY FAIR RN - 07/31/2020 18:53 EST Fall Risk Education Grid Call light use : Verbalizes understanding Fall Prevention Protocol : Verbalizes understanding Symptom Reporting : Verbalizes understanding Transfer/Mobility Techniques : Verbalizes understanding Wait for Assistance : Verbalizes understanding HARLEY FAIR RN - 07/31/2020 18:53 EST Barriers to Learning : None evident Individuals Taught : Patient Learning Style Preferences Family : Printed materials, Verbal explanation Learning Style Preferences Patient : Printed materials, Verbal explanation Teaching Evaluation : Verbalizes understanding Fall Risk Scale Calc Temp : 1 HARLEY FAIR RN - 07/31/2020 18:53 EST Health Histories Smoking Status : Never (less than 100 in lifetime; none in last 30 days) Smokeless Tobacco Status : Never Implant/Device Type, Validation Manager and Model : bilateral knee replacements Umbilical mesh HARLEY FAIR RN - 07/31/2020 18:53 EST Social History (As Of: 07/31/2020 18:58:15 EST) Tobacco: Never (less than 100 in lifetime) Smoking Status. Never Smokeless Tobacco Status. None Smokeless Tobacco Use History. (Last Updated: 07/26/2020 09:28:19 EST by Chevy Vazquez Rn) Alcohol: Alcohol Use History Yes. Use in Last 12 Months: Yes. Alcohol Use Comment a drink every couple months . (Last Updated: 07/26/2020 09:28:19 EST by Chevy Vazquez, Rn) Substance Abuse: Drug Use Hx: No. Use in Last 12 Months: No. (Last Updated: 07/26/2020 09:28:19 EST by Chevy Vazquez, Rn) Height and Weight, Clinical Dosing Height Source : Measured Height Entry Format : [place] Height, Feet : 5 ft(Converted to: 152 cm, 60 Inch) Height, Inches : 8.5 Inch(Converted to: 0 ft 9 Inch, 21.59 cm) Clinical Height : 173.99 cm Weight Source : Standing scale Weight Entry Format : [place] Clinical Dosing Weight : 148.64 kg Weight, Pounds : 327 lb Body Surface Area (BSA) : 2.53 m2 Body Mass Index : 49.1 kg/m2 (>HHI) [place] Body Weight : 69 kg HARLEY FAIR RN - 07/31/2020 18:53 EST Infectious Disease History Has the patient ever been tested for COVID-19? : Yes, Patient stated results Negative Where was the COVID-19 Testing completed? : [facility] Where are the test results? : In EMR Results Date of COVID-19 test known? : Yes Date of COVID-19 Test : 07/29/2020 EST Does patient have symptoms of COVID-19? : No COVID19 Screening : No Experiencing Infectious Disease Symptoms : No symptoms Physical contact outside [place] in the last 30 days : No Infectious Disease History : Chicken pox/Shingles Tuberculosis Symptoms : None HARLEY FAIR RN - 07/31/2020 18:53 EST Influenza Vaccine Asmt, Adult Previous Vaccines from Immunization Schedule : No qualifying data available. Influenza Immunization, Current Season : Yes HARLEY FAIR RN - 07/31/2020 18:53 EST Pneumococcal Vaccine Previous Vaccines from Immunization Schedule : No qualifying data available. Pneumonia Immunization Received : No Pneumococcal Risk Assessment < Age 65 : None HARLEY FAIR RN - 07/31/2020 18:53 EST Order Details Order Detail : N/A Patient Needs Meds Crushed/Liquid : No HARLEY FAIR RN - 07/31/2020 18:53 EST Nutrition History Eating Poorly Due to Decreased Appetite : No Unplanned Weight Loss in Past 3-6 Months : No Malnutrition Screening Tool Total(mal) : 0 Malnutrition Screening Tool Risk Level : Patient not at risk HARLEY FAIR RN - 07/31/2020 18:53 EST [place] Suicide Severity Rating Scale (C-SSRS) CSSRS Past Month Wish to be : No CSSRS Past Month Suicidal Thoughts : No CSSRS Lifetime Suicide Behavior : No Suicide Severity Rating Score : 0 Suicide Severity Rating : No Additional Care Required at this time HARLEY FAIR RN - 07/31/2020 18:53 EST Psychosocial History Currently in Unsafe Situation : No HARLEY FAIR RN - 07/31/2020 18:53 EST Sleep Apnea Risk Assmt Hx of Obstructive Sleep Apnea Diagnosis : No Snore Loudly : Yes Tired, Fatigued, or Sleepy During Day : Yes Observed Stopping Breathing During Sleep : No Have/Are Being Treated for Hypertension : Yes BMI Greater Than 35 kg/m2 : Yes Age over 50 Years Old : Yes Neck Circumference Greater Than 40 cm : Yes Gender Male : Yes STOP-BANG Sleep Apnea Risk Level Score : 7 HARLEY FAIR RN - 07/31/2020 18:53 EST Valuables and Belongings Valuables and Belongings : Clothing Clothing : Outerwear Clothing Disposition : Bedside HARLEY FAIR RN - 07/31/2020 18:53 EST Electronically signed by Arash [facility] Conversion Manager Diesel Cerner at 10/04/2022 11:45 PM CDT documented in this encounter Plan of Treatment Not on file documented as of this encounter Visit Diagnoses Not on filedocumented in this encounter
--- OUTSIDE RECORDS SUMMARY | 2025-06-09 09:49 | XMS_ITS | Encounter Summary ---
Author Organization [employer] ([place], [place], [place], [place], [place]) Address [address] [place] [address] Care Team Providers Care Customer Operations Specialist Name Role Phone Unavailable Primary Care Provider Unavailabl e Encounter Details Date Type Department Care Team (Late st Contact Info) Description 08/05/2020 Transcribed Document [facility] Family [place] [facility] [place] [address] ProviderWarren MD [address] [place] [address] [id number] Social History Tobacco Use Types Packs/Day Years Used Date Smoking Tobacco: Never Assessed Sex and Gender Information Value Date Recorded Sex Assigned at Male 12/16/2021 8:48 PM CDT Legal Sex Male 8:48 PM CDT Gender Identity Male 12/16/2021 8:48 PM CDT Sexual Orientation Not on file documented as of this encounter Miscellaneous Notes * Cerner Conversion Note - Historical ProviderMD - 08/05/2020 2:37 PM CHIEF UNDERWRITER On Going Discharge Planning Entered On: 08/05/2020 14:39 EST Performed On: 08/05/2020 14:37 EST by NASEEM VIRAMONTES RN-Adapted Physical Education AideWeb Development Manager Progress Note Discharge Arrangements : Patient Post-Acute Information Patient Name: CAROLYNN ACKERMAN Gender: Male : [birth year] Age: 50 Years No Post-Acute Placement(s) Listed No Post-Acute Service(s) Listed No Curaspan Referral(s) Listed Discharge Options Discussed with Patient : Acute rehabilitation Barriers to Discharge Unresolved : Other: pending precert Designation of Choice Signed : No Patient Offered Choice/Affiliations Explained : Yes List/Info Provided Pt/Fam/Support Person : Other: acute Were Referrals Sent to Post Acute Providers : Yes Certification for Post-Acute Care Initiated : 08/01/2020 EST Does the Patient have a Floor to SNF Benefit? : No Is the Patient Meeting Medical Necessity : No Did you Document Avoidable Days? : Yes NASEEM VIRAMONTES RN-Adapted Physical Education Aide - 08/05/2020 14:37 EST Narrative Progress Note Narrative Progress Note : Precert still pending for acute rehab at [facility]. Pt is progressing with mobility and will be able to transport via [facility] WC Van. D/W pt at bedside, Kasie/SARINA, and bedside RN Jaleesa. CM will continue to follow. Historical Progress Note : Precert was started yesterday for acute rehab at [facility]. Pt receiving IV Dilaudid for breakthrough pain. Pt was able to take 2 steps to HOB with Ax2 today. Transportation TBD. D/W pt at bedside, Dr. Silva, and bedside RN Daksha. CM will continue to follow. NASEEM VIRAMONTES RN-Adapted Physical Education Aide - 08/02/20 17:08:13 NASEEM VIRAMONTES RN-Adapted Physical Education Aide - 08/05/2020 14:37 EST documented in this encounter Plan of Treatment Not on file documented as of this encounter Visit Diagnoses Not on filedocumented in this encounter
--- OUTSIDE RECORDS SUMMARY | 2025-06-09 09:49 | XMS_ITS | Encounter Summary ---
Author Organization [employer] ([place], [place], [place], [place], [place]) Address [address] [place] [address] Care Team Providers Care Cellular Equipment Installer Name Role Phone Unavailable Primary Care Provider Unavailabl e Encounter Details Date Type Department Care Team (Late st Contact Info) Description 07/31/2020 Transcribed Document [facility] Family Medicine [facility] [place] [address] ProviderWarren MD [address] [place] [address] [phone] Social History Tobacco Use Types Packs/Day Years [...] - Historical ProviderMD - 07/31/2020 3:12 PM CAMOUFLAGE ASSEMBLER Evaluation, Physical Therapy Entered On: 08/01/2020 13:14 EST Performed On: 08/01/2020 9:49 EST by NAHED WELLINGTON, PT General Information, PT Visit Type, PT : Initial evaluation Patient Orders : Order Date Order Ordering MD 07/31/2020 15:12 Physical Therapy Eval and Treat Ordered By: ALBAN WOODRUFF MD-[facility] 08/01/2020 12:40 Physical Therapy Additional Tx Ordered By: NAHED WELLINGTON, PT Active Diagnoses : No Qualifying Diagnoses Therapy Diagnosis, PT : functional decline after extensive back sx Onset of Problem, PT : 07/31/2020 EST Admission Date : 07/31/2020 06:58 Co-treated by, PT : Occupational Therapist Personal Devices : Personal Devices No Devices Recorded Assistive Devices : Assistive Devices No Devices Recorded General Information Comment, PT : 50 yo male adm to [facility] 07/31 BACK Sx HAD T10 - S1 PLIF PMHx significant for OA, HBP, LA POSTA, Hx of DVT, hx of Bilat TKAs NAHED WELLINGTON, PT - 08/01/2020 12:45 EST General Status Patient Received Status : Supine in bed Treatment Start Time : 08/01/2020 9:27 EST Patient Left Status : Supine in bed, RN/PCT informed, Communication board completed, All needs met and within reach RN/PCT Informed Comment : yes per RN Nesha Treatment End Time : 08/01/2020 9:49 EST Treatment Time : 22 Minute(s) Actual Treatment Time : 22 Minute(s) NAHED WELLINGTON, PT - 08/01/2020 12:45 EST History and Environment Living Situation, Therapy : Home Patient Lives With : Adult Child/Children, Spouse Persons Assisting Patient at Home : Alone Professional Skilled Services : None Persons Providing Information : Patient Home Equipment Therapy, PT : Commode, Shower Equipment, Walker Commode : Commode, bedside Shower Equipment : Shower Chair, with back Walker : Walker, front wheel Walker Comment : pt thinks he has a RWx Home Setup : One story Bathroom #1 Location : Main [facility] Bathroom #1 Features : Toilet, Walk-In shower Stairs : Yes Stair Location(s) : Outside Outside Stairs, Number of Steps : 5 Railing Outside : Yes Outside Railing Position : Right, going up Ramp : No NAHED WELLINGTON, PT - 08/01/2020 12:45 EST Prior Level of Function PT GRID Prior LOF Ambulation, Household : Independent Prior LOF Ambulation, Community : Independent Prior LOF Bed Mobility : Independent Prior LOF Toileting : Independent Prior LOF Transfer : Independent NAHED WELLINGTON, PT - 08/01/2020 12:45 EST Prior LOF Assist with ADL Comment : pt stated I needed help dressing my feet NAHED WELLINGTON, PT - 08/01/2020 12:45 EST Upper Extremity Right UE Active ROM : WFL Right UE Strength : WFL Left UE Active ROM : WFL Left UE Strength : WFL Upper Extremity Comment : back pain limits tests and ROM Shoulders NAHED WELLINGTON, PT - 08/01/2020 12:45 EST Lower Extremity RLE Active ROM : Impaired Right LE Strength : Impaired LLE Active ROM : Impaired Left LE Strength : Impaired Lower Extremity Comment : ROM and MMT limited by back pain NAHED WELLINGTON, PT - 08/01/2020 12:45 EST Functional Mobility Mobility Grid Bed Roll Left : Rehab Total assistance (Comment: x2 [NAHED WELLINGTON, PT - 08/01/2020 12:45 EST] ) Bed Roll Right : Rehab Total assistance (Comment: x2 [NAHED WELLINGTON, PT - 08/01/2020 12:45 EST] ) Bed Scooting : Rehab Total assistance (Comment: x3 [NAHED WELLINGTON, PT - 08/01/2020 12:45 EST] ) Supine to Sit : Rehab Total assistance (Comment: x2x [ANHED WELLINGTON, PT - 08/01/2020 12:45 EST] ) Sit to Supine : Rehab Total assistance (Comment: x3 [NAHED WELLINGTON, PT - 08/01/2020 12:45 EST] ) NAHED WELLINGTON, PT - 08/01/2020 12:45 EST Bed Mobility Scooting Device : Cloth under pad Supine to Sit Device : Cloth under pad, Rails Sit to Supine Devices : Cloth under pad NAHED WELLINGTON, PT - 08/01/2020 12:45 EST Gait Training/Assessment, PT Weight Bearing Status : Full Gait Assistance Level : Unable to assess/activity not appropriate Walking Distance : pt in too much pain and NOT able to hold own sitting balance NAHED WELLINGTON, PT - 08/01/2020 12:45 EST Cognition Assessment, PT Orientation : Oriented x 4 Safety/Judgment Comment : good Follows Basic Command Assessment : yes Attention Assessment : Present NAHED WELLINGTON PT - 08/01/2020 12:45 EST Edu Topics Physical Therapy Education Grid Balance Training : Needs further teaching Bed Mobility Training : Needs further teaching Gait Training : Needs further teaching Role of Physical Therapy : Needs further teaching, Verbalizes understanding Safety : Needs further teaching Therapeutic Exercises : Needs further teaching, Returns demonstration (Comment: AP, QS,GS [NAHED WELLINGTON, PT - 08/01/2020 12:45 EST] ) Transfer Training : Needs further teaching Use of Assistive Device : Needs further teaching NAHED WELLINGTON PT - 08/01/2020 12:45 EST Indication Assesessment, PT Physical Therapy Indicated : Yes PT Problem List : Impaired, bed mobility, Impaired, endurance tolerance, Impaired, gait, Impaired, transfers, Pain limiting function Potential Barriers To Therapy : Acuity of Illness, Pain Rehabilitation Potential : Good NAHED WELLINGTON, PT - 08/01/2020 12:45 EST Plan of Care, PT PT Tx Plan/Goals Established w Patient : Yes PT Frequency Rehab : Daily, twice (bid) PT Treatments Planned : Bed mobility training, Gait training, Pain management, Safety education, Therapeutic exercises, Transfer training NAHED WELLINGTON, PT - 08/01/2020 12:45 EST Short Term Goals Mobility/Bed Mobility STG PT Grid Goal #1 Activity : Supine to sit Assist : Assist, maximal Equipment : Bed, hospital Date to Meet : 08/08/2020 EST Goal Status : Initial goal Comment : x2 NAHED WELLINGTON, PT - 08/01/2020 12:45 EST Production Support Engineer Goals Mobility/Bed Mobility LTG PT Grid Goal #1 Goal #2 Activity : Supine to sit Sit to stand Assist : Assist, minimal Assist, minimal Equipment : Bed, hospital Walker, front wheel Date to Meet : 08/15/2020 EST 08/15/2020 EST Goal Status : Intial Goal Intial Goal NAHED WELLINGTON, PT - 08/01/2020 12:45 EST NAHED WELLINGTON, PT - 08/01/2020 12:45 EST Transfer LTG Grid Goal #1 Destination : Chair, with arms Assist : Assist, minimal Equipment : Walker, front wheel Date to Meet : 08/15/2020 EST Goal Status : Intial Goal NAHED WELLINGTON PT - 08/01/2020 12:45 EST Ambulation LTG Grid Goal #1 Device : Walker, front wheel Distance : 150 ft Assist : Assist, minimal Date to Meet : 08/15/2020 EST Goal Status : Intial Goal NAHED WELLINGTON, PT - 08/01/2020 12:45 EST Treatment Note Subjective Comment : agreed to PTx/OTx evals Patient's Response to Treatment : fair Assessment : good effort, pain limited pt participation this AM needs REHAB prior to discharge home after extensive back sx cooperative and willing to work with therapy Plan for Treatment : iniate POC for MOBILITY NAHED WELLINGTON PT - 08/01/2020 12:45 EST Pain Assessment Pain Scaled Used : 0-10 Pain scale Pain Score Pre-Intervention : 6 Location : Incisional Onset : Constant Pain Comment : per RN pt had been medicated for pain NAHED WELLINGTON, PT - 08/01/2020 12:45 EST Image 1 - Images currently included in the form version of this document have not been included in the text rendition version of the form. Anticipated Discharge Needs, OT/PT Anticipated Discharge to : Unit, rehabilitation Recommend Continued Therapy at Discharge : Yes NAHED WELLINGTON, PT - 08/01/2020 12:[address] [facility] Charges PT Therap. Exercise 15 min : 1 PT Eval Low Complexity : 1 NAHED WELLINGTON, PT - 08/01/2020 12:45 EST Electronically signed by Arash, [facility] Conversion Soda Dispenser Cerner at 10/04/2022 11:42 PM CDT documented in this encounter Plan of Treatment Not on file documented as of this encounter Visit Diagnoses Not on filedocumented in this encounter
--- OUTSIDE RECORDS SUMMARY | 2025-06-09 09:49 | XMS_ITS | Encounter Summary ---
Author Organization [employer] ([place], [place], [place], [place], [place]) Address [address] [place] [address] Care Team Providers Care Tie Inspector Name Role Phone Unavailable Primary Care Provider Unavailabl e Encounter Details Date Type Department Care Team (Late st Contact Info) Description 07/31/2020 Transcribed Document [facility] Neurology - [address] [facility] [address] [place] [address] Lamont Sal Jr., MD [address] [place] [address] [address] [place] [address] Social History Tobacco Use Types Packs/Day Years [...] - Lamont Sal Jr., MD - 07/31/2020 4:24 PM EST DATE OF PROCEDURE: 07/31/2020 SURGEON: Lamont Sal Jr, MD PREOPERATIVE DIAGNOSIS: Multilevel thoracolumbar stenosis with myeloradiculopathy. POSTOPERATIVE DIAGNOSIS: Multilevel thoracolumbar stenosis with myeloradiculopathy. PROCEDURE PERFORMED: 1. T10-S1 postero lateral arthrodesis. 2. Placement of T10, T11, T12, L3, L4, L5 pedicle screws. 3. Placement of iliac bolts. 4. T10-11, T12-L1, L2-L3, L4-L5, L5-S1 laminectomies. 5. All the above performed with Airo intraoperative CT scan and BrainLab neuronavigation. ACCOUNT DEVELOPER: Jennifer Sampson PA-C, assisted through the entire operation with task such as suctioning, soft tissue retraction, placement of instrumentation, laminectomies, and wound closure. ANESTHESIA: General endotracheal anesthesia. BLOOD LOSS: Less than 700 mL. COMPLICATIONS: None. SPECIMEN: None. DRAINS: Epidural 15-Sammarinese round BEVERLY drain to bulb suction. FINDINGS: An incidental punctate durotomy was found just above the shoulder of the S1 nerve root dorsal laterally on the right side. This was closed with a 6-0 Prolene. CONDITION: Stable to PACU. DRAINS: 15-Sammarinese round epidural BEVERLY drain to bulb suction. INDICATION FOR PROCEDURE: Mr. Ackerman is 50-year-old whom I saw him in the office. He had severe back pain, radicular leg pain, numbness and weakness. He had marked diffuse stenosis. He had conus medullaris compression at T12-L1, there was nqydoknf-vf-naietl stenosis from spondylosis at T10-11, there was severe stenosis at L2-3, L4-5, and L5-S1. Given the marked neural compression and his significant symptoms, I recommended the above-mentioned procedure. I met with him prior to the operation and went over everything again. I had him undergo cervical and thoracic MRI scan because of his lumbar study shows such severe degeneration that I wanted to get a survey of the rest of his spine. He does have significant cervical stenosis in a couple of areas and I talked to him today before surgery and explained that somewhat this might need to be addressed. All questions were answered. Consent was signed for surgery. DESCRIPTION OF PROCEDURE: After informed consent was obtained, the patient was brought to the operating room and general endotracheal anesthesia was induced routinely. A Beaza catheter was placed. IV access was confirmed, an arterial line was placed. He was turned prone on the Airo CT scan table using the chest, hip and thigh pads. I was careful to keep the neck in a neutral to slightly flexed position, and prior to surgery I had him extend his neck as far as he could and flexed forward as far as he could, he was more comfortable in flexion and had no neurological symptoms in either position. Once I was happy with positioning, the midline of the back was marked out and the long incision was planned. The back was prepped and draped in usual fashion widely. A reference array was Steri-Stripped to the gluteal area. We took a scan, this allowed me to place 2 Steinmann pins in the right posterior iliac crest using the [employer] drill under navigation. Once the pins were placed, the permanent reference array base was clamped across them. The initial pointer and scan were used to localize a midline incision from T10 down to S1. This obviously was a very long incision I made with scalpel, Bovie cautery was used to dissect down the fascia. Subperiosteal dissection was performed exposing the T10 down to S1, and sacrum and S2 levels. Once we obtained a nice lateral exposure, we took a scan for navigational purposes. I was able to use a pointer to select an entry point trajectory into the right S2 alar region. I placed S2 alar iliac screws. I drilled across the SI joint, tapped with a 6-0 tap, and 8-0 tap, and placed a 8.0 x 90 cm iliac bolt on the right, and then I did so on the left. Bone purchase was very good. I then moved up to T10 and placed pedicle screws. I used a pointer and selected an entry point trajectory in the right T10 pedicle. I drilled the pedicle, advanced a gearshift probe under navigation, and tapped with a 5-0 tap. I placed a 6.0 x 50 screw on the right at T10, then on the left. Prior to placing each screw, I palpated inside the pedicle. At T11, I placed screws in a similar fashion. These were 6.0 x 45 and at T12, I placed 7.0 x 50 screws. I then went down to L3, L4 and L5 where I placed 7.0 x 50 or 55 screws at each level. Bone purchase was good at each levels. Bone was very hard. After all the screws were placed, the spinous processes from L4-S1 removed with Leksell rongeur. The lamina was thinned out. The laminectomy was completed with Kerrison punches and a matchstick drill bit. I drilled out laterally. There was severe lateral recess stenosis at the S1 nerve roots bilaterally, worse on the right side. There was a large calcified disk protrusion centrally. I was not able to safely remove this, but I dorsally decompressed the nerve roots quite nicely and could easily advance the ball probe out the foramen. I inspected the L5 foramen and there was tecblfqi-oa-hiftor stenosis at this level, which I decompressed the genu of the L5 nerve roots and could easily advance the ball probe on both sides. It was here I encountered a punctate durotomy on the right side just above the shoulder of the right S1 nerve root, and was closed easily with a single interrupted 6-0 Prolene. I then performed a decompression at L4-5, there was severe central and lateral recess stenosis here. Foraminal stenosis was not bad. At L2-3, I performed decompression in a similar fashion. The stenosis was central here and in the lateral recess region. At T12-L1, the stenosis was central. I obtained a nice wide decompression and at T10-11, also the stenosis was more in the dorsal lateral portion of the spinal canal from facet hypertrophy. We obtained a nice decompression here at each level. I confirmed that the central thecal sac and the exiting nerve roots were decompressed. Once the decompression was performed, I bent the joe on each side and placed set screws. I tightened and torqued all the set screws on both sides, and then palpated all the neural elements and visualized the laminectomy sites again to make sure the decompression was still good. Some FloSeal was placed in each lateral recess and ultimately was irrigated away. There was no significant epidural bleeding. There was no CSF leakage. DuraSeal was placed over the durotomy site at L5-S1 on the right. I decorticated the posterolateral elements from T10 down to S1, and laid allograft ViviGen, allograft bone chips and autograft bone taken from the laminectomy. Once I had laid the bone graft, we took a scan for navigational purposes and the construct looked nice. I made sure soft tissue hemostasis was completed, fixation pins removed. The inferior stab incision was used to tunnel a 15-Sammarinese round BEVERLY drain. Muscle fascia, Shayna's layer, and the dermis was closed with interrupted Vicryl sutures. Please note, the sponge count was incorrect, so we obtained an x-ray and at the end, there was a retained Ray-Jenny noted while we were closing the wound. I removed 2 fascial stitches and easily removed the Ray-Jenny and then all sponge and needle counts were correct after that. Once the dermis was closed, and trisha were applied, the drain stitch was applied. When the drain was placed, the bulb was fixed to drain, the drain was functional. Dressing was applied. The patient was ultimately went to Recovery in good condition. /[id number] Lamont Sal Jr, MD RDO/AQ / RDO / MODL /[id number] documented in this encounter Plan of Treatment Not on file documented as of this encounter Visit Diagnoses Not on filedocumented in this encounter
--- OUTSIDE RECORDS SUMMARY | 2025-06-09 09:49 | XMS_ITS | Encounter Summary ---
Author Organization [employer] ([place], [place], [place], [place], [place]) Address [address] [place] [address] Care Team Providers Care Manager Integrated Name Role Phone Unavailable Primary Care Provider Unavailabl e Encounter Details Date Type Department Care Team (Late st Contact Info) Description 08/08/2020 Transcribed Document [facility] Family Medicine [facility] [place] [address] ProviderWarren MD [address] [place] [address] [phone] Social History Tobacco Use Types Packs/Day Years Used Date Smoking Tobacco: Never Assessed Sex and Gender Information Value Date Recorded Sex Assigned at Male 12/16/2021 8:48 PM CDT Legal Sex Male 8:48 PM CDT Gender Identity Male 12/16/2021 8:48 PM CDT Sexual Orientation Not on file documented as of this encounter Miscellaneous Notes * Cerner Conversion Note - Historical ProviderMD - 08/08/2020 10:37 AM BASKETBALL SCOUT Discharge Follow Up Phone Call Entered On: 08/08/2020 10:44 EST Performed On: 08/08/2020 10:37 EST by PALLAVI NARVAEZ, brokerage office manager Follow Up Phone Call Emergency Room Visit Since DC : No Did the Nurse Give/Explain Discharge Instructions? : Yes Additional Questions Concerns Addressed During Dc Phone Call : No Additional Questions/Concerns Comments : Follow post [facility]. Andre thomas at [facility] for rehab. Plan is for two more weeks of thearpy. Patient stated no additonal questions or concerns at this time. PALLAVI NARVAEZ RN - 08/08/2020 10:46 EST Medical/Surgical Follow Up : Open Discharge Disposition : Discharge To Care Management: IRF -Inpatient Rehabilitation Facility-62 Post Visit Phone Call History : First call First Call Date/Time : 08/08/2020 10:38 EST Phone Number : [phone] Contact Relationship to Patient : Self Provider Follow-Up Post Discharge : Discharge Follow Up ALBAN WOODRUFF - 03:45 PM ALBAN WOODRUFF - 10:30 AM Previously Documented Type Proof Reproducer Patient Stated Goal : No Patient Stated Goal PALLAVI NARVAEZ RN - 08/08/2020 10:37 EST Medical/Surgical Follow Up Adequate Pain Control After Visit : Yes Surgical Dressing Clean/Dry/Intact : Yes PALLAVI NARVAEZ RN - 08/08/2020 10:37 EST Surgical Site Free of Redness/Swelling/Drainage : No PALLAVI NARVAEZ RN - 08/08/2020 10:46 EST Symptoms of Fever : No Symptoms of Nausea or Vomiting : No Adequate Fluid Intake : Yes PALLAVI NARVAEZ RN - 08/08/2020 10:37 EST Food Intake, Post Visit : Poor (Comment: poor appetite [PALLAVI NARVAEZ RN - 08/08/2020 10:46 EST] ) PALLAVI NARVAEZ RN - 08/08/2020 10:46 EST Bowel/Bladder Concerns : No Bowel Movement Last Date : 08/08/2020 Mobility Progressing or Maintained as Expected : Yes PALLAVI NARVAEZ RN - 08/08/2020 10:37 EST documented in this encounter Plan of Treatment Not on file documented as of this encounter Visit Diagnoses Not on filedocumented in this encounter
--- OUTSIDE RECORDS SUMMARY | 2025-06-09 09:49 | XMS_ITS | Encounter Summary ---
Author Organization [employer] ([place], [place], [place], [place], [place]) Address [address] [place] [address] Care Team Providers Care Multiple Spindle Screw Machine Operator Name Role Phone Unavailable Primary Care Provider Unavailabl e Encounter Details Date Type Department Care Team (Late st Contact Info) Description 08/05/2020 Transcribed Document [facility] [place] Family Medicine [facility] [place] [address] ProviderWarren MD [address] [place] [id number] Social History Tobacco Use Types Packs/Day Years Used Date Smoking Tobacco: Never Assessed Sex and Gender Information Value Date Recorded Sex Assigned at Male 12/16/2021 8:48 PM CDT Legal Sex Male 8:48 PM CDT Gender Identity Male 12/16/2021 8:48 PM CDT Sexual Orientation Not on file documented as of this encounter Miscellaneous Notes * Cerner Conversion Note - Historical ProviderMD - 08/05/2020 10:00 PM PAPER REELER Pain Assessment Entered On: 08/06/2020 5:55 EST Performed On: 08/06/2020 0:16 EST by Malena Murguia LPN Intervention Information: acetaminophen Performed by Malena Murguia LPN on 08/05/2020 23:16:00 EST acetaminophen,650mg Oral Pain Assessment Pain Assessment : Follow-up assessment Pain Scale Goal : 3 Pain Scale Used : 0-10 Scale Location : Back Onset : Acute Quality : Throbbing Pain Radiation : No Pain Worsened by : Movement Pain Improved by : Medication, Repositioning Pain Intervention, Drug : Medicated Pain Intervention, Non-Drug : Positioning Opioid Adverse Effects : None Pain Improved by Intervention : Yes Malena Murguia LPN - 08/06/2020 5:54 EST Pain Scale Intensity : 3 Head, Malena, HIGH VOLTAGE ELECTRICIAN - 08/06/2020 5:54 EST Image 4 - Images currently included in the form version of this document have not been included in the text rendition version of the form. documented in this encounter Plan of Treatment Not on file documented as of this encounter Visit Diagnoses Not on filedocumented in this encounter
--- OUTSIDE RECORDS SUMMARY | 2025-06-09 09:49 | XMS_ITS | Encounter Summary ---
Author Organization [employer] ([place], [place], [place], [place], [place]) Address [address] [place] [address] Care Team Providers Care Bridge Game Director Name Role Phone Unavailable Primary Care Provider Unavailabl e Encounter Details Date Type Department Care Team (Late st Contact Info) Description 08/04/2020 Transcribed Document [facility] Radiology [address] [place] [address] Jorge Lara MD [address] [place] [id number] Social History Tobacco Use Types Packs/Day Years Used Date Smoking Tobacco: Never Assessed Sex and Gender Information Value Date Recorded Sex Assigned at Male 12/16/2021 8:48 PM CDT Legal Sex Male 8:48 PM CDT Gender Identity Male 12/16/2021 8:48 PM CDT Sexual Orientation Not on file documented as of this encounter Miscellaneous Notes * Cerner Conversion Note - Jorge Lara MD - 08/04/2020 12:19 PM EST Patient: CAROLYNN ACKERMAN Age: 50 years Sex: Male : 1970 Associated Diagnoses: None Author: NADJA CORDOVA APRN-DIANA 08/04/2020 cc: medical management s/p thoracic laminectomy with fusion per Dr. Sal S: patient found sitting up to bedside recliner. A/O. Reports feeling better today. He has been up ambulating with PT in hallway. Pain is adequately controlled. Diarrhea is slowing with imodium. He wants to try taking fontanez out again. He feels he is more likely to urinate now that he can stand. Denies cough, dyspnea, fever/chills, n/v. Appetite remains fair. HPI: Patient is a 50 yo male admitted to [facility] per Dr. Sal for a thoracic laminectomy [...] solution 200 mg = 1 mL, IntraMuscular, Q1Spkma Tylenol 8 Hour 650 mg oral tablet, [...] nausea, vomiting, +diarrhea- chronic Genitourinary: [No hematuria, +urinary retention Musculoskeletal: back pain with decreased ROM Integumentary: [No rash, pruritus Neurologic: [No weakness, numbness Psychiatric: [No anxiety, depression Exam: Vitals Signs (last 24 hrs) Last Charted Minimum Maximum Temp 98.1 (AUG 04:29) 97.9 (AUG 04 01:10) 98.9 (AUG 03 18:00) Mon HR 102 (AUG 04:) 102 (AUG 04:) 110 (AUG 03 19:00) Resp Rate 16 (AUG 04 07:00) 16 (AUG 04 01:10) H 22 (AUG 03 18:00) SBP 140 (AUG 04:) 130 (AUG 03 18:00) H 153 (AUG 04 01:10) DBP H 93 (AUG 04:) 81 (AUG 04 07:00) H 93 (AUG 04 10:29) MAP 106 (AUG 04:) 96 (AUG 04 07:00) 117 (AUG 03 19:00) SpO2 L 93 (AUG 04 10:29) L 93 (AUG 04 10:29) 98 (AUG 03 18:00) General: [Alert and oriented, no acute [...] Results (Current Encounter/Past 24 Hours) Sodium Level 135 mmol/L LOW 08/04/2020 03:39 Potassium Level 3.1 mmol/L LOW 08/04/2020 03:39 Chloride Level 98 mmol/L LOW 08/04/2020 03:39 Carbon Dioxide Level 30 mmol/L 08/04/2020 03:39 Anion Gap 10 08/04/2020 03:39 Blood Urea Nitrogen 14 mg/dL 08/04/2020 03:39 Glucose Level 163 mg/dL HI 08/04/2020 03:39 Calcium Level 8.1 mg/dL LOW 08/04/2020 03:39 Creatinine Level 0.80 mg/dL 08/04/2020 03:39 Cardiac Markers (Current Encounter/Past 24 Hours) No Cardiac Marker Results Found (Past 24 Hours) CBC Results (Current Encounter/Past 24 Hours) WBC 12.8 K/uL CA 08/04/2020 03:27 Hct 37.0 % LOW 08/04/2020 03:27 Hgb 11.9 g/dL LOW 08/04/2020 03:27 Platelet Count 168 K/uL 08/04/2020 03:27 CMP Results (Current Encounter/Past 24 Hours) Creatinine Level 0.80 mg/dL 08/04/2020 03:39 Bun/Creatinine 17.5 08/04/2020 03:39 eGFR >60 mL/min/1.73m2 08/04/2020 03:39 eGFR NonAfrican >60 mL/min/1.73m2 08/04/2020 03:39 Sodium Level 135 mmol/L LOW 08/04/2020 03:39 Potassium Level 3.1 mmol/L LOW 08/04/2020 03:39 Chloride Level 98 mmol/L LOW 08/04/2020 03:39 Carbon Dioxide Level 30 mmol/L 08/04/2020 03:39 Anion Gap 10 08/04/2020 03:39 Blood Urea Nitrogen 14 mg/dL 08/04/2020 03:39 Glucose Level 163 mg/dL HI 08/04/2020 03:39 Calcium Level 8.1 mg/dL LOW 08/04/2020 03:39 Coagulation Results (Current Encounter/Past 24 Hours) No Coagulation Results Found (Past 24 Hours) Creatinine Clearance (Current Encounter/Past 24 Hours) Creatinine Level 0.80 mg/dL 08/04/2020 03:39 Bun/Creatinine 17.5 08/04/2020 03:39 Estimated Creatinine Clearance 106.26 mL/Min 08/04/2020 03:39 No Radiology Results FoundLabs (Last four charted values) WBC H 12.8 (AUG 04) H 15.4 (AUG 03) H 14.3 (JUL 12) H 14.3 (AUG 01) HB L 11.9 (JUL 14) L 11.8 (AUG 03) L 11.5 (JUL 12) L 12.3 (AUG 01) HCT L 37.0 (JUL 14) L 36.6 (B 13) L 36.6 (B 12) L 38.7 (B 11) Plt 168 (JUL 14) L 151 (B 13) L 138 (B 12) L 161 (B 11) Na L 135 (JUL 14) L 134 (B 13) 137 (B 12) 138 (B 11) K L 3.1 (JUL 14) L 3.2 (JUL 13) 3.6 (JUL 12) 3.7 (JUL 11) Cl L 98 (JUL 14) L 97 (JUL 13) 102 (B 12) 103 (FEB 11) CO2 30 (B 14) 32 (FEB 13) H 33 (FEB 12) 30 (FEB 11) BUN 14 (B 14) 9 (FEB 13) 9 (FEB 12) 14 (FEB 11) Cr 0.80 (FEB 14) 0.90 (FEB 13) 0.90 (FEB 12) 1.00 (FEB 11) Glu R H 163 (B 14) H 156 (B 13) H 149 (B 12) H 152 (B 11) Ca L 8.1 (B 14) 8.4 (B 13) L 8.1 (JUL 12) L 8.1 (AUG 01) Impression: advanced spondylolisthesis thoracic spine -s/p thoracic laminectomy with fusion per Dr. Sal at risk for sleep apnea obesity Hx HTN Hx IBS- diarrhea Hx silent GERD urinary retention UTI- on levaquin, afebrile Plan: Seeking inpatient rehab at [facility] at discharge discontinue fontanez per patient request continue imodium prn diarrhea Monitor HTN; add PRN's, [...]
--- OUTSIDE RECORDS SUMMARY | 2025-06-09 09:49 | XMS_ITS | Encounter Summary ---
Author Organization [employer] ([place], [place], [place], [place], [place]) Address [address] [place] [address] Care Team Providers Care Wide Piece Goods Inspector Name Role Phone Unavailable Primary Care Provider Unavailabl e Encounter Details Date Type Department Care Team (Late st Contact Info) Description 07/31/2020 Transcribed Document [facility] [place] Family Medicine [facility] [place] [address] ProviderWarren MD [facility] [place], [place] [id number] Social History Tobacco Use Types Packs/Day Years Used Date Smoking Tobacco: Never Assessed Sex and Gender Information Value Date Recorded Sex Assigned at Male 12/16/2021 8:48 PM CDT Legal Sex Male 8:48 PM CDT Gender Identity Male 12/16/2021 8:48 PM CDT Sexual Orientation Not on file documented as of this encounter Miscellaneous Notes * Cerner Conversion Note - Historical ProviderMD - 07/31/2020 1:02 PM SONAR SUBSYSTEM EQUIPMENT OPERATOR UM Authorization Entered On: 07/31/2020 13:03 EST Performed On: 07/31/2020 13:02 EST by JENNIFER ARREOLA RN-Utilization Review Primary Insurance Authorization Authorization and Policy Numbers : Insurance 1 Health Plan: [facility] Policy Number: [id number] Authorization Number: Insurance Primary Name : Matilda [id number] Authorization Status-Primary : Pending Reference Number-Primary : PENDING auth# [id number] Authorization Number-Primary : auth pending per STAR I did email pt access asking true status of auth. Authorized Service Begin Date-Primary : 07/31/2020 EST Authorization Comments-Primary : [place] per availity auth #[id number] still in review Historical Authorization Comments-Primary : Comment 1: Pt is asher for INPT Lumbar Fusion Posterior 3 Level on 07-31-20 [place]: auth pending per STAR I did email pt access asking true status of auth. PENDING AUTH# [id number] (ROGER RICE, Hoseman 07/30/2020 14:22) JENNIFER ARREOLA RN-Utilization Review - 07/31/2020 13:02 EST Electronically signed by [facility], [facility] Conversion Vending Machine Assembler Cerner at 10/04/2022 11:49 PM CDT documented in this encounter Plan of Treatment Not on file documented as of this encounter Visit Diagnoses Not on filedocumented in this encounter
--- OUTSIDE RECORDS SUMMARY | 2025-06-09 09:49 | XMS_ITS | Encounter Summary ---
Author Organization [employer] ([place], [place], [place], [place], [place]) Address [address] [place] [address] Care Team Providers Care District Sales Coordinator Name Role Phone Unavailable Primary Care Provider Unavailabl e Encounter Details Date Type Department Care Team (Late st Contact Info) Description 08/03/2020 Transcribed Document [facility] [place] Family Medicine [facility] [place] [address] ProviderWarren MD [address] [place] [id number] Social History Tobacco Use Types Packs/Day Years Used Date Smoking Tobacco: Never Assessed Sex and Gender Information Value Date Recorded Sex Assigned at Male 12/16/2021 8:48 PM CDT Legal Sex Male 8:48 PM CDT Gender Identity Male 12/16/2021 8:48 PM CDT Sexual Orientation Not on file documented as of this encounter Miscellaneous Notes * Cerner Conversion Note - Historical ProviderMD - 08/03/2020 10:00 PM EDIPHONE OPERATOR Pain Assessment Entered On: 08/04/2020 4:41 EST Performed On: 08/03/2020 23:09 EST by Malena Murguia LPN Intervention Information: acetaminophen Performed by Malena Murguia LPN on 08/03/2020 22:09:00 EST acetaminophen,650mg Oral Pain Assessment Pain Assessment [...] Intervention : Yes Malena Murguia LPN - 08/04/2020 4:40 EST Pain Scale Intensity : 2 Head, Malena, INSTRUMENTATION ENGINEER - 08/04/2020 4:40 EST Image 4 - Images currently included in the form version of this document have not been included in the text rendition version of the form. documented in this encounter Plan of Treatment Not on file documented as of this encounter Visit Diagnoses Not on filedocumented in this encounter
--- OUTSIDE RECORDS SUMMARY | 2025-06-09 09:49 | XMS_ITS | Encounter Summary ---
Author Organization [employer] ([place], [place], [place], [place], [place]) Address [address] [place] [address] Care Team Providers Care Pottery Kiln Builder Name Role Phone Unavailable Primary Care Provider Unavailabl e Encounter Details Date Type Department Care Team (Late st Contact Info) Description 07/31/2020 Transcribed Document [facility] Neurology - [address] [facility] [address] [place] [address] Alban Woodruff Jr., MD [address] [place] [address] [address] [place] [address] Social History Tobacco Use Types Packs/Day Years Used Date Smoking Tobacco: Never Assessed Sex and Gender Information Value Date Recorded Sex Assigned at Male 12/16/2021 8:48 PM CDT Legal Sex Male 8:48 PM CDT Gender Identity Male 12/16/2021 8:48 PM CDT Sexual Orientation Not on file documented as of this encounter Miscellaneous Notes * Cerner Conversion Note - Alban Woodruff Jr., MD - 07/31/2020 4:13 PM EST Patient: CAROLYNN ACKERMAN Age: 50 Years Sex: Male : 1970 *Operation t10 -S1 posterolateral fusion with laminectomies Anesthesia Type General GRIS CHEN MD-ANS (Anesthesiologist of Record) *Preoperative Diagnosis stenosis w/ myeloradiculopathy *Postoperative Diagnosis SEE MD POST OP NOTE *Surgeon(s) Primary Surgeon ALBAN WOODRUFF MD-SNU (Surgeon/Proceduralist, First) *Estimated Blood Loss <700ml *Findings expected *Specimen(s) none Complications none Date of Service Date/Time of Service SN - Proc - Start Time: 07/31/20 09:13:00 (07/31/20 09:48:52) documented in this encounter Plan of Treatment Not on file documented as of this encounter Visit Diagnoses Not on filedocumented in this encounter
--- OUTSIDE RECORDS SUMMARY | 2025-06-09 09:49 | XMS_ITS | Encounter Summary ---
Author Organization [email or web address] ([place], [place], [place], [place], [place]) Address [address] [place] [address] Care Team Providers Care Change Control Analyst Name Role Phone Unavailable Primary Care Provider Unavailabl e Encounter Details Date Type Department Care Team (Late st Contact Info) Description 08/01/2020 Transcribed Document [facility] [place] [facility] [place] [address] ProviderWarren MD [address] [place], [place] [phone] Social History Tobacco Use Types Packs/Day Years Used Date Smoking Tobacco: Never Assessed Sex and Gender Information Value Date Recorded Sex Assigned at Male 12/16/2021 8:48 PM CDT Legal Sex Male 8:48 PM CDT Gender Identity Male 12/16/2021 8:48 PM CDT Sexual Orientation Not on file documented as of this encounter Miscellaneous Notes * Cerner Conversion Note - Historical ProviderMD - 08/01/2020 12:06 PM EYEGLASS INSPECTOR UM Authorization Entered On: 08/01/2020 12:07 EST Performed On: 08/01/2020 12:06 EST by JUICE KRUEGER RN Primary Insurance Authorization Authorization and Policy Numbers : Insurance 1 Health [facility] Policy Number: [id number] Authorization Number: Insurance Primary Name : Matilda [id number] Authorization Status-Primary : Pending Reference Number-Primary : PENDING auth# [id number] Authorization Number-Primary : auth pending per STAR I did email pt access asking true status of auth. Authorized Service Begin Date-Primary : 07/31/2020 EST Authorization Comments-Primary : Pending IP auth noted per [employer]. Will notify MD office for status order Historical Authorization Comments-Primary : Comment 1: [place] per availity auth #[id number] still in review (JENNIFER ARREOLA, RN-Utilization Review 07/31/2020 13:02) Comment 2: Pt is asher for INPT Lumbar Fusion Posterior 3 Level on 07-31-20 [place]: auth pending per STAR I did email pt access asking true status of auth. PENDING AUTH# [id number] (ROGER RICE, Shale Planer Operator 07/30/2020 14:22) JUICE KRUEGER, RN - 08/01/2020 12:06 EST Electronically signed by [facility], [facility] Conversion Leather Cartridge Belt Maker Cerner at 10/04/2022 11:31 PM CDT documented in this encounter Plan of Treatment Not on file documented as of this encounter Visit Diagnoses Not on filedocumented in this encounter
--- OUTSIDE RECORDS SUMMARY | 2025-06-09 09:49 | XMS_ITS | Clinical Summary ---
Author Organization [email or web address] ([place], [place], [place], [place], [place]) Address [address] [place] [address] Care Team Providers Care Cleaner Furniture Name Role Phone Unavailable Primary Care Provider Unavailabl e Social History Tobacco Use Types Packs/Day Years Used Date Smoking Tobacco: Never Assessed Sex and Gender Information Value Date Recorded Sex Assigned at Male 12/16/2021 8:48 PM CDT Legal Sex Male 8:48 PM CDT Gender Identity Male 12/16/2021 8:48 PM CDT Sexual Orientation Not on file Plan of Treatment Not on file
--- OUTSIDE RECORDS SUMMARY | 2025-06-09 09:49 | XMS_ITS | Encounter Summary ---
Author Organization [employer] ([place], [place], [place], [place], [place]) Address [address] [place] [address] Care Team Providers Care Stock Unloader Name Role Phone Unavailable Primary Care Provider Unavailabl e Encounter Details Date Type Department Care Team (Late st Contact Info) Description 07/31/2020 Transcribed Document [facility] [place] [address] ProviderWarren MD [address] [place] [address] [phone] Social History Tobacco Use Types Packs/Day Years Used Date Smoking Tobacco: Never Assessed Sex and Gender Information Value Date Recorded Sex Assigned at Male 12/16/2021 8:48 PM CDT Legal Sex Male 8:48 PM CDT Gender Identity Male 12/16/2021 8:48 PM CDT Sexual Orientation Not on file documented as of this encounter Miscellaneous Notes * Cerner Conversion Note - Historical ProviderMD - 07/31/2020 8:00 AM PAINT SUPERVISOR [facility] Main OR Preop Summary Primary Physician: ALBAN WOODRUFF MD-TRUONG Finalized Date/Time: 07/31/20 08:57:38 Pt. Name: CAROLYNN ACKERMAN PA /Sex: 1970 Male Med Rec #: [id number] Physician: ALBAN WOODRUFF MD-TRUONG Financial #: [id number] Pt. Type: I Room/Bed: ASA/5 Admit/Disch: 07/31/20 06:58:00 - Institution: [facility] PreOp Case Times Entry 1 In Preop 07/31/20 05:55:00 Ready for Holding n/a Room Patient Ready for 07/31/20 07:43:00 Surgery Patient Out of Preop 07/31/20 08:30:00 Patient Out of n/a Holding Room Last Modified By: CJ STALLWORTH RN 07/31/20 08:52:54 Finalized By: CJ STALLWORTH, RN Document Signatures Signed By: CJ STALLWORTH RN 07/31/20 08:57 Electronically signed by Arash [facility] Conversion Double Spindle Shaper Operator Cerner at 10/04/2022 11:38 PM CDT documented in this encounter Plan of Treatment Not on file documented as of this encounter Visit Diagnoses Not on filedocumented in this encounter
--- OUTSIDE RECORDS SUMMARY | 2025-06-09 09:49 | XMS_ITS | Encounter Summary ---
Author Organization [employer] ([place], [place], [place], [place], [place]) Address [address] [place] [address] Care Team Providers Care County Supervisor Name Role Phone Unavailable Primary Care Provider Unavailabl e Encounter Details Date Type Department Care Team (Late st Contact Info) Description 08/03/2020 Transcribed Document [facility] [place] Medicine [facility] [place] [address] ProviderWarren MD [address] [place] [address] [phone] Social History Tobacco Use Types Packs/Day Years Used Date Smoking Tobacco: Never Assessed Sex and Gender Information Value Date Recorded Sex Assigned at Male 12/16/2021 8:48 PM CDT Legal Sex Male 8:48 PM CDT Gender Identity Male 12/16/2021 8:48 PM CDT Sexual Orientation Not on file documented as of this encounter Miscellaneous Notes * Cerner Conversion Note - Warren ProviderMD - 08/03/2020 6:00 PM PATENT LAW SPECIALIST Pain Assessment Entered On: 08/03/2020 18:21 EST Performed On: 08/03/2020 17:25 EST by Shilpa Martin RN Intervention Information: acetaminophen Performed by Shilpa Martin RN on 08/03/2020 16:25:00 EST acetaminophen,650mg Oral Pain Assessment Pain Assessment : Follow-up assessment Pain Scale Goal : 3 Pain Scale Used : 0-10 Scale Onset : Gradual Pain Radiation : No Pain Improved by Intervention : Yes Shilpa Martin RN - 08/03/2020 18:20 EST Pain Scale Intensity : 3 Shilpa Martin RN - 08/03/2020 18:20 EST Image 4 - Images currently included in the form version of this document have not been included in the text rendition version of the form. documented in this encounter Plan of Treatment Not on file documented as of this encounter Visit Diagnoses Not on filedocumented in this encounter
--- OUTSIDE RECORDS SUMMARY | 2025-06-09 09:49 | XMS_ITS | Encounter Summary ---
Author Organization [employer] ([place], [place], [place], [place], [place]) Address [address] [place] [address] Care Team Providers Care Layout Designer Name Role Phone Unavailable Primary Care Provider Unavailabl e Encounter Details Date Type Department Care Team (Late st Contact Info) Description 08/06/2020 Transcribed Document [facility] [place] [facility] [place] [address] ProviderWarren MD [address] [place] [phone] Social History Tobacco Use Types Packs/Day Years Used Date Smoking Tobacco: Never Assessed Sex and Gender Information Value Date Recorded Sex Assigned at Male 12/16/2021 8:48 PM CDT Legal Sex Male 8:48 PM CDT Gender Identity Male 12/16/2021 8:48 PM CDT Sexual Orientation Not on file documented as of this encounter Miscellaneous Notes * Cerner Conversion Note - Warren ProviderMD - 08/06/2020 1:25 PM CATCHER HELPER Patient Education Materials Follows: Spinal Fusion, Adult, Care After This sheet [...] these instructions at home: Medicines ??? Take cixn-gwp-iquuetk and prescription medicines only as told by [...] and water are not available, use hand furniture repair technician. ? Change your dressing as told by [...] urine clear or pale yellow. ? Take kicn-aek-gnyaezk or prescription medicines. ? Eat foods that [...] 12/25/2005 Document Revised: 02/25/2019 Document Reviewed: 05/26/2017 [employer] Patient Education ? 2020 [employer]. documented in this encounter Plan of Treatment Not on file documented as of this encounter Visit Diagnoses Not on filedocumented in this encounter
--- OUTSIDE RECORDS SUMMARY | 2025-06-09 09:49 | XMS_ITS | Encounter Summary ---
Author Organization [employer] ([place], [place], [place], [place], [place]) Address [address] [place] [address] Care Team Providers Care Neuroscience Specialist Name Role Phone Unavailable Primary Care Provider Unavailabl e Encounter Details Date Type Department Care Team (Late st Contact Info) Description 08/03/2020 Transcribed Document [facility] [place] [facility] [address] ProviderWarren MD [facility] [place] [address] Social History Tobacco Use Types Packs/Day Years Used Date Smoking Tobacco: Never Assessed Sex and Gender Information Value Date Recorded Sex Assigned at Male 12/16/2021 8:48 PM CDT Legal Sex Male 8:48 PM CDT Gender Identity Male 12/16/2021 8:48 PM CDT Sexual Orientation Not on file documented as of this encounter Miscellaneous Notes * Cerner Conversion Note - Historical ProviderMD - 08/03/2020 9:12 AM BIOINFORMATICS RESEARCH TECHNICIAN Education-Fall Prevention Entered On: 08/03/2020 9:12 EST Performed On: 08/03/2020 9:12 EST by Shilpa Martin RN Teaching/Learning Assessment Barriers To Learning : None evident Individuals Taught : Patient Readiness to Learn : Cooperative Readiness to Learn : Explanation Learning Style Preferences Patient : Verbal explanation Learning Style Preferences Family : Printed materials, Verbal explanation Shipla Martin RN - 08/03/2020 9:12 EST Education: Fall Prevention Fall Prevention Education Grid Alarms : Verbalizes understanding Bed Height/Stabilization : Verbalizes understanding Call light use : Verbalizes understanding Door Open : Verbalizes understanding Fall Prevention Protocol : Verbalizes understanding Prevention Responsibility Patient : Verbalizes understanding Staff Responsiveness : Verbalizes understanding Toileting Schedule : Verbalizes understanding Transfer/Mobility Techniques : Verbalizes understanding Urinal/Bedpan Availability : Verbalizes understanding Shilpa Martin RN - 08/03/2020 9:12 EST Electronically signed by [employer]mo [facility] Conversion Silvering Department Supervisor Cerner at 10/04/2022 11:32 PM CDT documented in this encounter Plan of Treatment Not on file documented as of this encounter Visit Diagnoses Not on filedocumented in this encounter
--- OUTSIDE RECORDS SUMMARY | 2025-06-09 09:49 | XMS_ITS | Encounter Summary ---
Author Organization [email or web address] ([place], [place], [place], [place], [place]) Address [address] [place] [address] Care Team Providers Care Poultry Vaccinator Name Role Phone Unavailable Primary Care Provider Unavailabl e Encounter Details Date Type Department Care Team (Late st Contact Info) Description 07/31/2020 Transcribed Document [facility] [place] [address] ProviderWarren MD [address] [place], [place] [id number] Social History Tobacco Use Types Packs/Day Years Used Date Smoking Tobacco: Never Assessed Sex and Gender Information Value Date Recorded Sex Assigned at Male 12/16/2021 8:48 PM CDT Legal Sex Male 8:48 PM CDT Gender Identity Male 12/16/2021 8:48 PM CDT Sexual Orientation Not on file documented as of this encounter Miscellaneous Notes * Cerner Conversion Note - Historical ProviderMD - 07/31/2020 5:00 PM ENTERTAINER OR VARIETY ARTIST Chart Check - Review Order Profile Entered On: 07/31/2020 20:08 EST Performed On: 07/31/2020 17:00 EST by HARLEY FAIR RN Chart Check Powerplans Initiated/Discontinued as Appropriate : Yes All Active Orders Reviewed : Yes HARLEY FAIR RN - 07/31/2020 20:08 EST documented in this encounter Plan of Treatment Not on file documented as of this encounter Visit Diagnoses Not on filedocumented in this encounter
--- OUTSIDE RECORDS SUMMARY | 2025-06-09 09:49 | XMS_ITS | Encounter Summary ---
Author Organization [employer] ([place], [place], [place], [place], [place]) Address [address] [place] [address] Care Team Providers Care Oracle Soa Consultant Name Role Phone Unavailable Primary Care Provider Unavailabl e Encounter Details Date Type Department Care Team (Late st Contact Info) Description 08/03/2020 Transcribed Document [facility] Family Medicine [facility] [place] [address] ProviderWarren MD [address] [place], [place] [phone] Social History Tobacco Use Types Packs/Day Years Used Date Smoking Tobacco: Never Assessed Sex and Gender Information Value Date Recorded Sex Assigned at Male 12/16/2021 8:48 PM CDT Legal Sex Male 8:48 PM CDT Gender Identity Male 12/16/2021 8:48 PM CDT Sexual Orientation Not on file documented as of this encounter Miscellaneous Notes * Cerner Conversion Note - Historical ProviderMD - 08/03/2020 5:00 PM CEMENT FINISHER Chart Check - Review Order Profile Entered On: 08/03/2020 18:20 EST Performed On: 08/03/2020 17:00 EST by Shilpa Martin RN Chart Check Powerplans Initiated/Discontinued as Appropriate : Yes All Active Orders Reviewed : Yes Shilpa Martin RN - 08/03/2020 18:20 EST documented in this encounter Plan of Treatment Not on file documented as of this encounter Visit Diagnoses Not on filedocumented in this encounter
--- OUTSIDE RECORDS SUMMARY | 2025-06-09 09:49 | XMS_ITS | Encounter Summary ---
Author Organization [employer] ([place], [place], [place], [place], [place]) Address [address] [place] [address] Care Team Providers Care Media Center Assistant Name Role Phone Unavailable Primary Care Provider Unavailabl e Encounter Details Date Type Department Care Team (Late st Contact Info) Description 08/01/2020 Transcribed Document [facility] [place] [facility] [place] [address] ProviderWarren MD [address] [place] [phone] Social History Tobacco Use Types Packs/Day Years Used Date Smoking Tobacco: Never Assessed Sex and Gender Information Value Date Recorded Sex Assigned at Male 12/16/2021 8:48 PM CDT Legal Sex Male 8:48 PM CDT Gender Identity Male 12/16/2021 8:48 PM CDT Sexual Orientation Not on file documented as of this encounter Miscellaneous Notes * Cerner Conversion Note - Historical ProviderMD - 08/01/2020 2:00 PM MERCHANT MARINER Pain Assessment Entered On: 08/01/2020 14:52 EST Performed On: 08/01/2020 15:31 EST by HARLEY FAIR RN Intervention Information: acetaminophen Performed by HARLEY FAIR RN on 08/01/2020 14:31:00 EST acetaminophen,650mg Oral Pain Assessment Pain Assessment : Follow-up assessment Pain Scale Goal : 3 Pain Scale Used : 0-10 Scale Location : Abdominal, Back Pain Improved by Intervention : Yes HARLEY FAIR RN - 08/01/2020 14:52 EST Pain Scale Intensity : 5 HARLEY FAIR RN - 08/01/2020 14:52 EST Image 4 - Images currently included in the form version of this document have not been included in the text rendition version of the form. documented in this encounter Plan of Treatment Not on file documented as of this encounter Visit Diagnoses Not on filedocumented in this encounter
--- OUTSIDE RECORDS SUMMARY | 2025-06-09 09:49 | XMS_ITS | Encounter Summary ---
Author Organization [employer] ([place], [place], [place], [place], [place]) Address [address] [place] [address] Care Team Providers Care Offset Press Operator Name Role Phone Unavailable Primary Care Provider Unavailabl e Encounter Details Date Type Department Care Team (Late st Contact Info) Description 08/05/2020 Transcribed Document [facility] [place] [address] ProviderWarren MD [address] [place] [phone] Social History Tobacco Use Types Packs/Day Years Used Date Smoking Tobacco: Never Assessed Sex and Gender Information Value Date Recorded Sex Assigned at Male 12/16/2021 8:48 PM CDT Legal Sex Male 8:48 PM CDT Gender Identity Male 12/16/2021 8:48 PM CDT Sexual Orientation Not on file documented as of this encounter Miscellaneous Notes * Cerner Conversion Note - Historical ProviderMD - 08/05/2020 10:00 AM SWIMMING POOL MAINTENANCE SUPERVISOR Pain Assessment Entered On: 08/05/2020 10:23 EST Performed On: 08/05/2020 10:00 EST by Laura Slade Rn Intervention Information: acetaminophen Performed by Laura Slade Rn on 08/05/2020 09:00:00 EST acetaminophen,650mg Oral Pain Assessment Pain Assessment : Follow-up assessment Pain Scale Goal : 3 Pain Scale Used : 0-10 Scale Laura Slade Rn - 08/05/2020 10:23 EST Pain Scale Intensity : 2 Laura Slaed Rn - 08/05/2020 10:23 EST Image 4 - Images currently included in the form version of this document have not been included in the text rendition version of the form. documented in this encounter Plan of Treatment Not on file documented as of this encounter Visit Diagnoses Not on filedocumented in this encounter
--- OUTSIDE RECORDS SUMMARY | 2025-06-09 09:49 | XMS_ITS | Encounter Summary ---
Author Organization [employer] ([place], [place], [place], [place], [place]) Address [address] [place] [address] Care Team Providers Care Central Office Trouble Shooter Name Role Phone Unavailable Primary Care Provider Unavailabl e Encounter Details Date Type Department Care Team (Late st Contact Info) Description 08/01/2020 Transcribed Document [facility] [place] [facility] [place] [address] ProviderWarren MD [address] [place] [phone] Social History Tobacco Use Types Packs/Day Years Used Date Smoking Tobacco: Never Assessed Sex and Gender Information Value Date Recorded Sex Assigned at Male 12/16/2021 8:48 PM CDT Legal Sex Male 8:48 PM CDT Gender Identity Male 12/16/2021 8:48 PM CDT Sexual Orientation Not on file documented as of this encounter Miscellaneous Notes * Cerner Conversion Note - Historical ProviderMD - 08/01/2020 6:00 PM PLANIMETER OPERATOR Pain Assessment Entered On: 08/01/2020 19:29 EST Performed On: 08/01/2020 18:55 EST by HARLEY FAIR RN Intervention Information: acetaminophen Performed by HARLEY FAIR RN on 08/01/2020 17:55:00 EST acetaminophen,650mg Oral Pain Assessment Pain Assessment : Follow-up assessment Pain Scale Goal : 3 Pain Scale Used : 0-10 Scale Location : Back Pain Improved by Intervention : Yes HARLEY FAIR RN - 08/01/2020 19:28 EST Pain Scale Intensity : 4 HARLEY FAIR RN - 08/01/2020 19:28 EST Image 4 - Images currently included in the form version of this document have not been included in the text rendition version of the form. documented in this encounter Plan of Treatment Not on file documented as of this encounter Visit Diagnoses Not on filedocumented in this encounter
--- OUTSIDE RECORDS SUMMARY | 2025-06-09 09:49 | XMS_ITS | Encounter Summary ---
Author Organization [employer] ([place], [place], [place], [place], [place]) Address [address] [place] [address] Care Team Providers Care Traffic Chief Name Role Phone Unavailable Primary Care Provider Unavailabl e Encounter Details Date Type Department Care Team (Late st Contact Info) Description 08/06/2020 Transcribed Document [facility] Radiology [address] [place] [address] Jorge Lara MD [address] [place] [id number] Social History Tobacco Use Types Packs/Day Years Used Date Smoking Tobacco: Never Assessed Sex and Gender Information Value Date Recorded Sex Assigned at Male 12/16/2021 8:48 PM CDT Legal Sex Male 8:48 PM CDT Gender Identity Male 12/16/2021 8:48 PM CDT Sexual Orientation Not on file documented as of this encounter Miscellaneous Notes * Cerner Conversion Note - Jorge Lara MD - 08/06/2020 10:54 AM EST Patient: CAROLYNN ACKERMAN Age: 50 years Sex: Male : 1970 Associated Diagnoses: None Author: NADJA CORDOVA APRN-FAM 08/06/2020 cc: medical management s/p thoracic laminectomy with fusion per Dr. Sal S: patient is found lying quietly in bed. A/O. Back pain is adequately controlled. He has been up with therapy today. Denies cough, dyspnea, fever/chills, n/v. He continues to have diarrhea. Fontanez remains intact. He plans to discharge to [facility] today. He would like to leave huseyin in for transfer and work on discontinuation at . HPI: Patient is a 50 yo male admitted to [facility] per Dr. Sal for a thoracic laminectomy [...] (1) Active Reaction erythromycin Nausea Home Medications (15) Active cholestyramine 4 g/5 g oral powder [...] solution 200 mg = 1 mL, IntraMuscular, [id number] Tylenol 8 Hour 650 mg oral tablet, [...] while laying flat] Gastrointestinal: [No nausea, vomiting, +chronic diarrhea Genitourinary: [No hematuria, +current fontanez Musculoskeletal: back pain with decreased ROM Integumentary: [No rash, pruritus Neurologic: [No weakness, numbness Psychiatric: [No anxiety, depression Exam: Vitals Signs (last 24 hrs) Last Charted Minimum Maximum Temp 99.4 (AUG 06 06:23) 98.7 (AUG 05:24) 99 (AUG 06:28) Mon HR 106 (AUG 06 06:23) 98 (AUG 05 10:43) 107 (AUG 05:24) Resp Rate 18 (AUG 06 06:23) 18 (AUG 05 21:24) 20 (AUG 05:24) SBP 139 (AUG 06 06:23) 136 (AUG 05 10:43) H 145 (AUG 05 14:33) DBP 88 (AUG 06 06:23) 78 (AUG 05 17:24) 90 (AUG 05 14:33) MAP 106 (AUG 06 06:23) 97 (AUG 06 01:28) 106 (AUG 06 06:23) SpO2 L 90 (AUG 06:23) L 90 (AUG 06:23) 97 (AUG 05:24) General: [Alert and oriented, no acute distress]. [...] 24 Hours) Sodium Level 134 mmol/L LOW 08/06/2020 04:53 Potassium Level 2.9 mmol/L LOW 08/06/2020 04:53 Chloride Level 98 mmol/L LOW 08/06/2020 04:53 Carbon Dioxide Level 32 mmol/L 08/06/2020 04:53 Anion Gap 7 LOW 08/06/2020 04:53 Blood Urea Nitrogen 14 mg/dL 08/06/2020 04:53 Glucose Level 139 mg/dL HI 08/06/2020 04:53 Calcium Level 8.4 mg/dL 08/06/2020 04:53 Creatinine Level 0.90 mg/dL 08/06/2020 04:53 Cardiac Markers (Current Encounter/Past 24 Hours) No Cardiac Marker Results Found (Past 24 Hours) CBC Results (Current Encounter/Past 24 Hours) WBC 7.9 K/uL 08/06/2020 04:40 Hct 34.5 % LOW 08/06/2020 04:40 Hgb 11.3 g/dL LOW 08/06/2020 04:40 Platelet Count 159 K/uL LOW 08/06/2020 04:40 CMP Results (Current Encounter/Past 24 Hours) Creatinine Level 0.90 mg/dL 08/06/2020 04:53 Bun/Creatinine 15.6 08/06/2020 04:53 eGFR >60 mL/min/1.73m2 08/06/2020 04:53 eGFR NonAfrican >60 mL/min/1.73m2 08/06/2020 04:53 Sodium Level 134 mmol/L LOW 08/06/2020 04:53 Potassium Level 2.9 mmol/L LOW 08/06/2020 04:53 Chloride Level 98 mmol/L LOW 08/06/2020 04:53 Carbon Dioxide Level 32 mmol/L 08/06/2020 04:53 Anion Gap 7 LOW 08/06/2020 04:53 Blood Urea Nitrogen 14 mg/dL 08/06/2020 04:53 Glucose Level 139 mg/dL HI 08/06/2020 04:53 Calcium Level 8.4 mg/dL 08/06/2020 04:53 Magnesium Level 2.2 mg/dL 08/05/2020 11:07 Coagulation Results (Current Encounter/Past 24 Hours) No Coagulation Results Found (Past 24 Hours) Creatinine Clearance (Current Encounter/Past 24 Hours) Creatinine Level 0.90 mg/dL 08/06/2020 04:53 Bun/Creatinine 15.6 08/06/2020 04:53 Estimated Creatinine Clearance 94.45 mL/Min 08/06/2020 04:53 No Radiology Results FoundLabs (Last four charted values) WBC 7.9 (B 16) 9.4 (FEB 15) H 12.8 (FEB 14) H 15.4 (FEB 13) HB L 11.3 (FEB 16) L 11.5 (FEB 15) L 11.9 (FEB 14) L 11.8 (FEB 13) HCT L 34.5 (B 16) L 35.5 (FEB 15) L 37.0 (FEB 14) L 36.6 (FEB 13) Plt L 159 (FEB 16) 165 (FEB 15) 168 (FEB 14) L 151 (FEB 13) Na L 134 (FEB 16) L 135 (FEB 15) L 135 (FEB 14) L 134 (FEB 13) K L 2.9 (FEB 16) L 3.1 (FEB 15) L 2.9 (FEB 15) L 3.1 (FEB 14) Cl L 98 (FEB 16) L 98 (FEB 15) L 98 (FEB 14) L 97 (FEB 13) CO2 32 (FEB 16) 29 (FEB 15) 30 (FEB 14) 32 (B 13) BUN 14 (B 16) 15 (B 15) 14 (B 14) 9 (B 13) Cr 0.90 (B 16) 0.80 (B 15) 0.80 (B 14) 0.90 (B 13) Glu R H 139 (B 16) H 156 (B 15) H 163 (JUL 14) H 156 (JUL 13) Ca 8.4 (JUL 16) 8.4 (JUL 15) L 8.1 (JUL 14) 8.4 (AUG 03) Impression: advanced spondylolisthesis thoracic spine -s/p thoracic laminectomy with fusion per Dr. Sal hypokalemia -- Diarrhea --- currently on levaquin per NS and may be exacerbation diarrhea. Not on any stool softners. urinary retention UTI- on levaquin, afebrile IBS with diarrhea predominant at risk for sleep apnea obesity Hx HTN Hx silent GERD Plan: Medically stable for discharge to [facility] today Patient will discharge with fontanez in place- will need bladder training or urology follow up at imodium prn for diarrhea continue incentive spirometer Pain management deferred to surgeon resume outpatient medication regimen for comorbidities assessment and treatment plan made in conjunction with Silvia Lara MD Scribed by Farheen Carreno documented in this encounter Plan of Treatment Not on file documented as of this encounter Visit Diagnoses Not on filedocumented in this encounter
--- OUTSIDE RECORDS SUMMARY | 2025-06-09 09:49 | XMS_ITS | Encounter Summary ---
Author Organization [employer] ([place], [place], [place], [place], [place]) Address [address] [place] [address] Care Team Providers Care Plan Checker Name Role Phone Unavailable Primary Care Provider Unavailabl e Encounter Details Date Type Department Care Team (Late st Contact Info) Description 08/01/[address] [facility] [place] [facility] [place] [address] ProviderWarren MD [address] [place] [phone] Social History Tobacco Use Types Packs/Day Years Used Date Smoking Tobacco: Never Assessed Sex and Gender Information Value Date Recorded Sex Assigned at Male 12/16/2021 8:48 PM CDT Legal Sex Male 8:48 PM CDT Gender Identity Male 12/16/2021 8:48 PM CDT Sexual Orientation Not on file documented as of this encounter Miscellaneous Notes * Cerner Conversion Note - Historical ProviderMD - 08/01/2020 12:40 PM NEURO PSYCH SALES SPECIALIST Treatment Intervention, PT Entered On: 08/02/2020 16:04 EST Performed On: 08/02/2020 13:56 EST by CHELSEA POLANCO PTA General Information, PT Visit Type, PT : Treatment Note Patient Orders : Order Date Order Ordering 07/31/2020 15:12 Physical Therapy Eval and Treat Ordered By: ALBAN WOODRUFF MD-[facility] 08/01/2020 12:40 Physical Therapy Additional Tx Ordered By: NAHED WELLINGTON, EMELY Active Diagnoses : No Qualifying Diagnoses Therapy Diagnosis, PT : functional decline after extensive back sx Admission Date : 08/01/2020 10:35 Co-treated by, PT : Occupational Therapist Assisted by, PT : mental health tech/aide Personal Devices : Personal Devices No Devices Recorded Assistive Devices : Assistive Devices No Devices Recorded COLLINMYAELDON [facility] 08/02/2020 15:57 EST General Status Patient Received Status : Supine in bed Treatment Start Time : 08/02/2020 13:33 EST Patient Left Status : Supine in bed, RN/PCT informed, All needs met and within reach RN/PCT Informed Comment : nsg Daksha Treatment End Time : 08/02/2020 13:56 EST Treatment Time : 23 Minute(s) CHELSEA POLANCO [facility] 08/02/2020 15:57 EST Therapeutic Activities Sitting Activities Grid Activity #1 Activities : Static Position : Sit unsupported Time : 5 minutes Assistance : Assist, maximal Patient Response/Comment : pt sat EOB with assistance required to correct posterior lean CHELSEA POLANCO [facility] 08/02/2020 15:57 EST Standing Activities Grid Activity #1 Activities : Static Position : Standing supported (Comment: HHAx 2 [CHELSEA POLANCO [facility] 08/02/2020 15:57 EST] ) Time : 2 minutes Assistance : Assist, maximal (Comment: x 2 [CHELSEA POLANCO [facility] 08/02/2020 15:57 EST] ) Patient Response/Comment : pt stood at bedside with assistance required to block R knee due to buckling CHELSEA POLANCO [facility] 08/02/2020 15:57 EST Functional Mobility Mobility Grid Supine to Sit : Rehab Maximal assistance (Comment: x 2 [CHELSEA POLANCO [facility] 08/02/2020 15:57 EST] ) Sit to Stand : Rehab Maximal assistance (Comment: x 2 [CHELSEA POLANCO [facility] 08/02/2020 15:57 EST] ) Stand to Sit : Rehab Maximal assistance (Comment: x 2 [CHELSEA POLANCO [facility] 08/02/2020 15:57 EST] ) Sit to Supine : Rehab Maximal assistance (Comment: x 2 [CHELSEA POLANCO [facility] 08/02/2020 15:57 EST] ) CHELSEA POLANCO [facility] 08/02/2020 15:57 EST Gait Training/Assessment, PT Weight Bearing Status : Full Gait Assistance Level : Assist, maximal (Comment: x 2 [CHELSEA POLANCO [facility] 08/02/2020 15:57 EST] ) Walking Distance : 2 sidesteps to HOB Ambulatory Devices : Gait belt, Other: ADHESIVE BANDAGE MAKING OPERATOR x 2 Gait Training Comment : pt R knee buckled requiring assistance to correct CHELSEA POLANCO, [facility] - 08/02/2020 15:57 EST Cognitive Treatment, PT Orientation : Oriented x 4 CHELSEA POLANCO, [facility] 08/02/2020 15:57 EST Edu Topics Physical Therapy Education Grid Bed Mobility Training : Needs further teaching Gait Training : Needs further teaching Role of Physical Therapy : Verbalizes understanding Safety : Needs further teaching Transfer Training : Needs further teaching CHELSEA POLANCO, [facility] 08/02/2020 15:57 EST Indication Assesessment, PT Physical Therapy Indicated : Yes CHELSEA POLANCO [facility] 08/02/2020 15:57 EST Plan of Care, PT PT Tx Plan/Goals Established w Patient : Yes CHELSEA POLANCO [facility] 08/02/2020 15:57 EST Short Term Goals Mobility/Bed Mobility STG PT Grid Goal #1 Activity : Supine to sit Assist : Assist, maximal Equipment : Bed, hospital Date to Meet : 08/08/2020 EST Goal Status : Progressing, continue Comment : x2 CHELSEA POLANCO [facility] - 08/02/2020 15:57 EST Mold Making Supervisor Goals Mobility/Bed Mobility LTG PT Grid Goal #1 Goal #2 Activity : Supine to sit Sit to stand Assist : Assist, minimal Assist, minimal Equipment : Bed, hospital Walker, front wheel Date to Meet : 08/15/2020 EST 08/15/2020 EST Goal Status : Progressing, continue Progressing, continue CHELSEA POLANCO [facility] 08/02/2020 15:57 EST CHELSEA POLANCO, [facility] 08/02/2020 15:57 EST Transfer LTG Grid Goal #1 Destination : Chair, with arms Assist : Assist, minimal Equipment : Walker, front wheel Date to Meet : 08/15/2020 EST Goal Status : Intial Goal CHELSEA POLANCO [facility] 08/02/2020 15:57 EST Ambulation LTG Grid Goal #1 Device : Walker, front wheel Distance : 150 ft Assist : Assist, minimal Date to Meet : 08/15/2020 EST Goal Status : Intial Goal CHELSEA POLANCO [facility] 08/02/2020 15:57 EST Treatment Note Subjective Comment : pt agreeable to PTx, nsg cleared pt for PTx Assessment : pt able to sit EOB and stand with assistance for safety, pt working on pre-gait activities at this time Plan for Treatment : continue POC POLANCOCHELSEA CABRALMIRTHA - 08/02/2020 15:57 EST Pain Assessment Pain Score Pre-Intervention : 8 Location : Back Pain Improved by : Medication, Relaxation, Repositioning Pain Comment : nsg gave pt pain meds during session CHELSEA POLANCO PTA - 08/02/2020 15:57 EST Image 1 - Images currently included in the form version of this document have not been included in the text rendition version of the form. Anticipated Discharge Needs, OT/PT Anticipated Discharge to : Unit, rehabilitation Recommend Continued Therapy at Discharge : Yes CHELSEA POLANCO PTA - 08/02/2020 15:57 EST [place] PT Charges BRIDGE IRONWORKER HELPER PT Ther Activities Ea 15 Min-BRIDGE IRONWORKER HELPER : 2 CHELSEA POLANCO PTA - 08/02/2020 15:57 EST Electronically signed by [facility], [facility] Conversion Cia Agent Cerner at 10/11/2022 12:54 PM CDT documented in this encounter Plan of Treatment Not on file documented as of this encounter Visit Diagnoses Not on filedocumented in this encounter
--- OUTSIDE RECORDS SUMMARY | 2025-06-09 09:49 | XMS_ITS | Encounter Summary ---
Author Organization [employer] ([place], [place], [place], [place], [place]) Address [address] [place] [address] Care Team Providers Care Tire Mold Engraver Name Role Phone Unavailable Primary Care Provider Unavailabl e Encounter Details Date Type Department Care Team (Late st Contact Info) Description 08/07/2020 Transcribed Document [facility] [place] Family Medicine [facility] [place] [address] ProviderWarren MD [address] [place], [place] [id number] Social History Tobacco Use Types Packs/Day Years Used Date Smoking Tobacco: Never Assessed Sex and Gender Information Value Date Recorded Sex Assigned at Male 12/16/2021 8:48 PM CDT Legal Sex Male 8:48 PM CDT Gender Identity Male 12/16/2021 8:48 PM CDT Sexual Orientation Not on file documented as of this encounter Miscellaneous Notes * Cerner Conversion Note - Warren ProviderMD - 08/07/2020 2:04 PM STRAW HAT PLUNGER OPERATOR UM Authorization Entered On: 08/07/2020 14:04 EST Performed On: 08/07/2020 14:04 EST by Lois Dunlap, Web Producer Primary Insurance Authorization Authorization and Policy Numbers : Insurance 1 Health Plan: [facility] Policy Number: [id number] Authorization Number: Insurance Primary Name : Matilda [id number] Authorization Status-Primary : Admit approved Authorization Fax Number-Primary : [phone] Auth/Referral Contact Name-Primary : DC - MISA Reference Number-Primary : [id number] Authorization Number-Primary : [id number] Number of Days Authorized-Primary : 4 Day(s) Authorized Service Begin Date-Primary : 07/31/2020 EST Authorized Service End Date-Primary : 08/04/2020 EST Historical Authorization Comments-Primary : Comment 1: Discharge date and summary faxed. (Lois Dunlap, Web Producer 08/06/2020 14:37) Comment 2: Inpt admission approved x4 days per fax from [facility]ilda KYLE on 08/05 @ 0830pm (OFE CINTRON, Rayot Stylist Assistant-Utilization Mgt 08/06/2020 08:12) Comment 3: C/S CLINICAL FAXED FOR 06/02 AND 06/03 PER CERNER (Nanda Shea, Rn-Utilization Review 08/05/2020 09:58) Comment 4: Per Rhiannon Sanchez IP los approved for CPT codes 78740,19202,89780,37947,[id number] and 09522 on 07/31/2020. Clinicals faxed via [employer] for c/s approval (JUICE KRUEGER RN 08/02/2020 14:02) Comment 5: Pending IP auth noted per Availity. Will notify MD office for status order (JUICE KRUEGER RN 08/01/2020 12:06) Comment 6: [place] per availity auth #[id number] still in review (JENNIFER ARREOLA, RN-Utilization Review 07/31/2020 13:02) Comment 7: Pt is asher for INPT Lumbar Fusion Posterior 3 Level on 07-31-20 [place]: auth pending per STAR I did email pt access asking true status of auth. PENDING AUTH# [id number] (ROGER RICE, Supervisor Toy Parts Former 07/30/2020 14:22) Lois Dunlap, Web Producer - 08/07/2020 14:04 EST documented in this encounter Plan of Treatment Not on file documented as of this encounter Visit Diagnoses Not on filedocumented in this encounter
--- OUTSIDE RECORDS SUMMARY | 2025-06-09 09:49 | XMS_ITS | Encounter Summary ---
Author Organization [employer] ([place], [place], [place], [place], [place]) Address [address] [place] [address] Care Team Providers Care Gas Compressor Turbine Operator Name Role Phone Unavailable Primary Care Provider Unavailabl e Encounter Details Date Type Department Care Team (Late st Contact Info) Description 08/05/2020 Transcribed Document [facility] [place] Family Medicine [facility] [place] [address] ProviderWarren MD [address] [place] [id number] Social History Tobacco Use Types Packs/Day Years Used Date Smoking Tobacco: Never Assessed Sex and Gender Information Value Date Recorded Sex Assigned at Male 12/16/2021 8:48 PM CDT Legal Sex Male 8:48 PM CDT Gender Identity Male 12/16/2021 8:48 PM CDT Sexual Orientation Not on file documented as of this encounter Miscellaneous Notes * Cerner Conversion Note - Historical ProviderMD - 08/05/2020 2:23 PM TILE SHADER Spiritual Care Assessment Entered On: 08/05/2020 14:42 EST Performed On: 08/05/2020 14:23 EST by Tushar Hickman Chaplain-Non Cert General Information Referred by : initiated Ministry Provided to : Patient Tushar Hickman Chaplain-Non Cert - 08/05/2020 14:41 EST Spiritual Assessment Spiritual Assessment Comment/Summary Points : Follow-up visit with patient as they sat up in a chair and watched tv. Continued spiritual care and support provided. Spirital Assessment Comment/Summary Report : SPIRITUAL ASSESSMENT COMMENT/SUMMARY Spiritual Assessment Comment/Summary 08/02/20 16:17:00 Spiritual care and support provided to patient at bedside. Signed By: Tushar Hickman Chaplain-Non Cert Tushar Hickman, Priscilla Cert - 08/05/2020 14:41 EST Interventions Emotional Support : Empathic/Engaged listening Spiritual and Congregation : Spiritual/Congregation support provided Tushar Hickman Chaplain-Non Cert - 08/05/2020 14:41 EST Electronically signed by [facility] Conversion Cake Knocker Cerner at 10/04/2022 11:40 PM CDT documented in this encounter Plan of Treatment Not on file documented as of this encounter Visit Diagnoses Not on filedocumented in this encounter
--- OUTSIDE RECORDS SUMMARY | 2025-06-09 09:49 | XMS_ITS | Encounter Summary ---
Author Organization [employer] ([place], [place], [place], [place], [place]) Address [address] [place] [address] Care Team Providers Care Medical Record Administrator Name Role Phone Unavailable Primary Care Provider Unavailabl e Encounter Details Date Type Department Care Team (Late st Contact Info) Description 08/05/2020 Transcribed Document [facility] [place] Family Medicine [facility] [place] [address] ProviderWarren MD [address] [place] [address] [id number] Social History Tobacco Use Types Packs/Day Years Used Date Smoking Tobacco: Never Assessed Sex and Gender Information Value Date Recorded Sex Assigned at Male 12/16/2021 8:48 PM CDT Legal Sex Male 8:48 PM CDT Gender Identity Male 12/16/2021 8:48 PM CDT Sexual Orientation Not on file documented as of this encounter Miscellaneous Notes * Cerner Conversion Note - Historical ProviderMD - 08/05/2020 2:00 PM SENIOR JAVA PROGRAMMER ANALYST Pain Assessment Entered On: 08/05/2020 15:52 EST Performed On: 08/05/2020 15:16 EST by Luara Slade Rn Intervention Information: acetaminophen Performed by Laura Slade Rn on 08/05/2020 14:16:00 EST acetaminophen,650mg Oral Pain Assessment Pain Assessment : Follow-up assessment Pain Scale Goal : 3 Pain Scale Used : 0-10 Scale Laura Slade Rn - 08/05/2020 15:51 EST Pain Scale Intensity : 4 Laura Slade Rn - 08/05/2020 15:51 EST Image 4 - Images currently included in the form version of this document have not been included in the text rendition version of the form. documented in this encounter Plan of Treatment Not on file documented as of this encounter Visit Diagnoses Not on filedocumented in this encounter
--- OUTSIDE RECORDS SUMMARY | 2025-06-09 09:49 | XMS_ITS | Encounter Summary ---
Author Organization [employer] ([place], [place], [place], [place], [place]) Address [address] [place] [address] Care Team Providers Care Community Health Nurse Supervisor Name Role Phone Unavailable Primary Care Provider Unavailabl e Encounter Details Date Type Department Care Team (Late st Contact Info) Description 08/01/2020 Transcribed Document [facility] [place] Family [place] [facility] [place] [address] ProviderWarren MD [address] [place] [id number] Social History Tobacco Use Types Packs/Day Years Used Date Smoking Tobacco: Never Assessed Sex and Gender Information Value Date Recorded Sex Assigned at Male 12/16/2021 8:48 PM CDT Legal Sex Male 8:48 PM CDT Gender Identity Male 12/16/2021 8:48 PM CDT Sexual Orientation Not on file documented as of this encounter Miscellaneous Notes * Cerner Conversion Note - Historical ProviderMD - 08/01/2020 10:00 AM IT RISK ADVISOR Pain Assessment Entered On: 08/01/2020 14:51 EST Performed On: 08/01/2020 10:43 EST by HARLEY FAIR RN Intervention Information: acetaminophen Performed by HARLEY FAIR RN on 08/01/2020 09:43:00 EST acetaminophen,650mg Oral Pain Assessment Pain Assessment : Follow-up assessment Pain Scale Goal : 3 Pain Scale Used : 0-10 Scale Location : Abdominal, Back Pain Improved by Intervention : Yes HARLEY FAIR RN - 08/01/2020 14:51 EST Pain Scale Intensity : 4 HARLEY FAIR RN - 08/01/2020 14:51 EST Image 4 - Images currently included in the form version of this document have not been included in the text rendition version of the form. documented in this encounter Plan of Treatment Not on file documented as of this encounter Visit Diagnoses Not on filedocumented in this encounter
--- OUTSIDE RECORDS SUMMARY | 2025-06-09 09:49 | XMS_ITS | Encounter Summary ---
Author Organization [employer] ([place], [place], [place], [place], [place]) Address [address] [place] [address] Care Team Providers Care Agency Owner Name Role Phone Unavailable Primary Care Provider Unavailabl e Encounter Details Date Type Department Care Team (Late st Contact Info) Description 07/31/2020 Transcribed Document [facility] [place] [facility] [place] [address] ProviderWarren MD [address] [place], [place] [phone] Social History Tobacco Use Types Packs/Day Years Used Date Smoking Tobacco: Never Assessed Sex and Gender Information Value Date Recorded Sex Assigned at Male 12/16/2021 8:48 PM CDT Legal Sex Male 8:48 PM CDT Gender Identity Male 12/16/2021 8:48 PM CDT Sexual Orientation Not on file documented as of this encounter Miscellaneous Notes * Cerner Conversion Note - Historical ProviderMD - 07/31/2020 5:03 PM WASHER OFF Meds to Bed Enrollment Entered On: 07/31/2020 17:06 EST Performed On: 07/31/2020 17:03 EST by EMERY KATE PharmD Meds to Bed Enrollment Patient Enrollment Decision: : Yes/enroll in meds to bed program EMERY KATE PharmD - 07/31/2020 17:06 EST documented in this encounter Plan of Treatment Not on file documented as of this encounter Visit Diagnoses Not on filedocumented in this encounter
--- OUTSIDE RECORDS SUMMARY | 2025-06-09 09:49 | XMS_ITS | Encounter Summary ---
Author Organization [employer] ([place], [place], [place], [place], [place]) Address [address] [place] [address] Care Team Providers Care Carbon Sequestration Plant Operator Name Role Phone Unavailable Primary Care Provider Unavailabl e Encounter Details Date Type Department Care Team (Late st Contact Info) Description 08/07/2020 Transcribed Document [facility] [place] Family Medicine [facility] [place] [address] ProviderWarren MD [facility] [place], [place] [id number] Social History Tobacco Use Types Packs/Day Years Used Date Smoking Tobacco: Never Assessed Sex and Gender Information Value Date Recorded Sex Assigned at Male 12/16/2021 8:48 PM CDT Legal Sex Male 8:48 PM CDT Gender Identity Male 12/16/2021 8:48 PM CDT Sexual Orientation Not on file documented as of this encounter Miscellaneous Notes * Cerner Conversion Note - Historical ProviderMD - 08/07/2020 2:48 PM DESIGN ENG UM Authorization Entered On: 08/07/2020 14:49 EST Performed On: 08/07/2020 14:48 EST by ROGER RICE, Engineering Technologist Primary Insurance Authorization Authorization and Policy Numbers : Insurance 1 Health Plan: [facility] Policy Number: [id number] Authorization Number: Insurance Primary Name : Matilda [id number] Authorization Status-Primary : Admit approved Authorization Fax Number-Primary : [phone] Auth/Referral Contact Name-Primary : [place] - MISA Reference Number-Primary : [id number] Authorization Number-Primary : [id number] Number of Days Authorized-Primary : 5 Day(s) Authorized Service Begin Date-Primary : 07/31/2020 EST Authorized Service End Date-Primary : 08/05/2020 EST Authorization Comments-Primary : Rec fax from [place] 08/07/20 5 days approved DOS 08/01-08/05/20 [place] 08/06/20 auth# [id number] Historical Authorization Comments-Primary : Comment 1: Discharge date and summary faxed. (Lois Dunlap, Tree Climber 08/06/2020 14:37) Comment 2: Inpt admission approved x4 days per fax from Matilda TOA on 08/05 @ 0830pm (OFE CINTRON, Mkt Automotive Consultant-Utilization Mgt 08/06/2020 08:12) Comment 3: C/S CLINICAL FAXED FOR 06/02 AND 06/03 PER RAMON (Nanda Shea, Rn-Utilization Review 08/05/2020 09:58) Comment 4: Per Rhiannon Sanchez IP los approved for CPT codes 66780,51962,59521,21677,[id number] and 93949 on 07/31/2020. Clinicals faxed via [employer] for c/s approval (JUICE KRUEGER RN 08/02/2020 14:02) Comment 5: Pending IP auth noted per Availity. Will notify MD office for status order (JUICE KRUEGER RN 08/01/2020 12:06) Comment 6: [place] per availity auth #[id number] still in review (JENNIFER ARREOLA, RN-Utilization Review 07/31/2020 13:02) Comment 7: Pt is asher for INPT Lumbar Fusion Posterior 3 Level on 07-31-20 [place]: auth pending per STAR I did email pt access asking true status of auth. PENDING AUTH# [id number] (ROGER RICE, Engineering Technologist 07/30/2020 14:22) ROGER RICE, Engineering Technologist - 08/07/2020 14:48 EST documented in this encounter Plan of Treatment Not on file documented as of this encounter Visit Diagnoses Not on filedocumented in this encounter
--- OUTSIDE RECORDS SUMMARY | 2025-06-09 09:49 | XMS_ITS | Encounter Summary ---
Author Organization [employer] ([place], [place], [place], [place], [place]) Address [address] [place] [address] Care Team Providers Care Principal Java Developer Name Role Phone Unavailable Primary Care Provider Unavailabl e Encounter Details Date Type Department Care Team (Late st Contact Info) Description 08/03/2020 Transcribed Document [facility] [place] Family Medicine [facility] [place] [address] ProviderWarren MD [facility] [place], [place] [address] Social History Tobacco Use Types Packs/Day Years Used Date Smoking Tobacco: Never Assessed Sex and Gender Information Value Date Recorded Sex Assigned at Male 12/16/2021 8:48 PM CDT Legal Sex Male 8:48 PM CDT Gender Identity Male 12/16/2021 8:48 PM CDT Sexual Orientation Not on file documented as of this encounter Miscellaneous Notes * Cerner Conversion Note - Historical ProviderMD - 08/03/2020 2:00 AM CANDY ROLLING MACHINE OPERATOR Instructional Systems Design Consultant Details Entered On: 08/03/2020 2:28 EST Performed On: 08/03/2020 2:00 EST by PATRICIA HEARD RN Order Details Order Detail : N/A Patient Needs Meds Crushed/Liquid : No PATRICIA HEARD RN - 08/03/2020 2:28 EST documented in this encounter Plan of Treatment Not on file documented as of this encounter Visit Diagnoses Not on filedocumented in this encounter
--- OUTSIDE RECORDS SUMMARY | 2025-06-09 09:49 | XMS_ITS | Referral Summary ---
Author Organization [employer] ([place], [place], [place], [place], [place]) Address [address] [place] [address] Care Team Providers Care Party Plan Sales Unit Sales Leader Name Role Phone Unavailable Primary Care Provider [...]
--- OUTSIDE RECORDS SUMMARY | 2025-06-09 09:49 | XMS_ITS | Encounter Summary ---
Author Organization [employer] ([place], [place], [place], [place], [place]) Address [address] [place] [address] Care Team Providers Care Computer Video Game Designer Name Role Phone Unavailable Primary Care Provider Unavailabl e Encounter Details Date Type Department Care Team (Late st Contact Info) Description 08/06/2020 Transcribed Document [facility] [place] Family Medicine [facility] [place] [address] ProviderWarren MD [address] [place] [phone] Social History Tobacco Use Types Packs/Day Years Used Date Smoking Tobacco: Never Assessed Sex and Gender Information Value Date Recorded Sex Assigned at Male 12/16/2021 8:48 PM CDT Legal Sex Male 8:48 PM CDT Gender Identity Male 12/16/2021 8:48 PM CDT Sexual Orientation Not on file documented as of this encounter Miscellaneous Notes * Cerner Conversion Note - Historical ProviderMD - 08/06/2020 1:24 PM LOAN BROKER On Going Discharge Planning Entered On: 08/06/2020 13:25 EST Performed On: 08/06/2020 13:24 EST by NASEEM VIRAMONTES RN-Hasher OperatorTechnical Intern Progress Note Discharge Arrangements : Patient Post-Acute Information Patient Name: CAROLYNN ACKERMAN Gender: Male : [birth year] Age: 50 Years No Post-Acute Placement(s) Listed No Post-Acute Service(s) Listed No [place] Referral(s) Listed Discharge Options Discussed with Patient : Acute rehabilitation Barriers to Discharge Unresolved : All resolved, Other: pending precert Designation of Choice Signed : Yes Patient Offered Choice/Affiliations Explained : Yes List/Info Provided Pt/Fam/Support Person : Home health, Other: acute Were Referrals Sent to Post Acute Providers : Yes Certification for Post-Acute Care Obtained : 08/06/2020 EST Physician Agreeable to Move Forward with D/C Plan? : Yes Did you Attend Multidisciplinary Rounds? : Yes NASEEM VIRAMONTES RN-Hasher Operator - 08/06/2020 13:24 EST Electronically signed by [facility] Conversion Field Representative/Health Education Cerner at 10/04/2022 11:35 PM CDT documented in this encounter Plan of Treatment Not on file documented as of this encounter Visit Diagnoses Not on filedocumented in this encounter
--- OUTSIDE RECORDS SUMMARY | 2025-06-09 09:49 | XMS_ITS | Encounter Summary ---
Author Organization [employer] ([place], [place], [place], [place], [place]) Address [address] [place] [address] Care Team Providers Care Printing Specialist Name Role Phone Unavailable Primary Care Provider Unavailabl e Encounter Details Date Type Department Care Team (Late st Contact Info) Description 08/06/2020 Transcribed Document [facility] [place] Family Medicine [place] [address] ProviderWarren MD [address] [place], [place] [id number] Social History Tobacco Use Types Packs/Day Years Used Date Smoking Tobacco: Never Assessed Sex and Gender Information Value Date Recorded Sex Assigned at Male 12/16/2021 8:48 PM CDT Legal Sex Male 8:48 PM CDT Gender Identity Male 12/16/2021 8:48 PM CDT Sexual Orientation Not on file documented as of this encounter Miscellaneous Notes * Cerner Conversion Note - Warren ProviderMD - 08/06/2020 8:12 AM NIGHT STOCKER UM Authorization Entered On: 08/06/2020 8:13 EST Performed On: 08/06/2020 8:12 EST by OFE CINTRON Mkt Field Mechanic/Site Lead-Utilization Mgt Primary Insurance Authorization Authorization and Policy Numbers : Insurance 1 [facility] Policy Number: [id number] Authorization Number: Insurance Primary Name : Matilda [id number] Authorization Status-Primary : Admit approved Authorization Fax Number-Primary : [phone] Reference Number-Primary : [id number] Authorization Number-Primary : [id number] Number of Days Authorized-Primary : 4 Day(s) Authorized Service Begin Date-Primary : 07/31/2020 EST Authorized Service End Date-Primary : 08/04/2020 EST Authorization Comments-Primary : Inpt admission approved x4 days per fax from Matilda KYLE on 08/05 @ 0830pm Historical Authorization Comments-Primary : Comment 1: C/S CLINICAL FAXED FOR 06/02 AND 06/03 PER CERNER (Nanda Shea, Rn-Utilization Review 08/05/2020 09:58) Comment 2: Per Rhiannon Sanchez IP los approved for CPT codes 23840,00547,83324,48032,[id number] and 26900 on 07/31/2020. Clinicals faxed via [employer] for c/s approval (JUICE KRUEGER RN 08/02/2020 14:02) Comment 3: Pending IP auth noted per Availity. Will notify MD office for status order (JUICE KRUEGER RN 08/01/2020 12:06) Comment 4: [place] per availity auth #[id number] still in review (JENNIFER ARREOLA, RN-Utilization Review 07/31/2020 13:02) Comment 5: Pt is asher for INPT Lumbar Fusion Posterior 3 Level on 07-31-20 [place]: auth pending per STAR I did email pt access asking true status of auth. PENDING AUTH# [id number] (ROGER RICE, Lap Polisher 07/30/2020 14:22) OFE CINTRON Mkt Field Mechanic/Site Lead-Utilization Mgt - 08/06/2020 8:12 EST documented in this encounter Plan of Treatment Not on file documented as of this encounter Visit Diagnoses Not on filedocumented in this encounter
--- OUTSIDE RECORDS SUMMARY | 2025-06-09 09:49 | XMS_ITS | Encounter Summary ---
Author Organization [employer] ([place], [place], [place], [place], [place]) Address [address] [place] [address] Care Team Providers Care Stock Handler Floorperson Name Role Phone Unavailable Primary Care Provider Unavailabl e Encounter Details Date Type Department Care Team (Late st Contact Info) Description 07/31/2020 Transcribed Document [facility] [address] [place] [address] Jorge Lara MD [address] [place] [address] Social History Tobacco Use Types Packs/Day Years Used Date Smoking Tobacco: Never Assessed Sex and Gender Information Value Date Recorded Sex Assigned at Male 12/16/2021 8:48 PM CDT Legal Sex Male 8:48 PM CDT Gender Identity Male 12/16/2021 8:48 PM CDT Sexual Orientation Not on file documented as of this encounter Miscellaneous Notes * [employer]ner Conversion Note - Jorge Lara MD - 07/31/2020 12:08 PM EST Patient: CAROLYNN ACKERMAN Age: 50 years Sex: Male : 1970 Associated Diagnoses: None Author: NADJA CORDOVA APRN-FAM 07/31/2020 cc: medical management s/p thoracic laminectomy with fusion per Dr. Sal HPI: Patient is a 50 yo male admitted to [facility] per Dr. Sal for a thoracic laminectomy [...] (1) Active Reaction erythromycin Nausea Home Medications (17) Active acetaminophen-HYDROcodone 325 mg-7.5 [...] solution 200 mg = 1 mL, IntraMuscular, R3Sexib Tylenol 8 Hour 650 mg oral tablet, [...] (JUL 31 06:00) Mon HR 96 (JUL 31:00) 96 (JUL 31:00) 96 (JUL 31 06:00) Resp Rate 16 (JUL 31 06:00) 16 (JUL 31 06:00) 16 (JUL 31 06:00) SBP H 173 (JUL 31:00) H 173 (JUL 31:00) H 173 (JUL 31:00) DBP H 91 (JUL 31 06:00) H 91 (JUL 31 06:00) H 91 (JUL 31 06:00) SpO2 97 (JUL 31:00) 97 (JUL 31 06:00) 97 (JUL 31 06:00) General: [Alert and oriented, no acute distress]. [...] Psychiatric: [Cooperative, appropriate mood and affect]. Data: Labs (Last four charted values) WBC H 10.0 (JUL 29) HB 14.5 (JUL 29) HCT 45.0 (JUL 29) Plt 176 (JUL 29) Na 136 (JUL 29) K L 3.4 (JUL 29) Cl L 101 (JUL 29) CO2 28 (JUL 29) BUN 14 (JUL 29) Cr 0.90 (JUL 29) Glu R 99 (JUL 29) Ca 9.3 (JUL 29) Impression: advanced spondylolisthesis thoracic spine -s/p thoracic laminectomy with fusion per Dr. Sal at risk for sleep apnea obesity Hx HTN Hx IBS- diarrhea Hx silent GERD Plan: Monitor HTN; add PRN's, hold parameters bowel [...]
--- OUTSIDE RECORDS SUMMARY | 2025-06-09 09:49 | XMS_ITS | Encounter Summary ---
Author Organization [employer] ([place], [place], [place], [place], [place]) Address [address] [place] [address] Care Team Providers Care Pensionholder Information Clerk Name Role Phone Unavailable Primary Care Provider Unavailabl e Encounter Details Date Type Department Care Team (Late st Contact Info) Description 08/05/2020 Transcribed Document [facility] [place] [facility] [place] [address] ProviderWarren MD [address] [place] [address] [phone] Social History Tobacco Use Types Packs/Day Years Used Date Smoking Tobacco: Never Assessed Sex and Gender Information Value Date Recorded Sex Assigned at Male 12/16/2021 8:48 PM CDT Legal Sex Male 8:48 PM CDT Gender Identity Male 12/16/2021 8:48 PM CDT Sexual Orientation Not on file documented as of this encounter Miscellaneous Notes * Cerner Conversion Note - Historical ProviderMD - 08/05/2020 2:00 AM GLOVE CLEANER Pain Assessment Entered On: 08/05/2020 8:26 EST Performed On: 08/05/2020 2:58 EST by Stan Rojo RN Intervention Information: acetaminophen Performed by Stan Rojo RN on 08/05/2020 01:58:00 EST acetaminophen,650mg Oral Pain Assessment Pain Assessment : Follow-up assessment Pain Scale Goal : 3 Pain Scale Used : 0-10 Scale Stan Rojo RN - 08/05/2020 8:26 EST Pain Scale Intensity : 4 Stan Rojo RN - 08/05/2020 8:26 EST Image 4 - Images currently included in the form version of this document have not been included in the text rendition version of the form. Electronically signed by Elmo Antoine Conversion Certified Industrial Hygienist Cerner at 10/04/2022 11:41 PM CDT documented in this encounter Plan of Treatment Not on file documented as of this encounter Visit Diagnoses Not on filedocumented in this encounter
--- OUTSIDE RECORDS SUMMARY | 2025-06-09 09:49 | XMS_ITS | Encounter Summary ---
Author Organization [employer] ([place], [place], [place], [place], [place]) Address [address] [place] [address] Care Team Providers Care Electric Motor Control Assembler Name Role Phone Unavailable Primary Care Provider Unavailabl e Encounter Details Date Type Department Care Team (Late st Contact Info) Description 08/04/[address] [facility] Neurology - [address] [facility] [address] [place] [address] Alban Woodruff Jr., MD [address] [place] [address] [address] [place] [address] Social History Tobacco Use Types Packs/Day Years Used Date Smoking Tobacco: Never Assessed Sex and Gender Information Value Date Recorded Sex Assigned at Male 12/16/2021 8:48 PM CDT Legal Sex Male 8:48 PM CDT Gender Identity Male 12/16/2021 8:48 PM CDT Sexual Orientation Not on file documented as of this encounter Miscellaneous Notes * Cerner Conversion Note - Alban Woodruff Jr., MD - 08/04/2020 1:02 PM EST Patient: CAROLYNN ACKERMAN Age: 50 years Sex: Male : 1970 Associated Diagnoses: None Author: ALBAN WOODRUFF MD-[facility] Mr. Ackerman is doing well. He walked with physical therapy down the hallway. He is afebrile. His vital signs are stable. He has a mild tachycardia which is stable. Labs look fine. He was sitting in a chair. He looks much more comfortable today. His dressing is clean dry and intact. Hip flexion was 4/5 today distal lower extremity strength was 4-4+ over 5 strength. Mr. Ackerman seems to be turning the corner. He's postop day 4 status post a T10 to iliac fusion. Hopefully he'll have a bed at rehabilitation early in the week. documented in this encounter Plan of Treatment Not on file documented as of this encounter Visit Diagnoses Not on filedocumented in this encounter
--- OUTSIDE RECORDS SUMMARY | 2025-06-09 09:49 | XMS_ITS | Encounter Summary ---
Author Organization [employer] ([place], [place], [place], [place], [place]) Address [address] [place] [address] Care Team Providers Care Chief Executive Or Managing Director Name Role Phone Unavailable Primary Care Provider Unavailabl e Encounter Details Date Type Department Care Team (Late st Contact Info) Description 08/03/2020 Transcribed Document [facility] [place] Medicine [facility] [place] [address] ProviderWarren MD [address] [place] [address] [phone] Social History Tobacco Use Types Packs/Day Years Used Date Smoking Tobacco: Never Assessed Sex and Gender Information Value Date Recorded Sex Assigned at Male 12/16/2021 8:48 PM CDT Legal Sex Male 8:48 PM CDT Gender Identity Male 12/16/2021 8:48 PM CDT Sexual Orientation Not on file documented as of this encounter Miscellaneous Notes * Cerner Conversion Note - Warren ProviderMD - 08/03/2020 10:00 AM CHRONOMETER TESTER Pain Assessment Entered On: 08/03/2020 14:13 EST Performed On: 08/03/2020 10:46 EST by Shilpa Martin RN Intervention Information: acetaminophen Performed by Shilpa Martin RN on 08/03/2020 09:46:00 EST acetaminophen,650mg Oral Pain Assessment Pain Assessment : Follow-up assessment Pain Scale Goal : 3 Pain Scale Used : 0-10 Scale Onset : Gradual Pain Radiation : No Pain Improved by Intervention : Yes Shilpa Martin RN - 08/03/2020 14:13 EST Pain Scale Intensity : 3 Shilpa Martin RN - 08/03/2020 14:13 EST Image 4 - Images currently included in the form version of this document have not been included in the text rendition version of the form. documented in this encounter Plan of Treatment Not on file documented as of this encounter Visit Diagnoses Not on filedocumented in this encounter
--- OUTSIDE RECORDS SUMMARY | 2025-06-09 09:49 | XMS_ITS | Encounter Summary ---
Author Organization [employer] ([place], [place], [place], [place], [place]) Address [address] [place] [address] Care Team Providers Care Dot Compliance Coordinator Name Role Phone Unavailable Primary Care Provider Unavailabl e Encounter Details Date Type Department Care Team (Late st Contact Info) Description 08/06/2020 Transcribed Document [facility] [place] [facility] [place] [address] ProviderWarren MD [address] [place] [phone] Social History Tobacco Use Types Packs/Day Years Used Date Smoking Tobacco: Never Assessed Sex and Gender Information Value Date Recorded Sex Assigned at Male 12/16/2021 8:48 PM CDT Legal Sex Male 8:48 PM CDT Gender Identity Male 12/16/2021 8:48 PM CDT Sexual Orientation Not on file documented as of this encounter Miscellaneous Notes * Cerner Conversion Note - Historical ProviderMD - 08/06/2020 3:33 PM DRINK WAITER Discharge Summary, PT Entered On: 08/06/2020 15:36 EST Performed On: 08/06/2020 15:33 EST by JOHNY DANIEL, PT Discharge Summary Discharge Summary Provider Notified : Nursing Reason for Discharge : Discharged from hospital Discharged to, Therapy : Unit, rehabilitation Discharge Equipment, PT : Walker Discharge Summary Comment, PT : As of 08/06/2020, pt able to ambulate 135' today with RWx and Beatriz. He required ModA for supine to sit and sit to supine. Pt requiring Beatriz for sit to stand and stand to sit. Pt able to meet 1/1 STG and 2/4 LTG. Pt has been discharged to [facility]. JOHNY DANIEL, PT - 08/06/2020 15:33 EST Short Term Goals Mobility/Bed Mobility STG PT Grid Goal #1 Activity : Supine to sit Assist : Assist, maximal Equipment : Bed, hospital Date to Meet : 08/08/2020 EST Goal Status : Goal met Date Met : 08/05/2020 EST Comment : x2 JOHNY DANIEL, PT - 08/06/2020 15:33 EST Conference Services Director Goals Mobility/Bed Mobility LTG PT Grid Goal #1 Goal #2 Activity : Supine to sit Sit to stand Assist : Assist, minimal Assist, minimal Equipment : Bed, hospital Walker, front wheel Date to Meet : 08/15/2020 EST 08/15/2020 EST Goal Status : Not met Goal met Date Met : 08/05/2020 EST JOHNY DANIEL, PT - 08/06/2020 15:33 EST JOHNY DANIEL, PT - 08/06/2020 15:33 EST Transfer LTG Grid Goal #1 Destination : Chair, with arms Assist : Assist, minimal Equipment : Walker, front wheel Date to Meet : 08/15/2020 EST Goal Status : Goal met Date Met : 08/05/2020 EST JOHNY DANIEL, PT - 08/06/2020 15:33 EST Ambulation LTG Grid Goal #1 Device : Walker, front wheel Distance : 150 ft Assist : Assist, minimal Date to Meet : 08/15/2020 EST Goal Status : Not met JOHNY DANIEL, PT - 08/06/2020 15:33 EST documented in this encounter Plan of Treatment Not on file documented as of this encounter Visit Diagnoses Not on filedocumented in this encounter
--- OUTSIDE RECORDS SUMMARY | 2025-06-09 09:49 | XMS_ITS | Encounter Summary ---
Author Organization [employer] ([place], [place], [place], [place], [place]) Address [address] [place] [address] Care Team Providers Care Gasoline Locomotive Crane Operator Name Role Phone Unavailable Primary Care Provider Unavailabl e Encounter Details Date Type Department Care Team (Late st Contact Info) Description 08/01/2020 Transcribed Document [facility] Neurology - [address] [facility] [address] [place] [address] Alban Woodruff Jr., MD [address] [place] [address] [address] [place] [address] Social History Tobacco Use Types Packs/Day Years Used Date Smoking Tobacco: Never Assessed Sex and Gender Information Value Date Recorded Sex Assigned at Male 12/16/2021 8:48 PM CDT Legal Sex Male 8:48 PM CDT Gender Identity Male 12/16/2021 8:48 PM CDT Sexual Orientation Not on file documented as of this encounter Miscellaneous Notes * Cerner Conversion Note - Alban Woodruff Jr., MD - 08/01/2020 1:33 PM EST Patient: CAROLYNN ACKERMAN Age: 50 years Sex: Male : 1970 Associated Diagnoses: None Author: ALBAN WOODRUFF MD-[facility] af vss sbp mod elevated, mr 110's, likely from pain feels better today c/o ant thigh pain and left shoulder pain likely from positioning 4+/5 ankles and knees. pain limited weakness w/ hip movement sensation intact looks good overall neela bloody crit 39, labs reviewed pod 1 t10-s1 fusion considering the major operation that he underwent yest, he is doing quite well p.t. pain control cont neela drain will need inpt rehab documented in this encounter Plan of Treatment Not on file documented as of this encounter Visit Diagnoses Not on filedocumented in this encounter
--- OUTSIDE RECORDS SUMMARY | 2025-06-09 09:49 | XMS_ITS | Encounter Summary ---
Author Organization [employer] ([place], [place], [place], [place], [place]) Address [address] [place] [address] Care Team Providers Care Auto Body Estimator Name Role Phone Unavailable Primary Care Provider Unavailabl e Encounter Details Date Type Department Care Team (Late st Contact Info) Description 08/06/2020 Transcribed Document [facility] [place] Family [place] [facility] [place] [address] ProviderWarren MD [address] [place], [place] [phone] Social History Tobacco Use Types Packs/Day Years Used Date Smoking Tobacco: Never Assessed Sex and Gender Information Value Date Recorded Sex Assigned at Male 12/16/2021 8:48 PM CDT Legal Sex Male 8:48 PM CDT Gender Identity Male 12/16/2021 8:48 PM CDT Sexual Orientation Not on file documented as of this encounter Miscellaneous Notes * Cerner Conversion Note - Warren ProviderMD - 08/06/2020 2:37 PM SAWDUST MACHINE OPERATOR UM Authorization Entered On: 08/06/2020 14:37 EST Performed On: 08/06/2020 14:37 EST by Lois Dunlap, Machine Or Machinery Mechanic Primary Insurance Authorization Authorization and Policy Numbers : Insurance 1 Health Plan: [facility] Policy Number: [id number] Authorization Number: Insurance Primary Name : Matilda [id number] Authorization Status-Primary : Admit approved Authorization Fax Number-Primary : [phone] Auth/Referral Contact Name-Primary : DC Reference Number-Primary : [id number] Authorization Number-Primary : [id number] Number of Days Authorized-Primary : 4 Day(s) Authorized Service Begin Date-Primary : 07/31/2020 EST Authorized Service End Date-Primary : 08/04/2020 EST Authorization Comments-Primary : Discharge date and summary faxed. Historical Authorization Comments-Primary : Comment 1: Inpt admission approved x4 days per fax from Matilda KYLE on 08/05 @ 0830pm (OFE CINTRON Mkt Apparel Cutter-Utilization Mgt 08/06/2020 08:12) Comment 2: C/S CLINICAL FAXED FOR 06/02 AND 06/03 PER CERNER (Nanda Shea, Rn-Utilization Review 08/05/2020 09:58) Comment 3: Per Rhiannon Sanchez IP los approved for CPT codes 98018,11235,57497,80444,[id number] and 41765 on 07/31/2020. Clinicals faxed via [employer] for c/s approval (JUICE KRUEGER RN 08/02/2020 14:02) Comment 4: Pending IP auth noted per Availity. Will notify MD office for status order (JUICE KRUEGER RN 08/01/2020 12:06) Comment 5: Wallace per availity auth #[id number] still in review (JENNIFER ARREOLA, RN-Utilization Review 07/31/2020 13:02) Comment 6: Pt is asher for INPT Lumbar Fusion Posterior 3 Level on 07-31-20 Wallace: auth pending per STAR I did email pt access asking true status of auth. PENDING AUTH# [id number] (ROGER RICE, Lpn Instructor 07/30/2020 14:22) Lois Dunlap, Machine Or Machinery Mechanic - 08/06/2020 14:37 EST documented in this encounter Plan of Treatment Not on file documented as of this encounter Visit Diagnoses Not on filedocumented in this encounter
--- OUTSIDE RECORDS SUMMARY | 2025-06-09 09:49 | XMS_ITS | Encounter Summary ---
Author Organization [employer] ([place], [place], [place], [place], [place]) Address [address] [place] [address] Care Team Providers Care Management Accountant Name Role Phone Unavailable Primary Care Provider Unavailabl e Encounter Details Date Type Department Care Team (Late st Contact Info) Description 08/01/2020 Transcribed Document [facility] [facility] [place] [address] ProviderWarren MD [address] [place] [phone] Social History Tobacco Use Types Packs/Day Years Used Date Smoking Tobacco: Never Assessed Sex and Gender Information Value Date Recorded Sex Assigned at Male 12/16/2021 8:48 PM CDT Legal Sex Male 8:48 PM CDT Gender Identity Male 12/16/2021 8:48 PM CDT Sexual Orientation Not on file documented as of this encounter Miscellaneous Notes * Cerner Conversion Note - Historical ProviderMD - 08/01/2020 11:27 AM NATIONAL ACCOUNTS SALES Treatment Intervention, OT Entered On: 08/02/2020 15:15 EST Performed On: 08/02/2020 13:55 EST by MATY BUSTAMANTE OTR/Giuliano General Information, OT Visit Type, OT : Treatment Note Patient Orders : Order Date Order Ordering 07/31/2020 15:12 Occupational Therapy Evaluation and Treatme Ordered By: ALBAN WOODRUFF MD-[facility] 08/01/2020 11:27 OT Additional Treatment Ordered By: Active Diagnoses : No Qualifying Diagnoses Therapy Diagnosis, OT : decreased independence secondary to back pain Admission Date : 08/01/2020 10:35 Co-treated by, OT : purchasing assistant (CONTINUOUS PROCESS MACHINE OPERATOR) Personal Devices : Personal Devices No Devices Recorded Assistive Devices : Assistive Devices No Devices Recorded MATY BUSTAMANTE OTR/Giuliano - 08/02/2020 15:07 EST General Status Patient Received Status : Supine in bed Treatment Start Time : 08/02/2020 13:32 EST Patient Left Status : Supine in bed, RN/PCT informed, All needs met and within reach RN/PCT Informed Comment : REINIER holland Treatment End Time : 08/02/2020 13:55 EST Treatment Time : 23 Minute(s) MATY BUSTAMANTE OTR/Giuliano - 08/02/2020 15:07 EST Functional Mobility Mobility Grid Bed Roll Left : Rehab Maximal assistance Bed Roll Right : Rehab Maximal assistance Bed Scooting : Rehab Maximal assistance Supine to Sit : Rehab Maximal assistance (Comment: 2 [MATY BUSTAMANTE OTR/Giuliano - 08/02/2020 15:07 EST] ) Sit to Stand : Rehab Maximal assistance (Comment: 2 [MATY BUSTAMANTE OTR/Giuliano - 08/02/2020 15:07 EST] ) Stand to Sit : Rehab Maximal assistance (Comment: 2 [MATY BUSTAMANTE OTR/L - 08/02/2020 15:07 EST] ) Sit to Supine : Rehab Total assistance (Comment: 3 [MATY BUSTAMANTE OTR/L - 08/02/2020 15:07 EST] ) MATY BUSTAMANTE OTR/Giuliano - 08/02/2020 15:07 EST Plan of Care, OT OT Tx Plan/Goals Established w Patient : Yes MATY BUSTAMANTE OTR/Giuliano - 08/02/2020 15:07 EST Prison Goals, OT Grooming LTG Grid Goal #1 Activity : Grooming Assist : Independent, complete Date to Meet : 08/15/2020 EST Goal Status : Initial goal Comment : sitting EOB MATY BUSTAMANTE OTR/Giuliano - 08/02/2020 15:07 EST Dressing, Lower Body LTG Grid Goal #1 Activity : Dressing, Lower Body Assist : Assist, minimal Date to Meet : 08/15/2020 EST Goal Status : Initial goal MATY BUSTAMANTE OTR/Giuliano - 08/02/2020 15:07 EST Toilet Transfer LTG Grid Goal #1 Activity : Toilet Transfer, Ambulatory Assist : Assist, moderate Date to Meet : 08/15/2020 EST Goal Status : Initial goal MATY BUSTAMANTEYANER/L - 08/02/2020 15:07 EST Bed Mobility/ Bed Transfer LTG Grid Goal #1 Activity : Bed Mobility/Bed Transfer Assist : Assist, minimal Date to Meet : 08/15/2020 EST Goal Status : Initial goal MATY BUSTAMANTE JANIE/L - 08/02/2020 15:07 EST Treatment Note Subjective Comment : Agreeable Patient's Response to Treatment : pt tolerated fairly Additional Objective Information : pt to EOB max x2 assist. Max assist sitting. Minimal firing of abdominal muscles to hold self forward. Stood with max x2 assist to come tostand. R knee blocked secondary to decreased thigh muscles firing. Very unstable. Sat max x2. TOtal tosupine. Assessment : pt with decreased pain today. x2 assist. MInimal core muscles. Needs rehab Plan for Treatment : see poc ROBBY JANIE RUTLEDGE/Giuliano - 08/02/2020 15:07 EST Pain Assessment Pain Scaled Used : 0-10 Pain scale Pain Score During-Intervention : 6 BUSTAMANTE JANIE RUTLEDGE/Giuliano - 08/02/2020 15:07 EST Image 1 - Images currently included in the form version of this document have not been included in the text rendition version of the form. Anticipated Discharge Needs, OT/PT Anticipated Discharge to : Unit, rehabilitation MATY BUSTAMANTE OTR/Giuliano - 08/02/2020 15:[address] [facility] OT Charges OT Selfcare/Hm Mgmt Ea 15 Min : 2 MATY BUSTAMANTE OTR/Giuliano - 08/02/2020 15:07 EST documented in this encounter Plan of Treatment Not on file documented as of this encounter Visit Diagnoses Not on filedocumented in this encounter
--- OUTSIDE RECORDS SUMMARY | 2025-06-09 09:49 | XMS_ITS | Encounter Summary ---
Author Organization [employer] ([place], [place], [place], [place], [place]) Address [address] [place] [address] Care Team Providers Care Inserter Name Role Phone Unavailable Primary Care Provider Unavailabl e Encounter Details Date Type Department Care Team (Late st Contact Info) Description 08/04/[address] [facility] [place] [facility] [place] [address] ProviderWarren MD [address] [place] [address] [phone] Social History Tobacco Use Types Packs/Day Years Used Date Smoking Tobacco: Never Assessed Sex and Gender Information Value Date Recorded Sex Assigned at Male 12/16/2021 8:48 PM CDT Legal Sex Male 8:48 PM CDT Gender Identity Male 12/16/2021 8:48 PM CDT Sexual Orientation Not on file documented as of this encounter Miscellaneous Notes * Cerner Conversion Note - Historical ProviderMD - 08/04/2020 10:00 PM SENIOR RELATIONSHIP MANAGER Pain Assessment Entered On: 08/05/2020 8:25 EST Performed On: 08/04/2020 23:10 EST by Stan Rojo RN Intervention Information: acetaminophen Performed by Stan Rojo RN on 08/04/2020 22:10:00 EST acetaminophen,650mg Oral Pain Assessment Pain Assessment : Follow-up assessment Pain Scale Goal : 3 Pain Scale Used : 0-10 Scale Stan Rojo RN - 08/05/2020 8:25 EST Pain Scale Intensity : 3 Stan Rojo RN - 08/05/2020 8:25 EST Image 4 - Images currently included in the form version of this document have not been included in the text rendition version of the form. documented in this encounter Plan of Treatment Not on file documented as of this encounter Visit Diagnoses Not on filedocumented in this encounter
--- OUTSIDE RECORDS SUMMARY | 2025-06-09 09:50 | XMS_ITS | Encounter Summary ---
Author Organization [employer] ([place], [place], [place], [place], [place]) Address [address] [place] [address] Care Team Providers Care Photo Technologist Name Role Phone Unavailable Primary Care Provider Unavailabl e Encounter Details Date Type Department Care Team (Late st Contact Info) Description 08/05/2020 Transcribed Document [facility] [place] [facility] [place] [address] ProviderWarren MD [facility] [place], [place] [address] Social History Tobacco Use Types Packs/Day Years Used Date Smoking Tobacco: Never Assessed Sex and Gender Information Value Date Recorded Sex Assigned at Male 12/16/2021 8:48 PM CDT Legal Sex Male 8:48 PM CDT Gender Identity Male 12/16/2021 8:48 PM CDT Sexual Orientation Not on file documented as of this encounter Miscellaneous Notes * Cerner Conversion Note - Historical ProviderMD - 08/05/2020 5:00 PM OIL HEAT TECHNICIAN Chart Check - Review Order Profile Entered On: 08/05/2020 18:07 EST Performed On: 08/05/2020 17:00 EST by Laura Slade Rn Chart Check Powerplans Initiated/Discontinued as Appropriate : Yes All Active Orders Reviewed : Yes Laura Slade Rn - 08/05/2020 18:07 EST Electronically signed by Huber Antoine Conversion Rubber Stamps And Dies Supervisor Cerner at 10/04/2022 11:30 PM CDT documented in this encounter Plan of Treatment Not on file documented as of this encounter Visit Diagnoses Not on filedocumented in this encounter
--- OUTSIDE RECORDS SUMMARY | 2025-06-09 09:50 | XMS_ITS | Encounter Summary ---
Author Organization [employer] ([place], [place], [place], [place], [place]) Address [address] [place] [address] Care Team Providers Care Naval Inspector Name Role Phone Unavailable Primary Care Provider Unavailabl e Encounter Details Date Type Department Care Team (Late st Contact Info) Description 08/02/2020 Transcribed Document [facility] [place] [facility] [place] [address] ProviderWarren MD [address] [place] [address] [phone] Social History Tobacco Use Types Packs/Day Years Used Date Smoking Tobacco: Never Assessed Sex and Gender Information Value Date Recorded Sex Assigned at Male 12/16/2021 8:48 PM CDT Legal Sex Male 8:48 PM CDT Gender Identity Male 12/16/2021 8:48 PM CDT Sexual Orientation Not on file documented as of this encounter Miscellaneous Notes * Cerner Conversion Note - Historical ProviderMD - 08/02/2020 10:00 AM MARINE REPORTER Pain Assessment Entered On: 08/02/2020 14:52 EST Performed On: 08/02/2020 11:25 EST by Daksha Segura RN Intervention Information: acetaminophen Performed by Daksha Segura RN on 08/02/2020 10:25:00 EST acetaminophen,650mg Oral Pain Assessment Pain Assessment [...]
--- OUTSIDE RECORDS SUMMARY | 2025-06-09 09:50 | XMS_ITS | Encounter Summary ---
Author Organization [employer] ([place], [place], [place], [place], [place]) Address [address] [place] [address] Care Team Providers Care Deputy Building Guard Name Role Phone Unavailable Primary Care Provider Unavailabl e Encounter Details Date Type Department Care Team (Late st Contact Info) Description 08/01/2020 Transcribed Document [facility] [place] [facility] [place] [address] ProviderWarren MD [facility] [place] [phone] Social History Tobacco Use Types Packs/Day Years Used Date Smoking Tobacco: Never Assessed Sex and Gender Information Value Date Recorded Sex Assigned at Male 12/16/2021 8:48 PM CDT Legal Sex Male 8:48 PM CDT Gender Identity Male 12/16/2021 8:48 PM CDT Sexual Orientation Not on file documented as of this encounter Miscellaneous Notes * Cerner Conversion Note - Historical ProviderMD - 08/01/2020 5:00 PM METALLURGIST PROCESS Chart Check - Review Order Profile Entered On: 08/01/2020 19:58 EST Performed On: 08/01/2020 17:00 EST by HARLEY FAIR RN Chart Check Powerplans Initiated/Discontinued as Appropriate : Not applicable All Active Orders Reviewed : Yes HARLEY FAIR RN - 08/01/2020 19:58 EST documented in this encounter Plan of Treatment Not on file documented as of this encounter Visit Diagnoses Not on filedocumented in this encounter
--- OUTSIDE RECORDS SUMMARY | 2025-06-09 09:50 | XMS_ITS | Encounter Summary ---
Author Organization [employer] ([place], [place], [place], [place], [place]) Address [address] [place] [address] Care Team Providers Care Agency Development Manager Name Role Phone Unavailable Primary Care Provider Unavailabl e Encounter Details Date Type Department Care Team (Late st Contact Info) Description 08/05/2020 Transcribed Document [facility] [place] Family Medicine [facility] [address] ProviderWarren MD [facility] [place], [place] [id number] Social History Tobacco Use Types Packs/Day Years Used Date Smoking Tobacco: Never Assessed Sex and Gender Information Value Date Recorded Sex Assigned at Male 12/16/2021 8:48 PM CDT Legal Sex Male 8:48 PM CDT Gender Identity Male 12/16/2021 8:48 PM CDT Sexual Orientation Not on file documented as of this encounter Miscellaneous Notes * Cerner Conversion Note - Warren ProviderMD - 08/05/2020 9:56 AM OPERATIONAL REVIEW SERGEANT UM Authorization Entered On: 08/05/2020 9:57 EST Performed On: 08/05/2020 9:56 EST by Nanda Shea Rn-Utilization Review Primary Insurance Authorization Authorization and Policy Numbers : Insurance 1 Health Plan: [facility] Policy Number: [id number] Authorization Number: Insurance Primary Name : Matilda [id number] Authorization Status-Primary : Admit approved Authorization Fax Number-Primary : [phone] Reference Number-Primary : [id number] Authorization Number-Primary : [id number] Number of Days Authorized-Primary : 0 Day(s) Authorized Service Begin Date-Primary : 07/31/2020 EST Authorized Service End Date-Primary : 07/31/2020 EST Historical Authorization Comments-Primary : Comment 1: Per Rhiannon Sanchez IP los approved for CPT codes 62799,55678,20306,41019,[id number] and 26299 on 07/31/2020. Clinicals faxed via [employer] for c/s approval (JUICE KRUEGER RN 08/02/2020 14:02) Comment 2: Pending IP auth noted per Avail[employer]. Will notify MD office for status order (JUICE KRUEGER RN 08/01/2020 12:06) Comment 3: [place] per availity auth #[id number] still in review (JENNIFER ARREOLA, REINIER-Utilization Review 07/31/2020 13:02) Comment 4: Pt is asher for INPT Lumbar Fusion Posterior 3 Level on 07-31-20 [place]: auth pending per STAR I did email pt access asking true status of auth. PENDING AUTH# [id number] (ROGER RICE, Extrusion Bender 07/30/2020 14:22) Nanda Shea, Rn-Utilization Review - 08/05/2020 9:56 EST Electronically signed by Arash, [facility] Conversion Wool Hat Flanger Cerner at 10/04/2022 11:38 PM CDT documented in this encounter Plan of Treatment Not on file documented as of this encounter Visit Diagnoses Not on filedocumented in this encounter
--- OUTSIDE RECORDS SUMMARY | 2025-06-09 09:50 | XMS_ITS | Encounter Summary ---
Author Organization [employer] ([place], [place], [place], [place], [place]) Address [address] [place] [address] Care Team Providers Care Tent Finisher Name Role Phone Unavailable Primary Care Provider Unavailabl e Encounter Details Date Type Department Care Team (Late st Contact Info) Description 08/05/[address] [facility] Radiology [address] [place] [address] Jorge Lara MD [address] [place] [address] Social History Tobacco Use Types Packs/Day Years Used Date Smoking Tobacco: Never Assessed Sex and Gender Information Value Date Recorded Sex Assigned at Male 12/16/2021 8:48 PM CDT Legal Sex Male 8:48 PM CDT Gender Identity Male 12/16/2021 8:48 PM CDT Sexual Orientation Not on file documented as of this encounter Miscellaneous Notes * Cerner Conversion Note - Jorge Lara MD - 08/05/2020 9:42 AM EST Patient: CAROLYNN ACKERMAN Age: 50 years Sex: Male : 1970 Associated Diagnoses: None Author: CELESTE SABA PA-DIANA 08/05/2020 cc: medical management s/p thoracic laminectomy with fusion per Dr. Sal S: Pt is doing ok. No f'/c/s. No n/v. +diarrhea, in addition to have IBS with diarrhea predominance. (+) gas, (+) BM. No CP, SOA, palpitations. No cough or sputum. had to have FC reanchored due to post op urinary retention. +post op pain. Using incentive spirometer. It appears NS started pt on levaquin on 08/02/2020 HPI: Patient is a 50 yo male admitted to [facility] per Dr. Sal for a thoracic laminectomy [...] solution 200 mg = 1 mL, IntraMuscular, [id number] Tylenol 8 Hour 650 mg oral tablet, extended release 650 mg = 1 Tab, PRN, Oral, Q8H Vitamin D3 5000 units oral capsule 5,000 Int Units = 1 Cap, Oral, Daily Exam: Vitals Signs (last 24 hrs) Last [...] 67 (AUG 04 18:36) H 95 (AUG 04:53) MAP 89 (AUG 05 05:51) 81 (AUG 04 18:36) 107 (AUG 04 15:53) SpO2 97 (AUG 05 02:10) L 93 (AUG 04 10:29) 97 (AUG 05 02:10) GEN: Alert, awake, NAD ; sitting up in chair. CV: S1S2, no murmur. No LE edema Resp: CTAB, NL; no wheezes or rhonchi. Abd: Soft, NT, ND +BS Skin: no rashes on inspection and palpation. Ext: No LE edema. No joint edema, erythema. Neuro: A&O x 3 Data: Blood Gases (Current Encounter/Past 24 Hours) No Blood Gas Results Found (Past 24 Hours) Electrolytes(BMP) Results (Current Encounter/Past 24 Hours) Sodium Level 135 mmol/L LOW 08/05/2020 07:54 Potassium Level 2.9 mmol/L LOW 08/05/2020 07:54 Chloride Level 98 mmol/L LOW 08/05/2020 07:54 Carbon Dioxide Level 29 mmol/L 08/05/2020 03:24 Anion Gap 11 08/05/2020 03:24 Blood Urea Nitrogen 15 mg/dL 08/05/2020 03:24 Glucose Level 156 mg/dL HI 08/05/2020 07:54 Calcium Level 8.4 mg/dL 08/05/2020 03:24 Creatinine Level 0.80 mg/dL 08/05/2020 03:24 Cardiac Markers (Current Encounter/Past 24 Hours) No Cardiac Marker Results Found (Past 24 Hours) CBC Results (Current Encounter/Past 24 Hours) WBC 9.4 K/uL 08/05/2020 03:06 Hct 35.5 % LOW 08/05/2020 07:54 Hgb 11.5 g/dL LOW 08/05/2020 07:54 Platelet Count 165 K/uL 08/05/2020 03:06 CMP Results (Current Encounter/Past 24 Hours) Creatinine Level 0.80 mg/dL 08/05/2020 03:24 Bun/Creatinine 18.8 08/05/2020 03:24 eGFR >60 mL/min/1.73m2 08/05/2020 03:24 eGFR NonAfrican >60 mL/min/1.73m2 08/05/2020 03:24 Sodium Level 135 mmol/L LOW 08/05/2020 07:54 Potassium Level 2.9 mmol/L LOW 08/05/2020 07:54 Chloride Level 98 mmol/L LOW 08/05/2020 07:54 Carbon Dioxide Level 29 mmol/L 08/05/2020 03:24 Anion Gap 11 08/05/2020 03:24 Blood Urea Nitrogen 15 mg/dL 08/05/2020 03:24 Glucose Level 156 mg/dL DC 08/05/2020 07:54 Calcium Level 8.4 mg/dL 08/05/2020 03:24 Coagulation Results (Current Encounter/Past 24 Hours) No Coagulation Results Found (Past 24 Hours) Creatinine Clearance (Current Encounter/Past 24 Hours) Creatinine Level 0.80 mg/dL 08/05/2020 03:24 Bun/Creatinine 18.8 08/05/2020 03:24 Estimated Creatinine Clearance 106.26 mL/Min 08/04/2020 03:39 No Radiology Results FoundLabs (Last four charted values) WBC 9.4 (FEB 15) H 12.8 (FEB 14) H 15.4 (FEB 13) H 14.3 (FEB 12) HB L 11.5 (B 15) L 11.9 (FEB 14) L 11.8 (FEB 13) L 11.5 (FEB 12) HCT L 35.5 (B 15) L 37.0 (FEB 14) L 36.6 (FEB 13) L 36.6 (FEB 12) Plt 165 (B 15) 168 (FEB 14) L 151 (FEB 13) L 138 (FEB 12) Na L 135 (B 15) L 135 (FEB 14) L 134 (B 13) 137 (FEB 12) K L 2.9 (B 15) L 3.1 (B 14) L 3.2 (FEB 13) 3.6 (FEB 12) Cl L 98 (B 15) L 98 (FEB 14) L 97 (FEB 13) 102 (FEB 12) CO2 29 (B 15) 30 (FEB 14) 32 (FEB 13) H 33 (FEB 12) BUN 15 (B 15) 14 (FEB 14) 9 (FEB 13) 9 (FEB 12) Cr 0.80 (B 15) 0.80 (FEB 14) 0.90 (FEB 13) 0.90 (FEB 12) Glu R H 156 (B 15) H 163 (FEB 14) H 156 (FEB 13) H 149 (FEB 12) Ca 8.4 (B 15) L 8.1 (FEB 14) 8.4 (FEB 13) L 8.1 (FEB 12) Impression: advanced spondylolisthesis thoracic spine -s/p thoracic laminectomy with fusion per Dr. Sal hypokalemia -- Diarrhea --- currently on levaquin per NS and may be exacerbation diarrhea. Not on any stool softners. urinary retention UTI- on levaquin, afebrile IBS with diarrhea predominant at risk for sleep apnea obesity Hx HTN Hx silent GERD Plan: receiving KCl runs x 4 check mag level recheck K level around 2 pm. last day of levaquin should be tomorrow. Seeking inpatient rehab at [facility] at discharge continue imodium prn diarrhea Monitor HTN; add [...]
--- OUTSIDE RECORDS SUMMARY | 2025-06-09 09:50 | XMS_ITS | Encounter Summary ---
Author Organization [employer] ([place], [place], [place], [place], [place]) Address [address] [place] [address] Care Team Providers Care Gear Changer Name Role Phone Unavailable Primary Care Provider Unavailabl e Encounter Details Date Type Department Care Team (Late st Contact Info) Description 08/02/2020 Transcribed Document [facility] [place] Family Medicine [facility] [place] [address] ProviderWarren MD [address] [place] [id number] Social History Tobacco Use Types Packs/Day Years Used Date Smoking Tobacco: Never Assessed Sex and Gender Information Value Date Recorded Sex Assigned at Male 12/16/2021 8:48 PM CDT Legal Sex Male 8:48 PM CDT Gender Identity Male 12/16/2021 8:48 PM CDT Sexual Orientation Not on file documented as of this encounter Miscellaneous Notes * Cerner Conversion Note - Warren ProviderMD - 08/02/2020 5:06 PM DICER MACHINE OPERATOR On Going Discharge Planning Entered On: 08/02/2020 17:08 EST Performed On: 08/02/2020 17:06 EST by NASEEM VIRAMONTES RN-Rabbit FancierRecord Systems Analyst Progress Note Discharge Arrangements : Patient Post-Acute Information Patient Name: CAROLYNN ACKERMAN Gender: Male : [birth year] Age: 50 Years No Post-Acute Placement(s) Listed No Post-Acute Service(s) Listed No [place] Referral(s) Listed Discharge Options Discussed with Patient : Acute rehabilitation Barriers to Discharge Unresolved : Clinical Condition of Patient Certification for Post-Acute Care Initiated : 08/01/2020 EST Is the Patient Meeting Medical Necessity : Yes NASEEM VIRAMONTES RN-Rabbit Fancier - 08/02/2020 17:06 EST Narrative Progress Note Narrative Progress Note : Precert was started yesterday for acute rehab at [facility]. Pt receiving IV Dilaudid for breakthrough pain. Pt was able to take 2 steps to HOB with Ax2 today. Transportation TBD. D/W pt at bedside, Dr. Silva, and bedside RN Daksha. CM will continue to follow. NASEEM VIRAMONTES RN-Rabbit Fancier - 08/02/2020 17:06 EST Electronically signed by Arash [facility] Conversion Demurrage Man Cerner at 10/04/2022 11:31 PM CDT documented in this encounter Plan of Treatment Not on file documented as of this encounter Visit Diagnoses Not on filedocumented in this encounter
--- OUTSIDE RECORDS SUMMARY | 2025-06-09 09:50 | XMS_ITS | Encounter Summary ---
Author Organization [employer] ([place], [place], [place], [place], [place]) Address [address] [place] [address] Care Team Providers Care Supervisor Money Room Name Role Phone Unavailable Primary Care Provider Unavailabl e Encounter Details Date Type Department Care Team (Late st Contact Info) Description 07/29/2020 Transcribed Document [facility] Family Medicine [facility] [place] [address] ProviderWarren MD [address] [place] [id number] Social History Tobacco Use Types Packs/Day Years Used Date Smoking Tobacco: Never Assessed Sex and Gender Information Value Date Recorded Sex Assigned at Male 12/16/2021 8:48 PM CDT Legal Sex Male 8:48 PM CDT Gender Identity Male 12/16/2021 8:48 PM CDT Sexual Orientation Not on file documented as of this encounter Miscellaneous Notes * Cerner Conversion Note - Historical ProviderMD - 07/29/2020 1:22 PM DIRECTOR GLOBAL MARKET RESEARCH Nutrition Assessment Entered On: 08/01/2020 11:22 EST Performed On: 08/01/2020 12:08 EST by Dione Quiñones Dietitian Nutrition Assessment Nutrition Assessment Reason : Automatic referral Dione Quiñones Dietitian - 08/01/2020 11:21 EST Nutrition Recommendations Dietitian Recommendations : 08/01: RD consult rec'd for BMI>40. 50yoM POD#1 thoracic laminectomy with fusion. Pt on regular diet-intakes are being established. No UWL reported. Noted pt with h/o IBS + diarrhea. Labs/meds reviewed. No skin breakdown (back midline incision noted). LBM-QUANTITATIVE CONSULTANT. Will rescreen in 3-5 days to check on PO intakes. Nutrition Care Level : No nutritional risk Dione Quiñones Dietitian - 08/01/2020 12:07 EST Electronically signed by Arash, [facility] Conversion Fixture Fabricator Repairer Cerner at 10/04/2022 11:31 PM CDT documented in this encounter Plan of Treatment Not on file documented as of this encounter Visit Diagnoses Not on filedocumented in this encounter
--- OUTSIDE RECORDS SUMMARY | 2025-06-09 09:50 | XMS_ITS | Encounter Summary ---
Author Organization [employer] ([place], [place], [place], [place], [place]) Address [address] [place] [address] Care Team Providers Care Leaf Sorter Name Role Phone Unavailable Primary Care Provider Unavailabl e Encounter Details Date Type Department Care Team (Late st Contact Info) Description 08/01/[address] [facility] Radiology [address] [place] [address] Jorge Lara MD [address] [place] [address] Social History Tobacco Use Types Packs/Day Years Used Date Smoking Tobacco: Never Assessed Sex and Gender Information Value Date Recorded Sex Assigned at Male 12/16/2021 8:48 PM CDT Legal Sex Male 8:48 PM CDT Gender Identity Male 12/16/2021 8:48 PM CDT Sexual Orientation Not on file documented as of this encounter Miscellaneous Notes * Cerner Conversion Note - Jorge Lara MD - 08/01/2020 10:35 AM EST Patient: CAROLYNN ACKERMAN Age: 50 years Sex: Male : 1970 Associated Diagnoses: None Author: NADJA CORDOVA APRN-DIANA 08/01/2020 cc: medical management s/p thoracic laminectomy with fusion per Dr. Sal S:patient is found lying quietly in bed. A/O. His is at bedside. Patient did not rest well last night due to pain. HR elevated today as well likely 2/2 pain. Appetite poor- ate a few bites of breakfast and lunch. Denies cough, dyspnea, fever/chills, n/v. Passing gas. Baeza intact- clear yellow urine. States had difficulty sitting up to bedside this morning with therapy. HPI: Patient is a 50 yo male admitted to [facility] per Dr. Sal for a thoracic laminectomy [...] solution 200 mg = 1 mL, IntraMuscular, [id number] Tylenol 8 Hour 650 mg oral tablet, [...] 24 hrs) Last Charted Minimum Maximum Temp 98.5 (AUG 01 04:13) 98.5 (AUG 01 04:13) 98.1 (JUL 31 17:28) Apical HR H 115 (JUL 31 15:10) H 115 (JUL 31 15:10) H 115 (JUL 31 15:10) Mon HR 112 (AUG 01 04:13) 100 (JUL 31 15:30) 118 (JUL 31 14:55) Resp Rate 16 (AUG 01 04:00) 14 (JUL 31 17:28) 18 (AUG 01 02:19) SBP H 154 (AUG 01 04:13) 97 (JUL 31 17:30) H 195 (JUL 31 15:05) DBP H 97 (AUG 01 04:13) L 49 (JUL 31 17:30) H 143 (JUL 31 15:05) MAP 118 (AUG 01 04:13) 51 (JUL 31 14:45) 165 (JUL 31 15:05) SpO2 L 93 (AUG 01 04:13) L 91 (JUL 31 14:50) 99 (JUL 31 15:15) General: [Alert and oriented, no acute distress]. [...] Results (Current Encounter/Past 24 Hours) Sodium Level 138 mmol/L 08/01/2020 04:36 Potassium Level 3.7 mmol/L 08/01/2020 04:36 Chloride Level 103 mmol/L 08/01/2020 04:36 Carbon Dioxide Level 30 mmol/L 08/01/2020 04:36 Anion Gap 9 08/01/2020 04:36 Blood Urea Nitrogen 14 mg/dL 08/01/2020 04:36 Glucose Level 152 mg/dL HI 08/01/2020 04:36 Calcium Level 8.1 mg/dL LOW 08/01/2020 04:36 Creatinine Level 1.00 mg/dL 08/01/2020 04:36 Cardiac Markers (Current Encounter/Past 24 Hours) No Cardiac Marker Results Found (Past 24 Hours) CBC Results (Current Encounter/Past 24 Hours) WBC 14.3 K/uL HI 08/01/2020 04:25 Hct 38.7 % LOW 08/01/2020 04:25 Hgb 12.3 g/dL LOW 08/01/2020 04:25 Platelet Count 161 K/uL LOW 08/01/2020 04:25 CMP Results (Current Encounter/Past 24 Hours) Creatinine Level 1.00 mg/dL 08/01/2020 04:36 Bun/Creatinine 14.0 08/01/2020 04:36 eGFR >60 mL/min/1.73m2 08/01/2020 04:36 eGFR NonAfrican >60 mL/min/1.73m2 08/01/2020 04:36 Sodium Level 138 mmol/L 08/01/2020 04:36 Potassium Level 3.7 mmol/L 08/01/2020 04:36 Chloride Level 103 mmol/L 08/01/2020 04:36 Carbon Dioxide Level 30 mmol/L 08/01/2020 04:36 Anion Gap 9 08/01/2020 04:36 Blood Urea Nitrogen 14 mg/dL 08/01/2020 04:36 Glucose Level 152 mg/dL HI 08/01/2020 04:36 Calcium Level 8.1 mg/dL LOW 08/01/2020 04:36 Coagulation Results (Current Encounter/Past 24 Hours) No Coagulation Results Found (Past 24 Hours) Creatinine Clearance (Current Encounter/Past 24 Hours) Creatinine Level 1.00 mg/dL 08/01/2020 04:36 Bun/Creatinine 14.0 08/01/2020 04:36 Estimated Creatinine Clearance 85.01 mL/Min 08/01/2020 04:36 Radiology Results (Last 48 hours) [id number] -- 07/31/2020 06:[address] in [place] (07/31/2020 13:30) Result: [...] agree with the above final transcribed report. Impression: advanced spondylolisthesis thoracic spine -s/p thoracic laminectomy with fusion per Dr. Sal at risk for sleep apnea obesity Hx HTN Hx IBS- diarrhea Hx silent GERD Plan: Seeking inpatient rehab at [facility] at discharge Monitor HTN; add PRN's, [...]
--- OUTSIDE RECORDS SUMMARY | 2025-06-09 09:50 | XMS_ITS | Encounter Summary ---
Author Organization [employer] ([place], [place], [place], [place], [place]) Address [address] [place] [address] Care Team Providers Care Hydrate Thickener Operator Name Role Phone Unavailable Primary Care Provider Unavailabl e Encounter Details Date Type Department Care Team (Late st Contact Info) Description 08/01/2020 Transcribed Document [facility] [place] [facility] [place] [address] ProviderWarren MD [facility] [place], [place] [id number] Social History Tobacco Use Types Packs/Day Years Used Date Smoking Tobacco: Never Assessed Sex and Gender Information Value Date Recorded Sex Assigned at Male 12/16/2021 8:48 PM CDT Legal Sex Male 8:48 PM CDT Gender Identity Male 12/16/2021 8:48 PM CDT Sexual Orientation Not on file documented as of this encounter Miscellaneous Notes * [employer]ner Conversion Note - Historical ProviderMD - 08/01/2020 4:54 PM PHYSICAL SCIENCE AIDE Initial Discharge Planning Entered On: 08/01/2020 16:58 EST Performed On: 08/01/2020 16:54 EST by NASEEM VIRAMONTES RN-Information Systems Security Analyst Initial Assessment I Previously Documented Living Environment : No qualifying data available. Living Situation : Home Patient Lives With : Adult Child/Children, Spouse Is the Patient a Caregiver at Home? : No Emergency Contact #1 : Annie Ackerman Emergency Contact #1 Emergency Contact #1 Relationship : Emergency Contact #2 : ` Emergency Contact #2 Phone Number : ` Emergency Contact #2 Relationship : ` Enter Doctors Name : ABENA DELGADILLO (REF) E Does Patient have PCP Listed? : Yes NASEEM VIRAMONTES RN-Information Systems Security Analyst - 08/01/2020 16:54 EST Initial Assessment II Sensory and Motor Deficits : None Current Home Treatments and Equipment : Bedside commode, Shower chair, Walker Does the Patient have a Floor to SNF Benefit? : No NASEEM VIRAMONTES RN-Information Systems Security Analyst - 08/01/2020 16:54 EST Discharge Needs I Anticipated Discharge Date : 08/03/2020 EST Anticipated Discharge To, CM : Rehabilitation Unit Current Home Treatment/Equipment : Current Home Treatment/Equipment No qualifying data available. Documentation Status Complete : Yes NASEEM VIRAMONTES RN-Information Systems Security Analyst - 08/01/2020 16:54 EST Discharge Needs II Professional Skilled Services : Professional Skilled Services No qualifying data available. Needs Assistance with Transportation : Maybe Discharge Options Discussed with Patient : Acute rehabilitation NASEEM VIRAMONTES RN-Information Systems Security Analyst - 08/01/2020 16:54 EST Narrative Note Narrative Note : 50yo male pt s/p T10-S1 posterolateral screw arthrodesis with iliac bolts, and T10-S1 lami. PT-pt is max assist x 3 for all bed mobility. They recommend rehab. Met with pt at bedside to discuss DCP. Pt already knew he would need rehab and chose [facility]. Informed Colleene and sent referral via Rodríguez. He will need a precert when able to do more with therapy and not needing 3 person assist. Transportation TBD. CM will follow. NASEEM VIRAMONTES RN-Information Systems Security Analyst - 08/01/2020 16:54 EST documented in this encounter Plan of Treatment Not on file documented as of this encounter Visit Diagnoses Not on filedocumented in this encounter
[2025-06-10 07:07] LABS: Testosterone,Total >1500 ng/dL (264-916)
== END 2025-06-08 23:59 | disposition home or self-care (01) ==
LOC: LAB.DROPOF 06-09 09:47
PROVIDERS: PCP Family Medicine; Visit Provider Family Medicine
DX: E34.9 Endocrine disorder, unspecified (principal); I10 Essential (primary) hypertension; Z12.5 Encounter for screening for malignant neoplasm of prostate
CPT/HCPCS: 80053; 80061; 84403; 85025; G0103